=== PATIENT | female | born 1940 | race African-American/Black ===

== ENCOUNTER 2016-12-22 18:52 | Emergency (ER) | payer MEDICARE, MEDICAID ==
[2016-12-22] MEDS ORDERED: ASPIRIN 81 MG TABLET, CHEWABLE PO ONE (18:54)
[2016-12-22] MEDS ORDERED: MAG HYDROX/AL HYDROX/SIMETH SUSP 30 ML UDCUP PO ONE (19:02)
[2016-12-22] MEDS ORDERED: METOCLOPRAMIDE HCL ORAL SOLN 10 MG/10 ML UDCUP PO ONE (19:02)
[2016-12-22] MEDS ORDERED: LIDOCAINE 2% VISCOUS SOLN 20 ML UDCUP PO ONE (19:02)
--- NOTE | 2016-12-22 19:04 | ER Document Report ---
ED General - General Stated Complaint: ABDOMINAL PAIN Mode of Arrival: Medic Information source: Patient Notes: 76-year-old female history of CABG gastric reflux presents with complaints of epigastric abdominal pain. Patient denies any chest pain notes it is tender to palpation. Patient notes she has had decreased appetite. Symptoms started one hour prior to arrival. Patient also notes for the past week she's been having some fluid in her lower extremities TRAVEL OUTSIDE OF THE [place] IN LAST 30 DAYS: No - HPI Onset: Other Onset/Duration: Persistent Quality of pain: Burning Severity: Mild Pain Level: 1 Associated symptoms: Leg swelling, Other Exacerbated by: Denies Relieved by: Denies Similar symptoms previously: Yes Recently seen / treated by doctor: Yes - Related Data Allergies/Adverse Reactions: No Known Allergies Allergy (Unverified 06/03/13 10:53) Past Medical History - Social History Smoking Status: Never Smoker Cigarette use (# per day): No Chew tobacco use (# tins/day): No Smoking Education Provided: No Family History: Reviewed & Not Pertinent - Past Medical History Cardiac Medical History: Reports: Hx Heart Attack, Hx Hypertension GI Medical History: Reports: Hx Gastroesophageal Reflux Disease Psychiatric Medical History: Reports: Hx Depression Past Surgical History: Reports: Hx Open Heart Surgery - Immunizations Hx Diphtheria, Pertussis, Tetanus Vaccination: Yes Review of Systems - Review of Systems Notes: REVIEW OF SYSTEMS: CONSTITUTIONAL : Denies fever, chills, or sweats. Denies recent illness. EENT: Denies eye, ear, throat, or mouth pain or symptoms. Denies nasal or sinus congestion or discharge. Denies throat, tongue, or mouth swelling or difficulty swallowing. CARDIOVASCULAR: Denies chest pain. Denies palpitations or racing or irregular heart beat. Denies ankle edema. RESPIRATORY: Denies cough, cold, or chest congestion. Denies shortness of breath, difficulty breathing, or wheezing. GASTROINTESTINAL: Admits to abdominal pain GENITOURINARY: Denies difficulty urinating, painful urination, burning, frequency, blood in urine, or discharge. FEMALE GENITOURINARY: Denies vaginal bleeding, heavy or abnormal periods, irregular periods. Denies vaginal discharge or odor. MUSCULOSKELETAL: Admits to lower extremity edema SKIN: Denies rash, lesions or sores. HEMATOLOGIC : Denies easy bruising or bleeding. LYMPHATIC: Denies swollen, enlarged glands. NEUROLOGICAL: Denies confusion or altered mental status. Denies passing out or loss of consciousness. Denies dizziness or lightheadedness. Denies headache. Denies weakness or paralysis or loss of use of either side. Denies problems with gait or speech. Denies sensory loss, numbness, or tingling. Denies seizures. PSYCHIATRIC: Denies anxiety or stress. Denies depression, suicidal ideation, or homicidal ideation. ALL OTHER SYSTEMS REVIEWED AND NEGATIVE. Dictation was performed using [employer] voice recognition software PHYSICAL EXAMINATION: GENERAL: Well-appearing, well-nourished and in no acute distress. HEAD: Atraumatic, normocephalic. EYES: Pupils equal round and reactive to light, extraocular movements intact, conjunctiva are normal. ENT: Nares patent, oropharynx clear without exudates. Moist mucous membranes. NECK: Normal range of motion, supple without lymphadenopathy LUNGS: Breath sounds clear to auscultation bilaterally and equal. No wheezes rales or rhonchi. HEART: Regular rate and rhythm without murmurs midline surgical incision ABDOMEN: Soft, tender in epigastric region with mild guarding Female : deferred Musculoskeletal: Normal range of motion, no pitting or edema. No cyanosis. NEUROLOGICAL: Cranial nerves grossly intact. Normal speech, normal gait. Normal sensory, motor exams PSYCH: Normal mood, normal affect. SKIN: Warm, Dry, normal turgor, no rashes or lesions noted. Physical Exam - Vital signs Vitals: Resp BP Pulse Ox 19 165/100 H 98 12/22/16 20:04 12/22/16 20:04 12/22/16 20:04 Course - Re-evaluation Re-evalutation: 12/22/16 19:03 Patient's pain is reproducible is located in the epigastric region. She'll be given a GI cocktail, CT of the abdomen pelvis has been ordered to rule out any intra-abdominal concerns. Given history of CABG EKG, cardiac enzymes have been ordered as well but this does not appear to be cardiac in nature 12/22/16 20:33 Patient notes GI cocktail has resolved her symptoms, she wishes to be discharged. I pleaded with her and family to stay for cardiac enzymes 12/22/16 23:14 Patient is insistent on leaving, she has approached me multiple times demanding discharge. CT noted no acute abnormality identified will discharge her at her request After performing a Medical Screening Examination, I estimate there is LOW risk for ACUTE APPENDICITIS, BOWEL OBSTRUCTION, ACUTE CHOLECYSTITIS, PERFORATED DIVERTICULITIS, INCARCERATED HERNIA, PANCREATITIS, PELVIC INFLAMMATORY DISEASE, PERFORATED ULCER, ECTOPIC , or TUBO-OVARIAN ABSCESS, thus I consider the discharge disposition reasonable. Also, there is no evidence or peritonitis , sepsis, or toxicity. I have reevaluated this patient multiple times and no significant life threatening changes are noted. The patient and I have discussed the diagnosis and risks, and we agree with discharging home with close follow-up with the understanding that symptoms and presentations can change. We also discussed returning to the Emergency Department immediately if new or worsening symptoms occur. We have discussed the symptoms which are most concerning (e.g., bloody stool, fever, changing or worsening pain, vomiting) that necessitate immediate return. - Vital Signs Vital signs: Temp Pulse Resp BP Pulse Ox 20 164/97 H 99 12/22/16 20:31 12/22/16 20:31 12/22/16 20:31 - Laboratory Result Diagrams: 12/22/16 20:00 12/22/16 20:00 Laboratory results interpreted by me: 12/22/16 12/22/16 20:00 20:00 MCV 100 H MCH 34.0 H Carbon Dioxide 21 L Creatinine 1.50 H Est GFR ( Amer) 41 L Est GFR (Non-Af Amer) 34 L Direct Bilirubin 0.5 H Total Protein 8.7 H - Diagnostic Test Radiology reviewed: Image reviewed, Reports reviewed Discharge - Discharge Clinical Impression: Epigastric abdominal pain Condition: Stable Disposition: HOME, SELF-CARE Instructions: Abdominal Pain ([facility]) Prescriptions: Famotidine [Pepcid 20 mg Tablet] 20 mg PO DAILY #30 tablet Referrals: ROSSY PITTMAN MD [Primary Care Provider] - Follow up tomorrow
[2016-12-22 20:18] LABS: ABSOLUTE LYMPHOCYTES (AUTO) 1.5 10^3/uL (0.5-4.7); ABSOLUTE MONOCYTES (AUTO) 0.5 10^3/uL (0.1-1.4); ABSOLUTE NEUT (AUTO) 6.2 10^3/uL (1.7-8.2); BASOPHILS % (AUTO) 0.6 % (0-2); EOSINOPHILS % (AUTO) 0.3 % (0-6); HEMATOCRIT 39.8 % (36.0-47.0); HEMOGLOBIN 13.5 g/dL (12.0-15.5); HGB HCT DIFFERENCE 0.7; LYMPHOCYTES % (AUTO) 18.7 % (13-45); MEAN CORPUSCULAR VOLUME 100 fl (80-97); MONOCYTES % (AUTO) 5.8 % (3-13); RED BLOOD COUNT 3.97 10^6/uL (3.72-5.28); RED CELL DISTRIBUTION WIDTH 13.4 % (11.5-14.0); SEGMENTED NEUTROPHILS % (AUTO) 74.6 % (42-78); WHITE BLOOD COUNT 8.2 10^3/uL (4.0-10.5)
[2016-12-22 20:37] LABS: ALANINE AMINOTRANSFERASE 27 U/L (9-52); ALBUMIN 4.7 g/dL (3.5-5.0); ALKALINE PHOSPHATASE 58 U/L (38-126); ANION GAP 18 (5-19); ASPARTATE AMINO TRANSFERASE 25 U/L (14-36); BILIRUBIN,DIRECT 0.5 mg/dL (0.0-0.4); BILIRUBIN,TOTAL 0.8 mg/dL (0.2-1.3); BLOOD UREA NITROGEN 15 mg/dL (7-20); CALCIUM 10.1 mg/dL (8.4-10.2); CARBON DIOXIDE 21 mmol/L (22-30); CHLORIDE 102 mmol/L (98-107); CREATINE KINASE 95 U/L (30-135); GLUCOSE 93 mg/dL (75-110); POTASSIUM 4.5 mmol/L (3.6-5.0); SODIUM 140.6 mmol/L (137-145); TOTAL PROTEIN 8.7 g/dL (6.3-8.2)
[2016-12-22 20:49] LABS: CREATINE KINASE MB 1.12 ng/mL (<4.55); TROPONIN I 0.016 ng/mL
[2016-12-22 23:40] VITALS: BP 150/90
--- NOTE | 2016-12-23 08:14 | EKG REPORT ---
SEVERITY:- ABNORMAL ECG - SINUS RHYTHM PROBABLE LEFT ATRIAL ABNORMALITY LEFT AXIS DEVIATION LOW VOLTAGE IN FRONTAL LEADS CONSIDER ANTERIOR INFARCT : Confirmed by: Brant Jacobo MD 23-Dec-2016 08:13:47
== END 2016-12-22 23:40 | disposition home or self-care (01) ==
LOC: ER 18:52
DX: R10.13 Epigastric pain (principal); R63.0 Anorexia; R60.0 Localized edema; I25.2 Old myocardial infarction; I10 Essential (primary) hypertension; Z87.19 Personal history of other diseases of the digestive system; Z95.1 Presence of aortocoronary bypass graft
CPT/HCPCS: 93005; 99285; 36415; 82553; 82550; 85025; 80053; 84484; 71010; 74177; 93010; J3490; A9270

== ENCOUNTER 2017-08-08 15:38 | Emergency (ER) | payer MEDICARE, MEDICAID ==
[2017-08-08] MEDS ORDERED: HYDROCODONE/ACETAMINOPHEN 5-325 MG TABLET PO ONE (16:24)
[2017-08-08] MEDS ORDERED: ONDANSETRON 4 MG TAB.RAPDIS PO ONE (16:24)
--- NOTE | 2017-08-08 16:24 | ER Document Report ---
ED Medical Screen (RME) - General Chief Complaint: Back Pain Stated Complaint: BACK PAIN Time Seen by Provider: 08/08/17 16:16 Notes: This 67-year-old female patient comes emergency room complaining of back pain which is chronic in nature but has worsened recently due to falling once in the past week and wants the week before. On 1 of those occasions she reportedly slipped on the floor all night because she could not get up. Her memory is not so good so we are not sure when that occurred. She does report she has had 3 MRIs of her back in the past. She does not know if this might be her kidney causing pain or her back muscles or bones. It does hurt when she coughs. I have greeted and performed a rapid initial assessment of this patient. A comprehensive ED assessment and evaluation of the patient, analysis of test results and completion of the medical decision making process will be conducted by additional ED providers. TRAVEL OUTSIDE OF THE [place] IN LAST 30 DAYS: No - Related Data Allergies/Adverse Reactions: No Known Allergies Allergy (Verified 08/08/17 15:38) Past Medical History - Past Medical History Cardiac Medical History: Reports: Hx Heart Attack, Hx Hypertension GI Medical History: Reports: Hx Gastroesophageal Reflux Disease Psychiatric Medical History: Reports: Hx Depression Past Surgical History: Reports: Hx Open Heart Surgery - Immunizations Hx Diphtheria, Pertussis, Tetanus Vaccination: Yes Physical Exam - Vital signs Vitals: Temp Pulse Resp BP Pulse Ox 98.0 F 100 24 H 128/91 H 95 08/08/17 16:00 08/08/17 16:00 08/08/17 16:00 08/08/17 16:00 08/08/17 16:00 Course - Vital Signs Vital signs: Temp Pulse Resp BP Pulse Ox 98.0 F 100 24 H 128/91 H 95 08/08/17 16:00 08/08/17 16:00 08/08/17 16:00 08/08/17 16:00 08/08/17 16:00
[2017-08-08 16:54] LABS: ABSOLUTE BASOPHILS # (AUTO) 0.1 10^3/uL (0.0-0.2); ABSOLUTE EOSINOPHILS # (AUTO) 0.1 10^3/uL (0.0-0.6); ABSOLUTE LYMPHOCYTES (AUTO) 1.6 10^3/uL (0.5-4.7); ABSOLUTE MONOCYTES (AUTO) 0.6 10^3/uL (0.1-1.4); ABSOLUTE NEUT (AUTO) 5.8 10^3/uL (1.7-8.2); BASOPHILS % (AUTO) 0.8 % (0-2); HEMATOCRIT 35.2 % (36.0-47.0); HEMOGLOBIN 12.2 g/dL (12.0-15.5); HGB HCT DIFFERENCE 1.4; LYMPHOCYTES % (AUTO) 19.6 % (13-45); MEAN CORPUSCULAR HEMOGLOBIN 34.3 pg (27.0-33.4); MEAN CORPUSCULAR HGB CONC 34.6 g/dL (32.0-36.0); MEAN CORPUSCULAR VOLUME 99 fl (80-97); MONOCYTES % (AUTO) 7.2 % (3-13); RED BLOOD COUNT 3.56 10^6/uL (3.72-5.28); RED CELL DISTRIBUTION WIDTH 13.6 % (11.5-14.0); SEGMENTED NEUTROPHILS % (AUTO) 71.4 % (42-78); WHITE BLOOD COUNT 8.2 10^3/uL (4.0-10.5)
--- NOTE | 2017-08-08 16:56 | ER Document Report ---
ED General - General Chief Complaint: Back Pain Stated Complaint: BACK PAIN Time Seen by Provider: 08/08/17 16:16 Mode of Arrival: Ambulatory Information source: Patient Notes: 77-year-old female presents with complaints of low back pain. Patient and family member note that she has had back pain for as long as they can remember, it is in bilateral hips. She denies any abdominal pain she denies any midline back pain. Patient denies any trauma denies any heavy lifting, she denies any neurological complaints, patient denies a history of aortic aneurysm Patient denies any urinary symptoms TRAVEL OUTSIDE OF THE [place] IN LAST 30 DAYS: No - HPI Onset: Other Onset/Duration: Intermittent Quality of pain: Achy Severity: Mild Pain Level: 1 Associated symptoms: Body/muscle aches Exacerbated by: Movement Relieved by: Denies Similar symptoms previously: Yes Recently seen / treated by doctor: Yes - Related Data Allergies/Adverse Reactions: No Known Allergies Allergy (Verified 08/08/17 15:38) Past Medical History - Social History Smoking Status: Current Every Day Smoker Cigarette use (# per day): Yes Chew tobacco use (# tins/day): No Smoking Education Provided: No Frequency of alcohol use: None Drug Abuse: None Family History: Reviewed & Not Pertinent Patient has suicidal ideation: No Patient has homicidal ideation: No - Past Medical History Cardiac Medical History: Reports: Hx Heart Attack, Hx Hypertension Renal/ Medical History: Denies: Hx Peritoneal Dialysis GI Medical History: Reports: Hx Gastroesophageal Reflux Disease Psychiatric Medical History: Reports: Hx Depression Past Surgical History: Reports: Hx Open Heart Surgery - Immunizations Hx Diphtheria, Pertussis, Tetanus Vaccination: Yes Review of Systems - Review of Systems Notes: REVIEW OF SYSTEMS: CONSTITUTIONAL : Denies fever, chills, or sweats. Denies recent illness. EENT: Denies eye, ear, throat, or mouth pain or symptoms. Denies nasal or sinus congestion or discharge. Denies throat, tongue, or mouth swelling or difficulty swallowing. CARDIOVASCULAR: Denies chest pain. Denies palpitations or racing or irregular heart beat. Denies ankle edema. RESPIRATORY: Denies cough, cold, or chest congestion. Denies shortness of breath, difficulty breathing, or wheezing. GASTROINTESTINAL: Denies abdominal pain or distention. Denies nausea, vomiting , or diarrhea. Denies blood in vomitus, stools, or per rectum. Denies black, tarry stools. Denies constipation. GENITOURINARY: Denies difficulty urinating, painful urination, burning, frequency, blood in urine, or discharge. FEMALE GENITOURINARY: Denies vaginal bleeding, heavy or abnormal periods, irregular periods. Denies vaginal discharge or odor. MUSCULOSKELETAL: admits ot bilateral hip pain SKIN: Denies rash, lesions or sores. HEMATOLOGIC : Denies easy bruising or bleeding. LYMPHATIC: Denies swollen, enlarged glands. NEUROLOGICAL: Denies confusion or altered mental status. Denies passing out or loss of consciousness. Denies dizziness or lightheadedness. Denies headache. Denies weakness or paralysis or loss of use of either side. Denies problems with gait or speech. Denies sensory loss, numbness, or tingling. Denies seizures. PSYCHIATRIC: Denies anxiety or stress. Denies depression, suicidal ideation, or homicidal ideation. ALL OTHER SYSTEMS REVIEWED AND NEGATIVE. PHYSICAL EXAMINATION: GENERAL: Well-appearing, well-nourished and in no acute distress. HEAD: Atraumatic, normocephalic. EYES: Pupils equal round and reactive to light, extraocular movements intact, conjunctiva are normal. ENT: Nares patent, oropharynx clear without exudates. Moist mucous membranes. NECK: Normal range of motion, supple without lymphadenopathy LUNGS: Breath sounds clear to auscultation bilaterally and equal. No wheezes rales or rhonchi. HEART: Regular rate and rhythm without murmurs ABDOMEN: Soft, nontender, nondistended abdomen. No guarding, no rebound. No masses appreciated. Female : deferred Musculoskeletal: Normal range of motion, no pitting or edema. No cyanosis. pt swiftly moves in and out of bed with no difficulty NEUROLOGICAL: Cranial nerves grossly intact. Normal speech, normal gait. Normal sensory, motor exams PSYCH: Normal mood, normal affect. SKIN: Warm, Dry, normal turgor, no rashes or lesions noted. Dictation was performed using [employer] voice recognition software Physical Exam - Vital signs Vitals: Temp Pulse Resp BP Pulse Ox 98.0 F 100 24 H 128/91 H 95 08/08/17 16:00 08/08/17 16:00 08/08/17 16:00 08/08/17 16:00 08/08/17 16:00 Course - Re-evaluation Re-evalutation: 08/08/17 18:17 pt has no back pain now, points ot bilateral hips, denies any abd pain, denies any urinary complaints, denies any midlight back pain. imaging pending. awaiting patients UA. 08/08/17 18:42 Patient is insisting that she be discharged prior to my further evaluation, I want to perform a CT but she states she must go home now, there is elevated creatinine and protein in her urine noted, I printed out these labs given to family member into the patient and insisted that the see the primary care physician tomorrow for further evaluation of this I will treat her with pain medication but they must be seen for this return immediately for any other concerns 08/08/17 23:10 After performing a Medical Screening Examination, I estimate there is LOW risk for EXPANDING OR RUPTURED ABDOMINAL AORTIC ANEURYSM, CAUDA EQUINA SYNDROME, EPIDURAL MASS LESION, or HERNIATED DISK CAUSING SEVERE SPINAL STENOSIS, thus I consider the discharge disposition reasonable. I have reevaluated this patient multiple times and no significant life threatening changes are noted. The patient and I have discussed the diagnosis and risks, and we agree with discharging home and close follow-up. We also discussed returning to the Emergency Department immediately if new or worsening symptoms occur with the understanding that symptoms and presentations can change. We have discussed the symptoms which are most concerning (e.g., saddle anesthesia, urinary or bowel incontinence or retention, changing or worsening pain) that necessitate immediate return. - Vital Signs Vital signs: Temp Pulse Resp BP Pulse Ox 98.0 F 98 18 148/98 H 98 08/08/17 18:50 08/08/17 18:50 08/08/17 18:50 08/08/17 18:50 08/08/17 18:50 - Laboratory Result Diagrams: 08/08/17 16:40 08/08/17 16:40 Laboratory results interpreted by me: 08/08/17 08/08/17 08/08/17 16:40 16:40 18:20 RBC 3.56 L Hct 35.2 L MCV 99 H MCH 34.3 H Creatinine 2.06 H Est GFR ( Amer) 28 L Est GFR (Non-Af Amer) 23 L Urine Protein >=500 H Urine Ascorbic Acid 40 H - Diagnostic Test Radiology reviewed: Image reviewed, Reports reviewed - No acute abnormality Discharge - Discharge Clinical Impression: Back pain Qualifiers: Back pain location: low back pain Chronicity: chronic Back pain laterality: bilateral Sciatica presence: without sciatica Qualified Code(s): M54.5 - Low back pain; G89.29 - Other chronic pain; G89.29 - Other chronic pain Chronic kidney disease Qualifiers: Chronic kidney disease stage: stage 2 (mild) Qualified Code(s): N18.2 - Chronic kidney disease, stage 2 (mild) Condition: Stable Disposition: HOME, SELF-CARE Instructions: Low Back Pain ([facility]) Additional Instructions: You must follow-up with your physician regarding her kidney function and protein in the urine. Return immediately if there are any other concerns Prescriptions: Hydrocodone/Acetaminophen [Finley 5-325 mg Tablet] 1 tab PO Q6 #10 tablet
[2017-08-08 17:13] LABS: ALANINE AMINOTRANSFERASE 33 U/L (9-52); ALBUMIN 4.1 g/dL (3.5-5.0); ALKALINE PHOSPHATASE 59 U/L (38-126); ANION GAP 15 (5-19); ASPARTATE AMINO TRANSFERASE 24 U/L (14-36); BILIRUBIN,DIRECT 0.3 mg/dL (0.0-0.4); BILIRUBIN,TOTAL 0.5 mg/dL (0.2-1.3); BLOOD UREA NITROGEN 16 mg/dL (7-20); CALCIUM 9.8 mg/dL (8.4-10.2); CARBON DIOXIDE 23 mmol/L (22-30); CHLORIDE 102 mmol/L (98-107); CREATINE KINASE 69 U/L (30-135); CREATININE RESULT 2.06 mg/dL (0.52-1.25); GLUCOSE 84 mg/dL (75-110); POTASSIUM 4.5 mmol/L (3.6-5.0); SODIUM 140.1 mmol/L (137-145); TOTAL PROTEIN 7.6 g/dL (6.3-8.2)
--- NOTE | 2017-08-08 18:17 | RADIOLOGY REPORT (SQ) ---
EXAM DESCRIPTION: L SPINE WHOLE; T SPINE AP/LAT COMPLETED DATE/TIME: 08/08/2017 5:05 pm REASON FOR STUDY: fall x 2, worse back pain COMPARISON: See below. FINDINGS: Two view thoracic spine: No priors. Osteopenia. Normal alignment. No fracture. Postop erative mediastinal changes. Clear visualized lungs. Five view lumbosacral spine: 2013 comparison. Osteopenia and mild spondylosis but no significant mal alignment or fracture. IMPRESSION: 1. No radiographic evidence of thoracic or lumbar spine fracture. Osteopenia. TECHNICAL DOCUMENTATION: JOB ID: [id number]
[2017-08-08 18:36] LABS: APPEARANCE,URINE SLIGHTLY-CLOUDY; BILIRUBIN,URINE NEGATIVE (NEGATIVE); GLUCOSE, URINE NEGATIVE (NEGATIVE); KETONES,URINE NEGATIVE (NEGATIVE); LEUKOCYTE ESTERASE,URINE NEGATIVE (NEGATIVE); NITRITE,URINE NEGATIVE (NEGATIVE); PROTEIN,URINE >=500 mg/dL (NEGATIVE); URINE SPECIFIC GRAVITY 1.025; UROBILINOGEN,URINE NEGATIVE mg/dL (<2.0)
[2017-08-08 19:00] VITALS: BP 148/98
== END 2017-08-08 19:00 | disposition home or self-care (01) ==
LOC: ER 15:38
DX: N18.2 Chronic kidney disease, stage 2 (mild) (principal); M54.5 Low back pain; G89.29 Other chronic pain; M25.551 Pain in right hip; M25.552 Pain in left hip; F17.210 Nicotine dependence, cigarettes, uncomplicated
CPT/HCPCS: 99283; 36415; 82550; 85025; 80053; 81001; 72110; 72070; A9270 ×2; S0119

== ENCOUNTER 2018-04-26 09:51 | Emergency (ER) | payer MEDICARE, MEDICAID ==
--- NOTE | 2018-04-26 10:37 | ER Document Report ---
HPI - HPI Patient complains to provider of: No full BM for a week Onset: Last week Onset/Duration: Persistent Pain Level: 3 Context: 78-year-old female that lives alone is complaining of having small round stool balls which he takes her diaper off that she wears since last week. She also states that something hung out of her anus and she had to push it back in. She is oriented but very ornery in her demeanor. She knows her medications and what she takes she knows her physicians she sees Dr. Tolliver for her renal insufficiency, Dr. 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 Associated Symptoms: Nausea - no vomiting Exacerbated by: Denies Relieved by: Denies Similar symptoms previously: Yes Recently seen / treated by doctor: No - ROS ROS below otherwise negative: Yes Systems Reviewed and Negative: Yes All other systems reviewed and negative - GASTROINTESTINAL Gastrointestinal: REPORTS: Abdominal Pain - REPRODUCTIVE Reproductive: DENIES: : Past Medical History - General Information source: Patient - Social History Smoking Status: Current Every Day Smoker Family History: Reviewed & Not Pertinent Patient has suicidal ideation: No Patient has homicidal ideation: No - Past Medical History Cardiac Medical History: Reports: Hx Heart Attack, Hx Hypertension Renal/ Medical History: Denies: Hx Peritoneal Dialysis GI Medical History: Reports: Hx Gastroesophageal Reflux Disease Psychiatric Medical History: Reports: Hx Depression Past Surgical History: Reports: Hx Open Heart Surgery - Immunizations Hx Diphtheria, Pertussis, Tetanus Vaccination: Yes Vertical Provider Document - CONSTITUTIONAL Agree With Documented VS: Yes Exam Limitations: No Limitations General Appearance: No Apparent Distress - INFECTION CONTROL TRAVEL OUTSIDE OF THE [place] IN LAST 30 DAYS: No - HEENT HEENT: Normal ENT Exam - NECK Neck: Supple - RESPIRATORY Respiratory: Breath Sounds Normal, No Respiratory Distress - CARDIOVASCULAR Cardiovascular: Regular Rate, Regular Rhythm - GI/ABDOMEN Gastrointestinal: Abdomen Soft, Abdomen Non-Tender, No Organomegaly, Normal Bowel Sounds Notes: rectal exam without prolapse, small non tender hemorrhoids, no stool in vault. - MUSCULOSKELETAL/EXTREMETIES Musculoskeletal/Extremeties: MAEW - NEURO Level of Consciousness: Awake - DERM Integumentary: No Rash Course - Re-evaluation Re-evalutation: 04/26/18 11:48 I tried to call Ryanne Kruse it is listed on her demographics at [phone] and there was no answer I left a message. I was trying to get some background information because of her irritability. 04/26/18 11:49 04/26/18 13:26 Labs have no significant change BUN and creatinine are actually better than the last time she was here. She is waiting for discharge paperwork, her boyfriend is here and he states that she does get ornery. That behavior is normal for her. I will have her follow-up with Dr. Vargas and start taking MiraLAX. - Vital Signs Vital signs: Temp Pulse Resp BP Pulse Ox 98.4 F 81 16 148/92 H 97 04/26/18 09:59 04/26/18 09:59 04/26/18 09:59 04/26/18 09:59 04/26/18 09:59 - Laboratory Result Diagrams: 04/26/18 12:03 04/26/18 12:03 Discharge - Discharge Clinical Impression: small anal hemorrhoids, History of constipation Condition: Good Disposition: HOME, SELF-CARE Instructions: Constipation ([facility]), Laxative ([facility]) Additional Instructions: 1 capful of miralax daily with 8 ounce of water will keep the stool softer schedule appointment with dr. vargas for follow up return to the ER if symptoms worsen
--- NOTE | 2018-04-26 12:03 | RADIOLOGY REPORT (SQ) ---
EXAM DESCRIPTION: ACUTE ABDOMEN SERIES COMPLETED DATE/TIME: 04/26/2018 11:29 am REASON FOR STUDY: no bm for a week COMPARISON: Chest x-ray dated 12/22/2016. NUMBER OF VIEWS: Three views. TECHNIQUE: Frontal chest, supine abdomen and upright/decubitus abdomen radiographic images acquired. LIMITATIONS: None. FINDINGS: CHEST: Hyperinflation. Mild cardiomegaly. Ectatic aorta. Lungs clear of infiltrates. FREE AIR: None. No abnormal gas collections. BOWEL GAS PATTERN: Nonobstructive pattern. Scattered stool throughout the colon. No dilated loops o r air fluid levels. CALCIFICATIONS: No suspicious calcifications. HARDWARE: None in the abdomen. Sternotomy wires in the chest. SOFT TISSUES: No gross mass or suggestion of organomegaly. BONES: No acute fracture. No worrisome bone lesions. OTHER: No other significant finding. IMPRESSION: NO RADIOGRAPHIC EVIDENCE FOR ACUTE ABDOMINAL DISEASE. SCATTERED STOOL THROUGHOUT THE CO TORRI. TECHNICAL DOCUMENTATION: JOB ID: [id number] [employer]- All Rights Reserved Reading location - IP/workstation name: [email or web address]
[2018-04-26 12:39] LABS: ABSOLUTE BASOPHILS # (AUTO) 0.1 10^3/uL (0.0-0.2); ABSOLUTE LYMPHOCYTES (AUTO) 1.6 10^3/uL (0.5-4.7); ABSOLUTE MONOCYTES (AUTO) 0.7 10^3/uL (0.1-1.4); ABSOLUTE NEUT (AUTO) 7.1 10^3/uL (1.7-8.2); BASOPHILS % (AUTO) 0.7 % (0-2); EOSINOPHILS % (AUTO) 0.5 % (0-6); HEMATOCRIT 36.7 % (36.0-47.0); HEMOGLOBIN 12.4 g/dL (12.0-15.5); LYMPHOCYTES % (AUTO) 16.9 % (13-45); MEAN CORPUSCULAR HEMOGLOBIN 34.2 pg (27.0-33.4); MEAN CORPUSCULAR HGB CONC 33.7 g/dL (32.0-36.0); MEAN CORPUSCULAR VOLUME 101 fl (80-97); MONOCYTES % (AUTO) 7.2 % (3-13); PLATELET COUNT 237 10^3/uL (150-450); RED BLOOD COUNT 3.62 10^6/uL (3.72-5.28); RED CELL DISTRIBUTION WIDTH 16.4 % (11.5-14.0); SEGMENTED NEUTROPHILS % (AUTO) 74.7 % (42-78); TOTAL CELLS COUNTED % (AUTO) 100 %; WHITE BLOOD COUNT 9.4 10^3/uL (4.0-10.5)
[2018-04-26 13:08] LABS: ALANINE AMINOTRANSFERASE 13 U/L (9-52); ALBUMIN 4.6 g/dL (3.5-5.0); ALKALINE PHOSPHATASE 61 U/L (38-126); ANION GAP 13 (5-19); ASPARTATE AMINO TRANSFERASE 26 U/L (14-36); BILIRUBIN,DIRECT 0.5 mg/dL (0.0-0.4); BILIRUBIN,TOTAL 0.5 mg/dL (0.2-1.3); BLOOD UREA NITROGEN 20 mg/dL (7-20); CARBON DIOXIDE 21 mmol/L (22-30); CHLORIDE 109 mmol/L (98-107); GLUCOSE 90 mg/dL (75-110); POTASSIUM 4.5 mmol/L (3.6-5.0); SODIUM 143.4 mmol/L (137-145); TOTAL PROTEIN 8.7 g/dL (6.3-8.2)
[2018-04-26 13:42] VITALS: BP 189/103
== END 2018-04-26 13:42 | disposition home or self-care (01) ==
LOC: ER 09:51
DX: K59.00 Constipation, unspecified (principal); K64.4 Residual hemorrhoidal skin tags
CPT/HCPCS: 36415; 74022; 80053; 85025; 99284

== ENCOUNTER 2018-05-04 15:06 | Emergency (ER) | payer MEDICARE, MEDICAID ==
[2018-05-04 15:14] VITALS: BP 159/89
--- NOTE | 2018-05-04 15:40 | ER Document Report ---
ED Medical Screen (RME) - General Chief Complaint: Rectal Bleeding Stated Complaint: RECTAL BLEEDING Time Seen by Provider: 05/04/18 15:38 Mode of Arrival: Ambulatory Information source: Patient Notes: 78 yo female with her neice c/o rectal bleeding a few days ago, like a big knot that busted open red blood. Wants to be xray'd, examine rectum about where the blood is coming from. TRAVEL OUTSIDE OF THE [place] IN LAST 30 DAYS: No COUNTRY TRAVELED TO/FROM: [place] - Related Data Allergies/Adverse Reactions: No Known Allergies Allergy (Verified 05/04/18 15:08) Past Medical History - Past Medical History Cardiac Medical History: Reports: Hx Heart Attack, Hx Hypertension Renal/ Medical History: Denies: Hx Peritoneal Dialysis GI Medical History: Reports: Hx Gastroesophageal Reflux Disease Psychiatric Medical History: Reports: Hx Depression Past Surgical History: Reports: Hx Open Heart Surgery - Immunizations Hx Diphtheria, Pertussis, Tetanus Vaccination: Yes Physical Exam - Vital signs Vitals: Temp Pulse Resp BP Pulse Ox 97.5 F 95 18 159/89 H 99 05/04/18 15:11 05/04/18 15:11 05/04/18 15:11 05/04/18 15:11 05/04/18 15:11 Course - Vital Signs Vital signs: Temp Pulse Resp BP Pulse Ox 97.5 F 95 18 159/89 H 99 05/04/18 15:11 05/04/18 15:11 05/04/18 15:11 05/04/18 15:11 05/04/18 15:11
[2018-05-04 16:27] LABS: ABSOLUTE BASOPHILS # (AUTO) 0.1 10^3/uL (0.0-0.2); ABSOLUTE MONOCYTES (AUTO) 0.7 10^3/uL (0.1-1.4); ABSOLUTE NEUT (AUTO) 6.2 10^3/uL (1.7-8.2); BASOPHILS % (AUTO) 0.6 % (0-2); EOSINOPHILS % (AUTO) 0.2 % (0-6); HEMATOCRIT 35.8 % (36.0-47.0); HEMOGLOBIN 11.8 g/dL (12.0-15.5); LYMPHOCYTES % (AUTO) 12.1 % (13-45); MEAN CORPUSCULAR HEMOGLOBIN 33.5 pg (27.0-33.4); MEAN CORPUSCULAR VOLUME 101 fl (80-97); MONOCYTES % (AUTO) 8.4 % (3-13); PLATELET COUNT 213 10^3/uL (150-450); RED BLOOD COUNT 3.54 10^6/uL (3.72-5.28); RED CELL DISTRIBUTION WIDTH 15.5 % (11.5-14.0); SEGMENTED NEUTROPHILS % (AUTO) 78.7 % (42-78); TOTAL CELLS COUNTED % (AUTO) 100 %; WHITE BLOOD COUNT 7.9 10^3/uL (4.0-10.5)
[2018-05-04 16:43] LABS: ALANINE AMINOTRANSFERASE 24 U/L (9-52); ALBUMIN 4.3 g/dL (3.5-5.0); ALKALINE PHOSPHATASE 53 U/L (38-126); ANION GAP 11 (5-19); ASPARTATE AMINO TRANSFERASE 27 U/L (14-36); BILIRUBIN,DIRECT 0.6 mg/dL (0.0-0.4); BILIRUBIN,TOTAL 0.6 mg/dL (0.2-1.3); BLOOD UREA NITROGEN 23 mg/dL (7-20); CALCIUM 9.3 mg/dL (8.4-10.2); CARBON DIOXIDE 18 mmol/L (22-30); CHLORIDE 110 mmol/L (98-107); GLUCOSE 89 mg/dL (75-110); POTASSIUM 4.8 mmol/L (3.6-5.0); SODIUM 138.9 mmol/L (137-145); TOTAL PROTEIN 8.1 g/dL (6.3-8.2)
[2018-05-04 16:50] LABS: PARTIAL THROMBOPLASTIN TIME 30.1 SEC (23.5-35.8); PROTHROMBIN TIME 14.8 SEC (11.4-15.4)
--- NOTE | 2018-05-04 18:33 | ER Document Report ---
ED General - General Chief Complaint: Rectal Bleeding Stated Complaint: RECTAL BLEEDING Time Seen by Provider: 05/04/18 15:38 Mode of Arrival: Ambulatory Notes: Patient is a 78-year-old female who presents with complaints of rectal bleeding. The patient is quite agitated on initial assessment, initially quite difficult to calm her down enough to allow appropriate assessment. She states the past 3-4 days she has had a small amount of blood mixed within her stool. Family member at the bedside notes that the patient was recently seen in the emergency department for severe constipation and was started on MiraLAX but did not continue to take this. She has a history of hemorrhoidal bleeding in the past. She has not seen her primary care doctor regarding today's concerns. She denies any lightheadedness, syncope, weakness, numbness or abdominal pain. She does not take any form of anticoagulation but does take daily aspirin. No rectal trauma. She denies anything is new or different regarding her symptoms today that prompted a visit to the emergency department. TRAVEL OUTSIDE OF THE [place] IN LAST 30 DAYS: No COUNTRY TRAVELED TO/FROM: [place] - Related Data Allergies/Adverse Reactions: No Known Allergies Allergy (Verified 05/04/18 15:08) Past Medical History - General Information source: Patient - Social History Smoking Status: Never Smoker Frequency of alcohol use: None Drug Abuse: None Lives with: Family Family History: Reviewed & Not Pertinent Patient has suicidal ideation: No Patient has homicidal ideation: No - Past Medical History Cardiac Medical History: Reports: Hx Heart Attack, Hx Hypertension Renal/ Medical History: Denies: Hx Peritoneal Dialysis GI Medical History: Reports: Hx Gastroesophageal Reflux Disease Psychiatric Medical History: Reports: Hx Depression Past Surgical History: Reports: Hx Open Heart Surgery - Immunizations Hx Diphtheria, Pertussis, Tetanus Vaccination: Yes Review of Systems - Review of Systems Notes: Constitutional: Negative for fever. HENT: Negative for sore throat. Eyes: Negative for visual changes. Cardiovascular: Negative for chest pain. Respiratory: Negative for shortness of breath. Gastrointestinal: Positive for rectal bleeding Genitourinary: Negative for dysuria. Musculoskeletal: Negative for back pain. Skin: Negative for rash. Neurological: Negative for headaches, weakness or numbness. 10 point ROS negative except as marked above and in HPI. Physical Exam - Vital signs Vitals: Temp Pulse Resp BP Pulse Ox 97.5 F 95 18 159/89 H 99 05/04/18 15:11 05/04/18 15:11 05/04/18 15:11 05/04/18 15:11 05/04/18 15:11 Interpretation: Hypertensive Notes: PHYSICAL EXAMINATION: GENERAL: Well-appearing, well-nourished and in no acute distress. HEAD: Atraumatic, normocephalic. EYES: Pupils equal round and reactive to light, extraocular movements intact, sclera anicteric, conjunctiva are normal. ENT: nares patent, oropharynx clear without exudates. Moist mucous membranes. NECK: Normal range of motion, supple without lymphadenopathy LUNGS: Breath sounds clear to auscultation bilaterally and equal. No wheezes rales or rhonchi. HEART: Regular rate and rhythm without murmurs ABDOMEN: Soft, nontender, normoactive bowel sounds. No guarding, no rebound. No masses appreciated. Rectal: Small external hemorrhoids, no gross blood EXTREMITIES: Normal range of motion, no pitting or edema. No cyanosis. NEUROLOGICAL: No focal neurological deficits. Moves all extremities spontaneously and on command. PSYCH: Somewhat agitated SKIN: Warm, Dry, normal turgor, no rashes or lesions noted. Course - Re-evaluation Re-evalutation: 05/04/18 18:30 Presentation is most consistent with uncomplicated external hemorrhoids. No evidence of significant anemia on CBC. Hemoglobin changed by 0.4 from 8 days ago, a clinically insignificant change. Patient's abdominal exam is otherwise benign. Rectal examination without any active bleeding. I do not suspect a more significant lower GI bleed or upper GI bleed based on history, vitals, normal hemoglobin, and patient's overall well appearance. The patient will be discharged home on conservative treatment recommendations as well as recommendations for close outpatient follow-up. Return precautions have been reviewed. - Vital Signs Vital signs: Temp Pulse Resp BP Pulse Ox 97.5 F 95 19 159/89 H 99 05/04/18 15:11 05/04/18 15:11 05/04/18 18:00 05/04/18 15:11 05/04/18 15:11 - Laboratory Result Diagrams: 05/04/18 16:13 05/04/18 16:13 Laboratory results interpreted by me: 05/04/18 05/04/18 16:13 16:13 RBC 3.54 L Hgb 11.8 L Hct 35.8 L MCV 101 H MCH 33.5 H RDW 15.5 H Seg Neutrophils % 78.7 H Lymphocytes % 12.1 L Chloride 110 H Carbon Dioxide 18 L BUN 23 H Creatinine 1.68 H Est GFR ( Amer) 36 L Est GFR (Non-Af Amer) 30 L Direct Bilirubin 0.6 H Discharge - Discharge Clinical Impression: Internal bleeding hemorrhoids Constipation Qualifiers: Constipation type: unspecified constipation type Qualified Code(s): K59.00 - Constipation, unspecified Condition: Good Disposition: HOME, SELF-CARE Additional Instructions: You were seen today for hemorrhoids. The best treatment is to avoid straining while having bowel moments, avoiding heavy lifting, or any other activity that causes you to bear down forcefully. You need to make sure that your stools are soft and should start taking Docusate 200mg in the morning and at night until your stools are very soft and you can have a bowel movement without any straining. You can also soak in warm water, apply topical hemorrhoid cream that can be purchased at the store, and take tylenol or ibuprofen per box instructions as needed for pain. Please follow-up with your primary doctor. Return if you begin to have persistent bleeding, worsening pain, abdominal pain , fever >101, or any other symptoms that are concerning to you.
== END 2018-05-04 18:48 | disposition home or self-care (01) ==
LOC: ER 15:06
DX: K64.8 Other hemorrhoids (principal); K59.00 Constipation, unspecified
CPT/HCPCS: 36415; 80053; 85025; 85610; 85730; 99283

== ENCOUNTER 2018-08-05 09:25 | Emergency (ER) | payer MEDICARE, MEDICAID ==
[2018-08-05] MEDS ORDERED: NORMAL SALINE 1000 ML 1,000 ML IV ONE (10:10)
--- NOTE | 2018-08-05 10:15 | ER Document Report ---
ED GI/ - General Chief Complaint: Abdominal Pain Stated Complaint: CONSTIPATION Time Seen by Provider: 08/05/18 09:42 Notes: 78-year-old female with past medical history as recorded who presents with a sister secondary to 5 days of no bowel movement. History of constipation. She states pain to the rectum. She denies any abdominal pain, fevers, vomiting, or other reviews of systems. She denies any new medications or any narcotic medications. TRAVEL OUTSIDE OF THE [place] IN LAST 30 DAYS: No COUNTRY TRAVELED TO/FROM: [facility] Patient complains to provider of: Other - Constipation Onset: Other - 4 Severity at maximum: Moderate Severity in ED: Moderate Pain Level: 2 Location: Other - See above Sexual history: Inactive Associated symptoms: Other - See above Exacerbated by: Denies Relieved by: Denies Similar symptoms previously: Yes Recently seen / treated by doctor: No - Related Data Allergies/Adverse Reactions: No Known Allergies Allergy (Verified 05/04/18 15:08) Past Medical History - Social History Smoking Status: Unknown if Ever Smoked Family History: Reviewed & Not Pertinent - Past Medical History Cardiac Medical History: Reports: Hx Heart Attack, Hx Hypertension Renal/ Medical History: Denies: Hx Peritoneal Dialysis GI Medical History: Reports: Hx Gastroesophageal Reflux Disease Psychiatric Medical History: Reports: Hx Depression Past Surgical History: Reports: Hx Open Heart Surgery - Immunizations Hx Diphtheria, Pertussis, Tetanus Vaccination: Yes Review of Systems - Review of Systems Constitutional: denies: Fever EENT: denies: Eye discharge, Nose discharge Respiratory: denies: Short of breath Gastrointestinal: denies: Vomiting Genitourinary: denies: Dysuria Musculoskeletal: denies: Leg swelling Skin: Other - no hives. denies: Rash Neurological/Psychological: Other - no slurred speech -: Yes All other systems reviewed and negative Physical Exam - Vital signs Notes: Reviewed vital signs and nursing note as charted by RN. CONSTITUTIONAL: Alert and oriented and responds appropriately to questions. Well -appearing; well-nourished HEAD: Normocephalic; atraumatic EYES: Sclerae non-icteric ENT: Normal nose; no rhinorrhea; moist mucous membranes CARD: Regular rate and rhythm; no murmurs; symmetric distal pulses RESP: Normal chest excursion without splinting or tachypnea; breath sounds clear and equal bilaterally ABD/GI: Normal bowel sounds; non-distended; soft, patient does have some suprapubic fullness without tenderness, palpable masses, or abdominal bruits GI/: Patient has obvious fecal impaction with a large stool burden/bolus BACK: The back appears normal and is non-tender to palpation EXT: Normal ROM in all joints; non-tender to palpation; no edema SKIN: No acute lesions noted NEURO: CN 2-12 intact; 5/5 bilateral upper and lower extremity strength with sensation intact to light touch PSYCH: The patient's mood and manner are appropriate. Grooming and personal hygiene are appropriate. Course - Re-evaluation Re-evalutation: 08/05/18 10:14 With the patient's verbal consent I did perform a procedure of manual disimpaction with the patient laying on the left lateral decubitus with her knees to her chest. A very large stool removal was performed that was light brown in color without blood. I will provide a liter of fluid and obtain basic laboratory values as well as an x-ray three-way of the abdomen to make sure the patient has no obvious volvulus or other pathology causing the constipation. Patient feels much relief. 08/05/18 10:53 Patient's pain is still improved. After reviewing the patient's medication list it does appear that the patient takes Vicodin. I have discussed this with the patient and the sister that this may cause severe constipation especially in an elderly patient. 08/05/18 11:24 Labs as recorded. 500 cc have been provided. Patient's pain is improved. Three-way x-ray of the abdomen shows no obvious obstruction or volvulus. Given the above history and physical examination I provided strict return precautions and instructions regarding follow-up with the primary care physician about the Vicodin. Patient and sister understand these instructions. - Laboratory Result Diagrams: 08/05/18 10:40 08/05/18 10:40 Laboratory results interpreted by me: 08/05/18 08/05/18 10:40 10:40 RBC 3.36 L Hgb 11.4 L Hct 33.7 L MCV 100 H MCH 33.8 H RDW 14.6 H Seg Neutrophils % 81.5 H Lymphocytes % 11.8 L Creatinine 1.31 H Est GFR ( Amer) 48 L Est GFR (Non-Af Amer) 39 L Discharge - Discharge Clinical Impression: Fecal impaction in rectum Condition: Good Disposition: HOME, SELF-CARE Additional Instructions: Comeback immediately for any abdominal pain, fevers, vomiting, or any other acute problems. Please remember what we have discussed about the Vicodin medication and please follow-up with your primary care physician.
[2018-08-05 10:47] LABS: ABSOLUTE EOSINOPHILS # (AUTO) 0.1 10^3/uL (0.0-0.6); ABSOLUTE LYMPHOCYTES (AUTO) 1.1 10^3/uL (0.5-4.7); ABSOLUTE MONOCYTES (AUTO) 0.5 10^3/uL (0.1-1.4); ABSOLUTE NEUT (AUTO) 7.5 10^3/uL (1.7-8.2); BASOPHILS % (AUTO) 0.2 % (0-2); EOSINOPHILS % (AUTO) 0.9 % (0-6); HEMATOCRIT 33.7 % (36.0-47.0); HEMOGLOBIN 11.4 g/dL (12.0-15.5); LYMPHOCYTES % (AUTO) 11.8 % (13-45); MEAN CORPUSCULAR HEMOGLOBIN 33.8 pg (27.0-33.4); MEAN CORPUSCULAR HGB CONC 33.8 g/dL (32.0-36.0); MEAN CORPUSCULAR VOLUME 100 fl (80-97); MONOCYTES % (AUTO) 5.6 % (3-13); PLATELET COUNT 217 10^3/uL (150-450); RED BLOOD COUNT 3.36 10^6/uL (3.72-5.28); RED CELL DISTRIBUTION WIDTH 14.6 % (11.5-14.0); SEGMENTED NEUTROPHILS % (AUTO) 81.5 % (42-78); TOTAL CELLS COUNTED % (AUTO) 100 %; WHITE BLOOD COUNT 9.2 10^3/uL (4.0-10.5)
[2018-08-05 11:03] LABS: ANION GAP 12 (5-19); BLOOD UREA NITROGEN 19 mg/dL (7-20); CALCIUM 9.2 mg/dL (8.4-10.2); CARBON DIOXIDE 24 mmol/L (22-30); CHLORIDE 107 mmol/L (98-107); GLUCOSE 84 mg/dL (75-110); POTASSIUM 3.9 mmol/L (3.6-5.0); SODIUM 142.9 mmol/L (137-145)
--- NOTE | 2018-08-05 11:51 | RADIOLOGY REPORT (SQ) ---
EXAM DESCRIPTION: ACUTE ABDOMEN SERIES COMPLETED DATE/TIME: 08/05/2018 11:22 am REASON FOR STUDY: 2, impaction COMPARISON: None. NUMBER OF VIEWS: Three views. TECHNIQUE: PA chest, supine abdomen and upright/decubitus abdomen radiographic images acquired. LIMITATIONS: None. FINDINGS: CHEST: Lungs clear of infiltrates. FREE AIR: None. No abnormal gas collections. BOWEL GAS PATTERN: Few scattered small bowel loops with air fluid levels. No distended large or small bowel loops. CALCIFICATIONS: No suspicious calcifications. HARDWARE: None in the abdomen. SOFT TISSUES: No gross mass or suggestion of organomegaly. BONES: No acute fracture. No worrisome bone lesions. OTHER: No other significant finding. IMPRESSION: NONSPECIFIC BOWEL GAS PATTERN WITHOUT EVIDENCE FOR OBSTRUCTION. TECHNICAL DOCUMENTATION: JOB ID: [id number] [employer]- All Rights Reserved Reading location - IP/workstation name: [email or web address]
== END 2018-08-05 12:16 | disposition home or self-care (01) ==
LOC: ER 09:25
DX: K56.41 Fecal impaction (principal); R10.9 Unspecified abdominal pain; I25.2 Old myocardial infarction; I10 Essential (primary) hypertension
CPT/HCPCS: 99284; 36415; 85025; 80048; 74022; J7030

== ENCOUNTER 2018-10-06 11:29 | Emergency (ER) | payer MEDICARE, MEDICAID ==
--- NOTE | 2018-10-06 12:05 | ER Document Report ---
ED General - General Chief Complaint: Pedal Edema Stated Complaint: SWELLING LOWER EXTREMITIES Time Seen by Provider: 10/06/18 11:50 TRAVEL OUTSIDE OF THE [place] IN LAST 30 DAYS: No COUNTRY TRAVELED TO/FROM: [facility] Notes: Patient is a 78-year-old female with a history of open heart surgery and chronic kidney disease who presents to the emergency department by EMS with primary concern of bilateral lower extremity edema increasing over the last couple days. Patient states that she has had edema issues over the last month and is not on any fluid pills that she is aware of. Patient states that she feels well otherwise and is eating and drinking without difficulty. She is urinating normally and having normal bowel movements. EMS reports states that she did have a fall this morning after losing her balance when she was walking and hit her head without loss of consciousness or evidence of trauma. Patient states that she does not have any associated pain or discomfort to her head or neck. Denies drug allergies. She takes aspirin daily but no other blood thinners. No other concerns or complaints. Denies any headache, fever, neck pain, changes in vision/speech/mentation/hearing, URI, sore throat, chest pain, palpitations, syncope, cough, shortness of breath, wheeze, dyspnea, abdominal pain, nausea/vomiting/diarrhea, urinary retention, dysuria, hematuria, loss of control of bowel or bladder, numbness/tingling, saddle anesthesia, muscle paralysis/weakness, or rash. - Related Data Allergies/Adverse Reactions: No Known Allergies Allergy (Verified 05/04/18 15:08) Past Medical History - Social History Smoking Status: Unknown if Ever Smoked Family History: Reviewed & Not Pertinent Patient has suicidal ideation: No Patient has homicidal ideation: No - Past Medical History Cardiac Medical History: Reports: Hx Heart Attack, Hx Hypertension Renal/ Medical History: Denies: Hx Peritoneal Dialysis GI Medical History: Reports: Hx Gastroesophageal Reflux Disease Psychiatric Medical History: Reports: Hx Depression Past Surgical History: Reports: Hx Open Heart Surgery - Immunizations Hx Diphtheria, Pertussis, Tetanus Vaccination: Yes Review of Systems - Review of Systems -: Yes All other systems reviewed and negative Physical Exam - Vital signs Vitals: Temp Pulse Resp BP Pulse Ox 97.8 F 88 16 150/81 H 98 10/06/18 11:47 10/06/18 11:47 10/06/18 11:47 10/06/18 11:47 10/06/18 11:47 - Notes Notes: PHYSICAL EXAMINATION: GENERAL: Well-appearing, well-nourished and in no acute distress. A&Ox3. Answers questions appropriately. HEAD: Atraumatic, normocephalic. Non-tender. No noel sign EYES: Pupils equal round and reactive to light, extraocular movements intact, sclera anicteric, conjunctiva are normal. No raccoon eyes/entrapment ENT: EAC clear b/l. TM's intact b/l without erythema, fluid, or perforation. Nares patent and without discharge. oropharynx clear without exudates. No tonsilar hypertrophy or erythema. Moist mucous membranes. No sinus tenderness. No hemotympanum/CSF discharge. NECK: Normal range of motion, supple without lymphadenopathy. No rigidity. No midline tenderness. NEXUS negative. LUNGS: Breath sounds clear to auscultation bilaterally and equal. No wheezes rales or rhonchi. HEART: Regular rate and rhythm without murmurs, rubs, gallops. ABDOMEN: Soft, nontender, nondistended abdomen. No guarding, no rebound. No masses appreciated. Normal bowel sounds present. No CVA tenderness bilaterally. no ecchymosis. Musculoskeletal: Ext's b/l: FROM to passive/active. Strength 5+/5. No deficits noted. No bony tenderness of extremities. Back: FROM to passive/active. Strength 5+/5. No vertebral point tenderness, stepoffs, or deformities. No other bony tenderness or ecchymosis. Extremities: 1+ pitting edema b/l LE extending proximally to the lower leg to trace edema. Peripheral pulses 2+. Capillary refill less than 2 seconds. Charissa neg b/l. No LE asymmetry. NEUROLOGICAL: NIH 0. GCS 15. Cranial nerves grossly intact. Normal speech. Normal sensory, motor exams. Reflexes 2+ b/l. LUIS's negative. Pronator drift n egative. Heel/donovan, finger/nose wnl. PSYCH: Normal mood, normal affect. SKIN: Warm, Dry, normal turgor, no rashes or lesions noted. No erythema/warmth to the LE's b/l. Course - Re-evaluation Re-evalutation: 10/06/18 13:56 Patient is an afebrile, well-hydrated, 78-year-old female who presents emergency department with bilateral lower extremity edema. Vitals are acceptable without significant tachycardia, tachypnea, or hypoxia. PE is otherwise unremarkable aside from the pitting edema that was noted. There are no focal neurological deficits. Patient's lungs are otherwise clear to auscultation bilaterally. Chest x-ray was unremarkable aside from stable cardiomegaly. Her CT imaging was unremarkable of her head and neck. CBC and CMP unremarkable aside from the stable chronic kidney disease. She does have an elevated BNP with no previous to compare to. No significant EKG changes. Patient has been continuously a sking to go home. She is accompanied by family does have home health/nursing that comes to her home. She is otherwise nontoxic-appearing and is tolerating p.o. without difficulty. She is not currently on any diuretic. No further labs or imaging warranted at this time. She has not had any chest pain, shortness breath, or dyspnea on exertion. Reviewed with Dr. Lang who is in agreement with dispo/plan. Patient to recheck with her PCM in 2-3 days. I will send her home with Lasix to take daily for 4 days. Return to the ED with any other worsening/concerning symptoms as reviewed. Patient and daughter in agreement. - Vital Signs Vital signs: Temp Pulse Resp BP Pulse Ox 97.8 F 88 16 150/81 H 98 10/06/18 11:47 10/06/18 11:47 10/06/18 11:47 10/06/18 11:47 10/06/18 11:47 - Laboratory Result Diagrams: 10/06/18 12:35 10/06/18 12:35 Laboratory results interpreted by me: 10/06/18 10/06/18 10/06/18 12:35 12:35 12:35 RBC 3.15 L Hgb 10.7 L Hct 31.8 L MCV 101 H MCH 33.9 H RDW 17.5 H Chloride 111 H BUN 31 H Creatinine 1.79 H Est GFR ( Amer) 33 L Est GFR (Non-Af Amer) 27 L Direct Bilirubin 0.5 H NT-Pro-B Natriuret Pep 3630 H Discharge - Discharge Clinical Impression: Bilateral edema of lower extremity Condition: Stable Disposition: HOME, SELF-CARE Additional Instructions: Maintain adequate fluid and food intake Take home medications as directed Healthy diet/exercises Elevate your legs throughout the day and at night time Consider wearing compression stockings Monitor blood pressure and HR daily and keep a log Monitor symptoms for any acute changes Recheck with your PCM in 2-3 days Consider a follow-up with cardiology Return to the ED with any worsening symptoms and/or development of fever, headache, chest pain, palpitations, syncope, shortness of breath, trouble breathing, abdominal pain, n/v/d, blood in stool/urine, loss of control of bowel/bladder, urinary retention, muscle weakness/paralysis, numbness/tingling, or other worsening symptoms that are concerning to you. Prescriptions: Furosemide [Lasix 20 mg Tablet] 20 mg PO QAM #4 tablet Forms: Elevated Blood Pressure Referrals: ALEJANDRA UREÑA MD [ACTIVE STAFF] - Follow up as needed
--- NOTE | 2018-10-06 12:09 | RADIOLOGY REPORT (SQ) ---
EXAM DESCRIPTION: CHEST SINGLE VIEW COMPLETED DATE/TIME: 10/06/2018 11:59 am REASON FOR STUDY: LE edema COMPARISON: PA chest 12/22/2016, 05/02/2015 EXAM PARAMETERS: NUMBER OF VIEWS: One view. TECHNIQUE: Single frontal radiographic view of the chest acquired. RADIATION DOSE: NA LIMITATIONS: None. FINDINGS: LUNGS AND PLEURA: No opacities, masses or pneumothorax. No pleural effusion. MEDIASTINUM AND HILAR STRUCTURES: No masses. Contour normal. HEART AND VASCULAR STRUCTURES: Stable moderate cardiomegaly and tortuous ectatic thoracic aorta. Old sternotomy for CABG. BONES: Old healed bilateral rib fractures HARDWARE: Old sternotomy for CABG OTHER: No other significant finding. IMPRESSION: Stable cardiomegaly and tortuous uncoiled thoracic aorta TECHNICAL DOCUMENTATION: JOB ID: [id number] [employer]- All Rights Reserved Reading location - IP/workstation name: [email or web address]
--- NOTE | 2018-10-06 12:41 | RADIOLOGY REPORT (SQ) ---
EXAM DESCRIPTION: CT HEAD WITHOUT COMPLETED DATE/TIME: 10/06/2018 12:22 pm REASON FOR STUDY: fall this AM, head injury COMPARISON: None. TECHNIQUE: Axial images acquired through the brain without intravenous contrast. Images reviewed wi th bone, brain and subdural windows. Additional sagittal and coronal reconstructions were generated. Images stored on PACS. All CT scanners at this facility use dose modulation, iterative reconstruction, and/or weight based d osing when appropriate to reduce radiation dose to as low as reasonably achievable (ALARA). [facility]: Dose Right [facility]: CareDose [facility]: Dose Right [facility]: Teradose 4D [facility]: Smart Loladex RADIATION DOSE: CT Rad equipment meets quality standard of care and radiation dose reduction techniq ues were employed. CTDIvol: 53.2 mGy. DLP: 1230 mGy-cm. mGy. LIMITATIONS: None. FINDINGS: VENTRICLES: Normal size and contour. CEREBRUM: No masses. No hemorrhage. No midline shift. No evidence for acute infarction. Extensive areas of low density in the white matter most likely chronic small vessel ischemic changes. CEREBELLUM: No masses. No hemorrhage. No alteration of density. No evidence for acute infarction. EXTRAAXIAL SPACES: No fluid collections. No masses. ORBITS AND GLOBE: No intra- or extraconal masses. Normal contour of globe without masses. CALVARIUM: No fracture. PARANASAL SINUSES: No fluid or mucosal thickening. SOFT TISSUES: No mass or hematoma. OTHER: No other significant finding. IMPRESSION: No acute intracranial pathology. Advanced small vessel white matter disease and volume loss in keeping with patient age. EVIDENCE OF ACUTE STROKE: NO. COMMENT: Quality ID # [id number]: Final reports with documentation of one or more dose reduction techniques (e.g., Automated exposure control, adjustment of the mA and/or kV according to patient size, use of iterative reconstruction technique) TECHNICAL DOCUMENTATION: JOB ID: [id number] [employer]- All Rights Reserved Reading location - IP/workstation name: [email or web address]
--- NOTE | 2018-10-06 12:44 | RADIOLOGY REPORT (SQ) ---
EXAM DESCRIPTION: CT CERVICAL SPINE WITHOUT COMPLETED DATE/TIME: 10/06/2018 12:22 pm REASON FOR STUDY: fall this AM, head injury COMPARISON: None. TECHNIQUE: Axial images acquired through the cervical spine without intravenous contrast. Images re viewed with lung, soft tissue and bone windows. Reconstructed coronal and sagittal MPR images review ed. Images stored on PACS. All CT scanners at this facility use dose modulation, iterative reconstruction, and/or weight based d osing when appropriate to reduce radiation dose to as low as reasonably achievable (ALARA). [facility]: Dose Right [facility]: CareDose [facility]: Dose Right [facility]: Teradose 4D [facility]: Smart boarding pass RADIATION DOSE: CT Rad equipment meets quality standard of care and radiation dose reduction techniq ues were employed. CTDIvol: 20.9 mGy. DLP: 475 mGy-cm. mGy. LIMITATIONS: None. FINDINGS: ALIGNMENT: Degenerative reversal of the normal cervical lordosis. MINERALIZATION: Normal. VERTEBRAL BODIES: No fractures or dislocation. DISCS: Severe multilevel disc degenerative disease from C3 through C6. FACETS, LATERAL MASSES, POSTERIOR ELEMENTS: No fractures. No dislocation. No acute findings. HARDWARE: None in the spine. VISUALIZED RIBS: No fractures. LUNG APICES AND SOFT TISSUES: No significant or acute findings. OTHER: No other significant finding. IMPRESSION: No fracture or static subluxation of the cervical spine. There is severe cervical disc degenerative disease with degenerative reversal of the normal cervical lordosis. TECHNICAL DOCUMENTATION: JOB ID: [id number] Quality ID # [id number]: Final reports with documentation of one or more dose reduction techniques (e.g., Au tomated exposure control, adjustment of the mA and/or kV according to patient size, use of iterative reconstruction technique) 2010 [employer]- All Rights Reserved Reading location - IP/workstation name: [email or web address]
[2018-10-06 12:50] LABS: ABSOLUTE EOSINOPHILS # (AUTO) 0.1 10^3/uL (0.0-0.6); ABSOLUTE LYMPHOCYTES (AUTO) 1.1 10^3/uL (0.5-4.7); HEMOGLOBIN 10.7 g/dL (12.0-15.5); MEAN CORPUSCULAR HGB CONC 33.6 g/dL (32.0-36.0); MEAN CORPUSCULAR VOLUME 101 fl (80-97); RED BLOOD COUNT 3.15 10^6/uL (3.72-5.28); TOTAL CELLS COUNTED % (AUTO) 100 %; WHITE BLOOD COUNT 7.4 10^3/uL (4.0-10.5)
[2018-10-06 12:54] LABS: ABSOLUTE MONOCYTES (AUTO) 0.7 10^3/uL (0.1-1.4); ABSOLUTE NEUT (AUTO) 5.5 10^3/uL (1.7-8.2); BASOPHILS % (AUTO) 0.4 % (0-2); EOSINOPHILS % (AUTO) 1.3 % (0-6); HEMATOCRIT 31.8 % (36.0-47.0); LYMPHOCYTES % (AUTO) 14.9 % (13-45); MEAN CORPUSCULAR HEMOGLOBIN 33.9 pg (27.0-33.4); MONOCYTES % (AUTO) 9.1 % (3-13); PLATELET COUNT 265 10^3/uL (150-450); RED CELL DISTRIBUTION WIDTH 17.5 % (11.5-14.0); SEGMENTED NEUTROPHILS % (AUTO) 74.3 % (42-78)
[2018-10-06 13:02] LABS: ALANINE AMINOTRANSFERASE 14 U/L (9-52); ALBUMIN 3.8 g/dL (3.5-5.0); ALKALINE PHOSPHATASE 55 U/L (38-126); ANION GAP 9 (5-19); ASPARTATE AMINO TRANSFERASE 22 U/L (14-36); BILIRUBIN,DIRECT 0.5 mg/dL (0.0-0.4); BILIRUBIN,TOTAL 0.5 mg/dL (0.2-1.3); BLOOD UREA NITROGEN 31 mg/dL (7-20); CALCIUM 9.4 mg/dL (8.4-10.2); CARBON DIOXIDE 23 mmol/L (22-30); CHLORIDE 111 mmol/L (98-107); GLUCOSE 82 mg/dL (75-110); POTASSIUM 4.4 mmol/L (3.6-5.0); SODIUM 143.3 mmol/L (137-145); TOTAL PROTEIN 7.2 g/dL (6.3-8.2)
[2018-10-06 14:34] VITALS: BP 148/82
--- NOTE | 2018-10-06 22:11 | EKG REPORT ---
SEVERITY:- ABNORMAL ECG - SINUS TACHYCARDIA WITH IRREGULAR RATE 70-115 LOW VOLTAGE IN FRONTAL LEADS CONSIDER ANTEROSEPTAL INFARCT : Confirmed by: Vannessa Costello MD 06-Oct-2018 22:10:26
== END 2018-10-06 14:34 | disposition home or self-care (01) ==
LOC: ER 11:29
DX: Z04.3 Encounter for examination and observation following other accident (principal); R60.0 Localized edema; I13.10 Hypertensive heart and chronic kidney disease without heart failure, with stage 1 through stage 4 chronic kidney disease, or unspecified chronic kidney disease; N18.9 Chronic kidney disease, unspecified; I25.2 Old myocardial infarction; Z79.82 Long term (current) use of aspirin
CPT/HCPCS: 36415; 70450; 71045; 72125; 80053; 83880; 85025; 93005; 93010; 99285

== ENCOUNTER 2018-11-30 15:16 | Inpatient (IN) | payer MEDICARE, MEDICAID ==
[2018-11-30] MEDS ORDERED: NORMAL SALINE 500 ML IV ONE (15:40)
--- NOTE | 2018-11-30 15:44 | ER Document Report ---
ED General - General Stated Complaint: ALTERED MENTAL STATUS Time Seen by Provider: 11/30/18 15:31 Mode of Arrival: Stretcher Information source: Relative, Emergency Med Personnel, [facility] Records Cannot obtain history due to: Uncooperative, Altered mental status Notes: 78-year-old female presents via EMS from home after her brother states that he found her confused today dwelling on the of her son which occurred many years ago. Upon my exam patient is agitated, unable to tell me her birthdate, year. Patient does complain of abdominal pain when asked if she has any pain. Patient grabs my hand and pinches it forcefully. Trying to calm the patient down and states this is a change from her baseline. TRAVEL OUTSIDE OF THE [place] IN LAST 30 DAYS: No COUNTRY TRAVELED TO/FROM: [facility] - [facility] Onset: Just prior to arrival Associated symptoms: Other - Abdominal pain - Related Data Allergies/Adverse Reactions: No Known Allergies Allergy (Verified 05/04/18 15:08) Past Medical History - General Information source: [facility] Records Cannot obtain history due to: Dementia, Uncooperative, Altered mental status - Social History Smoking Status: Former Smoker Frequency of alcohol use: None Drug Abuse: None Lives with: Alone Family History: Reviewed & Not Pertinent - Past Medical History Cardiac Medical History: Reports: Hx Heart Attack, Hx Hypertension Renal/ Medical History: Denies: Hx Peritoneal Dialysis GI Medical History: Reports: Hx Gastroesophageal Reflux Disease Psychiatric Medical History: Reports: Hx Depression Past Surgical History: Reports: Hx Open Heart Surgery - Immunizations Hx Diphtheria, Pertussis, Tetanus Vaccination: Yes Review of Systems - Review of Systems -: Yes ROS unobtainable due to patient's medical condition Gastrointestinal: Abdominal pain Physical Exam - Notes Notes: PHYSICAL EXAMINATION: GENERAL: Well-appearing, well-nourished and in no acute distress. HEAD: Atraumatic, normocephalic. EYES: Pupils equal round and reactive to light, extraocular movements intact, conjunctiva are normal. ENT: Nares patent, oropharynx clear without exudates. Dry mucous membranes. NECK: Normal range of motion, supple without lymphadenopathy LUNGS: Breath sounds clear to auscultation bilaterally and equal. No wheezes rales or rhonchi. HEART: Regular rate and rhythm without murmurs ABDOMEN: Soft, nontender, nondistended abdomen. No guarding, no rebound. No masses appreciated. Female : deferred Musculoskeletal: Normal range of motion, no pitting or edema. No cyanosis. NEUROLOGICAL: Cranial nerves grossly intact. Normal speech. Normal sensory, motor exams PSYCH: Normal mood, normal affect. SKIN: Skin tenting Course - Laboratory Result Diagrams: 11/30/18 16:04 11/30/18 16:04 Laboratory results interpreted by me: 11/30/18 11/30/18 11/30/18 16:04 16:04 16:04 RBC 3.65 L Hgb 11.7 L Hct 35.8 L MCV 98 H RDW 17.3 H Chloride 113 H BUN 56 H Creatinine 2.42 H Est GFR ( Amer) 23 L Est GFR (Non-Af Amer) 19 L Direct Bilirubin 0.5 H Total Protein 8.9 H Urine Protein >=500 H Urine Ascorbic Acid 40 H - EKG Interpretation by Me EKG shows normal: Sinus rhythm Rate: Normal Rhythm: NSR Deland/QRS: Right axis deviation When compared to previous EKG there are: No significant change Discharge - Discharge Clinical Impression: CARLOS (acute kidney injury) Altered mental status Qualifiers: Altered mental status type: unspecified Qualified Code(s): R41.82 - Altered mental status, unspecified Condition: Fair Disposition: ADMITTED INPATIENT Admitting Provider: Shaila (Hospitalist) Unit Admitted: Medical Floor
[2018-11-30 16:25] LABS: ABSOLUTE BASOPHILS # (AUTO) 0.1 10^3/uL (0.0-0.2); ABSOLUTE EOSINOPHILS # (AUTO) 0.1 10^3/uL (0.0-0.6); ABSOLUTE LYMPHOCYTES (AUTO) 1.3 10^3/uL (0.5-4.7); ABSOLUTE MONOCYTES (AUTO) 0.7 10^3/uL (0.1-1.4); ABSOLUTE NEUT (AUTO) 6.7 10^3/uL (1.7-8.2); BASOPHILS % (AUTO) 1.2 % (0-2); EOSINOPHILS % (AUTO) 0.8 % (0-6); HEMATOCRIT 35.8 % (36.0-47.0); HEMOGLOBIN 11.7 g/dL (12.0-15.5); LYMPHOCYTES % (AUTO) 14.9 % (13-45); MEAN CORPUSCULAR HEMOGLOBIN 32.2 pg (27.0-33.4); MEAN CORPUSCULAR HGB CONC 32.8 g/dL (32.0-36.0); MEAN CORPUSCULAR VOLUME 98 fl (80-97); PLATELET COUNT 240 10^3/uL (150-450); RED BLOOD COUNT 3.65 10^6/uL (3.72-5.28); RED CELL DISTRIBUTION WIDTH 17.3 % (11.5-14.0); SEGMENTED NEUTROPHILS % (AUTO) 75.1 % (42-78); TOTAL CELLS COUNTED % (AUTO) 100 %; WHITE BLOOD COUNT 8.9 10^3/uL (4.0-10.5)
[2018-11-30 16:31] LABS: APPEARANCE,URINE CLEAR; BILIRUBIN,URINE NEGATIVE (NEGATIVE); COLOR,URINE YELLOW; GLUCOSE, URINE NEGATIVE (NEGATIVE); KETONES,URINE NEGATIVE (NEGATIVE); LEUKOCYTE ESTERASE,URINE NEGATIVE (NEGATIVE); NITRITE,URINE NEGATIVE (NEGATIVE); PROTEIN,URINE >=500 mg/dL (NEGATIVE); URINE SPECIFIC GRAVITY 1.014; UROBILINOGEN,URINE NEGATIVE mg/dL (<2.0)
--- NOTE | 2018-11-30 16:32 | RADIOLOGY REPORT (SQ) ---
EXAM DESCRIPTION: CT HEAD WITHOUT COMPLETED DATE/TIME: 11/30/2018 4:19 pm REASON FOR STUDY: ams COMPARISON: 10/06/2018 TECHNIQUE: Axial images acquired through the brain without intravenous contrast. Images reviewed wi th bone, brain and subdural windows. Additional sagittal and coronal reconstructions were generated. Images stored on PACS. All CT scanners at this facility use dose modulation, iterative reconstruction, and/or weight based d osing when appropriate to reduce radiation dose to as low as reasonably achievable (ALARA). [facility]: Dose Right [facility]: CareDose [facility]: Dose Right [facility]: Teradose 4D [facility]: Stepsss RADIATION DOSE: CT Rad equipment meets quality standard of care and radiation dose reduction techniq ues were employed. CTDIvol: 55.2 mGy. DLP: 1139 mGy-cm.mGy. LIMITATIONS: None. FINDINGS: VENTRICLES: Prominent compatible with parenchymal volume loss, stable. CEREBRUM: No masses. No hemorrhage. No midline shift. Extensive areas of low density in the white matter most likely due to chronic micro-vascular ischemic change. No evidence for acute infarction. CEREBELLUM: No masses. No hemorrhage. No alteration of density. No evidence for acute infarction. EXTRAAXIAL SPACES: Age-related involutional change. No fluid collections. No masses. ORBITS AND GLOBE: No intra- or extraconal masses. Normal contour of globe without masses. CALVARIUM: No fracture. PARANASAL SINUSES: No fluid or mucosal thickening. SOFT TISSUES: No mass or hematoma. OTHER: No other significant finding. IMPRESSION: Stable chronic changes of atrophy and nonspecific white matter changes likely sequelae o f microangiopathic disease. No evidence of acute intracranial process. EVIDENCE OF ACUTE STROKE: NO. TECHNICAL DOCUMENTATION: JOB ID: [id number] Quality ID # [id number]: Final reports with documentation of one or more dose reduction techniques (e.g., Au tomated exposure control, adjustment of the mA and/or kV according to patient size, use of iterative reconstruction technique) 2010 [employer]- All Rights Reserved Reading location - IP/workstation name: [email or web address]
--- NOTE | 2018-11-30 16:34 | RADIOLOGY REPORT (SQ) ---
EXAM DESCRIPTION: ACUTE ABDOMEN SERIES COMPLETED DATE/TIME: 11/30/2018 4:24 pm REASON FOR STUDY: abd pain COMPARISON: 08/05/2018 NUMBER OF VIEWS: Three views. TECHNIQUE: Frontal chest, supine abdomen and upright/decubitus abdomen radiographic images acquired. LIMITATIONS: None. FINDINGS: CHEST: No focal airspace disease, pleural effusion or pneumothorax. Emphysematous change with hyperinflation. Stable enlarged cardiac silhouette. Ectatic atherosclerotic aorta. FREE AIR: None. No abnormal gas collections. BOWEL GAS PATTERN: Nonobstructive pattern. No dilated loops or air fluid levels. CALCIFICATIONS: Scattered pelvic phleboliths. Punctate calcific densities overlie expected location of kidneys, possibly renal stones. HARDWARE: None in the abdomen. SOFT TISSUES: No gross mass or suggestion of organomegaly. BONES: Lower lumbar spondylosis and facet arthropathy. No acute findings. OTHER: No other significant finding. IMPRESSION: 1. No evidence of intestinal obstruction or other acute intra-abdominal process. 2. Stable large cardiac silhouette and ectatic thoracic aorta. 3. Possible bilateral renal stones. TECHNICAL DOCUMENTATION: JOB ID: [id number] [employer]- All Rights Reserved Reading location - IP/workstation name: [email or web address]
[2018-11-30 16:45] LABS: ALANINE AMINOTRANSFERASE 21 U/L (9-52); ALBUMIN 4.1 g/dL (3.5-5.0); ALKALINE PHOSPHATASE 79 U/L (38-126); ANION GAP 8 (5-19); ASPARTATE AMINO TRANSFERASE 33 U/L (14-36); BILIRUBIN,DIRECT 0.5 mg/dL (0.0-0.4); BILIRUBIN,TOTAL 0.8 mg/dL (0.2-1.3); BLOOD UREA NITROGEN 56 mg/dL (7-20); CALCIUM 10.1 mg/dL (8.4-10.2); CARBON DIOXIDE 24 mmol/L (22-30); CHLORIDE 113 mmol/L (98-107); CREATINE KINASE 34 U/L (30-135); GLUCOSE 100 mg/dL (75-110); POTASSIUM 4.2 mmol/L (3.6-5.0); TOTAL PROTEIN 8.9 g/dL (6.3-8.2)
[2018-11-30 16:58] LABS: CREATINE KINASE MB 0.52 ng/mL (<4.55); TROPONIN I 0.025 ng/mL
--- NOTE | 2018-11-30 18:34 | RADIOLOGY REPORT (SQ) ---
EXAM DESCRIPTION: CT ABD/PELVIS NO ORAL OR IV COMPLETED DATE/TIME: 11/30/2018 5:58 pm REASON FOR STUDY: abd pain COMPARISON: 12/22/2016 TECHNIQUE: CT scan of the abdomen and pelvis performed without intravenous or oral contrast. Images reviewed with lung, soft tissue, and bone windows. Reconstructed coronal and sagittal MPR images revi ewed. All images stored on PACS. All CT scanners at this facility use dose modulation, iterative reconstruction, and/or weight based d osing when appropriate to reduce radiation dose to as low as reasonably achievable (ALARA). [facility]: Dose Right [facility]: CareDose [facility]: Dose Right [facility]: Teradose 4D [facility]: MediWound RADIATION DOSE: CT Rad equipment meets quality standard of care and radiation dose reduction techniq ues were employed. CTDIvol: 5.5 mGy. DLP: 269 mGy-cm.mGy. LIMITATIONS: None. FINDINGS: LOWER CHEST: No significant findings. No nodules or infiltrates. NON-CONTRASTED LIVER, SPLEEN, ADRENALS: Evaluation limited by lack of IV contrast. No identified sign ificant masses. PANCREAS: No masses. No peripancreatic inflammatory changes. GALLBLADDER: No calcified stones. No inflammatory changes to suggest cholecystitis. RIGHT KIDNEY AND URETER: Similar cysts identified. Similar calcified stones. No hydronephrosis or h ydroureter. LEFT KIDNEY AND URETER: Similar cysts identified. Similar calcified stones. No hydronephrosis or hydr oureter. AORTA AND RETROPERITONEUM: Stable lower thoracic aneurysm. No retroperitoneal masses or adenopathy. BOWEL AND PERITONEAL CAVITY: Diverticulosis. No obvious masses or inflammatory changes. No free flui d. APPENDIX: Normal. PELVIS, BLADDER, AND ABDOMINAL WALL:Prior hysterectomy. No free fluid. Unremarkable bladder. BONES: No acute findings. OTHER: No other significant finding. IMPRESSION: NO ACUTE FINDINGS. TECHNICAL DOCUMENTATION: JOB ID: [id number] Quality ID # [id number]: Final reports with documentation of one or more dose reduction techniques (e.g., Au tomated exposure control, adjustment of the mA and/or kV according to patient size, use of iterative reconstruction technique) 2010 [employer]- All Rights Reserved Reading location - IP/workstation name: [employer] [facility] [facility]
--- NOTE | 2018-11-30 19:01 | PDOC H&P ---
History of Present Illness Admission Date/PCP: 11/30/18 18:14 History of Present Illness: AMADOU RAI is a 78 year old female with a PMH of CAD with prior CABG 15 yrs ago, HTN and possible dementia who was brought in because of increasing confusion and poor oral intake. Patient's sister, Ava is mostly giving the history. She says patient has been showing signs of cognitive decline since August where she tends to be more forgetful and disoriented at home. She says patient forgets where the bathroom or kitchen is at home. She also started having poor appetite and was also star pancho on Megace. She says in the past 1 and a half week, patient has been having pooer oral intake and is not drinking much. She was also more confused than her usual state in August hence was brought in to the ER where she was noted to have CARLOS. Upon encounter, patient is comfortable. She is oriented to self and knows her sister's name but unable to say where she's at or know the date. Past Medical History Cardiac Medical History: Reports: Myocardial Infarction, Hypertension GI Medical History: Reports: Gastroesophageal Reflux Disease Psychiatric Medical History: Reports: Depression Social History Lives with: Alone Smoking Status: Former Smoker Family History Family History: Reviewed & Not Pertinent Parental Family History Reviewed: Yes - no premature CAD Children Family History Reviewed: No Sibling(s) Family History Reviewed.: No Medication/Allergy Home Medications: Aspirin [Adult Low Dose Aspirin EC] 81 mg PO DAILY 11/30/18 Carvedilol [Coreg 3.125 mg Tablet] 3.125 mg PO Q12 11/30/18 Furosemide [Lasix 20 mg Tablet] 10 mg PO DAILY 11/30/18 Lactulose [Constulose 10 gm/15 mL Oral Solution] 15 ml PO Q12HP PRN 11/30/18 Megestrol Acetate 40 mg PO BID 11/30/18 Mirtazapine [Remeron 15 mg Tablet] 15 mg PO QHS 11/30/18 Omeprazole 20 mg PO QAM 11/30/18 Ondansetron [Zofran Odt 4 mg Tablet] 4 mg PO Q8HP PRN 11/30/18 Potassium Chloride [Klor-Con 10 Meq Capsule ER] 10 meq PO DAILY 11/30/18 Tramadol HCl [Ultram 50 mg Tablet] 50 mg PO Q12HP PRN 11/30/18 Allergies/Adverse Reactions: No Known Allergies Allergy (Verified 05/04/18 15:08) Review of Systems All systems: reviewed and no additional remarkable complaints except as stated - as mentioned in HPI Physical Exam General appearance: PRESENT: no acute distress, well-developed, well-nourished Head exam: PRESENT: atraumatic, normocephalic Eye exam: PRESENT: conjunctiva pink, EOMI, PERRLA. ABSENT: scleral icterus Ear exam: PRESENT: normal external ear exam Neck exam: ABSENT: carotid bruit, JVD, lymphadenopathy, thyromegaly Respiratory exam: PRESENT: clear to auscultation hubert. ABSENT: rales, rhonchi, wheezes Pulses: PRESENT: normal dorsalis pedis pul GI/Abdominal exam: PRESENT: normal bowel sounds, soft. ABSENT: distended, guarding, mass, organolmegaly, rebound, tenderness Rectal exam: PRESENT: deferred Neurological exam: PRESENT: alert, awake, oriented to person, CN II-XII grossly intact, other - No meningeal signs. No nuchal rigidity. Negative Kernig's or Brudzisnki's signs.. ABSENT: motor sensory deficit Results Laboratory Results: 11/30/18 16:04 11/30/18 16:04 11/30/18 11/30/18 11/30/18 16:04 16:04 16:04 WBC 8.9 RBC 3.65 L Hgb 11.7 L Hct 35.8 L MCV 98 H MCH 32.2 MCHC 32.8 RDW 17.3 H Plt Count 240 Seg Neutrophils % 75.1 Lymphocytes % 14.9 Monocytes % 8.0 Eosinophils % 0.8 Basophils % 1.2 Absolute Neutrophils 6.7 Absolute Lymphocytes 1.3 Absolute Monocytes 0.7 Absolute Eosinophils 0.1 Absolute Basophils 0.1 Sodium 145.0 Potassium 4.2 Chloride 113 H Carbon Dioxide 24 Anion Gap 8 BUN 56 H Creatinine 2.42 H Est GFR ( Amer) 23 L Est GFR (Non-Af Amer) 19 L Glucose 100 Calcium 10.1 Total Bilirubin 0.8 AST 33 ALT 21 Alkaline Phosphatase 79 Total Protein 8.9 H Albumin 4.1 Urine Color YELLOW Urine Appearance CLEAR Urine pH 6.0 Ur Specific Sophia 1.014 Urine Protein >=500 H Urine Glucose (UA) NEGATIVE Urine Ketones NEGATIVE Urine Blood NEGATIVE Urine Nitrite NEGATIVE Ur Leukocyte Esterase NEGATIVE Urine WBC (Auto) 0 Urine RBC (Auto) 2 11/30/18 11/30/18 16:04 16:04 Creatine Kinase 34 CK-MB (CK-2) 0.52 Troponin I 0.025 Impressions: Head CT 11/30/18 15:33 IMPRESSION: Stable chronic changes of atrophy and nonspecific white matter changes likely sequelae of microangiopathic disease. No evidence of acute intracranial process. EVIDENCE OF ACUTE STROKE: NO. Acute Abdomen Series 11/30/18 15:40 IMPRESSION: 1. No evidence of intestinal obstruction or other acute intra- abdominal process. 2. Stable large cardiac silhouette and ectatic thoracic aorta. 3. Possible bilateral renal stones. Abdomen/Pelvis CT 11/30/18 17:41 IMPRESSION: NO ACUTE FINDINGS. Assessment and Plan - Diagnosis (1) Acute encephalopathy Is this a current diagnosis for this admission?: Yes Plan: Likely metabolic in nature from dehydration, acute renal failure in a patient showing signs of possible dementia. No meningeal signs. No nuchal rigidity. Negative Kernig's or Brudzisnki's signs. (2) Acute renal failure Is this a current diagnosis for this admission?: Yes Plan: Creatinine is significantly elevated from previous baseline. Initial KUB showed possible renal stones. CT of the abdomen was pursued which was unremarkable. Will start patient on IV fluids. Repeat BMP tomorrow. (3) Dehydration Is this a current diagnosis for this admission?: Yes Plan: As per number 2. (4) Hypertensive urgency Is this a current diagnosis for this admission?: Yes Plan: She got IV hydralazine. Resume home meds. - Time Time Spent with patient: 25-34 minutes
[2018-11-30] MEDS: HALOPERIDOL LACTATE INJ 5 MG/1 ML VIAL IV PRN (19:57)
[2018-11-30] MEDS: TRAMADOL HCL 50 MG TABLET PO PRN (22:10)
[2018-11-30] MEDS: CARVEDILOL 3.125 MG TABLET PO SCH (22:10)
[2018-11-30] MEDS: NORMAL SALINE 1000 ML 1,000 ML IV PRN (22:23)
[2018-12-01] MEDS: HYDRALAZINE HCL INJ/PF 20 MG/1 ML SDV IV PRN ×3 (01:37→15:03)
[2018-12-01] MEDS: HALOPERIDOL LACTATE INJ 5 MG/1 ML VIAL IV PRN (01:48)
[2018-12-01] MEDS ORDERED: DIAZEPAM INJ 10 MG/2 ML DISP.SYRIN IV ONE (03:00)
[2018-12-01] MEDS ORDERED: FONDAPARINUX SODIUM INJ 2.5 MG/0.5 ML DISP.SYRIN SUBCUT SCH (08:00)
[2018-12-01 08:16] LABS: ANION GAP 9 (5-19); BLOOD UREA NITROGEN 45 mg/dL (7-20); CALCIUM 9.8 mg/dL (8.4-10.2); CARBON DIOXIDE 19 mmol/L (22-30); CHLORIDE 116 mmol/L (98-107); GLUCOSE 93 mg/dL (75-110); POTASSIUM 3.6 mmol/L (3.6-5.0); SODIUM 144.4 mmol/L (137-145)
[2018-12-01] MEDS: ASPIRIN 81 MG TABLET, ENT COATED PO SCH (10:39)
[2018-12-01] MEDS: DIAZEPAM 5 MG TABLET PO SCH (10:39)
[2018-12-01] MEDS: CARVEDILOL 3.125 MG TABLET PO SCH ×2 (10:39→23:21)
[2018-12-01] MEDS: TRAMADOL HCL 50 MG TABLET PO PRN (13:49)
[2018-12-01] MEDS: NORMAL SALINE 1000 ML 1,000 ML IV PRN ×2 (14:03→22:32)
--- NOTE | 2018-12-01 19:13 | PDOC PROGRESS REPORT ---
Subjective Progress Note for:: 12/01/18 Subjective:: No adverse events overnight. She does not know why she is here. She does not know what is going on with her. She does not know if she had anything to eat this morning. She her blood pressures have been very high and it looks like she is only on Coreg at home. Reason For Visit: ACUTE ENCEPHALOPATHY AND ARF Physical Exam Vital Signs: Temp Pulse Resp BP Pulse Ox 98.3 F 106 H 16 160/110 H 100 12/01/18 14:00 12/01/18 14:00 12/01/18 14:00 12/01/18 14:00 12/01/18 14:00 Intake & Output 11/30/18 12/01/18 12/02/18 06:59 06:59 06:59 Intake Total 1500 Balance 1500 Weight 52 kg General appearance: PRESENT: no acute distress, cooperative, disheveled, thin Respiratory exam: PRESENT: clear to auscultation hubert, symmetrical, unlabored. ABSENT: accessory muscle use, crackles, prolonged expiratory phas, rhonchi, tachypnea, wheezes Cardiovascular exam: PRESENT: RRR, +S1, +S2 Pulses: PRESENT: normal carotid pulses Vascular exam: PRESENT: normal capillary refill GI/Abdominal exam: PRESENT: normal bowel sounds, soft. ABSENT: distended, guarding, rebound, tenderness Extremities exam: ABSENT: clubbing, pedal edema Musculoskeletal exam: PRESENT: normal inspection. ABSENT: deformity Neurological exam: PRESENT: alert, awake, oriented to person, oriented to place. ABSENT: oriented to situation Psychiatric exam: PRESENT: anxious Skin exam: PRESENT: dry, warm Results Laboratory Results: 11/30/18 16:04 12/01/18 07:50 12/01/18 07:50 Sodium 144.4 Potassium 3.6 Chloride 116 H Carbon Dioxide 19 L Anion Gap 9 BUN 45 H Creatinine 2.05 H Est GFR ( Amer) 28 L Est GFR (Non-Af Amer) 23 L Glucose 93 Calcium 9.8 11/30/18 11/30/18 16:04 16:04 Creatine Kinase 34 CK-MB (CK-2) 0.52 Troponin I 0.025 Impressions: Head CT 11/30/18 15:33 IMPRESSION: Stable chronic changes of atrophy and nonspecific white matter changes likely sequelae of microangiopathic disease. No evidence of acute intracranial process. EVIDENCE OF ACUTE STROKE: NO. Acute Abdomen Series 11/30/18 15:40 IMPRESSION: 1. No evidence of intestinal obstruction or other acute intra- abdominal process. 2. Stable large cardiac silhouette and ectatic thoracic aorta. 3. Possible bilateral renal stones. Abdomen/Pelvis CT 11/30/18 17:41 IMPRESSION: NO ACUTE FINDINGS. Assessment and Plan - Diagnosis (1) CARLOS (acute kidney injury) Is this a current diagnosis for this admission?: Yes Plan: Improving with IV fluids. Not sure what her baseline creatinine is but she is responded well so far. (2) Acute encephalopathy Is this a current diagnosis for this admission?: Yes Plan: Likely metabolic in nature from dehydration, acute renal failure in a patient showing signs of possible dementia. Anticipate that this should improve with IV fluids as her renal function improves. (3) Dehydration Is this a current diagnosis for this admission?: Yes Plan: Improving with IV fluids, watching urine output (4) Hypertension Qualifiers: Hypertension type: essential hypertension Qualified Code(s): I10 - Essential (primary) hypertension Is this a current diagnosis for this admission?: Yes Plan: Continue Coreg, added Norvasc. We will may be able to add other medications as her renal function improves. - Time Time Spent with patient: 15-24 minutes
[2018-12-01] MEDS ORDERED: AMLODIPINE BESYLATE 10 MG TABLET PO ONE (20:00)
[2018-12-02 09:58] LABS: ANION GAP 10 (5-19); BLOOD UREA NITROGEN 33 mg/dL (7-20); CALCIUM 9.5 mg/dL (8.4-10.2); CARBON DIOXIDE 19 mmol/L (22-30); CHLORIDE 117 mmol/L (98-107); GLUCOSE 98 mg/dL (75-110); POTASSIUM 3.6 mmol/L (3.6-5.0); SODIUM 145.6 mmol/L (137-145)
[2018-12-02] MEDS: AMLODIPINE BESYLATE 10 MG TABLET PO SCH (10:27)
[2018-12-02] MEDS: CARVEDILOL 3.125 MG TABLET PO SCH (10:27)
[2018-12-02] MEDS: ASPIRIN 81 MG TABLET, ENT COATED PO SCH (10:27)
[2018-12-02] MEDS: DIAZEPAM 5 MG TABLET PO SCH (10:28)
[2018-12-02] MEDS ORDERED: LISINOPRIL 10 MG TABLET PO ONE (12:30)
--- NOTE | 2018-12-02 16:38 | PDOC PROGRESS REPORT ---
Subjective Progress Note for:: 12/02/18 Subjective:: No adverse events overnight. No new complaints. She is a lot more alert and interactive today. In fact, she is quite ornery. She pulled out her IV earlier and got some blood on her gown in her bed sheets. She is eating and drinking without difficulty. She got a little dizzy when she stood up but she felt better when she sat back down. Reason For Visit: ACUTE ENCEPHALOPATHY AND ARF Physical Exam Vital Signs: Temp Pulse Resp BP Pulse Ox 98.5 F 103 H 22 H 147/116 H 99 12/02/18 07:42 12/02/18 14:00 12/02/18 07:42 12/02/18 12:00 12/02/18 07:42 Intake & Output 12/01/18 12/02/18 12/03/18 06:59 06:59 06:59 Intake Total 1500 1000 Balance 1500 1000 Weight 52 kg 49.1 kg General appearance: PRESENT: no acute distress, cooperative, disheveled, thin Respiratory exam: PRESENT: clear to auscultation hubert, symmetrical, unlabored. ABSENT: accessory muscle use, crackles, prolonged expiratory phas, rhonchi, tachypnea, wheezes Cardiovascular exam: PRESENT: RRR, +S1, +S2 Pulses: PRESENT: normal carotid pulses Vascular exam: PRESENT: normal capillary refill GI/Abdominal exam: PRESENT: normal bowel sounds, soft. ABSENT: distended, guarding, rebound, tenderness Extremities exam: ABSENT: clubbing, pedal edema Musculoskeletal exam: PRESENT: normal inspection. ABSENT: deformity Neurological exam: PRESENT: alert, awake, oriented to person, oriented to place. ABSENT: oriented to situation Psychiatric exam: PRESENT: Slightly agitated Skin exam: PRESENT: dry, warm Results Laboratory Results: 11/30/18 16:04 12/02/18 09:05 12/02/18 09:05 Sodium 145.6 H Potassium 3.6 Chloride 117 H Carbon Dioxide 19 L Anion Gap 10 BUN 33 H Creatinine 1.68 H Est GFR ( Amer) 36 L Est GFR (Non-Af Amer) 30 L Glucose 98 Calcium 9.5 11/30/18 11/30/18 16:04 16:04 Creatine Kinase 34 CK-MB (CK-2) 0.52 Troponin I 0.025 Impressions: Head CT 11/30/18 15:33 IMPRESSION: Stable chronic changes of atrophy and nonspecific white matter changes likely sequelae of microangiopathic disease. No evidence of acute intracranial process. EVIDENCE OF ACUTE STROKE: NO. Acute Abdomen Series 11/30/18 15:40 IMPRESSION: 1. No evidence of intestinal obstruction or other acute intra- abdominal process. 2. Stable large cardiac silhouette and ectatic thoracic aorta. 3. Possible bilateral renal stones. Abdomen/Pelvis CT 11/30/18 17:41 IMPRESSION: NO ACUTE FINDINGS. Assessment and Plan - Diagnosis (1) CARLOS (acute kidney injury) Is this a current diagnosis for this admission?: Yes Plan: Improving with IV fluids. Not sure what her baseline creatinine is but she is responded well so far. I suspect this is actually acute on chronic and that she is pretty close to her baseline. (2) Acute encephalopathy Is this a current diagnosis for this admission?: Yes Plan: I think this is resolved and she is back to her baseline. (3) Dehydration Is this a current diagnosis for this admission?: Yes Plan: Resolved. IV fluids have been discontinued. (4) Hypertension Qualifiers: Hypertension type: essential hypertension Qualified Code(s): I10 - Essenti al (primary) hypertension Is this a current diagnosis for this admission?: Yes Plan: She still somewhat hypertensive despite having medication initiated yesterday. She was started on Norvasc yesterday and so I started some lisinopril today, and also went up on her Coreg dose. - Time Time Spent with patient: 25-34 minutes
[2018-12-02] MEDS: TRAMADOL HCL 50 MG TABLET PO PRN (21:27)
[2018-12-02] MEDS: CARVEDILOL 12.5 MG TABLET PO SCH (21:27)
[2018-12-03] MEDS ORDERED: ONDANSETRON HCL INJ/PF 4 MG/2 ML SDV IV PRN (08:45)
[2018-12-03] MEDS: TRAMADOL HCL 50 MG TABLET PO PRN ×2 (09:04→20:57)
[2018-12-03] MEDS: LISINOPRIL 10 MG TABLET PO SCH (09:49)
[2018-12-03] MEDS: AMLODIPINE BESYLATE 10 MG TABLET PO SCH (09:49)
[2018-12-03] MEDS: ASPIRIN 81 MG TABLET, ENT COATED PO SCH (09:49)
[2018-12-03] MEDS: CARVEDILOL 12.5 MG TABLET PO SCH ×2 (09:49→21:00)
[2018-12-03] MEDS: DIAZEPAM 5 MG TABLET PO SCH (09:51)
--- NOTE | 2018-12-03 15:23 | PDOC PROGRESS REPORT ---
Subjective Progress Note for:: 12/03/18 Subjective:: No adverse events overnight. No new complaints. She was sleeping well overnight and this morning. She been eating fairly well. Her blood pressure was a lot better this morning. Reason For Visit: ACUTE ENCEPHALOPATHY AND ARF Physical Exam Vital Signs: Temp Pulse Resp BP Pulse Ox 98.3 F 76 19 134/85 H 97 12/03/18 12:33 12/03/18 14:00 12/03/18 12:33 12/03/18 12:33 12/03/18 12:33 Intake & Output 12/02/18 12/03/18 12/04/18 06:59 06:59 06:59 Intake Total 1000 474 Balance 1000 474 Weight 49.1 kg 50.2 kg General appearance: PRESENT: no acute distress, cooperative, disheveled, thin Respiratory exam: PRESENT: clear to auscultation hubert, symmetrical, unlabored. ABSENT: accessory muscle use, crackles, prolonged expiratory phas, rhonchi, tachypnea, wheezes Cardiovascular exam: PRESENT: RRR, +S1, +S2 Pulses: PRESENT: normal carotid pulses Vascular exam: PRESENT: normal capillary refill GI/Abdominal exam: PRESENT: normal bowel sounds, soft. ABSENT: distended, guarding, rebound, tenderness Extremities exam: ABSENT: clubbing, pedal edema Musculoskeletal exam: PRESENT: normal inspection. ABSENT: deformity Neurological exam: PRESENT: alert, awake, oriented to person, oriented to place. ABSENT: oriented to situation Psychiatric exam: PRESENT: Slightly agitated Skin exam: PRESENT: dry, warm Results Laboratory Results: 11/30/18 16:04 12/02/18 09:05 11/30/18 11/30/18 16:04 16:04 Creatine Kinase 34 CK-MB (CK-2) 0.52 Troponin I 0.025 Impressions: Head CT 11/30/18 15:33 IMPRESSION: Stable chronic changes of atrophy and nonspecific white matter changes likely sequelae of microangiopathic disease. No evidence of acute intracranial process. EVIDENCE OF ACUTE STROKE: NO. Acute Abdomen Series 11/30/18 15:40 IMPRESSION: 1. No evidence of intestinal obstruction or other acute intra- abdominal process. 2. Stable large cardiac silhouette and ectatic thoracic aorta. 3. Possible bilateral renal stones. Abdomen/Pelvis CT 11/30/18 17:41 IMPRESSION: NO ACUTE FINDINGS. Assessment and Plan - Diagnosis (1) CARLOS (acute kidney injury) Is this a current diagnosis for this admission?: Yes Plan: Improving with IV fluids. Not sure what her baseline creatinine is but she is responded well so far. I suspect this is actually acute on chronic and that she is pretty close to her baseline. (2) Acute encephalopathy Is this a current diagnosis for this admission?: Yes Plan: I think this is resolved and she is back to her baseline. (3) Dehydration Is this a current diagnosis for this admission?: Yes Plan: Resolved. IV fluids have been discontinued. (4) Hypertension Qualifiers: Hypertension type: essential hypertension Qualified Code(s): I10 - Essential (primary) hypertension Is this a current diagnosis for this admission?: Yes Plan: She has improved on a combination of an increased dose of her Coreg, along with new medications Norvasc and lisinopril. - Time Time Spent with patient: 15-24 minutes - Plan Summary Plan Summary: Awaiting physical therapy evaluation to determine whether or not she is going to need [facility] placement for rehab.
[2018-12-04] MEDS: LISINOPRIL 10 MG TABLET PO SCH (09:24)
[2018-12-04] MEDS: AMLODIPINE BESYLATE 10 MG TABLET PO SCH (09:24)
[2018-12-04] MEDS: CARVEDILOL 12.5 MG TABLET PO SCH ×2 (09:24→21:24)
[2018-12-04] MEDS: DIAZEPAM 5 MG TABLET PO SCH (09:24)
[2018-12-04] MEDS: ASPIRIN 81 MG TABLET, ENT COATED PO SCH (09:25)
--- NOTE | 2018-12-04 15:52 | PDOC PROGRESS REPORT ---
Subjective Progress Note for:: 12/04/18 Subjective:: No adverse events overnight. No new complaints. She is eating fairly well. Vital signs been stable. Blood pressure has been more acceptable. Reason For Visit: ACUTE ENCEPHALOPATHY AND ARF Physical Exam Vital Signs: Temp Pulse Resp BP Pulse Ox 97.6 F 106 H 18 142/94 H 97 12/04/18 11:21 12/04/18 11:21 12/04/18 11:21 12/04/18 11:21 12/04/18 11:21 Intake & Output 12/03/18 12/04/18 12/05/18 06:59 06:59 06:59 Intake Total 474 711 Output Total 1 Balance 474 710 Weight 50.2 kg 51 kg General appearance: PRESENT: no acute distress, cooperative, disheveled, thin Respiratory exam: PRESENT: clear to auscultation hubert, symmetrical, unlabored. ABSENT: accessory muscle use, crackles, prolonged expiratory phas, rhonchi, tachypnea, wheezes Cardiovascular exam: PRESENT: RRR, +S1, +S2 Pulses: PRESENT: normal carotid pulses Vascular exam: PRESENT: normal capillary refill GI/Abdominal exam: PRESENT: normal bowel sounds, soft. ABSENT: distended, guarding, rebound, tenderness Extremities exam: ABSENT: clubbing, pedal edema Musculoskeletal exam: PRESENT: normal inspection. ABSENT: deformity Neurological exam: PRESENT: alert, awake, oriented to person, oriented to place. ABSENT: oriented to situation Psychiatric exam: PRESENT: Slightly agitated Skin exam: PRESENT: dry, warm Results Laboratory Results: 11/30/18 16:04 12/02/18 09:05 11/30/18 11/30/18 16:04 16:04 Creatine Kinase 34 CK-MB (CK-2) 0.52 Troponin I 0.025 Impressions: Head CT 11/30/18 15:33 IMPRESSION: Stable chronic changes of atrophy and nonspecific white matter changes likely sequelae of microangiopathic disease. No evidence of acute intracranial process. EVIDENCE OF ACUTE STROKE: NO. Acute Abdomen Series 11/30/18 15:40 IMPRESSION: 1. No evidence of intestinal obstruction or other acute intra- abdominal process. 2. Stable large cardiac silhouette and ectatic thoracic aorta. 3. Possible bilateral renal stones. Abdomen/Pelvis CT 11/30/18 17:41 IMPRESSION: NO ACUTE FINDINGS. Assessment and Plan - Diagnosis (1) CARLOS (acute kidney injury) Is this a current diagnosis for this admission?: Yes Plan: Improving with IV fluids. Not sure what her baseline creatinine is but she is responded well so far. I suspect this is actually acute on chronic and that she is pretty close to her baseline. (2) Acute encephalopathy Is this a current diagnosis for this admission?: Yes Plan: I think this is resolved and she is back to her baseline. (3) Dehydration Is this a current diagnosis for this admission?: Yes Plan: Resolved. IV fluids have been discontinued. (4) Hypertension Qualifiers: Hypertension type: essential hypertension Qualified Code(s): I10 - Essential (primary) hypertension Is this a current diagnosis for this admission?: Yes Plan: She has improved on a combination of an increased dose of her Coreg, along with new medications Norvasc and lisinopril. - Time Time Spent with patient: 15-24 minutes - Plan Summary Plan Summary: PT is recommending 24-hour care for her safety. Her family is trying to see if they can accommodate this at home. If not, we will going to find her a bed at a SNF.
[2018-12-04] MEDS: TRAMADOL HCL 50 MG TABLET PO PRN (21:25)
[2018-12-05] MEDS: ASPIRIN 81 MG TABLET, ENT COATED PO SCH (10:21)
[2018-12-05] MEDS: LISINOPRIL 10 MG TABLET PO SCH (10:21)
[2018-12-05] MEDS: AMLODIPINE BESYLATE 10 MG TABLET PO SCH (10:21)
[2018-12-05] MEDS: DIAZEPAM 5 MG TABLET PO SCH (10:21)
[2018-12-05] MEDS: CARVEDILOL 12.5 MG TABLET PO SCH ×2 (10:21→21:33)
[2018-12-05] MEDS: HEPARIN SOD (PORCINE) 5,000 UNIT/ML 1 ML SYRINGE SUBCUT SCH ×2 (15:37→21:31)
--- NOTE | 2018-12-05 17:34 | PDOC PROGRESS REPORT ---
Subjective Progress Note for:: 12/05/18 Subjective:: No adverse events overnight. No new complaints. She is eating fairly well. Vital signs been stable. Blood pressure has been more acceptable, but she occasionally shows some higher pressures. She does not always hold still while they are taking her blood pressure. Reason For Visit: ACUTE ENCEPHALOPATHY AND ARF Physical Exam Vital Signs: Temp Pulse Resp BP Pulse Ox 97.0 F 86 20 147/100 H 100 12/05/18 16:35 12/05/18 03:28 12/05/18 16:35 12/05/18 16:35 12/05/18 16:35 Intake & Output 12/04/18 12/05/18 12/06/18 06:59 06:59 06:59 Intake Total 711 Output Total 1 Balance 710 Weight 51 kg 51 kg General appearance: PRESENT: no acute distress, cooperative, disheveled, thin Respiratory exam: PRESENT: clear to auscultation hubert, symmetrical, unlabored. ABSENT: accessory muscle use, crackles, prolonged expiratory phas, rhonchi, tachypnea, wheezes Cardiovascular exam: PRESENT: RRR, +S1, +S2 Pulses: PRESENT: normal carotid pulses Vascular exam: PRESENT: normal capillary refill GI/Abdominal exam: PRESENT: normal bowel sounds, soft. ABSENT: distended, guarding, rebound, tenderness Extremities exam: ABSENT: clubbing, pedal edema Musculoskeletal exam: PRESENT: normal inspection. ABSENT: deformity Neurological exam: PRESENT: alert, awake, oriented to person, oriented to place. ABSENT: oriented to situation Psychiatric exam: PRESENT: Slightly agitated Skin exam: PRESENT: dry, warm Results Laboratory Results: 11/30/18 16:04 12/02/18 09:05 11/30/18 11/30/18 16:04 16:04 Creatine Kinase 34 CK-MB (CK-2) 0.52 Troponin I 0.025 Impressions: Head CT 11/30/18 15:33 IMPRESSION: Stable chronic changes of atrophy and nonspecific white matter changes likely sequelae of microangiopathic disease. No evidence of acute intracranial process. EVIDENCE OF ACUTE STROKE: NO. Acute Abdomen Series 11/30/18 15:40 IMPRESSION: 1. No evidence of intestinal obstruction or other acute intra- abdominal process. 2. Stable large cardiac silhouette and ectatic thoracic aorta. 3. Possible bilateral renal stones. Abdomen/Pelvis CT 11/30/18 17:41 IMPRESSION: NO ACUTE FINDINGS. Assessment and Plan - Diagnosis (1) CARLOS (acute kidney injury) Is this a current diagnosis for this admission?: Yes Plan: Improving with IV fluids. Not sure what her baseline creatinine is but she is responded well so far. I suspect this is actually acute on chronic and that she is pretty close to her baseline. This is resolved. She is drinking fluids well, and she pulled out her IV and would not allow us to replace it so she is been off IV fluids for a couple of days now. (2) Acute encephalopathy Is this a current diagnosis for this admission?: Yes Plan: Likely metabolic in nature from dehydration, acute renal failure in a patient showing signs of dementia. No meningeal signs. No nuchal rigidity. Negative Kernig's or Brudzisnki's signs. Now resolved (3) Dehydration Is this a current diagnosis for this admission?: Yes Plan: Resolved (4) Hypertension Qualifiers: Hypertension type: essential hypertension Qualified Code(s): I10 - Essential (primary) hypertension Is this a current diagnosis for this admission?: Yes Plan: She has improved on a combination of an increased dose of her Coreg, along with new medications Norvasc and lisinopril. When she holds still and let us check her pressure, usually looks pretty good. - Time Time Spent with patient: 15-24 minutes - Plan Summary Plan Summary: We were awaiting evaluation from [facility] for placement. She is medically ready to go when she has a bed.
[2018-12-06] MEDS: HEPARIN SOD (PORCINE) 5,000 UNIT/ML 1 ML SYRINGE SUBCUT SCH ×3 (05:24→21:17)
[2018-12-06] MEDS ORDERED: ONDANSETRON 4 MG TAB.RAPDIS PO PRN (07:27)
[2018-12-06] MEDS ORDERED: LACTULOSE SYRUP 20 GM/30 ML UDCUP PO PRN (07:45)
--- NOTE | 2018-12-06 07:48 | PDOC PROGRESS REPORT ---
Subjective Progress Note for:: 12/06/18 Subjective:: 78-year-old female admitted for increasing confusion and poor oral intake. Admitting diagnoses are acute and coagulopathy, acute renal failure, dehydration and hypertensive emergency. Patient is waiting for placement. Creatinine was improved from 2.42-1.68 on 07 24. Plan to repeat the labs today and tomorrow. In the bed woke up and calling complaining of being cold and does not want to communicate with me at all. No acute events in the last 24 hours. Patient is afebrile. Reason For Visit: ACUTE ENCEPHALOPATHY AND ARF Physical Exam Vital Signs: Temp Pulse Resp BP Pulse Ox 98.5 F 75 20 151/97 H 99 12/05/18 23:32 12/06/18 02:00 12/05/18 23:32 12/05/18 23:32 12/05/18 23:32 Intake & Output 12/05/18 12/06/18 12/07/18 06:59 06:59 06:59 Weight 51 kg 51 kg General appearance: PRESENT: no acute distress, thin Head exam: PRESENT: atraumatic Eye exam: PRESENT: PERRLA Mouth exam: PRESENT: moist, tongue midline Neck exam: ABSENT: carotid bruit, JVD, lymphadenopathy, thyromegaly Respiratory exam: PRESENT: clear to auscultation hubert. ABSENT: rales, rhonchi, wheezes Cardiovascular exam: PRESENT: RRR. ABSENT: diastolic murmur, rubs, systolic murmur GI/Abdominal exam: PRESENT: normal bowel sounds, soft. ABSENT: distended, guard ing, mass, organolmegaly, rebound, tenderness Extremities exam: PRESENT: full ROM. ABSENT: calf tenderness, clubbing, pedal edema Neurological exam: PRESENT: alert, CN II-XII grossly intact, other - Patient has advanced dementia not communicating well.. ABSENT: oriented to person, oriented to place, oriented to time, oriented to situation Psychiatric exam: PRESENT: appropriate affect, normal mood. ABSENT: homicidal ideation, suicidal ideation Results Laboratory Results: 11/30/18 16:04 12/02/18 09:05 11/30/18 16:04 Blood Blood Culture - Final NO GROWTH IN 5 DAYS 11/30/18 11/30/18 16:04 16:04 Creatine Kinase 34 CK-MB (CK-2) 0.52 Troponin I 0.025 Impressions: Head CT 11/30/18 15:33 IMPRESSION: Stable chronic changes of atrophy and nonspecific white matter changes likely sequelae of microangiopathic disease. No evidence of acute intracranial process. EVIDENCE OF ACUTE STROKE: NO. Acute Abdomen Series 11/30/18 15:40 IMPRESSION: 1. No evidence of intestinal obstruction or other acute intra- abdominal process. 2. Stable large cardiac silhouette and ectatic thoracic aorta. 3. Possible bilateral renal stones. Abdomen/Pelvis CT 11/30/18 17:41 IMPRESSION: NO ACUTE FINDINGS. Assessment and Plan - Diagnosis (1) Acute encephalopathy Is this a current diagnosis for this admission?: Yes Plan: Likely metabolic in nature from dehydration, acute renal failure in a patient showing signs of dementia. No meningeal signs. No nuchal rigidity. Negative Kernig's or Brudzisnki's signs. Now resolved 12/06/2018-patient was admitted for acute encephalopathy most likely metabolic due to poor oral intake and acute renal failure. She also has advanced dementia. Mental status is stable now. No signs of agitation or anxiety reported. No symptoms of meningitis. (2) Acute renal failure Is this a current diagnosis for this admission?: Yes Plan: Creatinine is significantly elevated from previous baseline. Initial KUB showed possible renal stones. CT of the abdomen was pursued which was unremarkable. Will start patient on IV fluids. Repeat BMP tomorrow. 12/[id number]-old female admitted with acute on chronic renal failure. Admission creatinine is 2.4 to latest creatinine is 1.68 plan to repeat the labs today and tomorrow. Looks like a baseline creatinine is around 1.6-1.7. Patient is off the IV fluids for the last 2 days. Good oral intake patient his appetite is good. In my opinion acute on chronic renal failure is resolving. Acute on chronic renal failure most likely secondary to poor oral intake. (3) Hypertension Qualifiers: Hypertension type: essential hypertension Qualified Code(s): I10 - Essential (primary) hypertension Is this a current diagnosis for this admission?: Yes Plan: She has improved on a combination of an increased dose of her Coreg, along with new medications Norvasc and lisinopril. When she holds still and let us check her pressure, usually looks pretty good. 12/06/2018 patient blood pressure today is 151/97 presently on Coreg 12.5 mg p.o. twice daily, amlodipine 10 mg daily, lisinopril 10 mg p.o. daily. Plan is to continue to follow the blood pressures closely. She is also on IV hydralazine 10 mg every 6 as needed.z (4) Hypernatremia Is this a current diagnosis for this admission?: Yes Plan: 12/06/2018-patient's serum sodium level is 145.6. Most likely secondary to poor oral intake. To encourage more fluid intake nutritional supplementation. Dietary consult is going to be requested. (5) Dementia Is this a current diagnosis for this admission?: No Plan: 12/06/2018 patient have advanced dementia no signs of agitation or anxiety. On haloperidol 2 mg IV every 4 as needed for agitation and diazepam 5 mg p.o. daily for anxiety. Plan is to continue the present management. Patient is waiting for placement. fabric worker is on board. - Time Time Spent with patient: 15-24 minutes Medications reviewed and adjusted accordingly: Yes Anticipated discharge: SNF
[2018-12-06 09:31] LABS: ABSOLUTE BASOPHILS # (AUTO) 0.1 10^3/uL (0.0-0.2); ABSOLUTE EOSINOPHILS # (AUTO) 0.1 10^3/uL (0.0-0.6); ABSOLUTE LYMPHOCYTES (AUTO) 1.1 10^3/uL (0.5-4.7); ABSOLUTE MONOCYTES (AUTO) 0.5 10^3/uL (0.1-1.4); ABSOLUTE NEUT (AUTO) 5.6 10^3/uL (1.7-8.2); BASOPHILS % (AUTO) 1.3 % (0-2); LYMPHOCYTES % (AUTO) 15.4 % (13-45); MEAN CORPUSCULAR HEMOGLOBIN 31.7 pg (27.0-33.4); MEAN CORPUSCULAR HGB CONC 33.4 g/dL (32.0-36.0); MEAN CORPUSCULAR VOLUME 95 fl (80-97); MONOCYTES % (AUTO) 7.3 % (3-13); PLATELET COUNT 160 10^3/uL (150-450); RED BLOOD COUNT 3.16 10^6/uL (3.72-5.28); RED CELL DISTRIBUTION WIDTH 16.5 % (11.5-14.0); TOTAL CELLS COUNTED % (AUTO) 100 %; WHITE BLOOD COUNT 7.4 10^3/uL (4.0-10.5)
[2018-12-06 10:01] LABS: ALANINE AMINOTRANSFERASE 22 U/L (9-52); ALBUMIN 3.1 g/dL (3.5-5.0); ALKALINE PHOSPHATASE 64 U/L (38-126); ANION GAP 9 (5-19); ASPARTATE AMINO TRANSFERASE 18 U/L (14-36); BILIRUBIN,DIRECT 0.4 mg/dL (0.0-0.4); BILIRUBIN,TOTAL 0.5 mg/dL (0.2-1.3); BLOOD UREA NITROGEN 26 mg/dL (7-20); CALCIUM 9.3 mg/dL (8.4-10.2); CARBON DIOXIDE 20 mmol/L (22-30); CHLORIDE 111 mmol/L (98-107); GLUCOSE 90 mg/dL (75-110); POTASSIUM 3.6 mmol/L (3.6-5.0); SODIUM 139.6 mmol/L (137-145); TOTAL PROTEIN 6.8 g/dL (6.3-8.2)
[2018-12-06] MEDS: ASPIRIN 81 MG TABLET, ENT COATED PO SCH (10:45)
[2018-12-06] MEDS: CARVEDILOL 12.5 MG TABLET PO SCH ×2 (10:45→21:15)
[2018-12-06] MEDS: DIAZEPAM 5 MG TABLET PO SCH (10:45)
[2018-12-06] MEDS: POTASSIUM CHLORIDE 10 MEQ CAPSULE.ER PO SCH (10:45)
[2018-12-06] MEDS: LISINOPRIL 10 MG TABLET PO SCH (10:45)
[2018-12-06] MEDS: MEGESTROL ACETATE SUSP 400 MG/10 ML UDCUP PO SCH ×2 (10:46→17:27)
[2018-12-06] MEDS: AMLODIPINE BESYLATE 10 MG TABLET PO SCH (10:46)
[2018-12-06] MEDS: TRAMADOL HCL 50 MG TABLET PO PRN (13:39)
[2018-12-06] MEDS ORDERED: MIRTAZAPINE 15 MG TABLET PO SCH (22:00)
[2018-12-07] MEDS: HALOPERIDOL LACTATE INJ 5 MG/1 ML VIAL IV PRN (00:19)
[2018-12-07 05:00] LABS: ABSOLUTE BASOPHILS # (AUTO) 0.1 10^3/uL (0.0-0.2); ABSOLUTE LYMPHOCYTES (AUTO) 0.8 10^3/uL (0.5-4.7); ABSOLUTE MONOCYTES (AUTO) 0.5 10^3/uL (0.1-1.4); ABSOLUTE NEUT (AUTO) 7.2 10^3/uL (1.7-8.2); BASOPHILS % (AUTO) 1.2 % (0-2); EOSINOPHILS % (AUTO) 0.3 % (0-6); LYMPHOCYTES % (AUTO) 8.9 % (13-45); MEAN CORPUSCULAR HEMOGLOBIN 32.1 pg (27.0-33.4); MEAN CORPUSCULAR HGB CONC 34.3 g/dL (32.0-36.0); MEAN CORPUSCULAR VOLUME 94 fl (80-97); MONOCYTES % (AUTO) 5.5 % (3-13); PLATELET COUNT 139 10^3/uL (150-450); RED CELL DISTRIBUTION WIDTH 16.7 % (11.5-14.0); SEGMENTED NEUTROPHILS % (AUTO) 84.1 % (42-78); TOTAL CELLS COUNTED % (AUTO) 100 %; WHITE BLOOD COUNT 8.6 10^3/uL (4.0-10.5)
[2018-12-07] MEDS: HEPARIN SOD (PORCINE) 5,000 UNIT/ML 1 ML SYRINGE SUBCUT SCH ×2 (05:19→14:45)
[2018-12-07 05:25] LABS: ALANINE AMINOTRANSFERASE 14 U/L (9-52); ALBUMIN 3.2 g/dL (3.5-5.0); ALKALINE PHOSPHATASE 58 U/L (38-126); ANION GAP 10 (5-19); ASPARTATE AMINO TRANSFERASE 20 U/L (14-36); BILIRUBIN,DIRECT 0.5 mg/dL (0.0-0.4); BILIRUBIN,TOTAL 0.6 mg/dL (0.2-1.3); BLOOD UREA NITROGEN 28 mg/dL (7-20); CALCIUM 9.3 mg/dL (8.4-10.2); CARBON DIOXIDE 15 mmol/L (22-30); CHLORIDE 115 mmol/L (98-107); GLUCOSE 103 mg/dL (75-110); POTASSIUM 4.1 mmol/L (3.6-5.0); SODIUM 139.9 mmol/L (137-145); TOTAL PROTEIN 6.7 g/dL (6.3-8.2)
[2018-12-07] MEDS: CARVEDILOL 12.5 MG TABLET PO SCH (11:45)
[2018-12-07] MEDS: POTASSIUM CHLORIDE 10 MEQ CAPSULE.ER PO SCH (11:45)
[2018-12-07] MEDS: ASPIRIN 81 MG TABLET, ENT COATED PO SCH (11:45)
[2018-12-07] MEDS: DIAZEPAM 5 MG TABLET PO SCH (11:46)
[2018-12-07] MEDS: LISINOPRIL 10 MG TABLET PO SCH (11:46)
[2018-12-07] MEDS: AMLODIPINE BESYLATE 10 MG TABLET PO SCH (11:46)
[2018-12-07] MEDS: MEGESTROL ACETATE SUSP 400 MG/10 ML UDCUP PO SCH ×2 (11:46→17:35)
--- NOTE | 2018-12-07 12:44 | PDOC TRANSFER SUMMARY ---
General - Admit/Disc Date/PCP Admission Date/Primary Care Provider: 12/01/18 14:45 Discharge Date: 12/07/18 - Discharge Diagnosis (1) Acute encephalopathy Is this a current diagnosis for this admission?: Yes Summary: 78-year-old female admitted for altered mental status/acute encephalopathy most likely secondary to acute on chronic renal failure and underlying dementia. No meningeal signs at the time of admission no nuchal rigidity negative for kidney aches and Brudzinski signs at the time of admission. No complications during the hospital stay and patient is going to the [facility] today once the bed is available. (2) Acute renal failure Is this a current diagnosis for this admission?: Yes Summary: 12/07/2018-patient admitted with acute on chronic renal insufficiency. On admission creatinine is 2.4 and it improved to 1.57 today. Acute on chronic renal insufficiency resolved. Most likely secondary to poor intake. Most likely patient's baseline creatinine is around 1.6-1.7. (3) Hypertension Is this a current diagnosis for this admission?: Yes Summary: She has improved on a combination of an increased dose of her Coreg, along with new medications Norvasc and lisinopril. When she holds still and let us check her pressure, usually looks pretty good. 12/06/2018 patient blood pressure today is 151/97 presently on Coreg 12.5 mg p.o. twice daily, amlodipine 10 mg daily, lisinopril 10 mg p.o. daily. Plan is to continue to follow the blood pressures closely. She is also on IV hydralazine 10 mg every 6 as needed.z 12/07/2018-patient's blood pressure today is 133/82 stable. Presently on Coreg 12.5 mg twice a day, lisinopril 10 mg daily, amlodipine 10 mg daily. plan is to continue the medications in the correction. (4) Hypernatremia Is this a current diagnosis for this admission?: Yes Summary: 12/06/2018-patient's serum sodium level is 145.6. Most likely secondary to poor oral intake. To encourage more fluid intake nutritional supplementation. Dietary consult is going to be requested. 12/07/2018-patient's serum sodium level is 140 today. Hypernatremia is resolved. Most likely secondary to poor oral intake causing dehydration. (5) Dementia Is this a current diagnosis for this admission?: No Summary: 12/06/2018 patient have advanced dementia no signs of agitation or anxiety. On haloperidol 2 mg IV every 4 as needed for agitation and diazepam 5 mg p.o. daily for anxiety. Plan is to continue the present management. Patient is waiting for placement. 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 12/07/2018-patient has advanced dementia. No signs of agitation. But the [facility] ent refused to take the medications this morning. No medications for dementia are started during the hospital stay. - Additional Information Resuscitation Status: Do Not Resuscitate Discharge Diet: Cardiac Discharge Activity: Activity As Tolerated Home Medications: Aspirin [Adult Low Dose Aspirin EC] 81 mg PO DAILY 11/30/18 Megestrol Acetate 400 mg PO BID 11/30/18 Omeprazole 20 mg PO QAM 11/30/18 Tramadol HCl [Ultram 50 mg Tablet] 50 mg PO Q12HP PRN 11/30/18 Amlodipine Besylate [Norvasc 10 mg Tablet] 10 mg PO DAILY tablet 12/07/18 Carvedilol [Coreg 12.5 mg Tablet] 12.5 mg PO Q12 tablet 12/07/18 Lisinopril [Prinivil 10 mg Tablet] 10 mg PO DAILY tablet 12/07/18 History of Present Illness Admission Date/PCP: 12/01/18 14:45 History of Present Illness: AMADOU RAI is a 78 year old female 78 year old female with a PMH of CAD with prior CABG 15 yrs ago, HTN and possible dementia who was brought in because of increasing confusion and poor oral intake. Patient's sister, Ava is mostly giving the history. She says patient has been showing signs of cognitive decline since August where she tends to be more forgetful and disoriented at home. She says patient forgets where the bathroom or kitchen is at home. She also started having poor appetite and was also started on Megace. She says in the past 1 and a half week, patient has been having pooer oral inta ke and is not drinking much. She was also more confused than her usual state in August hence was brought in to the ER where she was noted to have CARLOS. Upon encounter, patient is comfortable. She is oriented to self and knows her sister's name but unable to say where she's at or know the date. Physical Exam Vital Signs: Temp Pulse Resp BP Pulse Ox 98.2 F 84 20 146/77 H 99 12/07/18 08:20 12/07/18 08:20 12/07/18 08:20 12/07/18 08:20 12/07/18 08:20 Intake & Output 12/06/18 12/07/18 12/08/18 06:59 06:59 06:59 Weight 51 kg 51 kg General appearance: PRESENT: no acute distress, thin, other - Comfortable in the bed not communicative. Head exam: PRESENT: atraumatic Eye exam: PRESENT: PERRLA Mouth exam: PRESENT: moist, tongue midline Neck exam: ABSENT: carotid bruit, JVD, lymphadenopathy, thyromegaly Respiratory exam: PRESENT: clear to auscultation hubert. ABSENT: rales, rhonchi, wheezes Cardiovascular exam: PRESENT: systolic murmur, tachycardia GI/Abdominal exam: PRESENT: normal bowel sounds, soft. ABSENT: distended, guarding, mass, organolmegaly, rebound, tenderness Extremities exam: PRESENT: full ROM. ABSENT: calf tenderness, clubbing, pedal edema Neurological exam: PRESENT: other - Patient has advanced dementia pt unable to cooperate with physical examination. Psychiatric exam: PRESENT: appropriate affect, normal mood. ABSENT: homicidal ideation, suicidal ideation Results Laboratory Results: 12/07/18 04:09 12/07/18 04:09 12/07/18 12/07/18 04:09 04:09 WBC 8.6 RBC 3.10 L Hgb 10.0 L Hct 29.0 L MCV 94 MCH 32.1 MCHC 34.3 RDW 16.7 H Plt Count 139 L Seg Neutrophils % 84.1 H Lymphocytes % 8.9 L Monocytes % 5.5 Eosinophils % 0.3 Basophils % 1.2 Absolute Neutrophils 7.2 Absolute Lymphocytes 0.8 Absolute Monocytes 0.5 Absolute Eosinophils 0.0 Absolute Basophils 0.1 Sodium 139.9 Potassium 4.1 Chloride 115 H Carbon Dioxide 15 L Anion Gap 10 BUN 28 H Creatinine 1.57 H Est GFR ( Amer) 39 L Est GFR (Non-Af Amer) 32 L Glucose 103 Calcium 9.3 Total Bilirubin 0.6 AST 20 ALT 14 Alkaline Phosphatase 58 Total Protein 6.7 Albumin 3.2 L 12/01/18 09:17 Blood Blood Culture - Final NO GROWTH IN 5 DAYS 11/30/18 11/30/18 16:04 16:04 Creatine Kinase 34 CK-MB (CK-2) 0.52 Troponin I 0.025 Impressions: Head CT 11/30/18 15:33 IMPRESSION: Stable chronic changes of atrophy and nonspecific white matter changes likely sequelae of microangiopathic disease. No evidence of acute intracranial process. EVIDENCE OF ACUTE STROKE: NO. Acute Abdomen Series 11/30/18 15:40 IMPRESSION: 1. No evidence of intestinal obstruction or other acute intra- abdominal process. 2. Stable large cardiac silhouette and ectatic thoracic aorta. 3. Possible bilateral renal stones. Abdomen/Pelvis CT 11/30/18 17:41 IMPRESSION: NO ACUTE FINDINGS. Transfer Plan - Time Spent with Patient Time spent with patient: Less than 30 Minutes Qualifiers - * PATIENT BEING DISCHARGED WITH ANY OF THE FOLLOWING DIAGNOSIS: No VTE patient discharged on overlapping Therapy?: No Plan Discharge Plan: Once the bed is available patient is going to [facility] today . Time Spent: Less than 30 Minutes
[2018-12-07 20:26] VITALS: BP 168/95
== END 2018-12-07 19:45 | DRG 682 ==
LOC: ER 15:16 → INTOOBSV 18:14 → EH 18:14 → 4N 20:12 → OBSVTOIN 12-01 14:45
PROVIDERS: ADMIT Family Medicine; ATTEND Internal Medicine
DX: N17.9 Acute kidney failure, unspecified (principal); G93.41 Metabolic encephalopathy; E87.0 Hyperosmolality and hypernatremia; I16.0 Hypertensive urgency; I12.9 Hypertensive chronic kidney disease with stage 1 through stage 4 chronic kidney disease, or unspecified chronic kidney disease; N18.9 Chronic kidney disease, unspecified; E86.0 Dehydration; I25.10 Atherosclerotic heart disease of native coronary artery without angina pectoris; Z66 Do not resuscitate; F03.90 Unspecified dementia, unspecified severity, without behavioral disturbance, psychotic disturbance, mood disturbance, and anxiety; K21.9 Gastro-esophageal reflux disease without esophagitis; Z87.891 Personal history of nicotine dependence; Z95.1 Presence of aortocoronary bypass graft; Z79.82 Long term (current) use of aspirin; I25.2 Old myocardial infarction; Z79.899 Other long term (current) drug therapy
CPT/HCPCS: 36415; 51701; 70450; 74022; 74176; 80048; 80053; 81001; 82550; 82553; 82962; 83735; 84484; 85025; 87040; 99285; G0378; J0360; J1630; J1644; J2405; J3360; J3490; J7030; J7040

== ENCOUNTER 2019-05-11 23:42 | Observation (INO) | payer MEDICARE, MEDICAID ==
[2019-05-12] MEDS ORDERED: DIPHENHYDRAMINE HCL 50 MG/ML VIAL ONE (00:03)
[2019-05-12] MEDS ORDERED: METHYLPREDNISOLONE INJ 125 MG/2 ML SDV ONE (00:03)
[2019-05-12] MEDS ORDERED: DIPHENHYDRAMINE HCL 50 MG/ML VIAL IV ONE (00:08)
[2019-05-12] MEDS ORDERED: METHYLPREDNISOLONE INJ 125 MG/2 ML SDV IV ONE (00:08)
--- NOTE | 2019-05-12 00:25 | ER Document Report ---
ED ENT - General Stated Complaint: ANGIOEDEMA Time Seen by Provider: 05/12/19 00:07 Information source: Patient TRAVEL OUTSIDE OF THE U.S. IN LAST 30 DAYS: No COUNTRY TRAVELED TO/FROM: [facility] Notes: This is a 79-year-old female who presents today with complaint of tongue swelling. Patient takes lisinopril for hypertension. Patient states that she noticed her tongue was swollen when she was about to go to bed today. She denies any new medication use. She denies any trouble breathing. She denies any fever or chills. She describes her symptoms as moderate. There are no obvious aggravating relieving factors. - Related Data Allergies/Adverse Reactions: No Known Allergies Allergy (Verified 05/04/18 15:08) Past Medical History - Social History Smoking Status: Never Smoker Frequency of alcohol use: None Drug Abuse: None Family History: Reviewed & Not Pertinent - Past Medical History Cardiac Medical History: Reports: Hx Heart Attack, Hx Hypertension Denies: Hx Congestive Heart Failure Pulmonary Medical History: Reports: Hx Asthma Denies: Hx Bronchitis, Hx COPD, Hx Pneumonia Neurological Medical History: Denies: Hx Seizures Renal/ Medical History: Denies: Hx End Stage Renal Disease, Hx Kidney Stones, Hx Peritoneal Dialysis GI Medical History: Reports: Hx Gastroesophageal Reflux Disease. Denies: Hx Cirrhosis, Hx Ulcer Musculoskeletal Medical History: Denies Hx Multiple Sclerosis Psychiatric Medical History: Reports: Hx Depression Denies: Hx Bipolar Disorder, Hx Schizophrenia Past Surgical History: Reports: Hx Open Heart Surgery - Immunizations Hx Diphtheria, Pertussis, Tetanus Vaccination: Yes Review of Systems - Review of Systems Constitutional: denies: Fever EENT: Other - Tongue swelling. denies: Throat pain, Difficulty swallowing Cardiovascular: denies: Chest pain, Dyspnea Respiratory: denies: Cough, Short of breath Skin: denies: Rash -: Yes All other systems reviewed and negative Physical Exam - Vital signs Vitals: Resp BP 11 L 137/77 H 05/11/19 23:51 05/11/19 23:51 Notes: Vital signs reviewed per nursing note. - General General appearance: Appears well In distress: None - HEENT Head: Normocephalic Mouth/Lips: Angioedema - There is significant angioedema of the tongue. - Respiratory Respiratory status: No respiratory distress Chest status: Nontender Breath sounds: Normal - Cardiovascular Rhythm: Regular Heart sounds: Normal auscultation Murmur: No - Abdominal Inspection: Normal Distension: No distension - Extremities General upper extremity: Normal inspection, Nontender General lower extremity: Normal inspection, Nontender - Skin Skin Temperature: Warm Skin Moisture: Dry Skin irregularity: negative: Rash Course - Re-evaluation Re-evalutation: 05/12/19 00:26 Medical picture is consistent with angioedema likely secondary to lisinopril use. Patient was given Zantac and Benadryl (25 mg) per EMS. I will give another dose of Benadryl and Solu-Medrol. Will observe closely. Will hold off on FFP at this time. 05/12/19 01:11 Patient reevaluated. She denies any trouble breathing. No tongue swelling is slightly improved but still significant. She wants something for pain. She states discussing her mild to her. We will give her a small dose of Morphine. 05/12/19 02:37 Patient reevaluated. Patient is doing better. Swelling slightly improved. No cardiopulmonary distress. 05/12/19 05:10 Patient reevaluated. She feels much better. Swelling is still improving. No cardiopulmonary symptoms. 05/12/19 06:27 Pt has been observed for over 6 hours. She is doing well. Angioedema is improving. NO cardiopulmonary symptoms. She is stable for discharge. She has been counseled to STOP taking Lisinopril. She will follow-up with her PCP for further evaluation and to change her BP meds. She understands. 05/12/19 06:56 PT is doing better but her tongue is still swollen. We will observe her longer. I discussed her care with Dr. Saunders and transferred care to Dr. Saunders, He will observe her - Vital Signs Vital signs: Temp Pulse Resp BP Pulse Ox 20 120/96 H 99 05/12/19 05:04 05/12/19 05:04 05/12/19 04:01 Discharge - Discharge Clinical Impression: Angio-edema Qualifiers: Encounter type: initial encounter Qualified Code(s): T78.3XXA - Angioneurotic edema, initial encounter Condition: Good Disposition: HOME, SELF-CARE Instructions: Angioedema ([facility]) Additional Instructions: Stop taking the LIsinopril for your blood pressure. That is most likely the cause of your symptoms. Follow-up with your doctor today for re-check and to change your blood pressure medication. Return immediately if trouble breathing, worse or concerns.
[2019-05-12] MEDS ORDERED: MORPHINE SULFATE 10 MG/ML INJ IV STA (01:12)
[2019-05-12] MEDS ORDERED: NORMAL SALINE 1000 ML 1,000 ML IV PRN (11:55)
[2019-05-12] MEDS ORDERED: DEXTROSE 50%-WATER 25 GM/50 ML DISP.SYRIN IV PRN ×2 (11:55)
[2019-05-12] MEDS ORDERED: ACETAMINOPHEN 325 MG TABLET PO PRN (11:55)
[2019-05-12] MEDS ORDERED: GLUCAGON,HUMAN RECOMB 1 MG INJ SUBCUT PRN (11:55)
[2019-05-12] MEDS ORDERED: DEXTROSE 40% GEL 15 GM TUBE PO PRN ×2 (11:55)
[2019-05-12] MEDS ORDERED: ONDANSETRON HCL INJ/PF 4 MG/2 ML SDV IV PRN (11:55)
[2019-05-12] MEDS ORDERED: TRAMADOL HCL 50 MG TABLET PO PRN (12:23)
--- NOTE | 2019-05-12 13:27 | PDOC H&P ---
History of Present Illness Admission Date/PCP: 05/12/19 10:43 History of Present Illness: AMADOU RAI is a 79 year old female who comes into the emergency room after being sent from [facility] or edema of the tongue. I am not exactly sure how long this is been going on before she was sent to the ER and she has been in the ER most of the night and in fact was turned over to another physician this morning. Patient takes lisinopril on a regular basis but just yesterday was started on Remeron. Patient was treated with per usual in the ER but did not get better her tongue was still edematous so we were asked to admit the patient. Patient is in no respiratory distress but certainly her tongue is so edematous that she should not be [facility]. She reportedly has a history of dementia but she answers all of her questions to me and seems oriented. Patient was in the hospital back in November for acute encephalopathy and acute renal failure Past Medical History Cardiac Medical History: Reports: Myocardial Infarction, Hypertension Denies: Congestive Heart Failure Pulmonary Medical History: Reports: Asthma Denies: Bronchitis, Chronic Obstructive Pulmonary Disease (COPD), Pneumonia Neurological Medical History: Denies: Seizures Renal/ Medical History: Denies: End Stage Renal Disease GI Medical History: Reports: Gastroesophageal Reflux Disease Denies: Cirrhosis Psychiatric Medical History: Reports: Depression Denies: Bipolar Disorder Hematology: Denies: Anemia, Bleeding Tendencies Past Surgical History Past Surgical History: Reports: Coronary Artery Bypass Graft - Patient has a well-healed midline incision over the sternum, she says this Social History Smoking Status: Never Smoker Drugs: None - Advance Directive Resuscitation Status: Full Code Family History Family History: Reviewed & Not Pertinent Parental Family History Reviewed: No Children Family History Reviewed: No Sibling(s) Family History Reviewed.: No Medication/Allergy Home Medications: Aspirin [Adult Low Dose Aspirin EC] 81 mg PO DAILY 11/30/18 Megestrol Acetate 400 mg PO BID 11/30/18 Omeprazole 20 mg PO QAM 11/30/18 Tramadol HCl [Ultram 50 mg Tablet] 50 mg PO Q12HP PRN 11/30/18 Amlodipine Besylate [Norvasc 10 mg Tablet] 10 mg PO DAILY tablet 12/07/18 Carvedilol [Coreg 12.5 mg Tablet] 12.5 mg PO Q12 tablet 12/07/18 Lisinopril [Prinivil 10 mg Tablet] 10 mg PO DAILY tablet 12/07/18 Allergies/Adverse Reactions: No Known Allergies Allergy (Verified 05/04/18 15:08) Review of Systems Constitutional: ABSENT: chills, fever(s), headache(s), weight gain, weight loss Nose, Mouth, and Throat: PRESENT: other - : Edematous tongue Respiratory: PRESENT: as per HPI. ABSENT: cough, hemoptysis Gastrointestinal: PRESENT: as per HPI. ABSENT: abdominal pain, constipation, diarrhea, hematemesis, hematochezia, nausea, vomiting Neurological: ABSENT: abnormal gait, abnormal speech, confusion, dizziness, focal weakness, syncope Psychiatric: ABSENT: anxiety, depression, homidical ideation, suicidal ideation Physical Exam Vital Signs: Temp Pulse Resp BP Pulse Ox 12 154/89 H 100 05/12/19 11:01 05/12/19 11:00 05/12/19 11:01 Intake & Output 05/11/19 05/12/19 05/13/19 06:59 06:59 06:59 Weight 45.359 kg General appearance: PRESENT: mild distress, other - She does not appear to be hypoxic or in distress Mouth exam: PRESENT: tongue midline, other - Tongue is about twice its normal size appears to be full of fluid Respiratory exam: PRESENT: clear to auscultation hubert. ABSENT: rales, rhonchi, wheezes Cardiovascular exam: PRESENT: RRR. ABSENT: diastolic murmur, rubs, systolic murmur Neurological exam: PRESENT: alert, awake, oriented to person, oriented to place, oriented to time, oriented to situation, CN II-XII grossly intact, other - Patient answers all questions appropriately to me. ABSENT: motor sensory deficit Psychiatric exam: PRESENT: anxious, other - She has this does not appear to be based on hypoxia. Patient does have a history of dementia Assessment and Plan - Diagnosis (1) Schizo affective schizophrenia Is this a current diagnosis for this admission?: Yes Plan: Patient is on no medication for schizophrenia, however there is a history of this in the chart (2) Angio-edema Qualifiers: Encounter type: initial encounter Qualified Code(s): T78.3XXA - Angioneurotic edema, initial encounter Is this a current diagnosis for this admission?: Yes Plan: She has been given 1 dose of Solu-Medrol and Benadryl and Zantac in the ER I will continue this on a every 6 hours basis. Patient will be observed closely for any other worsening (3) Dementia Is this a current diagnosis for this admission?: Yes Plan: She has a history of chronic dementia although she carries on a conversation with me quite well she is awake alert and oriented x3.. No inappropriate behavior (4) Hypertension Qualifiers: Hypertension type: essential hypertension Qualified Code(s): I10 - Essential (primary) hypertension Is this a current diagnosis for this admission?: Yes Plan: Patient's blood pressures well controlled in the ER with an average of about 150/88 we will continue her Coreg and Norvasc and obviously DC her lisinopril - Time Time Spent with patient: 35 or more minutes
[2019-05-12] MEDS: AMLODIPINE BESYLATE 10 MG TABLET PO SCH (14:56)
[2019-05-12] MEDS: HEPARIN SOD (PORCINE) 5,000 UNIT/ML 1 ML VIAL SUBCUT SCH ×2 (14:57→21:05)
[2019-05-12] MEDS: METHYLPREDNISOLONE INJ 125 MG/2 ML SDV IV SCH ×2 (15:05→21:05)
[2019-05-12] MEDS: FAMOTIDINE INJ/PF 20 MG/2 ML SDV IV SCH ×2 (15:05→21:05)
[2019-05-12] MEDS: DIPHENHYDRAMINE HCL 50 MG/ML VIAL IV SCH ×2 (15:05→18:26)
[2019-05-12] MEDS: MEGESTROL ACETATE SUSP 400 MG/10 ML UDCUP PO SCH (18:26)
[2019-05-12] MEDS: CARVEDILOL 12.5 MG TABLET PO SCH (21:05)
[2019-05-13] MEDS: DIPHENHYDRAMINE HCL 50 MG/ML VIAL IV SCH ×2 (02:22→05:47)
[2019-05-13] MEDS: METHYLPREDNISOLONE INJ 125 MG/2 ML SDV IV SCH (05:16)
[2019-05-13] MEDS: HEPARIN SOD (PORCINE) 5,000 UNIT/ML 1 ML VIAL SUBCUT SCH (05:16)
--- NOTE | 2019-05-13 09:43 | PDOC DISCHARGE SUMMARY ---
General - Admit/Disc Date/PCP Admission Date/Primary Care Provider: 05/12/19 10:43 Discharge Date: 05/13/19 - Discharge Diagnosis (1) Schizo affective schizophrenia Is this a current diagnosis for this admission?: Yes Summary: Patient had no signs or symptoms of schizophrenia while in the hospital (2) Angio-edema Is this a current diagnosis for this admission?: Yes Summary: Patient's angioedema is most likely secondary to lisinopril which she has been on for some time, note was made for this to be discontinued. Patient's angioedema responded quite well when she got on H2 H1 and steroids on a every 6 hours basis unfortunately in the emergency room she only got a limited amount of medication and the edema in her tongue did not resolve in the ER Once the patient received the medications on a regular basis the improved quickly.. At the time of discharge patient is eating a regular diet. Patient never appeared to be in any respiratory distress. (3) Dementia Is this a current diagnosis for this admission?: Yes Summary: Patient has a history of dementia but quite honestly she is awake alert and oriented x3. If she in fact she does have dementia it is very mild and did not cause a problem while in the hospital. (4) Hypertension Is this a current diagnosis for this admission?: Yes Summary: Patient's blood pressure was under good control while in the hospital we continued her Norvasc 10 mg daily and Coreg 12.5 mg every 12 hours . Since blood pressure on admission was 137/77 at discharge most recent blood pressures 114/63 - Additional Information Resuscitation Status: Other - CODE STATUS was not indicated on her paperwork the skilled nursing she was a full code while in the hospital Discharge Diet: As Tolerated Discharge Activity: Balance Activity w/Rest Home Medications: Aspirin [Adult Low Dose Aspirin EC] 81 mg PO DAILY 11/30/18 Omeprazole 20 mg PO QAM 11/30/18 Tramadol HCl [Ultram 50 mg Tablet] 50 mg PO Q12HP PRN 11/30/18 Amlodipine Besylate [Norvasc 5 mg Tablet] 5 mg PO DAILY 05/12/19 Ascorbic Acid [Vitamin C] 500 mg PO DAILY 05/12/19 Carvedilol Phosphate [Coreg CR 10 mg Ext. Release Capsule] 1 cap.sr PO DAILY 05/12/19 Docusate Sodium [Colace 100 mg Capsule] 100 mg PO BID 05/12/19 Ferrous Sulfate [Feosol 325 mg Tablet] 325 mg PO DAILY 05/12/19 Furosemide [Lasix] 10 mg PO DAILY 05/12/19 Magnesium Hydroxide [Milk of Magnesia 30 ml Udcup] 30 ml PO DAILYP PRN 05/12/19 Mirtazapine [Remeron 15 mg Tablet] 15 mg PO QPM 05/12/19 Polyethylene Glycol 3350 [Miralax Powder 17 gm/Packet] 1 packet PO DAILY 05/12/19 Sennosides/Docusate 8.6-50 mg [Senna Plus Tablet] 1 tab PO QHS 05/12/19 History of Present Illness History of Present Illness: AMADOU RAI is a 79 year old female who comes into the emergency room after being sent from [facility] or edema of the tongue. I am not exactly sure how long this is been going on before she was sent to the ER and she has been in the ER most of the night and in fact was turned over to another physician this morning. Patient takes lisinopril on a regular basis but just yesterday was started on Remeron. Patient was treated with per usual in the ER but did not get better her tongue was still edematous so we were asked to admit the patient. Patient is in no respiratory distress but certainly her tongue is so edematous that she should not be discharged back to the skilled nursing. She reportedly has a history of dementia but she answers all of her questions to me and seems oriented. Patient was in the hospital back in November for acute encephalopathy and acute renal failure Hospital Course Hospital Course: Patient was given IV Benadryl IV Pepcid and IV Solu-Medrol every 6 hours x3 after she was sent to the floor from the ER. After about the second dose of this regimen of medications patient's edema involving the tongue resolved. She was never in any respiratory distress from the time I saw her until the time of discharge. I cannot vouch for her symptoms in the emergency room other than what is dictated. Her graph patient was sent out back to the skilled nursing on her same medications with the exception of the lisinopril which was discontinued Physical Exam Vital Signs: Temp Pulse Resp BP Pulse Ox 97.5 F 73 16 114/63 98 05/12/19 23:46 05/13/19 07:00 05/12/19 23:46 05/12/19 23:46 05/12/19 23:46 Intake & Output 05/12/19 05/13/19 05/14/19 06:59 06:59 06:59 Weight 45.359 kg 45.6 kg General appearance: PRESENT: no acute distress, other - Talking in full sentences eating a normal breakfast, swallowing is normal Respiratory exam: PRESENT: clear to auscultation hubert. ABSENT: rales, rhonchi, wheezes Cardiovascular exam: PRESENT: RRR. ABSENT: diastolic murmur, rubs, systolic murmur Neurological exam: PRESENT: alert, awake, oriented to person, oriented to place, oriented to time, oriented to situation, CN II-XII grossly intact. ABSENT: motor sensory deficit Psychiatric exam: PRESENT: appropriate affect, normal mood, other - Patient is laughing and joking with the hospital staff. ABSENT: homicidal ideation, suicidal ideation Qualifiers - * PATIENT BEING DISCHARGED WITH ANY OF THE FOLLOWING DIAGNOSIS: No Acute Heart Failure - Is this a Heart Failure Patient?: No Plan Time Spent: Greater than 30 Minutes - Return to the skilled nursing, see the primary care provider for the skilled nursing for recommendations concerning replacement of lisinopril
[2019-05-13] MEDS ORDERED: ASPIRIN 81 MG TABLET, ENT COATED PO SCH (10:00)
[2019-05-13] MEDS ORDERED: DOCUSATE SODIUM 100 MG CAPSULE PO SCH (10:00)
[2019-05-13] MEDS: CARVEDILOL 12.5 MG TABLET PO SCH (10:08)
[2019-05-13] MEDS: AMLODIPINE BESYLATE 10 MG TABLET PO SCH (10:08)
[2019-05-13] MEDS: MEGESTROL ACETATE SUSP 400 MG/10 ML UDCUP PO SCH (10:09)
[2019-05-13] MEDS: FAMOTIDINE INJ/PF 20 MG/2 ML SDV IV SCH (10:10)
[2019-05-13 12:32] VITALS: BP 117/74
--- NOTE | 2019-05-23 12:47 | Progress Note Acknowledgement ---
Progress Note Acknowledgement Progess Note Acknowledgement: I, the undersigned member of the medical staff with appropriate privileges and with supervisory authority over [ PAC ], a dependent practice allied health professional, acknowledge that I have reviewed the progress notes entered on this patient, and in my professional judgment believe that the assessment made and/or any care evidenced was appropriate
== END 2019-05-13 13:33 ==
LOC: ER 23:42 → EH 05-12 10:43 → 3N 05-12 11:50
PROVIDERS: ADMIT Family Medicine; ATTEND Family Medicine
DX: T78.3XXA Angioneurotic edema, initial encounter (principal); I10 Essential (primary) hypertension; F03.90 Unspecified dementia, unspecified severity, without behavioral disturbance, psychotic disturbance, mood disturbance, and anxiety; F20.9 Schizophrenia, unspecified; K21.9 Gastro-esophageal reflux disease without esophagitis; Z79.82 Long term (current) use of aspirin; Z79.899 Other long term (current) drug therapy; Z95.1 Presence of aortocoronary bypass graft
CPT/HCPCS: 99284; 96374; 96375; G0378 ×2; J1200; A9270 ×5; J2930; J2270; S0028

== ENCOUNTER 2019-05-31 16:50 | Observation (INO) | payer MEDICARE, MEDICAID ==
--- NOTE | 2019-05-31 17:13 | ER Document Report ---
ED Medical Screen (RME) - General Chief Complaint: S/S of Possible Stroke Stated Complaint: POSSIBLE STROKE Time Seen by Provider: 05/31/19 16:52 Notes: Patient is a 79-year-old female who presents the emergency department with strokelike symptoms. She went down for nap around 1130 this morning and woke up sometime this afternoon with slurred speech. Patient normally has a caregiver at home, but the caregiver leaves him patient goes down for nap. When family saw her she had slurred speech and left-sided visual droop. Patient is normally able to speak with no difficulty. She has a past medical history of hypertension, hyperlipidemia, dehydration, hypernatremia, schizo affective schizophrenia, and angioedema. Exam: Slurred speech. Right leg weaker than left. I have greeted and performed a rapid initial assessment of this patient. A comprehensive ED assessment and evaluation of the patient, analysis of test results and completion of medical decision making process will be conducted by an additional ED providers. TRAVEL OUTSIDE OF THE [place] IN LAST 30 DAYS: No COUNTRY TRAVELED TO/FROM: [place] - Related Data Allergies/Adverse Reactions: No Known Allergies Allergy (Verified 05/04/18 15:08) Past Medical History - Social History Chew tobacco use (# tins/day): No Frequency of alcohol use: None Drug Abuse: None - Past Medical History Cardiac Medical History: Reports: Hx Heart Attack, Hx Hypertension Denies: Hx Congestive Heart Failure Pulmonary Medical History: Reports: Hx Asthma Denies: Hx Bronchitis, Hx COPD, Hx Pneumonia Neurological Medical History: Denies: Hx Seizures, Hx Parkinson's Disease Renal/ Medical History: Denies: Hx End Stage Renal Disease, Hx Kidney Stones, Hx Peritoneal Dialysis GI Medical History: Reports: Hx Gastroesophageal Reflux Disease. Denies: Hx Cirrhosis, Hx Ulcer Musculoskeltal Medical History: Denies Hx Multiple Sclerosis Psychiatric Medical History: Reports: Hx Depression Denies: Hx Bipolar Disorder, Hx Schizophrenia Past Surgical History: Reports: Hx Coronary Artery Bypass Graft - Patient has a well-healed midline incision over the sternum, she says this, Hx Open Heart Surgery - Immunizations Hx Diphtheria, Pertussis, Tetanus Vaccination: Yes
--- NOTE | 2019-05-31 17:33 | RADIOLOGY REPORT (SQ) ---
EXAM DESCRIPTION: CT HEAD WITHOUT COMPLETED DATE/TIME: 05/31/2019 5:02 pm REASON FOR STUDY: slurred speech COMPARISON: 11/30/2018 TECHNIQUE: Axial images acquired through the brain without intravenous contrast. Images reviewed wi th bone, brain and subdural windows. Additional sagittal and coronal reconstructions were generated. Images stored on PACS. All CT scanners at this facility use dose modulation, iterative reconstruction, and/or weight based d osing when appropriate to reduce radiation dose to as low as reasonably achievable (ALARA). [facility]: Dose Right [facility]: CareDose [facility]: Dose Right [facility]: Teradose 4D [facility]: Smart Webcollage RADIATION DOSE: CT Rad equipment meets quality standard of care and radiation dose reduction techniq ues were employed. CTDIvol: 53.2 mGy. DLP: 1070 mGy-cm.mGy. LIMITATIONS: None. FINDINGS: VENTRICLES: Prominent. CEREBRUM: No masses. No hemorrhage. No midline shift. Areas of low density in the white matter mos t likely due to chronic micro-vascular ischemic change. No evidence for acute infarction. CEREBELLUM: No masses. No hemorrhage. No alteration of density. No evidence for acute infarction. EXTRAAXIAL SPACES: Age-related involutional change. No fluid collections. No masses. ORBITS AND GLOBE: No intra- or extraconal masses. Normal contour of globe without masses. CALVARIUM: No fracture. PARANASAL SINUSES: No fluid or mucosal thickening. SOFT TISSUES: No mass or hematoma. OTHER: No other significant finding. IMPRESSION: CHRONIC CHANGES OF ATROPHY AND MICROVASCULAR ISCHEMIA. NO ACUTE PROCESS. EVIDENCE OF ACUTE STROKE: NO. TECHNICAL DOCUMENTATION: JOB ID: [id number] Quality ID # [id number]: Final reports with documentation of one or more dose reduction techniques (e.g., Au tomated exposure control, adjustment of the mA and/or kV according to patient size, use of iterative reconstruction technique) 2010 [employer]- All Rights Reserved Reading location - IP/workstation name: [email or web address]
--- NOTE | 2019-05-31 17:34 | RADIOLOGY REPORT (SQ) ---
EXAM DESCRIPTION: CHEST SINGLE VIEW COMPLETED DATE/TIME: 05/31/2019 5:04 pm REASON FOR STUDY: AMS COMPARISON: 10/06/2018 NUMBER OF VIEWS: One view. TECHNIQUE: Single frontal radiographic view of the chest acquired. LIMITATIONS: None. FINDINGS: LUNGS AND PLEURA: No opacities, masses or pneumothorax. No pleural effusion. MEDIASTINUM AND HILAR STRUCTURES: No masses. Contour normal. HEART AND VASCULAR STRUCTURES: Heart is stable in appearance slightly enlarged. There are degenerati ve changes in the thoracic aorta. BONES: No acute findings. HARDWARE: Sternotomy wires are in place. OTHER: No other significant finding. IMPRESSION: NO SIGNIFICANT RADIOGRAPHIC FINDING IN THE CHEST. TECHNICAL DOCUMENTATION: JOB ID: [id number] [employer]- All Rights Reserved Reading location - IP/workstation name: [email or web address]
[2019-05-31 18:09] LABS: HEMATOCRIT 28.7 % (36.0-47.0); HEMOGLOBIN 9.5 g/dL (12.0-15.5); MEAN CORPUSCULAR HEMOGLOBIN 33.4 pg (27.0-33.4); MEAN CORPUSCULAR HGB CONC 33.1 g/dL (32.0-36.0); MEAN CORPUSCULAR VOLUME 101 fl (80-97); PLATELET COUNT 223 10^3/uL (150-450); RED BLOOD COUNT 2.84 10^6/uL (3.72-5.28); RED CELL DISTRIBUTION WIDTH 15.3 % (11.5-14.0); WHITE BLOOD COUNT 6.6 10^3/uL (4.0-10.5)
[2019-05-31 18:17] LABS: INTERNATIONAL RATION (INR) 1.12; PROTHROMBIN TIME 14.5 SEC (11.4-15.4)
[2019-05-31 18:37] LABS: ABSOLUTE LYMPHOCYTES# (MANUAL) 1.5 10^3/uL (0.5-4.7); ABSOLUTE MONOCYTES # (MANUAL) 0.5 10^3/uL (0.1-1.4); ANISOCYTOSIS SLIGHT; BASOPHILS % (MANUAL) 1 % (0-2); EOSINOPHILS % (MANUAL) 1 % (0-6); LYMPHOCYTES % (MANUAL) 22 % (13-45); MONOCYTES % (MANUAL) 7 % (3-13); PLATELET COMMENT ADEQUATE; SEGMENTED NEUTROPHILS % (MAN) 69 % (42-78); TOTAL CELLS COUNTED 100
[2019-05-31 18:44] LABS: ALKALINE PHOSPHATASE 89 U/L (38-126); ANION GAP 11 (5-19); ASPARTATE AMINO TRANSFERASE 30 U/L (14-36); BILIRUBIN,DIRECT 0.3 mg/dL (0.0-0.4); BILIRUBIN,TOTAL 0.5 mg/dL (0.2-1.3); BLOOD UREA NITROGEN 23 mg/dL (7-20); CALCIUM 9.5 mg/dL (8.4-10.2); CARBON DIOXIDE 23 mmol/L (22-30); CHLORIDE 106 mmol/L (98-107); GLUCOSE 92 mg/dL (75-110); POTASSIUM 4.8 mmol/L (3.6-5.0); TOTAL PROTEIN 7.8 g/dL (6.3-8.2)
[2019-05-31] MEDS ORDERED: ASPIRIN 325 MG TABLET PO ONE (20:12)
--- NOTE | 2019-05-31 20:13 | ER Document Report ---
ED General - General Chief Complaint: S/S of Possible Stroke Stated Complaint: POSSIBLE STROKE Time Seen by Provider: 05/31/19 16:52 TRAVEL OUTSIDE OF THE [place] IN LAST 30 DAYS: No COUNTRY TRAVELED TO/FROM: [facility] Notes: Patient is a 79-year-old female brought into the emergency department for evaluation of strokelike symptoms. Evidently she was with a caregiver earlier prabhu chau. She went down for nap, between 11 and 1130. She woke up with slurred speech. Family was present but unsure at that time if that was new. Other family members presented by 330, and stated that her symptoms were new. The patient cannot tell me whether or not she had slurred speech prior to laying down for nap. No caregivers available at this time to find out as to whether or not the patient's symptoms were present prior to lying down. Patient denies any pain. She states is been taking her medications as prescribed. She denies any other new or acute complaints or concerns. - Related Data Allergies/Adverse Reactions: No Known Allergies Allergy (Verified 05/04/18 15:08) Past Medical History - General Information source: Patient, Relative - Social History Smoking Status: Current Every Day Smoker Chew tobacco use (# tins/day): No Frequency of alcohol use: None Drug Abuse: None Family History: Reviewed & Not Pertinent Patient has suicidal ideation: No Patient has homicidal ideation: No - Past Medical History Cardiac Medical History: Reports: Hx Coronary Artery Disease, Hx Heart Attack, Hx Hypertension Denies: Hx Congestive Heart Failure Pulmonary Medical History: Reports: Hx Asthma Denies: Hx Bronchitis, Hx COPD, Hx Pneumonia Neurological Medical History: Denies: Hx Seizures, Hx Parkinson's Disease Renal/ Medical History: Denies: Hx End Stage Renal Disease, Hx Kidney Stones, Hx Peritoneal Dialysis GI Medical History: Reports: Hx Gastroesophageal Reflux Disease. Denies: Hx Cirrhosis, Hx Ulcer Musculoskeletal Medical History: Denies Hx Multiple Sclerosis Psychiatric Medical History: Reports: Hx Dementia, Hx Depression Denies: Hx Bipolar Disorder, Hx Schizophrenia Past Surgical History: Reports: Hx Coronary Artery Bypass Graft - Patient has a well-healed midline incision over the sternum, she says this, Hx Open Heart Surgery - Immunizations Hx Diphtheria, Pertussis, Tetanus Vaccination: Yes Review of Systems - Review of Systems Constitutional: No symptoms reported EENT: No symptoms reported Cardiovascular: No symptoms reported Respiratory: No symptoms reported Gastrointestinal: No symptoms reported Genitourinary: No symptoms reported Musculoskeletal: No symptoms reported Skin: No symptoms reported Neurological/Psychological: No symptoms reported Physical Exam - Vital signs Vitals: Pulse Resp BP Pulse Ox 77 18 168/86 H 100 05/31/19 18:28 05/31/19 18:28 05/31/19 18:28 05/31/19 18:28 - Notes Notes: Vital signs reviewed, please refer to chart. Head is normocephalic, atraumatic. Pupils equal round, reactive to light. Neck is supple without meningismus. Heart is regular rate and rhythm. Lungs are clear to auscultation bilaterally. Abdomen is soft, nontender, normoactive bowel sounds throughout. Extremities without cyanosis, clubbing. Posterior calves are nontender. Peripheral pulses are equal. Skin is warm and dry. Patient is awake, alert, oriented x3. Patient has a significant dysarthria and right-sided facial droop, but the remainder of cranial nerves II - XII are grossly intact without focal neurological deficits. Strength is plus 5 out of 5 bilateral upper and lower extremities. Sensation is intact. Reflexes symmetrical. Intact [id number], rapid alternating movements, [id number]. Course - Re-evaluation Re-evalutation: 05/31/19 20:10 Patient presents to the emergency department for evaluation. She presents with signs and symptoms of a stroke. Unfortunately, I do not have a clear answer as to when the patient's symptoms began. She went down for nap at 1130, but it is unclear as to whether or not her symptoms began prior to that. She does have a history of dementia, and is herself not a reliable historian. I do not have anyone else present that saw her at that time. Because of that reason she is excluded from TPA criteria. Also, during the course of her stay, patient went f rom a significant dysarthria to only mild. She did have improvement in her symptoms. Again this is another contraindication. She remained vitally stable throughout the course of her stay. Her laboratory investigations revealed chronic renal insufficiency, but no other acute findings. Patient remained stable. She is given aspirin and she is never had a TIA or CVA. Will contact medicine for admission. 05/31/19 20:36 Dr. Tucker will admit the patient for further care. - Vital Signs Vital signs: Temp Pulse Resp BP Pulse Ox 91 18 126/78 H 100 05/31/19 20:14 05/31/19 20:14 05/31/19 20:14 05/31/19 20:14 - Laboratory Result Diagrams: 05/31/19 17:50 05/31/19 17:50 Laboratory results interpreted by me: 05/31/19 05/31/19 17:50 17:50 RBC 2.84 L Hgb 9.5 L Hct 28.7 L MCV 101 H RDW 15.3 H BUN 23 H Creatinine 1.78 H Est GFR ( Amer) 33 L Est GFR (MDRD) Non-Af 28 L - Diagnostic Test Radiology reviewed: Reports reviewed Radiology results interpreted by me: 05/31/19 20:[address] 05/31/19 16:53 IMPRESSION: CHRONIC CHANGES OF ATROPHY AND MICROVASCULAR ISCHEMIA. NO ACUTE PROCESS. EVIDENCE OF ACUTE STROKE: NO. Chest X-Ray 05/31/19 16:57 IMPRESSION: NO SIGNIFICANT RADIOGRAPHIC FINDING IN THE CHEST. - EKG Interpretation by Me Additional EKG results interpreted by me: 05/31/19 20:37 Sinus mechanism with a rate of 77 bpm. Normal axis. T wave inversions in the lateral leads concerning for ischemia, new when compared to prior study. Discharge - Discharge Clinical Impression: TIA (transient ischemic attack) Condition: Stable Disposition: ADMITTED OBSERVATION Admitting Provider: Garrett (Hospitalist) Unit Admitted: [facility]
[2019-05-31] MEDS ORDERED: DOCUSATE SODIUM 100 MG CAPSULE PO PRN (20:36)
[2019-05-31] MEDS ORDERED: MAGNESIUM HYDROXIDE SUSP 30 ML UDCUP PO PRN (20:36)
[2019-05-31 23:50] LABS: CREATINE KINASE MB 0.49 ng/mL (<4.55); TROPONIN I 0.012 ng/mL
[2019-05-31] MEDS: ATORVASTATIN CALCIUM 40 MG TABLET PO SCH (23:52)
[2019-05-31] MEDS: HEPARIN SOD (PORCINE) 5,000 UNIT/ML 1 ML VIAL SUBCUT SCH (23:53)
[2019-06-01] MEDS: HEPARIN SOD (PORCINE) 5,000 UNIT/ML 1 ML VIAL SUBCUT SCH ×3 (05:53→22:16)
--- NOTE | 2019-06-01 06:48 | PDOC H&P ---
History of Present Illness Admission Date/PCP: 05/31/19 20:47 Patient complains of: Slurred speech and facial droop History of Present Illness: AMADOU RAI is a 79 year old female with a past medical history of dementia, stage III chronic kidney disease, dementia, coronary artery disease and coronary artery bypass graft 16 years ago. Patient is noted by caregiver to awaken with slurred speech of unclear onset. Patient is a poor historian but denies chest pain or palpitation, blurred vision, confusion, headache, difficulty swallowing or new medications. Her symptoms have nearly resolved to baseline according to family and she denies complaints. Her work-up is unremarkable she is referred to the hospitalist for TIA. Past Medical History Cardiac Medical History: Reports: Coronary Artery Disease, Myocardial I nfarction, Hypertension Denies: Congestive Heart Failure Pulmonary Medical History: Reports: Asthma Denies: Bronchitis, Chronic Obstructive Pulmonary Disease (COPD), Pneumonia Neurological Medical History: Denies: Seizures Renal/ Medical History: Denies: End Stage Renal Disease GI Medical History: Reports: Gastroesophageal Reflux Disease Denies: Cirrhosis Psychiatric Medical History: Reports: Dementia, Depression Denies: Bipolar Disorder Hematology: Denies: Anemia, Bleeding Tendencies Past Surgical History Past Surgical History: Reports: Coronary Artery Bypass Graft - Patient has a well-healed midline incision over the sternum, she says this Social History Information Source: Patient, Emergency Med Personnel, [facility] Records Smoking Status: Current Every Day Smoker Electronic Cigarette use?: No Frequency of Alcohol Use: None Hx Recreational Drug Use: No Drugs: None Hx Prescription Drug Abuse: No - Advance Directive Resuscitation Status: Full Code Family History Family History: Hypertension Parental Family History Reviewed: Yes Children Family History Reviewed: Yes Sibling(s) Family History Reviewed.: Yes Medication/Allergy Allergies/Adverse Reactions: No Known Allergies Allergy (Verified 05/04/18 15:08) Review of Systems ROS unobtainable: Due to mental status Physical Exam Vital Signs: Temp Pulse Resp BP Pulse Ox 98.6 F 80 16 163/97 H 100 06/01/19 04:19 06/01/19 04:19 06/01/19 04:19 06/01/19 04:19 06/01/19 04:19 Intake & Output 05/30/19 05/31/19 06/01/19 11:59 11:59 11:59 Weight 44.6 kg General appearance: PRESENT: no acute distress, cooperative, well-developed, well-nourished Head exam: PRESENT: atraumatic, normocephalic Eye exam: PRESENT: conjunctiva pink, EOMI, PERRLA. ABSENT: scleral icterus Ear exam: PRESENT: normal external ear exam Mouth exam: PRESENT: moist, tongue midline Neck exam: ABSENT: carotid bruit, JVD, lymphadenopathy, thyromegaly Respiratory exam: PRESENT: clear to auscultation hubert. ABSENT: rales, rhonchi, wheezes Cardiovascular exam: PRESENT: RRR. ABSENT: diastolic murmur, rubs, systolic murmur Pulses: PRESENT: normal dorsalis pedis pul Vascular exam: PRESENT: normal capillary refill GI/Abdominal exam: PRESENT: normal bowel sounds, soft. ABSENT: distended, guarding, mass, organolmegaly, rebound, tenderness Rectal exam: PRESENT: deferred Extremities exam: PRESENT: full ROM. ABSENT: calf tenderness, clubbing, pedal edema Neurological exam: PRESENT: alert, awake, oriented to person, oriented to place, oriented to time, oriented to situation, CN II-XII grossly intact. ABSENT: motor sensory deficit Psychiatric exam: PRESENT: appropriate affect, normal mood. ABSENT: homicidal ideation, suicidal ideation Skin exam: PRESENT: dry, intact, warm. ABSENT: cyanosis, rash Results Laboratory Results: 05/31/19 17:50 05/31/19 17:50 05/31/19 05/31/19 17:50 17:50 WBC 6.6 RBC 2.84 L Hgb 9.5 L Hct 28.7 L MCV 101 H MCH 33.4 MCHC 33.1 RDW 15.3 H Plt Count 223 Seg Neutrophils % Not Reportable Sodium 139.6 Potassium 4.8 Chloride 106 Carbon Dioxide 23 Anion Gap 11 BUN 23 H Creatinine 1.78 H Est GFR ( Amer) 33 L Glucose 92 Calcium 9.5 Total Bilirubin 0.5 AST 30 Alkaline Phosphatase 89 Total Protein 7.8 Albumin 4.0 05/31/19 05/31/19 23:07 23:07 Creatine Kinase 32 CK-MB (CK-2) 0.49 Troponin I 0.012 Impressions: Head CT 05/31/19 16:53 IMPRESSION: CHRONIC CHANGES OF ATROPHY AND MICROVASCULAR ISCHEMIA. NO ACUTE PROCESS. EVIDENCE OF ACUTE STROKE: NO. Chest X-Ray 05/31/19 16:57 IMPRESSION: NO SIGNIFICANT RADIOGRAPHIC FINDING IN THE CHEST. Assessment and Plan - Diagnosis (1) TIA (transient ischemic attack) Is this a current diagnosis for this admission?: Yes Plan: CVA care set, aspirin and Lipitor ordered. Follow-up carotid Doppler, physical therapy and speech therapy (2) Kidney disease, chronic, stage IV (GFR 15-29 ml/min) Is this a current diagnosis for this admission?: Yes Plan: At baseline, avoid nephrotoxic meds and doses. Follow-up chemistry (3) Anemia Is this a current diagnosis for this admission?: Yes Plan: Follow-up anemia labs (4) Dementia Is this a current diagnosis for this admission?: Yes Plan: Chronically demented, supportive care. - Time Time Spent with patient: 25-34 minutes
--- NOTE | 2019-06-01 07:38 | EKG REPORT ---
SEVERITY:- ABNORMAL ECG - SINUS RHYTHM LEFT AXIS DEVIATION LOW VOLTAGE IN FRONTAL LEADS ABNORMAL T, CONSIDER ISCHEMIA, LATERAL LEADS : Confirmed by: Brant Jacobo MD 01-Jun-2019 07:37:32
[2019-06-01 11:33] LABS: ABSOLUTE RETICS # 0.102 10^6/uL (0.028-0.122); RETICULOCYTE COUNT (AUTO) 3.58 % (0.66-2.85)
[2019-06-01 11:45] LABS: CHOLESTEROL 157.11 mg/dL (0-200); IRON(TIBC) 44.4 ug/dL (37-170); TRIGLYCERIDES 74 mg/dL (<150)
--- NOTE | 2019-06-01 11:50 | RADIOLOGY REPORT (SQ) ---
EXAM DESCRIPTION: CAROTID DOPPLER COMPLETED DATE/TIME: 06/01/2019 10:32 am REASON FOR STUDY: tia D46.4 REFRACTORY ANEMIA, UNSPECIFIED COMPARISON: CT brain 11/30/2018, 05/31/2019 TECHNIQUE: Grayscale ultrasound, Doppler velocity and spectra, and color Doppler images acquired of the extra-cranial carotid and vertebral arteries. Images stored on PACS. LIMITATIONS: None. FINDINGS: RIGHT CAROTID CCA Velocities: Within normal limits. Right common carotid artery peak systolic velocity 0.4 m/sec ICA Velocities Peak systolic 0.42 m/s. End diastolic 0.12 m/s. Proximal ICA/CCA peak systolic ratio normal. Spectra normal. No significant plaque. LEFT CAROTID CCA Velocities: Within normal limits. Left common carotid artery peak systolic velocity 0.5 m/sec ICA Velocities Peak systolic 0.81 m/s. End diastolic 0.22 m/s. Proximal ICA/CCA peak systolic ratio 2.3. There is mild non calcific plaque at the left carotid bifurcation, velocities suggest against flow si gnificant stenosis VERTEBRAL ARTERIES: Antegrade flow. Normal waveforms. SUBCLAVIAN ARTERIES: Not evaluated OTHER: No other significant finding. IMPRESSION: NO HEMODYNAMICALLY SIGNIFICANT STENOSIS. COMMENT: Quality ID #[id number]: Velocity criteria are extrapolated from the diameter data as defined by t he Society of Radiologists in Ultrasound Consensus Conference. Radiology 2003: 229; 340-346. TECHNICAL DOCUMENTATION: JOB ID: [id number] [employer]- All Rights Reserved Reading location - IP/workstation name: [email or web address]
[2019-06-01 11:56] LABS: DIRECT LDL 73 mg/dL (<100)
[2019-06-01 12:55] LABS: FOLATE > 20.00 ng/mL (>2.76)
--- NOTE | 2019-06-01 16:17 | PDOC PROGRESS REPORT ---
Subjective Progress Note for:: 06/01/19 Subjective:: No adverse events overnight. No new complaints. Vital signs been stable. She still having some slurred speech and left-sided facial droop. Reason For Visit: TIA,DEMENTIA Physical Exam Vital Signs: Temp Pulse Resp BP Pulse Ox 97.9 F 76 16 141/72 H 100 06/01/19 12:24 06/01/19 14:00 06/01/19 12:24 06/01/19 12:24 06/01/19 12:24 Intake & Output 05/31/19 06/01/19 06/02/19 06:59 06:59 06:59 Intake Total 0 Balance 0 Weight 44.6 kg General appearance: PRESENT: no acute distress, cooperative, disheveled, thin Respiratory exam: PRESENT: clear to auscultation hubert, symmetrical, unlabored. ABSENT: accessory muscle use, chest wall tenderness, crackles, prolonged expiratory phas, rhonchi, tachypnea, wheezes Cardiovascular exam: PRESENT: RRR, +S1, +S2 Pulses: PRESENT: normal carotid pulses Vascular exam: PRESENT: normal capillary refill GI/Abdominal exam: PRESENT: normal bowel sounds, soft. ABSENT: distended, guarding, rebound, tenderness Extremities exam: ABSENT: clubbing, pedal edema Musculoskeletal exam: PRESENT: normal inspection. ABSENT: deformity Neurological exam: PRESENT: alert, awake, oriented to person, oriented to place, oriented to situation, other - She has some slight left-sided facial droop as well as a little bit of slurred speech Psychiatric exam: PRESENT: appropriate affect, normal mood Skin exam: PRESENT: dry, warm Results Laboratory Results: 05/31/19 17:50 05/31/19 17:50 05/31/19 05/31/19 06/01/19 17:50 17:50 10:38 WBC 6.6 RBC 2.84 L Hgb 9.5 L Hct 28.7 L MCV 101 H MCH 33.4 MCHC 33.1 RDW 15.3 H Plt Count 223 Seg Neutrophils % Not Reportable Retic Count (auto) Sodium 139.6 Potassium 4.8 Chloride 106 Carbon Dioxide 23 Anion Gap 11 BUN 23 H Creatinine 1.78 H Est GFR ( Amer) 33 L Glucose 92 Calcium 9.5 Iron TIBC % Saturation Ferritin Total Bilirubin 0.5 AST 30 Alkaline Phosphatase 89 Total Protein 7.8 Albumin 4.0 Triglycerides 74 Cholesterol 157.11 LDL Cholesterol Direct 73 VLDL Cholesterol 15.0 HDL Cholesterol 54 Vitamin B12 Folate 06/01/19 06/01/19 10:38 10:38 WBC RBC Hgb Hct MCV MCH MCHC RDW Plt Count Seg Neutrophils % Retic Count (auto) 3.58 H Sodium Potassium Chloride Carbon Dioxide Anion Gap BUN Creatinine Est GFR ( Amer) Glucose Calcium Iron 44.4 TIBC 240 L % Saturation 19 Ferritin 100.00 Total Bilirubin AST Alkaline Phosphatase Total Protein Albumin Triglycerides Cholesterol LDL Cholesterol Direct VLDL Cholesterol HDL Cholesterol Vitamin B12 828.0 Folate > 20.00 05/31/19 05/31/19 23:07 23:07 Creatine Kinase 32 CK-MB (CK-2) 0.49 Troponin I 0.012 Impressions: Head CT 05/31/19 16:53 IMPRESSION: CHRONIC CHANGES OF ATROPHY AND MICROVASCULAR ISCHEMIA. NO ACUTE PROCESS. EVIDENCE OF ACUTE STROKE: NO. Chest X-Ray 05/31/19 16:57 IMPRESSION: NO SIGNIFICANT RADIOGRAPHIC FINDING IN THE CHEST. Carotid Doppler Study 06/01/19 00:00 IMPRESSION: NO HEMODYNAMICALLY SIGNIFICANT STENOSIS. Assessment and Plan - Diagnosis (1) TIA (transient ischemic attack) Is this a current diagnosis for this admission?: Yes Plan: Carotid Doppler was negative. We will try to get an MRI of the brain because she still having some deficits. We will continue with aspirin and statin. (2) Kidney disease, chronic, stage IV (GFR 15-29 ml/min) Is this a current diagnosis for this admission?: Yes Plan: Creatinine is at baseline - Time Time Spent with patient: 15-24 minutes
--- NOTE | 2019-06-01 16:38 | RADIOLOGY REPORT (SQ) ---
EXAM DESCRIPTION: MRI HEAD WITHOUT COMPLETED DATE/TIME: 06/01/2019 4:26 pm REASON FOR STUDY: left facial droop, slurred speech D46.4 REFRACTORY ANEMIA, UNSPECIFIED COMPARISON: CT brain 05/31/2019, 11/30/2018, 10/06/2018 TECHNIQUE: Multiplanar imaging includes non-contrasted T1, T2, FLAIR, and diffusion with ADC map seq uences. Images stored on PACS. LIMITATIONS: None. FINDINGS: ANATOMY: No developmental anomalies. Normal vascular flow voids. Pituitary fossa normal. CSF SPACES: Normal in size and contour. No hemorrhage. CEREBRUM: Diffusion-weighted images are positive for a small acute left frontal cortical infarct on a xial image 22. Remainder of the brain parenchyma exhibits chronic small vessel ischemic change in the bifrontal and biparietal white matter, stable. No acute hemorrhage. No mass effect or midline shift. POSTERIOR FOSSA: Chronic pontine small vessel ischemic change. No hemorrhage. No edema, masses or mas s effect. Internal auditory canals, cerebello-pontine angles, mastoids normal. DIFFUSION IMAGING: Positive for an acute small left frontal nonhemorrhagic cortical infarct ORBITS: No masses. Globes normal. PARANASAL SINUSES: No fluid levels. Mucosa normal. OTHER: No other significant finding. IMPRESSION: Diffusion images are positive for a small acute cortical nonhemorrhagic infarct in the l eft posterior frontal region EVIDENCE OF ACUTE STROKE: YES. TECHNICAL DOCUMENTATION: JOB ID: [id number] [employer]- All Rights Reserved Reading location - IP/workstation name: [email or web address]
[2019-06-01] MEDS ORDERED: ONDANSETRON HCL INJ/PF 4 MG/2 ML SDV ONE (22:12)
[2019-06-01] MEDS ORDERED: ONDANSETRON HCL INJ/PF 4 MG/2 ML SDV IV PRN (22:15)
[2019-06-01] MEDS: ATORVASTATIN CALCIUM 40 MG TABLET PO SCH (22:16)
[2019-06-02] MEDS: HEPARIN SOD (PORCINE) 5,000 UNIT/ML 1 ML VIAL SUBCUT SCH ×3 (06:23→21:50)
--- NOTE | 2019-06-02 15:26 | PDOC PROGRESS REPORT ---
Subjective Progress Note for:: 06/02/19 Subjective:: No adverse events overnight. No new complaints. Vital signs been stable. She still has some dysarthria and facial droop. Blood pressures have been good. Reason For Visit: TIA,DEMENTIA Physical Exam Vital Signs: Temp Pulse Resp BP Pulse Ox 97.9 F 87 16 128/69 H 100 06/02/19 11:01 06/02/19 12:00 06/02/19 12:00 06/02/19 12:00 06/02/19 12:00 Intake & Output 06/01/19 06/02/19 06/03/19 06:59 06:59 06:59 Intake Total 0 590 Balance 0 590 Weight 44.6 kg 46.3 kg General appearance: PRESENT: no acute distress, cooperative, disheveled, thin Respiratory exam: PRESENT: clear to auscultation hubert, symmetrical, unlabored. ABSENT: accessory muscle use, chest wall tenderness, crackles, prolonged expiratory phas, rhonchi, tachypnea, wheezes Cardiovascular exam: PRESENT: RRR, +S1, +S2 Pulses: PRESENT: normal carotid pulses Vascular exam: PRESENT: normal capillary refill GI/Abdominal exam: PRESENT: normal bowel sounds, soft. ABSENT: distended, guarding, rebound, tenderness Extremities exam: ABSENT: clubbing, pedal edema Musculoskeletal exam: PRESENT: normal inspection. ABSENT: deformity Neurological exam: PRESENT: alert, awake, oriented to person, oriented to place, oriented to situation, other - She has some slight left-sided facial droop as well as a little bit of slurred speech Psychiatric exam: PRESENT: appropriate affect, normal mood Skin exam: PRESENT: dry, warm Results Laboratory Results: 05/31/19 17:50 05/31/19 17:50 05/31/19 05/31/19 23:07 23:07 Creatine Kinase 32 CK-MB (CK-2) 0.49 Troponin I 0.012 Impressions: Head CT 05/31/19 16:53 IMPRESSION: CHRONIC CHANGES OF ATROPHY AND MICROVASCULAR ISCHEMIA. NO ACUTE PROCESS. EVIDENCE OF ACUTE STROKE: NO. Chest X-Ray 05/31/19 16:57 IMPRESSION: NO SIGNIFICANT RADIOGRAPHIC FINDING IN THE CHEST. Carotid Doppler Study 06/01/19 00:00 IMPRESSION: NO HEMODYNAMICALLY SIGNIFICANT STENOSIS. Head MRI 06/01/19 00:00 IMPRESSION: Diffusion images are positive for a small acute cortical nonhemorrhagic infarct in the left posterior frontal region EVIDENCE OF ACUTE STROKE: YES. Assessment and Plan - Diagnosis (1) Acute left KERON ischemic stroke Is this a current diagnosis for this admission?: Yes Plan: We got her on an aspirin a statin with blood pressure control and risk factor modification. Physical therapy evaluation is pending. (2) Kidney disease, chronic, stage IV (GFR 15-29 ml/min) Is this a current diagnosis for this admission?: Yes Plan: Creatinine is at baseline - Time Time Spent with patient: 15-24 minutes
[2019-06-02] MEDS: ACETAMINOPHEN 325 MG TABLET PO PRN (19:56)
[2019-06-02] MEDS: ATORVASTATIN CALCIUM 40 MG TABLET PO SCH (22:13)
[2019-06-03 05:05] LABS: APPEARANCE,URINE CLEAR; BILIRUBIN,URINE NEGATIVE (NEGATIVE); COLOR,URINE YELLOW; GLUCOSE, URINE NEGATIVE (NEGATIVE); KETONES,URINE NEGATIVE (NEGATIVE); LEUKOCYTE ESTERASE,URINE NEGATIVE (NEGATIVE); NITRITE,URINE NEGATIVE (NEGATIVE); PROTEIN,URINE 30 mg/dL (NEGATIVE); URINE SPECIFIC GRAVITY 1.009; UROBILINOGEN,URINE NEGATIVE mg/dL (<2.0)
[2019-06-03] MEDS: HEPARIN SOD (PORCINE) 5,000 UNIT/ML 1 ML VIAL SUBCUT SCH ×2 (05:56→13:15)
[2019-06-03] MEDS: ACETAMINOPHEN 325 MG TABLET PO PRN (09:35)
[2019-06-03 13:01] VITALS: BP 168/86
--- NOTE | 2019-06-03 13:03 | PDOC DISCHARGE SUMMARY ---
Impression - Admit/DC Date/PCP Admission Date/Primary Care Provider: 05/31/19 20:47 Discharge Date: 06/03/19 - Discharge Diagnosis (1) Acute left KERON ischemic stroke Is this a current diagnosis for this admission?: Yes (2) Kidney disease, chronic, stage IV (GFR 15-29 ml/min) Is this a current diagnosis for this admission?: Yes - Additional Information Resuscitation Status: Full Code Discharge Diet: Cardiac Discharge Activity: Balance Activity w/Rest, Supervised Activity Referrals: Debra corbett [Other] - 06/09/19 9:30 am Home Medications: Amino Acids/Protein Hydrolys [Pro-Stat Max Liquid Packet] 30 ml PO NOON 06/01/19 Amlodipine Besylate [Norvasc 5 mg Tablet] 5 mg PO QAM 06/01/19 Ascorbic Acid [Vitamin C 500 mg Tablet] 500 mg PO QAM 06/01/19 Aspirin [Adult Low Dose Aspirin EC] 81 mg PO QAM 06/01/19 Carvedilol Phosphate [Coreg CR 10 mg Ext. Release Capsule] 10 mg PO QAM 06/01/19 Docusate Sodium [Colace 100 mg Capsule] 100 mg PO BID 06/01/19 Ferrous Sulfate [Feosol 325 mg Tablet] 325 mg PO QAM 06/01/19 Furosemide [Lasix] 10 mg PO Q48H 06/01/19 Lisinopril [Zestril] 10 mg PO QAM 06/01/19 Magnesium Hydroxide [Milk of Magnesia 30 ml Udcup] 30 ml PO DAILYP PRN 06/01/19 Mirtazapine [Remeron 15 mg Tablet] 15 mg PO QPM 06/01/19 Omeprazole 20 mg PO Q6AM 06/01/19 Sennosides/Docusate 8.6-50 mg [Senna Plus Tablet] 1 tab PO QHS 06/01/19 Tramadol HCl [Ultram 50 mg Tablet] 50 mg PO Q12HP PRN 06/01/19 History of Present Illiness History of Present Illness: AMADOU RAI is a 79 year old female with a past medical history of dementia, stage III chronic kidney disease, dementia, coronary artery disease and coronary artery bypass graft 16 years ago. Patient is noted by caregiver to awaken with slurred speech of unclear onset. Patient is a poor historian but denies chest pain or palpitation, blurred vision, confusion, headache, difficulty swallowing or new medications. Her symptoms have nearly resolved to baseline according to family and she denies complaints. Her work-up is unremarkable she is referred to the hospitalist for TIA. Hospital Course Hospital Course: She continued to have some mild left-sided facial droop and a little bit of slurred speech but she had improvement overall and was able to ambulate fairly well with physical therapy with the use of a walker. She does not live at home alone and has someone there all the time and family is local and check saw her several times throughout the day and she has an aide that comes in several times a week. Her MRI was positive, and wall most of her risk factors have been modified the main one for her is that she quit smoking. She does not want to do so. I told her that she is highly likely to have another stroke if she does not quit smoking. She verbalized her understanding but she did not appear happy about it. Physical therapy recommended home health PT. She already has a walker. The arrangements have been made. Her labs and examination were reassuring and she was discharged in good condition. Physical Exam Vital Signs: Temp Pulse Resp BP Pulse Ox 98.6 F 80 16 151/75 H 100 06/03/19 11:08 06/03/19 11:08 06/03/19 11:08 06/03/19 11:08 06/03/19 11:08 Intake & Output 06/02/19 06/03/19 06/04/19 06:59 06:59 06:59 Intake Total 590 540 100 Balance 590 540 100 Weight 46.3 kg 45.1 kg General appearance: PRESENT: no acute distress, cooperative, disheveled, thin Respiratory exam: PRESENT: clear to auscultation hubert, symmetrical, unlabored. ABSENT: accessory muscle use, chest wall tenderness, crackles, prolonged expiratory phas, rhonchi, tachypnea, wheezes Cardiovascular exam: PRESENT: RRR, +S1, +S2 Pulses: PRESENT: normal carotid pulses Vascular exam: PRESENT: normal capillary refill GI/Abdominal exam: PRESENT: normal bowel sounds, soft. ABSENT: distended, guarding, rebound, tenderness Extremities exam: ABSENT: clubbing, pedal edema Musculoskeletal exam: PRESENT: normal inspection. ABSENT: deformity Neurological exam: PRESENT: alert, awake, oriented to person, oriented to place, oriented to situation, other - She has some slight left-sided facial droop as well as a little bit of slurred speech Psychiatric exam: PRESENT: appropriate affect, normal mood Skin exam: PRESENT: dry, warm Results Laboratory Results: WBC 6.6 10^3/uL (4.0-10.5) 05/31/19 17:50 RBC 2.84 10^6/uL (3.72-5.28) L 05/31/19 17:50 Hgb 9.5 g/dL (12.0-15.5) L 05/31/19 17:50 Hct 28.7 % (36.0-47.0) L 05/31/19 17:50 MCV 101 fl (80-97) H 05/31/19 17:50 MCH 33.4 pg (27.0-33.4) 05/31/19 17:50 MCHC 33.1 g/dL (32.0-36.0) 05/31/19 17:50 RDW 15.3 % (11.5-14.0) H 05/31/19 17:50 Plt Count 223 10^3/uL (150-450) 05/31/19 17:50 Lymph % (Auto) Not Reportable 05/31/19 17:50 Swift % (Auto) Not Reportable 05/31/19 17:50 Eos % (Auto) Not Reportable 05/31/19 17:50 Baso % (Auto) Not Reportable 05/31/19 17:50 Reticulocyte # 0.102 10^6/uL (0.028-0.122) 06/01/19 10:38 Absolute Neuts (auto) Not Reportable 05/31/19 17:50 Absolute Lymphs (auto) Not Reportable 05/31/19 17:50 Absolute Monos (auto) Not Reportable 05/31/19 17:50 Absolute Eos (auto) Not Reportable 05/31/19 17:50 Absolute Basos (auto) Not Reportable 05/31/19 17:50 Total Counted 100 05/31/19 17:50 Seg Neutrophils % Not Reportable 05/31/19 17:50 Seg Neuts % (Manual) 69 % (42-78) 05/31/19 17:50 Lymphocytes % (Manual) 22 % (13-45) 05/31/19 17:50 Monocytes % (Manual) 7 % (3-13) 05/31/19 17:50 Eosinophils % (Manual) 1 % (0-6) 05/31/19 17:50 Basophils % (Manual) 1 % (0-2) 05/31/19 17:50 Abs Neuts (Manual) 4.6 10^3/uL (1.7-8.2) 05/31/19 17:50 Abs Lymphs (Manual) 1.5 10^3/uL (0.5-4.7) 05/31/19 17:50 Abs Monocytes (Manual) 0.5 10^3/uL (0.1-1.4) 05/31/19 17:50 Absolute Eos (Manual) 0.1 10^3/uL (0.0-0.6) 05/31/19 17:50 Abs Basophils (Manual) 0.1 10^3/uL (0.0-0.2) 05/31/19 17:50 Platelet Comment ADEQUATE 05/31/19 17:50 Anisocytosis SLIGHT 05/31/19 17:50 Macrocytosis 1+ 05/31/19 17:50 Retic Count (auto) 3.58 % (0.66-2.85) H 06/01/19 10:38 PT 14.5 SEC (11.4-15.4) 05/31/19 17:50 INR 1.12 05/31/19 17:50 APTT 31.0 SEC (23.5-35.8) 05/31/19 17:50 Sodium 139.6 mmol/L (137-145) 05/31/19 17:50 Potassium 4.8 mmol/L (3.6-5.0) 05/31/19 17:50 Chloride 106 mmol/L (98-107) 05/31/19 17:50 Carbon Dioxide 23 mmol/L (22-30) 05/31/19 17:50 Anion Gap 11 (5-19) 05/31/19 17:50 BUN 23 mg/dL (7-20) H 05/31/19 17:50 Creatinine 1.78 mg/dL (0.52-1.25) H 05/31/19 17:50 Est GFR ( Amer) 33 (>60) L 05/31/19 17:50 Est GFR (MDRD) Non-Af 28 (>60) L 05/31/19 17:50 Glucose 92 mg/dL (75-110) 05/31/19 17:50 Hemoglobin A1c % 4.7 % (4.7-6.0) 06/01/19 10:38 Calcium 9.5 mg/dL (8.4-10.2) 05/31/19 17:50 Iron 44.4 ug/dL (37-170) 06/01/19 10:38 TIBC 240 ug/dL (250-450) L 06/01/19 10:38 % Saturation 19 % 06/01/19 10:38 Ferritin 100.00 ng/mL (11.1-264.0) 06/01/19 10:38 Total Bilirubin 0.5 mg/dL (0.2-1.3) 05/31/19 17:50 Direct Bilirubin 0.3 mg/dL (0.0-0.4) 05/31/19 17:50 Neonat Total Bilirubin Not Reportable 05/31/19 17:50 Neonat Direct Bilirubin Not Reportable 05/31/19 17:50 Neonat Indirect Bili Not Reportable 05/31/19 17:50 AST 30 U/L (14-36) 05/31/19 17:50 ALT 13 U/L (<35) 05/31/19 17:50 Alkaline Phosphatase 89 U/L (38-126) 05/31/19 17:50 Creatine Kinase 32 U/L (30-135) 05/31/19 23:07 CK-MB (CK-2) 0.49 ng/mL (<4.55) 05/31/19 23:07 Troponin I 0.012 ng/mL 05/31/19 23:07 Total Protein 7.8 g/dL (6.3-8.2) 05/31/19 17:50 Albumin 4.0 g/dL (3.5-5.0) 05/31/19 17:50 Triglycerides 74 mg/dL (<150) 06/01/19 10:38 Cholesterol 157.11 mg/dL (0-200) 06/01/19 10:38 LDL Cholesterol Direct 73 mg/dL (<100) 06/01/19 10:38 VLDL Cholesterol 15.0 mg/dL (10-31) 06/01/19 10:38 HDL Cholesterol 54 mg/dL (>40) 06/01/19 10:38 Vitamin B12 828.0 pg/mL (239-931) 06/01/19 10:38 Folate > 20.00 ng/mL (>2.76) 06/01/19 10:38 Urine Color YELLOW 06/03/19 04:05 Urine Appearance CLEAR 06/03/19 04:05 Urine pH 8.0 (5.0-9.0) 06/03/19 04:05 Ur Specific [place] 1.009 06/03/19 04:05 Urine Protein 30 mg/dL (NEGATIVE) H 06/03/19 04:05 Urine Glucose (UA) NEGATIVE mg/dL (NEGATIVE) 06/03/19 04:05 Urine Ketones NEGATIVE mg/dL (NEGATIVE) 06/03/19 04:05 Urine Blood NEGATIVE (NEGATIVE) 06/03/19 04:05 Urine Nitrite NEGATIVE (NEGATIVE) 06/03/19 04:05 Urine Bilirubin NEGATIVE (NEGATIVE) 06/03/19 04:05 Urine Urobilinogen NEGATIVE mg/dL (<2.0) 06/03/19 04:05 Ur Leukocyte Esterase NEGATIVE (NEGATIVE) 06/03/19 04:05 Urine WBC (Auto) 1 /HPF 06/03/19 04:05 Urine RBC (Auto) 1 /HPF 06/03/19 04:05 Squamous Epi Cells Auto <1 /HPF 06/03/19 04:05 Urine Mucus (Auto) RARE /LPF 06/03/19 04:05 Urine Ascorbic Acid 40 (NEGATIVE) H 06/03/19 04:05 05/31/19 23:07 CK-MB (CK-2) 0.49 Troponin I 0.012 Impressions: Head CT 05/31/19 16:53 IMPRESSION: CHRONIC CHANGES OF ATROPHY AND MICROVASCULAR ISCHEMIA. NO ACUTE PROCESS. EVIDENCE OF ACUTE STROKE: NO. Chest X-Ray 05/31/19 16:57 IMPRESSION: NO SIGNIFICANT RADIOGRAPHIC FINDING IN THE CHEST. Carotid Doppler Study 06/01/19 00:00 IMPRESSION: NO HEMODYNAMICALLY SIGNIFICANT STENOSIS. Head MRI 06/01/19 00:00 IMPRESSION: Diffusion images are positive for a small acute cortical nonhemorrhagic infarct in the left posterior frontal region EVIDENCE OF ACUTE STROKE: YES. Plan Time Spent: Greater than 30 Minutes Stroke Is this a Stroke Patient?: Yes Stroke Pt being discharged on Anti-thrombolytic therapy?: Yes Stroke Pt being discharged on Anti-coagulation therapy?: No Reason(s) for not prescribing Anti-coagulation therapy:: Not indicated Stroke Pt being discharged on Statins?: No Reason(s) for not prescribing Statins therapy:: Not indicated Acute Heart Failure - Is this a Heart Failure Patient?: No
== END 2019-06-03 14:10 | disposition home health service (06) ==
LOC: ER 16:50 → EH 20:47 → 3N 06-01 01:11
PROVIDERS: ADMIT Internal Medicine; ATTEND Internal Medicine
DX: I63.89 Other cerebral infarction (principal); R29.810 Facial weakness; R47.81 Slurred speech; R47.1 Dysarthria and anarthria; I12.9 Hypertensive chronic kidney disease with stage 1 through stage 4 chronic kidney disease, or unspecified chronic kidney disease; N18.4 Chronic kidney disease, stage 4 (severe); F03.90 Unspecified dementia, unspecified severity, without behavioral disturbance, psychotic disturbance, mood disturbance, and anxiety; I25.10 Atherosclerotic heart disease of native coronary artery without angina pectoris; F17.200 Nicotine dependence, unspecified, uncomplicated; D64.9 Anemia, unspecified; I25.2 Old myocardial infarction; K21.9 Gastro-esophageal reflux disease without esophagitis; Z95.1 Presence of aortocoronary bypass graft; Z82.49 Family history of ischemic heart disease and other diseases of the circulatory system; Z79.899 Other long term (current) drug therapy
CPT/HCPCS: 93005; 99285; 36415 ×2; 82553; 82607; 82550; 82728; 82746; 83540; 83550; 85025; 85610; 85730; 85045; 80053; 81001; 84484; 83036; 80061; 93880; 70551; 71045; 70450; 93010; 97116; 97163; 92610; 97165; G0378 ×5; A9270 ×3; J1644 ×2; J3490 ×2; J2405

== ENCOUNTER 2019-07-10 12:47 | Inpatient (IN) | payer MEDICARE, MEDICAID ==
[2019-07-10 13:54] LABS: INTERNATIONAL RATION (INR) 1.08
[2019-07-10 13:55] LABS: ABSOLUTE BASOPHILS # (AUTO) 0.1 10^3/uL (0.0-0.2); ABSOLUTE EOSINOPHILS # (AUTO) 0.1 10^3/uL (0.0-0.6); ABSOLUTE LYMPHOCYTES (AUTO) 1.3 10^3/uL (0.5-4.7); ABSOLUTE MONOCYTES (AUTO) 0.6 10^3/uL (0.1-1.4); ABSOLUTE NEUT (AUTO) 5.8 10^3/uL (1.7-8.2); BASOPHILS % (AUTO) 0.7 % (0-2); EOSINOPHILS % (AUTO) 1.3 % (0-6); HEMATOCRIT 36.2 % (36.0-47.0); HEMOGLOBIN 12.1 g/dL (12.0-15.5); LYMPHOCYTES % (AUTO) 16.7 % (13-45); MEAN CORPUSCULAR HEMOGLOBIN 32.8 pg (27.0-33.4); MEAN CORPUSCULAR HGB CONC 33.4 g/dL (32.0-36.0); MEAN CORPUSCULAR VOLUME 98 fl (80-97); MONOCYTES % (AUTO) 7.7 % (3-13); PLATELET COUNT 170 10^3/uL (150-450); RED BLOOD COUNT 3.69 10^6/uL (3.72-5.28); RED CELL DISTRIBUTION WIDTH 15.6 % (11.5-14.0); SEGMENTED NEUTROPHILS % (AUTO) 73.6 % (42-78); TOTAL CELLS COUNTED % (AUTO) 100 %; WHITE BLOOD COUNT 7.8 10^3/uL (4.0-10.5)
--- NOTE | 2019-07-10 14:00 | RADIOLOGY REPORT (SQ) ---
EXAM DESCRIPTION: CHEST 2 VIEWS COMPLETED DATE/TIME: 07/10/2019 1:50 pm REASON FOR STUDY: swelling, SOB COMPARISON: 05/31/2019 EXAM PARAMETERS: NUMBER OF VIEWS: two views TECHNIQUE: Digital Frontal and Lateral radiographic views of the chest acquired. RADIATION DOSE: NA LIMITATIONS: none FINDINGS: LUNGS AND PLEURA: Ill-defined opacification in the left base. MEDIASTINUM AND HILAR STRUCTURES: No masses or contour abnormalities. HEART AND VASCULAR STRUCTURES: Heart size is borderline. BONES: No acute findings. HARDWARE: Sternotomy wires. OTHER: No other significant finding. IMPRESSION: Borderline cardiomegaly without pulmonary edema. Cannot exclude a limited left lower lo be pneumonia. TECHNICAL DOCUMENTATION: JOB ID: [id number] [employer]- All Rights Reserved Reading location - IP/workstation name: [email or web address]
--- NOTE | 2019-07-10 15:44 | ER Document Report ---
ED General - General Chief Complaint: Feet Swelling Stated Complaint: SWOLLEN FEET, URINARY PROBLEMS Time Seen by Provider: 07/10/19 13:10 Notes: 79-year-old female presents emergency department via EMS after family called EMS due to elevated blood pressure for the past 2 days and leg swelling. Family states that they have been giving her her normal blood pressure medication but her blood pressure has been in the 200s. Patient complains of swelling to her legs but denies any shortness of breath or dyspnea on exertion, denies any chest pain. Family reported to the nurse that the patient does become short of breath on ambulation. Patient states she does have a history of congestive heart failure and is on Lasix for this however when I look in the medical records I cannot find any history of congestive heart failure nor can I find any echocardiograms on this patient. Dose has not changed recently. Family denies running out of any of her blood pressure medications or missing any doses recently. Patient is also concerned by the fact that she has some urinary incontinence. When questioned about this further patient states that she has had this for years and does not know why I am asking her about this. Patient is quite agitated during the examination and rather confrontational, tells me that she thinks the medical system is lying to her and all of the doctors know what is going on but they are just not willing to tell her that she has something major it such as cancer. Patient then refuses to clarify any of the statements. TRAVEL OUTSIDE OF THE [place] IN LAST 30 DAYS: No COUNTRY TRAVELED TO/FROM: [place] - Related Data Allergies/Adverse Reactions: No Known Allergies Allergy (Verified 05/04/18 15:08) Past Medical History - General Information source: Patient - Social History Smoking Status: Current Every Day Smoker Frequency of alcohol use: None Drug Abuse: None Family History: Hypertension - Past Medical History Cardiac Medical History: Reports: Hx Coronary Artery Disease, Hx Heart Attack, Hx Hypertension Denies: Hx Congestive Heart Failure Pulmonary Medical History: Reports: Hx Asthma Denies: Hx Bronchitis, Hx COPD, Hx Pneumonia Neurological Medical History: Denies: Hx Seizures, Hx Parkinson's Disease Renal/ Medical History: Denies: Hx End Stage Renal Disease, Hx Kidney Stones, Hx Peritoneal Dialysis GI Medical History: Reports: Hx Gastroesophageal Reflux Disease. Denies: Hx Cir rhosis, Hx Ulcer Musculoskeletal Medical History: Denies Hx Multiple Sclerosis Psychiatric Medical History: Reports: Hx Dementia, Hx Depression Denies: Hx Bipolar Disorder, Hx Schizophrenia Past Surgical History: Reports: Hx Coronary Artery Bypass Graft - Patient has a well-healed midline incision over the sternum, she says this, Hx Open Heart Surgery - Immunizations Hx Diphtheria, Pertussis, Tetanus Vaccination: Yes Review of Systems - Review of Systems Constitutional: No symptoms reported EENT: No symptoms reported Cardiovascular: See HPI, Dyspnea - Questionable history, patient denies, family admits., Edema Respiratory: See HPI Gastrointestinal: No symptoms reported Genitourinary: See HPI, Incontinence Musculoskeletal: See HPI -: Yes All other systems reviewed and negative Physical Exam - Vital signs Vitals: Resp Pulse Ox 25 H 99 07/10/19 13:21 07/10/19 13:21 Interpretation: Tachypneic - Notes Notes: GENERAL: Alert, interacts well. No acute distress but somewhat angry and irr itated. HEAD: Normocephalic, atraumatic EYES: Pupils equal, round and reactive to light, extraocular movements intact. ENT: Oral mucosa moist, tongue midline. NECK: Full range of motion, supple, trachea midline. LUNGS: Clear to auscultation bilaterally, no wheezes, rales or rhonchi, no respiratory distress. HEART: Regular rate and rhythm, no murmurs, gallops, rubs. ABDOMEN: Soft, nontender, nondistended, bowel sounds present in all 4 quadrants. EXTREMITIES: Moves all 4 extremities spontaneously, 2+ pitting edema in the bilateral lower extremities to mid calf, slightly worse on the right than on the left, radial and dorsalis pedis pulses 2/4 bilaterally. No cyanosis. NEUROLOGICAL: Alert and oriented to person and place, thinks it is 1919 and March, normal speech, biceps and patellar DTRs 2+ bilaterally. PSYCH: Normal mood, normal affect. SKIN: Warm, Dry, no rashes or lesions noted. Course - Re-evaluation Re-evalutation: 07/10/19 18:03 CBC grossly unremarkable, CMP shows elevated BUN and creatinine, these are slightly worse than usual but around her normal range, troponin is indeterminant elevated still below the cutoff at 0.042, proBNP is markedly elevated at 14,900, chest x-ray shows possible left lower lobe pneumonia however this does not fit with her clinical picture and I do feel that it shows some evidence of pulmonary edema though radiology disagrees. I did an extensive search of the patient's records and see no mention of prior congestive heart failure, there are no echocardiograms in the record that would support a prior diagnosis of congestive heart failure. In this patient where there are because of concerns for dyspnea on exertion and she has new onset swelling of the legs and a markedly elevated proBNP I do feel this likely represents new onset congestive heart failure, I discussed the patient for admission with Dr. Lopez who agrees to admit the patient to his service on the telemetry care unit. Patient is agreeable to this as well. - Vital Signs Vital signs: Temp Pulse Resp BP Pulse Ox 98 F 16 124/81 96 07/10/19 13:24 07/10/19 17:02 07/10/19 17:02 07/10/19 17:02 - Laboratory Result Diagrams: 07/10/19 13:23 07/10/19 15:45 Laboratory results interpreted by me: 07/10/19 07/10/19 07/10/19 13:23 15:45 15:45 RBC 3.69 L MCV 98 H RDW 15.6 H Chloride 112 H Carbon Dioxide 19 L BUN 35 H Creatinine 1.88 H Est GFR ( Amer) 31 L Est GFR (MDRD) Non-Af 26 L NT-Pro-B Natriuret Pep 85594 H - EKG Interpretation by Me Additional EKG results interpreted by me: 07/10/19 15:44 EKG shows sinus rhythm at a rate of 81, frequent PACs, normal axis,, normal intervals, no ST segment elevations or depressions, T wave inversions are noted in V4 and V5, T wave inversions in V4 are new since 05/31/2019 per my interpretation. Discharge - Discharge Clinical Impression: New onset of congestive heart failure, Kidney disease, chronic, stage IV (GFR 15-29 ml/min) Dementia Qualifiers: Dementia type: Alzheimer's disease Alzheimer's disease onset: unspecified onset Dementia behavioral disturbance: without behavioral disturbance Qualified Code(s): G30.9 - Alzheimer's disease, unspecified; F02.80 - Dementia in other diseases classified elsewhere without behavioral disturbance Condition: Fair Disposition: ADMITTED INPATIENT Admitting Provider: John (Hospitalist) Unit Admitted: Telemetry
[2019-07-10 16:27] LABS: ALBUMIN 3.5 g/dL (3.5-5.0); ALKALINE PHOSPHATASE 50 U/L (38-126); ANION GAP 10 (5-19); ASPARTATE AMINO TRANSFERASE 21 U/L (14-36); BILIRUBIN,DIRECT 0.3 mg/dL (0.0-0.4); BILIRUBIN,TOTAL 0.6 mg/dL (0.2-1.3); BLOOD UREA NITROGEN 35 mg/dL (7-20); CALCIUM 9.1 mg/dL (8.4-10.2); CARBON DIOXIDE 19 mmol/L (22-30); CHLORIDE 112 mmol/L (98-107); CREATINE KINASE 52 U/L (30-135); GLUCOSE 76 mg/dL (75-110); POTASSIUM 4.8 mmol/L (3.6-5.0)
[2019-07-10 16:51] LABS: CREATINE KINASE MB 1.53 ng/mL (<4.55)
[2019-07-10 16:57] LABS: TROPONIN I 0.042 ng/mL
--- NOTE | 2019-07-10 18:38 | PDOC H&P ---
History of Present Illness Admission Date/PCP: 07/10/19 18:18 History of Present Illness: AMADOU RAI is a 79 year old female past medical history of CAD status post CABG, hypertension, GERD, dementia, depression, CKD, presenting to ED complaining of worsening leg swelling, nausea, nonproductive non-bloody cough, dyspnea on exertion. Bilateral lower extremity swelling is below the knee, stating that sitting she has had it for several months, which has been worsening. Reports compliance with her meds, lives by herself, has any fever, chills, chest pain, abdominal pain, diarrhea or any urinary symptoms. In ED she was found to be hypertensive, elevated BNP and mild elevation of troponins. Hospitalist consulted for admission. Past Medical History Cardiac Medical History: Reports: Coronary Artery Disease, Myocardial Infarction, Hypertension Denies: Congestive Heart Failure Pulmonary Medical History: Reports: Asthma Denies: Bronchitis, Chronic Obstructive Pulmonary Disease (COPD), Pneumonia Neurological Medical History: Denies: Seizures Renal/ Medical History: Denies: End Stage Renal Disease GI Medical History: Reports: Gastroesophageal Reflux Disease Denies: Cirrhosis Psychiatric Medical History: Reports: Dementia, Depression Denies: Bipolar Disorder Hematology: Denies: Anemia, Bleeding Tendencies Past Surgical History Past Surgical History: Reports: Coronary Artery Bypass Graft - Patient has a well-healed midline incision over the sternum, she says this Social History Smoking Status: Current Every Day Smoker Frequency of Alcohol Use: None Hx Recreational Drug Use: No Drugs: None Hx Prescription Drug Abuse: No Family History Family History: Hypertension Parental Family History Reviewed: Yes Children Family History Reviewed: Yes Sibling(s) Family History Reviewed.: Yes Medication/Allergy Allergies/Adverse Reactions: No Known Allergies Allergy (Verified 05/04/18 15:08) Review of Systems Review of Systems: as per hpi Physical Exam Vital Signs: Temp Pulse Resp BP Pulse Ox 98 F 16 124/81 96 07/10/19 13:24 07/10/19 17:02 07/10/19 17:02 07/10/19 17:02 General appearance: PRESENT: no acute distress, well-developed, well-nourished Head exam: PRESENT: atraumatic, normocephalic Respiratory exam: PRESENT: clear to auscultation hubert. ABSENT: rales, rhonchi, wheezes Cardiovascular exam: PRESENT: RRR. ABSENT: diastolic murmur, rubs, systolic murmur Extremities exam: PRESENT: full ROM, +2 edema. ABSENT: calf tenderness, clubbing, pedal edema Neurological exam: PRESENT: alert, awake, oriented to person, oriented to place, CN II-XII grossly intact. ABSENT: motor sensory deficit Results Laboratory Results: 07/10/19 13:23 07/10/19 15:45 07/10/19 07/10/19 07/10/19 13:23 13:23 14:28 WBC 7.8 RBC 3.69 L Hgb 12.1 Hct 36.2 MCV 98 H MCH 32.8 MCHC 33.4 RDW 15.6 H Plt Count 170 Seg Neutrophils % 73.6 Sodium Cancelled Cancelled Potassium Cancelled Cancelled Chloride Cancelled Cancelled Carbon Dioxide Cancelled Cancelled Anion Gap Cancelled Cancelled BUN Cancelled Cancelled Creatinine Cancelled Cancelled Est GFR ( Amer) Cancelled Cancelled Est GFR (Non-Af Amer) Cancelled Cancelled Glucose Cancelled Cancelled Calcium Cancelled Cancelled Total Bilirubin Cancelled Cancelled AST Cancelled Cancelled Alkaline Phosphatase Cancelled Cancelled Total Protein Cancelled Cancelled Albumin Cancelled Cancelled 07/10/19 15:45 WBC RBC Hgb Hct MCV MCH MCHC RDW Plt Count Seg Neutrophils % Sodium 141.0 Potassium 4.8 Chloride 112 H Carbon Dioxide 19 L Anion Gap 10 BUN 35 H Creatinine 1.88 H Est GFR ( Amer) 31 L Est GFR (Non-Af Amer) Glucose 76 Calcium 9.1 Total Bilirubin 0.6 AST 21 Alkaline Phosphatase 50 Total Protein 7.0 Albumin 3.5 07/10/19 07/10/19 07/10/19 13:23 13:23 14:28 Creatine Kinase Cancelled Cancelled CK-MB (CK-2) Cancelled Troponin I Cancelled NT-Pro-B Natriuret Pep Cancelled 07/10/19 07/10/19 07/10/19 14:28 15:45 15:45 Creatine Kinase 52 CK-MB (CK-2) Cancelled 1.53 Troponin I Cancelled 0.042 NT-Pro-B Natriuret Pep Cancelled [id number] H Impressions: Chest X-Ray 07/10/19 13:10 IMPRESSION: Borderline cardiomegaly without pulmonary edema. Cannot exclude a limited left lower lobe pneumonia. 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 Denies any anginal pain. Reports compliance. proBNP 14,900 up from 3630 on 10/06/2018. Troponin 0.042. Admit to telemetry, IV diuretics, XAVIER, volume restriction, cardiac diet, trend troponin, 2D echo. Restart beta-trina once euvolemic. (2) Acute on chronic kidney failure Qualifiers: Chronic kidney disease stage: stage 3 (moderate) Is this a current diagnosis for this admission?: Yes Plan: Prerenal likely due to intravascular volume depletion due to acute CHF. Creatinine on admission 1.88. Baseline 1.5 Nonoliguric. Unable to quantify as patient is incontinent. Electrolytes WNL. Monitor volume status and electrodes, replace as needed, avoid nephrotoxic meds, BMP tomorrow. (3) CAD (coronary artery disease) Is this a current diagnosis for this admission?: Yes Plan: Denies any anginal symptoms. Mildly elevated troponins likely due to acute CHF exacerbation in setting of CKD. Restart antiplatelets, XAVIER, statins, beta-blockers. Trend troponins. (4) Hypertension Qualifiers: Is this a current diagnosis for this admission?: Yes Plan: Restart home meds. Outpatient PCP follow-up.
[2019-07-10] MEDS ORDERED: METOPROLOL TARTRATE PF/INJ 5 MG/5 ML SDV IV PRN (18:39)
[2019-07-10] MEDS ORDERED: PROMETHAZINE HCL INJ 25 MG/1 ML VIAL IV PRN (18:42)
[2019-07-10] MEDS ORDERED: IPRATROPIUM/ALBUTEROL 0.5-2.5 MG/3 ML AMPUL NEB PRN (18:42)
[2019-07-10] MEDS ORDERED: ONDANSETRON HCL INJ/PF 4 MG/2 ML SDV IV PRN (18:42)
[2019-07-10] MEDS ORDERED: ACETAMINOPHEN 325 MG TABLET PO PRN (18:42)
[2019-07-10] MEDS ORDERED: (PENDING PHARMACY ID) (Lactulose [Constulose 10 Gm/15 Ml Oral Solution] 15 ML) PO PRN (18:46)
[2019-07-10] MEDS ORDERED: LACTULOSE SYRUP 20 GM/30 ML UDCUP PO PRN (18:56)
--- NOTE | 2019-07-10 19:13 | EKG REPORT ---
SEVERITY:- ABNORMAL ECG - SINUS RHYTHM RIGHT AXIS DEVIATION LOW VOLTAGE IN FRONTAL LEADS CONSIDER ANTERIOR INFARCT NONSPECIFIC T ABNORMALITIES, LATERAL LEADS : Confirmed by: Brant Jacobo MD 10-Jul-2019 19:12:23
[2019-07-10] MEDS: FUROSEMIDE INJ/PF 20 MG/2 ML SDV IV SCH (20:05)
[2019-07-10] MEDS: ASPIRIN 81 MG TABLET, CHEWABLE PO SCH (20:05)
[2019-07-10] MEDS: OXYCODONE-ACETAMINOPHEN 5-325 MG TABLET PO PRN (21:36)
[2019-07-10] MEDS: TEMAZEPAM 7.5 MG CAPSULE PO PRN (21:37)
[2019-07-10] MEDS: HEPARIN SOD (PORCINE) 5,000 UNIT/ML 1 ML VIAL SUBCUT SCH (22:24)
[2019-07-10] MEDS: ATORVASTATIN CALCIUM 20 MG TABLET PO SCH (22:24)
[2019-07-10] MEDS: HYDRALAZINE HCL INJ/PF 20 MG/1 ML SDV IV PRN (22:50)
[2019-07-11] MEDS: HYDRALAZINE HCL INJ/PF 20 MG/1 ML SDV IV PRN (04:00)
[2019-07-11] MEDS: OXYCODONE-ACETAMINOPHEN 5-325 MG TABLET PO PRN ×2 (04:44→09:32)
[2019-07-11] MEDS: HEPARIN SOD (PORCINE) 5,000 UNIT/ML 1 ML VIAL SUBCUT SCH ×3 (05:39→23:25)
[2019-07-11] MEDS: FUROSEMIDE INJ/PF 20 MG/2 ML SDV IV SCH ×2 (05:42→17:29)
[2019-07-11] MEDS: PANTOPRAZOLE SODIUM 40 MG TABLET.DR PO SCH (05:42)
[2019-07-11 06:32] LABS: ABSOLUTE BASOPHILS # (AUTO) 0.1 10^3/uL (0.0-0.2); ABSOLUTE EOSINOPHILS # (AUTO) 0.1 10^3/uL (0.0-0.6); ABSOLUTE LYMPHOCYTES (AUTO) 1.5 10^3/uL (0.5-4.7); ABSOLUTE MONOCYTES (AUTO) 0.6 10^3/uL (0.1-1.4); ABSOLUTE NEUT (AUTO) 7.5 10^3/uL (1.7-8.2); BASOPHILS % (AUTO) 0.6 % (0-2); HEMATOCRIT 37.8 % (36.0-47.0); HEMOGLOBIN 12.8 g/dL (12.0-15.5); LYMPHOCYTES % (AUTO) 15.3 % (13-45); MEAN CORPUSCULAR HEMOGLOBIN 32.8 pg (27.0-33.4); MEAN CORPUSCULAR HGB CONC 33.8 g/dL (32.0-36.0); MEAN CORPUSCULAR VOLUME 97 fl (80-97); MONOCYTES % (AUTO) 6.5 % (3-13); PLATELET COUNT 167 10^3/uL (150-450); RED CELL DISTRIBUTION WIDTH 15.6 % (11.5-14.0); SEGMENTED NEUTROPHILS % (AUTO) 76.6 % (42-78); TOTAL CELLS COUNTED % (AUTO) 100 %; WHITE BLOOD COUNT 9.8 10^3/uL (4.0-10.5)
[2019-07-11 07:03] LABS: ALBUMIN 3.5 g/dL (3.5-5.0); ALKALINE PHOSPHATASE 52 U/L (38-126); ANION GAP 11 (5-19); ASPARTATE AMINO TRANSFERASE 21 U/L (14-36); BILIRUBIN,DIRECT 0.3 mg/dL (0.0-0.4); BILIRUBIN,TOTAL 0.7 mg/dL (0.2-1.3); BLOOD UREA NITROGEN 36 mg/dL (7-20); CALCIUM 9.6 mg/dL (8.4-10.2); CARBON DIOXIDE 17 mmol/L (22-30); CHLORIDE 115 mmol/L (98-107); CHOLESTEROL 172.55 mg/dL (0-200); GLUCOSE 91 mg/dL (75-110); POTASSIUM 4.5 mmol/L (3.6-5.0); TOTAL PROTEIN 7.2 g/dL (6.3-8.2); TRIGLYCERIDES 83 mg/dL (<150)
[2019-07-11 07:13] LABS: DIRECT LDL 83 mg/dL (<100)
[2019-07-11] MEDS ORDERED: LISINOPRIL 10 MG TABLET PO SCH (08:00)
[2019-07-11] MEDS: ASPIRIN 81 MG TABLET, CHEWABLE PO SCH (09:32)
[2019-07-11] MEDS: MEGESTROL ACETATE SUSP 400 MG/10 ML UDCUP PO SCH ×2 (09:32→17:29)
[2019-07-11] MEDS: DOCUSATE SODIUM 100 MG CAPSULE PO SCH ×2 (09:32→17:29)
[2019-07-11] MEDS: MAGNESIUM HYDROXIDE SUSP 30 ML UDCUP PO SCH (09:32)
[2019-07-11] MEDS ORDERED: LISINOPRIL 5 MG TABLET PO SCH (10:00)
[2019-07-11] MEDS ORDERED: ASPIRIN 81 MG TABLET, CHEWABLE PO SCH (10:00)
[2019-07-11] MEDS ORDERED: TRAMADOL HCL 50 MG TABLET PO PRN (12:50)
--- NOTE | 2019-07-11 12:55 | PDOC PROGRESS REPORT ---
Subjective Progress Note for:: 07/11/19 Subjective:: This is a 79 year old female past medical history of CAD status post CABG, hypertension, GERD, dementia, depression, CKD 4 and recent CVA who presented with bipedal edema and exertional dyspnea. Patient was admitted for hypertensive urgency, CHF exacerbation and CARLOS on top of CKD. No acute event overnight. Upon encounter, patient is not in distress. She denies chest pain or shortness of breath. She complains of lower back pain. Reason For Visit: ACUTE CHF EXACERBATION,CARLOS,CKD Physical Exam Vital Signs: Temp Pulse Resp BP Pulse Ox 98.4 F 83 16 171/85 H 97 07/11/19 11:17 07/11/19 11:17 07/11/19 11:17 07/11/19 11:17 07/11/19 11:17 Intake & Output 07/10/19 07/11/19 07/12/19 06:59 06:59 06:59 Output Total 1900 Balance -1900 Weight 123 lb 7.342 oz General appearance: PRESENT: no acute distress, well-developed, well-nourished Head exam: PRESENT: atraumatic, normocephalic Eye exam: PRESENT: conjunctiva pink, EOMI, PERRLA. ABSENT: scleral icterus Ear exam: PRESENT: normal external ear exam Mouth exam: PRESENT: moist, tongue midline Neck exam: ABSENT: carotid bruit, JVD, lymphadenopathy, thyromegaly Respiratory exam: PRESENT: rhonchi. ABSENT: rales, wheezes Cardiovascular exam: PRESENT: RRR. ABSENT: diastolic murmur, rubs, systolic murmur Pulses: PRESENT: normal dorsalis pedis pul GI/Abdominal exam: PRESENT: normal bowel sounds, soft. ABSENT: distended, gua rding, mass, organolmegaly, rebound, tenderness Rectal exam: PRESENT: deferred Extremities exam: PRESENT: +1 edema Neurological exam: PRESENT: alert, awake Results Laboratory Results: 07/11/19 05:39 07/11/19 05:39 07/10/19 07/10/19 07/10/19 13:23 13:23 14:28 WBC 7.8 RBC 3.69 L Hgb 12.1 Hct 36.2 MCV 98 H MCH 32.8 MCHC 33.4 RDW 15.6 H Plt Count 170 Seg Neutrophils % 73.6 Sodium Cancelled Cancelled Potassium Cancelled Cancelled Chloride Cancelled Cancelled Carbon Dioxide Cancelled Cancelled Anion Gap Cancelled Cancelled BUN Cancelled Cancelled Creatinine Cancelled Cancelled Est GFR ( Amer) Cancelled Cancelled Est GFR (Non-Af Amer) Cancelled Cancelled Glucose Cancelled Cancelled Calcium Cancelled Cancelled Magnesium Total Bilirubin Cancelled Cancelled AST Cancelled Cancelled Alkaline Phosphatase Cancelled Cancelled Total Protein Cancelled Cancelled Albumin Cancelled Cancelled Triglycerides Cholesterol LDL Cholesterol Direct VLDL Cholesterol HDL Cholesterol TSH 07/10/19 07/11/19 07/11/19 15:45 05:39 05:39 WBC 9.8 RBC 3.90 Hgb 12.8 Hct 37.8 MCV 97 MCH 32.8 MCHC 33.8 RDW 15.6 H Plt Count 167 Seg Neutrophils % 76.6 Sodium 141.0 143.0 Potassium 4.8 4.5 Chloride 112 H 115 H Carbon Dioxide 19 L 17 L Anion Gap 10 11 BUN 35 H 36 H Creatinine 1.88 H 1.73 H Est GFR ( Amer) 31 L 34 L Est GFR (Non-Af Amer) Glucose 76 91 Calcium 9.1 9.6 Magnesium 2.0 Total Bilirubin 0.6 0.7 AST 21 21 Alkaline Phosphatase 50 52 Total Protein 7.0 7.2 Albumin 3.5 3.5 Triglycerides 83 Cholesterol 172.55 LDL Cholesterol Direct 83 VLDL Cholesterol 17.0 HDL Cholesterol 59 TSH 07/11/19 05:39 WBC RBC Hgb Hct MCV MCH MCHC RDW Plt Count Seg Neutrophils % Sodium Potassium Chloride Carbon Dioxide Anion Gap BUN Creatinine Est GFR ( Amer) Est GFR (Non-Af Amer) Glucose Calcium Magnesium Total Bilirubin AST Alkaline Phosphatase Total Protein Albumin Triglycerides Cholesterol LDL Cholesterol Direct VLDL Cholesterol HDL Cholesterol TSH 3.18 07/10/19 07/10/19 07/10/19 13:23 13:23 14:28 Creatine Kinase Cancelled Cancelled CK-MB (CK-2) Cancelled Troponin I Cancelled NT-Pro-B Natriuret Pep Cancelled 07/10/19 07/10/19 07/10/19 14:28 15:45 15:45 Creatine Kinase 52 CK-MB (CK-2) Cancelled 1.53 Troponin I Cancelled 0.042 NT-Pro-B Natriuret Pep Cancelled 40019 H 07/10/19 07/11/1907/11/19 18:35 00:26 05:39 Creatine Kinase CK-MB (CK-2) Troponin I 0.042 0.041 0.049 NT-Pro-B Natriuret Pep Impressions: Chest X-Ray 07/10/19 13:10 IMPRESSION: Borderline cardiomegaly without pulmonary edema. Cannot exclude a limited left lower lobe pneumonia. Assessment and Plan - Diagnosis (1) Acute exacerbation of CHF (congestive heart failure) Qualifiers: Heart failure type: combined systolic and diastolic Qualified Code(s): I50.43 - Acute on chronic combined systolic (congestive) and diastolic (congestive) heart failure Is this a current diagnosis for this admission?: Yes Plan: She is currently getting diuresed with IV Lasix 20 mg every 12. Echo pending. Her CKD IV could also be likely contributing to her CHF exacerbation. (2) Acute on chronic kidney failure Qualifiers: Chronic kidney disease stage: stage 3 (moderate) Is this a current diagnosis for this admission?: Yes Plan: Creatinine has gone down to 1.7 today and appears to be close to her previous baseline. (3) CAD (coronary artery disease) Is this a current diagnosis for this admission?: Yes Plan: Continue home meds. (4) Kidney disease, chronic, stage IV (GFR 15-29 ml/min) Is this a current diagnosis for this admission?: Yes Plan: Avoid nephrotoxic agents. (5) Hypertensive urgency Is this a current diagnosis for this admission?: Yes Plan: It appears patient had angioedema deemed to be from lisinopril in previous admission. Discontinue lisinopril. Increase amlodipine to 10 mg daily. Continue carvedilol. - Time Time Spent with patient: 25-34 minutes
[2019-07-11] MEDS ORDERED: HALOPERIDOL LACTATE INJ 5 MG/1 ML VIAL ONE (13:50)
[2019-07-11] MEDS ORDERED: HALOPERIDOL LACTATE INJ 5 MG/1 ML VIAL IV ONE (14:30)
[2019-07-11] MEDS ORDERED: CARVEDILOL 3.125 MG TABLET PO SCH (14:30)
[2019-07-11] MEDS: LIDOCAINE 5% (700 MG) TRANSDERMAL ADH..PATCH TP SCH (15:16)
[2019-07-11] MEDS ORDERED: HALOPERIDOL LACTATE INJ 5 MG/1 ML VIAL IV PRN (17:26)
[2019-07-11] MEDS: MIRTAZAPINE 15 MG TABLET PO SCH (17:29)
[2019-07-11] MEDS: RISPERIDONE 0.25 MG TABLET PO SCH (17:37)
[2019-07-11] MEDS ORDERED: (PENDING PHARMACY ID) (Mirtazapine [Remeron] 15 MG) PO SCH (18:00)
--- NOTE | 2019-07-11 18:01 | XCELERA REPORT ---
[address] [address] Transthoracic Echocardiogram Report Name: AMADOU RAI Age: 79 yrs Gender: Female : 1940 Patient Status: Inpatient Patient Location: [address] [place] [address] Study Date: 07/11/2019 10:44 AM Procedure: A two-dimensional transthoracic echocardiogram with color flow and Doppler was performed. Study Quality: Fair. Reason For Study: acute chf History: CHF. Ordering Physician: LEVAR MILES Performed By: Jeannette Taylor Interpretation Summary The left ventricle is normal in size. There is mild concentric left ventricular hypertrophy. LV EF is 65% Left ventricular systolic function is normal. Doppler measurements suggest impaired left ventricular relaxation, which is associated with grade I/IV or mild diastolic dysfunction The left ventricular wall motion is normal. There is no thrombus. No ASD ,VSD,or PFO seen. The right ventricle is normal in size and function. The right atrium is normal. The left atrial size is normal. There is no evidence of mitral valve prolapse. There is no vegetation seen on the mitral valve. There is no mitral valve stenosis. There is a mild amount of mitral regurgitation There is no aortic valvular vegetation. There is mild aortic stenosis There is a peak gradient of 16.1 mm of Hg. There is a mild amount of aortic regurgitation There is no tricuspid stenosis. There is a mild amount of tricuspid regurgitation There is mild pulmonary hypertension by echo RVSP is 37 to 42 mm of Hg,with RA mean of 5 to 10. There is no pulmonic valvular stenosis. There is a trace amount of pulmonic regurgitation The aortic root is normal size. The inferior vena cava appeared normal and decreased > 50% with respiration (RAP 5-10 mmHg) There is no pericardial effusion. MMode/2D Measurements & Calculations IVSd: 0.94 cm LVIDd: 3.5 cm FS: 35.3 % Ao root diam: 3.2 cm LVIDs: 2.2 cm EDV(Teich): 50.1 ml Ao root area: 8.2 cm2 LVPWd: 1.3 cm ESV(Teich): 17.1 ml EF(Teich): 65.8 % Doppler Measurements & Calculations MV E max alma: MV dec slope: Ao V2 max: AI max alma: 61.9 cm/sec 200.6 cm/sec 556.7 cm/sec MV A max alma: 278.8 cm/sec2 Ao max PG: AI max P.7 cm/sec MV dec time: 16.1 mmHg 124.0 mmHg MV E/A: 0.73 0.22 sec AI dec slope: 318.9 cm/sec2 AI P1/2t: 511.3 msec LV V1 max PG: PA V2 max: PI end-d alma: TR max alma: 9.2 mmHg 91.0 cm/sec 149.9 cm/sec 281.6 cm/sec LV V1 max: PA max P.3 mmHg TR max P.7 mmHg 151.5 cm/sec Left Ventricle The left ventricle is normal in size. There is mild concentric left ventricular hypertrophy. LV EF is 65%. Left ventricular systolic function is normal. Doppler measurements suggest impaired left ventricular relaxation, which is associated with grade I/IV or mild diastolic dysfunction. The left ventricular wall motion is normal. There is no thrombus. No ASD ,VSD,or PFO seen. Right Ventricle The right ventricle is normal in size and function. Atria The right atrium is normal. The left atrial size is normal. Mitral Valve There is no evidence of mitral valve prolapse. There is no vegetation seen on the mitral valve. There is no mitral valve stenosis. There is a mild amount of mitral regurgitation. Aortic Valve There is no aortic valvular vegetation. There is mild aortic stenosis. There is a peak gradient of 16.1 mm of Hg. There is no LVOT obstruction. There is a mild amount of aortic regurgitation. Tricuspid Valve There is no tricuspid stenosis. There is a mild amount of tricuspid regurgitation. There is mild pulmonary hypertension by echo. RVSP is 37 to 42 mm of Hg,with RA mean of 5 to 10. Pulmonic Valve There is no pulmonic valvular stenosis. There is a trace amount of pulmonic regurgitation. Great Vessels The aortic root is normal size. The inferior vena cava appeared normal and decreased > 50% with respiration (RAP 5-10 mmHg). Effusions There is no pericardial effusion. : LEVAR MILES Lakshmi
[2019-07-11] MEDS: CARVEDILOL 12.5 MG TABLET PO SCH (23:25)
[2019-07-11] MEDS: ATORVASTATIN CALCIUM 20 MG TABLET PO SCH (23:25)
[2019-07-11] MEDS: CEFTRIAXONE 1 GM/D5W RTU 1 GM/50 ML RTUPB IV SCH (23:25)
[2019-07-12] MEDS: HEPARIN SOD (PORCINE) 5,000 UNIT/ML 1 ML VIAL SUBCUT SCH ×3 (05:40→21:25)
[2019-07-12] MEDS: PANTOPRAZOLE SODIUM 40 MG TABLET.DR PO SCH (05:40)
[2019-07-12] MEDS: FUROSEMIDE INJ/PF 20 MG/2 ML SDV IV SCH (05:42)
[2019-07-12] MEDS ORDERED: (PENDING PHARMACY ID) (Esomeprazole Magnesium [Nexium] 20 MG) PO SCH (06:00)
[2019-07-12] MEDS ORDERED: AMLODIPINE BESYLATE 5 MG TABLET PO SCH ×2 (08:00)
[2019-07-12] MEDS ORDERED: CARVEDILOL PHOSPHATE 10 MG PO SCH (08:00)
[2019-07-12] MEDS: AMLODIPINE BESYLATE 10 MG TABLET PO SCH (08:17)
[2019-07-12 09:00] LABS: ANION GAP 10 (5-19); BLOOD UREA NITROGEN 44 mg/dL (7-20); CALCIUM 9.4 mg/dL (8.4-10.2); CARBON DIOXIDE 23 mmol/L (22-30); CHLORIDE 108 mmol/L (98-107); GLUCOSE 105 mg/dL (75-110); POTASSIUM 4.6 mmol/L (3.6-5.0)
[2019-07-12] MEDS: RISPERIDONE 0.25 MG TABLET PO SCH ×2 (09:58→17:29)
[2019-07-12] MEDS: ASPIRIN 81 MG TABLET, CHEWABLE PO SCH (09:59)
[2019-07-12] MEDS: CARVEDILOL 12.5 MG TABLET PO SCH ×2 (09:59→21:25)
[2019-07-12] MEDS: DOCUSATE SODIUM 100 MG CAPSULE PO SCH ×2 (09:59→17:29)
[2019-07-12] MEDS: MEGESTROL ACETATE SUSP 400 MG/10 ML UDCUP PO SCH ×2 (10:02→17:29)
[2019-07-12] MEDS: MAGNESIUM HYDROXIDE SUSP 30 ML UDCUP PO SCH (10:03)
[2019-07-12] MEDS: LIDOCAINE 5% (700 MG) TRANSDERMAL ADH..PATCH TP SCH (10:03)
--- NOTE | 2019-07-12 11:16 | RADIOLOGY REPORT (SQ) ---
EXAM DESCRIPTION: CHEST SINGLE VIEW COMPLETED DATE/TIME: 07/12/2019 10:55 am REASON FOR STUDY: need updated xray COMPARISON: PA and lateral views of the chest from 07/10/2019. EXAM PARAMETERS: NUMBER OF VIEWS: One view. TECHNIQUE: Single frontal radiographic view of the chest acquired. RADIATION DOSE: NA LIMITATIONS: None. FINDINGS: LUNGS AND PLEURA: Unchanged patchy opacities in the left base. There is no pleural effusi on or pneumothorax MEDIASTINUM AND HILAR STRUCTURES: Stable mediastinal and hilar contours. HEART AND VASCULAR STRUCTURES: Stable cardiac silhouette. The pulmonary vasculature is within normal limits BONES: Subacute to chronic fracture deformities of the right 6th rib and left 8th rib. HARDWARE: None in the chest. OTHER: No other finding. IMPRESSION: Unchanged opacity opacities in the left base. TECHNICAL DOCUMENTATION: JOB ID: [id number] [employer]- All Rights Reserved Reading location - IP/workstation name: [email or web address]
--- NOTE | 2019-07-12 13:47 | PDOC PROGRESS REPORT ---
Subjective Progress Note for:: 07/12/19 Subjective:: This is a 79 year old female past medical history of CAD status post CABG, hypertension, GERD, dementia, depression, CKD 4 and recent CVA who presented with bipedal edema and exertional dyspnea. Patient was admitted for hypertensive urgency, CHF exacerbation and CARLOS on top of CKD. Upon encounter, patient is not in distress. She had ane pisode of agitation and restless yesterday afternoon. Otherwise, no other acute event overnight. Reason For Visit: ACUTE CHF EXACERBATION,CARLOS,CKD Physical Exam Vital Signs: Temp Pulse Resp BP Pulse Ox 98.4 F 53 L 16 140/75 H 99 07/12/19 08:10 07/12/19 11:41 07/12/19 11:41 07/12/19 11:41 07/12/19 11:41 Intake & Output 07/11/19 07/12/19 07/13/19 06:59 06:59 06:59 Intake Total 50 Output Total 1900 1725 Balance -1900 -1675 Weight 123 lb 7.342 oz 109 lb 12.643 oz General appearance: PRESENT: no acute distress, well-developed, well-nourished Head exam: PRESENT: atraumatic, normocephalic Eye exam: PRESENT: conjunctiva pink, EOMI, PERRLA. ABSENT: scleral icterus Ear exam: PRESENT: normal external ear exam Mouth exam: PRESENT: moist, tongue midline Neck exam: ABSENT: carotid bruit, JVD, lymphadenopathy, thyromegaly Respiratory exam: PRESENT: rhonchi. ABSENT: rales, wheezes Cardiovascular exam: PRESENT: RRR. ABSENT: diastolic murmur, rubs, systolic murmur Pulses: PRESENT: normal dorsalis pedis pul GI/Abdominal exam: PRESENT: normal bowel sounds, soft. ABSENT: distended, guarding, mass, organolmegaly, rebound, tenderness Rectal exam: PRESENT: deferred Neurological exam: PRESENT: alert, awake, oriented to person, CN II-XII grossly intact. ABSENT: motor sensory deficit Results Laboratory Results: 07/11/19 05:39 07/12/19 08:17 07/12/19 08:17 Sodium 140.6 Potassium 4.6 Chloride 108 H Carbon Dioxide 23 Anion Gap 10 BUN 44 H Creatinine 1.94 H Est GFR ( Amer) 30 L Glucose 105 Calcium 9.4 07/10/19 07/10/19 07/10/19 13:23 13:23 14:28 Creatine Kinase Cancelled Cancelled CK-MB (CK-2) Cancelled Troponin I Cancelled NT-Pro-B Natriuret Pep Cancelled 07/10/19 07/10/19 07/10/19 14:28 15:45 15:45 Creatine Kinase 52 CK-MB (CK-2) Cancelled 1.53 Troponin I Cancelled 0.042 NT-Pro-B Natriuret Pep Cancelled 99126 H 07/10/19 07/11/19 07/11/19 18:35 00:26 05:39 Creatine Kinase CK-MB (CK-2) Troponin I 0.042 0.041 0.049 NT-Pro-B Natriuret Pep 07/11/19 19:30 Creatine Kinase CK-MB (CK-2) Troponin I NT-Pro-B Natriuret Pep 48783 H Impressions: Chest X-Ray 07/12/19 00:00 IMPRESSION: Unchanged opacity opacities in the left base. Assessment and Plan - Diagnosis (1) Acute exacerbation of CHF (congestive heart failure) Qualifiers: Heart failure type: combined systolic and diastolic Qualified Code(s): I50.43 - Acute on chronic combined systolic (congestive) and diastolic (congestive) heart failure Is this a current diagnosis for this admission?: Yes Plan: 07/11: She is currently getting diuresed with IV Lasix 20 mg every 12. Echo pending. Her CKD IV could also be likely contributing to her CHF exacerbation. 07/12: Creatinine has trended up to 1.9. She actually looks more on the dry side now. Will hold off on Lasix today. Echo showed normal EF and G2DD and mild pulmonary HTN. (2) Acute on chronic kidney failure Qualifiers: Chronic kidney disease stage: stage 3 (moderate) Is this a current diagnosis for this admission?: Yes Plan: 07/11: Creatinine has gone down to 1.7 today and appears to be close to her previous baseline. 07/12: Creatinine has trended up to 1.9. Hold off on Lasix today. (3) CAD (coronary artery disease) Is this a current diagnosis for this admission?: Yes Plan: Continue home meds. (4) Kidney disease, chronic, stage IV (GFR 15-29 ml/min) Is this a current diagnosis for this admission?: Yes Plan: Avoid nephrotoxic agents. (5) Hypertensive urgency Is this a current diagnosis for this admission?: Yes Plan: 07/02: It appears patient had angioedema deemed to be from lisinopril in previous admission. Discontinue lisinopril. Increase amlodipine to 10 mg daily. Continue carvedilol. 07/12: Will add PO hydralazine.
--- NOTE | 2019-07-12 14:50 | RADIOLOGY REPORT (SQ) ---
EXAM DESCRIPTION: NM LUNG PERFUSION SCAN COMPLETED DATE/TIME: 07/12/2019 2:39 pm REASON FOR STUDY: SOB COMPARISON: Chest radiograph, 07/12/2019 RADIONUCLIDE AND DOSE: 4.52 millicuries TC-99m MAA The route of agent administration: Intravenous TECHNIQUE: Eight views of the lungs acquired following injection of MAA. LIMITATIONS: None. FINDINGS: PERFUSION: Perfusion images with normal homogenous activity and no wedge-shaped or segment al defects. OTHER: Cardiomegaly. IMPRESSION: No perfusion defect. No evidence of pulmonary embolism. Cardiomegaly. TECHNICAL DOCUMENTATION: JOB ID: [id number] [employer]- All Rights Reserved Reading location - IP/workstation name: [email or web address]
[2019-07-12] MEDS: MIRTAZAPINE 15 MG TABLET PO SCH (17:29)
[2019-07-12] MEDS ORDERED: HYDRALAZINE HCL 25 MG TABLET ONE (17:33)
[2019-07-12] MEDS: ATORVASTATIN CALCIUM 20 MG TABLET PO SCH (21:25)
[2019-07-12] MEDS: CEFTRIAXONE 1 GM/D5W RTU 1 GM/50 ML RTUPB IV SCH (21:25)
[2019-07-12] MEDS: HYDRALAZINE HCL 10 MG TABLET PO SCH (21:25)
[2019-07-13] MEDS: HEPARIN SOD (PORCINE) 5,000 UNIT/ML 1 ML VIAL SUBCUT SCH ×3 (05:25→23:13)
[2019-07-13] MEDS: PANTOPRAZOLE SODIUM 40 MG TABLET.DR PO SCH (05:26)
[2019-07-13 06:22] LABS: ANION GAP 11 (5-19); BLOOD UREA NITROGEN 60 mg/dL (7-20); CALCIUM 9.2 mg/dL (8.4-10.2); CARBON DIOXIDE 22 mmol/L (22-30); CHLORIDE 111 mmol/L (98-107); GLUCOSE 106 mg/dL (75-110); POTASSIUM 5.5 mmol/L (3.6-5.0)
[2019-07-13] MEDS: AMLODIPINE BESYLATE 10 MG TABLET PO SCH (08:30)
[2019-07-13] MEDS: NORMAL SALINE 1000 ML 1,000 ML IV PRN ×2 (08:31→23:17)
--- NOTE | 2019-07-13 09:44 | PDOC CONSULTATION ---
Consultation Consult Date: 07/13/19 Provider Consulted: CHELSEA VIDALES Consult reason:: I was asked to see the patient due to acute worsening of kidney function in a patient with underlying chronic kidney disease. History of Present Illness Admission Date/PCP: 07/10/19 18:18 History of Present Illness: AMADOU RAI is a 79 year old female with history of coronary artery disease status post CABG, hypertension, dementia and chronic kidney disease who was admitted on 07/10/2019 due to worsening leg swelling, nausea, nonproductive cough and dyspnea on exertion. History is obtained from records since the patient is not really a very good historian nor does she appear to be willing to answer so much questions today. Admission her chest x-ray showed borderline cardiomegaly with no pulmonary edema with left base opacity. Admitting diagnosis was acute congestive heart failure exacerbation. She had an initial elevated BNP of 14,900. She was treated with IV Lasix of 20 mg IV every 12 h ours. There was a report of angioedema with lisinopril so that was held. Her echocardiogram done on July 11 showed ejection fraction of 65% with mild concentric LVH and grade 1/4 diastolic dysfunction. According to the nurse patient had an acute episode of shortness of breath couple nights ago so a VQ scan was done yesterday which was negative for acute pulmonary embolism. Patient's blood pressure has also been fluctuating. It was initially elevated as high as 204/88 and was initially ranging anywhere between 150-180/70 to 100s. For the last 24 hours her blood pressure has been 140-160s over 70 to 80s. The patient also came in with elevated BUN of 35, creatinine of 1.88 with EGFR of 31. Review of records show that patient's baseline creatinine ranges anywhere between 1.5-1.79 with EGFR ranging anywhere between 33-39. She states that she follows up with my partner [employer], Dr. Tolliver. However she cannot really tell me anything about her kidney disease. Today the patient's kidney function include a BUN of 60, creatinine of 2.10 with EGFR of 28. She has mildly elevated potassium of 5.5. She seems to be making adequate urine output greater than 1500 mL daily is specifically 1600 to 1900 mL for the past 3 days. Patient states that she feels fine today. She is lying down comfortably in bed without any oxygen. She only mentions some pain in her waistline but not as much. She said she is not really coughing that much. Her breathing is good. She denies any chest pains and wanted to go home. She said she is eating good although nurse indicates that her intake fluctuates as well. Due to the increase in the creatinine her Lasix was held yesterday and she was started on IV fluids today. Past Medical History Cardiac Medical History: Reports: Coronary Artery Disease, Hypertension-primary, Myocardial Infarction Pulmonary Medical History: Reports: Asthma Renal/ Medical History: Reports: Chronic Kidney Disease Stage III GI Medical History: Reports: Gastroesophageal Reflux Disease Psychiatric Medical History: Reports: Dementia, Depression Past Surgical History Past Surgical History: Reports: Coronary Artery Bypass Graft - Patient has a well-healed midline incision over the sternum, she says this Social History Information Source: [facility] Records Lives with: Other - Patient states she has an aide who lives with her. Smoking Status: Current Every Day Smoker Frequency of Alcohol Use: None Hx Recreational Drug Use: No Drugs: None Hx Prescription Drug Abuse: No Family History Family History: End Stage Renal Disease - Brother was on dialysis., Hypertension - Brother Parental Family History Reviewed: Yes Children Family History Reviewed: Unknown Sibling(s) Family History Reviewed.: Yes Medication/Allergy Home Medications: Amlodipine Besylate [Norvasc 5 mg Tablet] 5 mg PO QAM 07/10/19 Aspirin [Adult Low Dose Aspirin EC] 81 mg PO QAM 07/10/19 Carvedilol Phosphate [Carvedilol ER] 10 mg PO QAM 07/10/19 Esomeprazole Magnesium [Nexium] 20 mg PO Q6AM 07/10/19 Furosemide [Lasix 20 mg Tablet] 20 mg PO DAILY 07/10/19 Lactulose [Constulose 10 gm/15 mL Oral Solution] 15 ml PO Q12HP PRN 07/10/19 Lisinopril [Prinivil 10 mg Tablet] 10 mg PO QAM 07/10/19 Megestrol Acetate [Megace Misty 400 mg/10 ml Udcup] 400 mg PO BID 07/10/19 Mirtazapine [Remeron] 15 mg PO QPM 07/10/19 Tramadol HCl [Ultram 50 mg Tablet] 50 mg PO Q12HP PRN 07/10/19 Allergies/Adverse Reactions: No Known Allergies Allergy (Verified 05/04/18 15:08) Review of Systems All systems: reviewed and no additional remarkable complaints except as stated Review of Systems: Constitutional: ABSENT: chills, fatigue, fever(s), headache(s), weight gain, weight loss Eyes: ABSENT: visual disturbances Ears: ABSENT: hearing changes Cardiovascular: ABSENT: chest pain, orthropnea, palpitations; patient came in with lower extremity edema and shortness of breath Respiratory: ABSENT: Hemoptysis; patient has nonproductive cough Gastrointestinal: ABSENT: abdominal pain, constipation, diarrhea, hematemesis, hematochezia, nausea, vomiting Genitourinary: ABSENT: dysuria, hematuria Musculoskeletal: ABSENT: joint swelling Integumentary: ABSENT: rash, wounds Neurological: ABSENT: abnormal gait, abnormal speech, confusion, dizziness, focal weakness, numbness, syncope Psychiatric: ABSENT: anxiety, depression Endocrine: ABSENT: cold intolerance, heat intolerance, polydipsia, polyuria Hematologic/Lymphatic: ABSENT: easy bleeding, easy bruising, lymphadenopathy Physical Exam Vital Signs: Temp Pulse Resp BP Pulse Ox 98.3 F 78 16 166/78 H 97 07/13/19 07:16 07/13/19 07:16 07/13/19 07:16 07/13/19 07:16 07/13/19 07:16 Intake & Output 07/12/19 07/13/19 07/14/19 06:59 06:59 06:59 Intake Total 50 1260 Output Total 1725 1635 Balance -1675 -375 Weight 49.8 kg 47.9 kg Exam: General appearance: No acute distress, cooperative, small frame and thin Head exam: PRESENT: atraumatic, normocephalic Eye exam: PRESENT: Conjunctiva slightly pale, EOMI, PERRLA. ABSENT: conjunctival injection, scleral icterus Mouth exam: PRESENT: moist, neck supple, tongue midline Neck exam: PRESENT: full ROM. ABSENT: carotid bruit, JVD, lymphadenopathy, thyromegaly Respiratory exam: PRESENT: Diminished to auscultation bilaterally. Positive minimal basal crackles ABSENT: Rhonchi, stridor, wheezes Cardiovascular exam: PRESENT: Irregular, +S1, +S2. ABSENT: systolic murmur Pulses: PRESENT: normal radial pulses, normal dorsalis pedis pulses GI/Abdominal exam: PRESENT: normal bowel sounds, soft. ABSENT: guarding, mass, tenderness Rectal exam: Deferred Extremities exam: PRESENT: full ROM. ABSENT: calf tenderness, pedal edema (was reported to have grade 2 pitting edema on admission) Musculoskeletal: PRESENT: full ROM. ABSENT: deformity Neurological exam: PRESENT: alert, Awake, Oriented to person, Oriented to place, Oriented to time, reflexes normal, CN II-XII grossly intact. ABSENT: motor sensory deficit Psychiatric exam: PRESENT: appropriate affect, normal mood. Patient is not as friendly and pleasant and appears to be unwilling to answer questions ABSENT: homicidal ideation, suicidal ideation Skin exam: PRESENT: intact, dry, warm. ABSENT: rash Results Laboratory Results: 07/11/19 05:39 07/13/19 04:50 07/13/19 04:50 Sodium 143.7 Potassium 5.5 H Chloride 111 H Carbon Dioxide 22 Anion Gap 11 BUN 60 H Creatinine 2.10 H Est GFR ( Amer) 28 L Glucose 106 Calcium 9.2 07/10/19 07/10/19 07/10/19 13:23 13:23 14:28 Creatine Kinase Cancelled Cancelled CK-MB (CK-2) Cancelled Troponin I Cancelled NT-Pro-B Natriuret Pep Cancelled 07/10/19 07/10/19 07/10/19 14:28 15:45 15:45 Creatine Kinase 52 CK-MB (CK-2) Cancelled 1.53 Troponin I Cancelled 0.042 NT-Pro-B Natriuret Pep Cancelled [id number] H 07/10/19 07/11/19 07/11/19 18:35 00:26 05:39 Creatine Kinase CK-MB (CK-2) Troponin I 0.042 0.041 0.049 NT-Pro-B Natriuret Pep 07/11/19 19:30 Creatine Kinase CK-MB (CK-2) Troponin I NT-Pro-B Natriuret Pep [id number] H Impressions: Chest X-Ray 07/12/19 00:00 IMPRESSION: Unchanged opacity opacities in the left base. Lung Scan-VQ NM 07/12/19 09:14 IMPRESSION: No perfusion defect. No evidence of pulmonary embolism. Cardiomegaly. Assessment & Plan - Diagnosis (1) Acute kidney injury superimposed on chronic kidney disease Is this a current diagnosis for this admission?: Yes Plan: Patient is nonoliguric. Acute worsening of her kidney function would be due to prerenal factors which include initial CHF, hemodynamic changes brought about by fluctuating blood pressure and diuresis. At this time the patient does not appear to be in congestive heart failure anymore. I agree with holding diuretics and starting very cautious and should be limited IV fluids. Needs to reevaluate volume status after 24 hours to determine continuous need for IV fluids. Continue to monitor kidney function and electrolytes. Avoid nephrotoxic medications. Patient does not require any renal replacement therapy. Patient has underlying chronic kidney disease stage III which from known history that we have is most likely secondary to hypertensive nephrosclerosis. She follows up with Dr. Luis Tolliver. (2) Hyperkalemia Is this a current diagnosis for this admission?: Yes Plan: Mild. Due to CARLOS on CKD. The IV fluids should bring this down. Monitor for now. (3) Acute exacerbation of CHF (congestive heart failure) Qualifiers: Heart failure type: combined systolic and diastolic Qualified Code(s): I50.43 - Acute on chronic combined systolic (congestive) and diastolic (congestive) heart failure Is this a current diagnosis for this admission?: Yes Plan: Much improved from what was described in admission and most likely resolved now. (4) Hypertension Qualifiers: Is this a current diagnosis for this admission?: Yes Plan: Seems to be improved for the last 24 hours with current blood pressure regimen. Continue the same for now. (5) Dementia Qualifiers: Dementia type: Alzheimer's disease Alzheimer's disease onset: unspecified onset Dementia behavioral disturbance: without behavioral disturbance Qualified Code(s): G30.9 - Alzheimer's disease, unspecified; F02.80 - Dementia in other diseases classified elsewhere without behavioral disturbance Is this a current diagnosis for this admission?: Yes - Notes Notes: Thank you very much for this consultation. We will follow the patient with you. - Time Time Spent: 50 to 70 Minutes
[2019-07-13] MEDS: RISPERIDONE 0.25 MG TABLET PO SCH ×2 (10:31→17:28)
[2019-07-13] MEDS: ASPIRIN 81 MG TABLET, CHEWABLE PO SCH (10:32)
[2019-07-13] MEDS: LIDOCAINE 5% (700 MG) TRANSDERMAL ADH..PATCH TP SCH (10:32)
[2019-07-13] MEDS: HYDRALAZINE HCL 10 MG TABLET PO SCH (10:32)
[2019-07-13] MEDS: DOCUSATE SODIUM 100 MG CAPSULE PO SCH ×2 (10:32→17:29)
[2019-07-13] MEDS: MAGNESIUM HYDROXIDE SUSP 30 ML UDCUP PO SCH (10:32)
[2019-07-13] MEDS: MEGESTROL ACETATE SUSP 400 MG/10 ML UDCUP PO SCH ×2 (10:32→17:29)
[2019-07-13] MEDS: CARVEDILOL 12.5 MG TABLET PO SCH ×2 (10:32→23:13)
--- NOTE | 2019-07-13 14:04 | PDOC PROGRESS REPORT ---
Subjective Progress Note for:: 07/13/19 Subjective:: This is a 79 year old female past medical history of CAD status post CABG, hypertension, GERD, dementia, depression, CKD 4 and recent CVA who presented with bipedal edema and exertional dyspnea. Patient was admitted for hypertensive urgency, CHF exacerbation and CARLOS on top of CKD. 07/12: Upon encounter, patient is not in distress. She had an episode of agitation and restless yesterday afternoon. Otherwise, no other acute event overnight. 07/13: No acute event overnight. She denies acute complaints. Creatinine has trended up. Lasix was held yesterday. We will give patient cautious hydration. Will consult nephro for further recommendations. Reason For Visit: ACUTE CHF EXACERBATION,CARLOS,CKD Physical Exam Vital Signs: Temp Pulse Resp BP Pulse Ox 98.3 F 78 16 166/78 H 97 07/13/19 07:16 07/13/19 07:16 07/13/19 07:16 07/13/19 07:16 07/13/19 07:16 Intake & Output 07/12/19 07/13/19 07/14/19 06:59 06:59 06:59 Intake Total 50 1260 Output Total 1725 1635 Balance -1675 -375 Weight 109 lb 12.643 oz 105 lb 9.623 oz General appearance: PRESENT: no acute distress, well-developed, well-nourished Head exam: PRESENT: atraumatic, normocephalic Eye exam: PRESENT: conjunctiva pink, EOMI, PERRLA. ABSENT: scleral icterus Ear exam: PRESENT: normal external ear exam Mouth exam: PRESENT: moist, tongue midline Neck exam: ABSENT: carotid bruit, JVD, lymphadenopathy, thyromegaly Respiratory exam: PRESENT: clear to auscultation hubert. ABSENT: rales, rhonchi, wheezes Cardiovascular exam: PRESENT: RRR. ABSENT: diastolic murmur, rubs, systolic murmur Pulses: PRESENT: normal dorsalis pedis pul GI/Abdominal exam: PRESENT: normal bowel sounds, soft. ABSENT: distended, guarding, mass, organolmegaly, rebound, tenderness Rectal exam: PRESENT: deferred Neurological exam: PRESENT: alert, awake, oriented to person, CN II-XII grossly intact. ABSENT: motor sensory deficit Results Laboratory Results: 07/11/19 05:39 07/13/19 04:50 07/13/19 04:50 Sodium 143.7 Potassium 5.5 H Chloride 111 H Carbon Dioxide 22 Anion Gap 11 BUN 60 H Creatinine 2.10 H Est GFR ( Amer) 28 L Glucose 106 Calcium 9.2 07/10/19 07/10/19 07/10/19 13:23 13:23 14:28 Creatine Kinase Cancelled Cancelled CK-MB (CK-2) Cancelled Troponin I Cancelled NT-Pro-B Natriuret Pep Cancelled 07/10/19 07/10/19 07/10/19 14:28 15:45 15:45 Creatine Kinase 52 CK-MB (CK-2) Cancelled 1.53 Troponin I Cancelled 0.042 NT-Pro-B Natriuret Pep Cancelled [id number] H 07/10/19 07/11/19 07/11/19 18:35 00:26 05:39 Creatine Kinase CK-MB (CK-2) Troponin I 0.042 0.041 0.049 NT-Pro-B Natriuret Pep 07/11/19 19:30 Creatine Kinase CK-MB (CK-2) Troponin I NT-Pro-B Natriuret Pep [id number] H Impressions: Chest X-Ray 07/12/19 00:00 IMPRESSION: Unchanged opacity opacities in the left base. Lung Scan-VQ NM 07/12/19 09:14 IMPRESSION: No perfusion defect. No evidence of pulmonary embolism. Cardiomegaly. Assessment and Plan - Diagnosis (1) Acute exacerbation of CHF (congestive heart failure) Qualifiers: Heart failure type: combined systolic and diastolic Qualified Code(s): I50.43 - Acute on chronic combined systolic (congestive) and diastolic (congestive) heart failure Is this a current diagnosis for this admission?: Yes Plan: 07/11: She is currently getting diuresed with IV Lasix 20 mg every 12. Echo pending. Her CKD IV and HTN urgency could also be likely contributing to her CHF exacerbation. 07/12: Creatinine has trended up to 1.9. She actually looks more on the dry side now. Will hold off on Lasix today. Echo showed normal EF and G2DD and mild pulmonary HTN. 07/13: Creatinine has trended up. Lasix was held yesterday. We will give patient cautious hydration. Will consult nephro for further recommendations. (2) Acute on chronic kidney failure Qualifiers: Chronic kidney disease stage: stage 3 (moderate) Is this a current diagnosis for this admission?: Yes Plan: 07/11: Creatinine has gone down to 1.7 today and appears to be close to her previous baseline. 07/12: Creatinine has trended up to 1.9. Hold off on Lasix today. 07/13: Creatinine has trended up. Lasix was held yesterday. We will give patient cautious hydration. Will consult nephro for further recommendations. (3) CAD (coronary artery disease) Is this a current diagnosis for this admission?: Yes Plan: Continue home meds. (4) Kidney disease, chronic, stage IV (GFR 15-29 ml/min) Is this a current diagnosis for this admission?: Yes Plan: Avoid nephrotoxic agents. (5) Hypertensive urgency Is this a current diagnosis for this admission?: Yes Plan: 07/02: It appears patient had angioedema deemed to be from lisinopril in previous admission. Discontinue lisinopril. Increase amlodipine to 10 mg daily. Continue carvedilol. 07/12: Will add PO hydralazine. 07/13: Increase hydralazine. - Time Time Spent with patient: 25-34 minutes
[2019-07-13] MEDS: MIRTAZAPINE 15 MG TABLET PO SCH (17:29)
[2019-07-13] MEDS: CEFTRIAXONE 1 GM/D5W RTU 1 GM/50 ML RTUPB IV SCH (23:11)
[2019-07-13] MEDS: OXYCODONE-ACETAMINOPHEN 5-325 MG TABLET PO PRN (23:13)
[2019-07-13] MEDS: TEMAZEPAM 7.5 MG CAPSULE PO PRN (23:14)
[2019-07-13] MEDS: HYDRALAZINE HCL 25 MG TABLET PO SCH (23:41)
[2019-07-13] MEDS: ATORVASTATIN CALCIUM 20 MG TABLET PO SCH (23:41)
[2019-07-14] MEDS: PANTOPRAZOLE SODIUM 40 MG TABLET.DR PO SCH (05:19)
[2019-07-14] MEDS: HEPARIN SOD (PORCINE) 5,000 UNIT/ML 1 ML VIAL SUBCUT SCH ×2 (05:19→14:14)
[2019-07-14] MEDS: AMLODIPINE BESYLATE 10 MG TABLET PO SCH (09:00)
[2019-07-14] MEDS: CARVEDILOL 12.5 MG TABLET PO SCH (10:06)
[2019-07-14] MEDS: ASPIRIN 81 MG TABLET, CHEWABLE PO SCH (10:06)
[2019-07-14] MEDS: DOCUSATE SODIUM 100 MG CAPSULE PO SCH (10:06)
[2019-07-14] MEDS: HYDRALAZINE HCL 25 MG TABLET PO SCH (10:06)
[2019-07-14] MEDS: OXYCODONE-ACETAMINOPHEN 5-325 MG TABLET PO PRN ×2 (10:07→14:14)
[2019-07-14] MEDS: MAGNESIUM HYDROXIDE SUSP 30 ML UDCUP PO SCH (10:08)
[2019-07-14] MEDS: LIDOCAINE 5% (700 MG) TRANSDERMAL ADH..PATCH TP SCH (10:10)
[2019-07-14] MEDS: MEGESTROL ACETATE SUSP 400 MG/10 ML UDCUP PO SCH (10:11)
[2019-07-14] MEDS: RISPERIDONE 0.25 MG TABLET PO SCH (10:11)
[2019-07-14 11:13] LABS: ANION GAP 12 (5-19); BLOOD UREA NITROGEN 52 mg/dL (7-20); CALCIUM 9.2 mg/dL (8.4-10.2); CARBON DIOXIDE 21 mmol/L (22-30); CHLORIDE 112 mmol/L (98-107); GLUCOSE 137 mg/dL (75-110); POTASSIUM 5.4 mmol/L (3.6-5.0)
[2019-07-14 12:17] VITALS: BP 155/78
--- NOTE | 2019-07-14 16:00 | PDOC DISCHARGE SUMMARY ---
Impression - Admit/DC Date/PCP Admission Date/Primary Care Provider: 07/10/19 18:18 Discharge Date: 07/14/19 - Discharge Diagnosis (1) Acute exacerbation of CHF (congestive heart failure) Is this a current diagnosis for this admission?: Yes (2) Acute on chronic kidney failure Is this a current diagnosis for this admission?: Yes (3) CAD (coronary artery disease) Is this a current diagnosis for this admission?: Yes (4) Kidney disease, chronic, stage IV (GFR 15-29 ml/min) Is this a current diagnosis for this admission?: Yes (5) Hypertensive urgency Is this a current diagnosis for this admission?: Yes - Additional Information Discharge Diet: Cardiac Discharge Activity: Activity As Tolerated, Balance Activity w/Rest, Weigh Daily Referrals: Debra Duffy [Other] - 07/17/19 1:30 pm CHELSEA VIDALES MD [ACTIVE STAFF] - (Patient will be seen at [facility] on dialysis day.) Prescriptions: Hydralazine HCl [Apresoline 25 mg Tablet] 25 mg PO Q12 #60 tablet Aspirin [Aspirin 81 mg Chewable Tablet] 81 mg PO DAILY #30 tab.chew Carvedilol [Coreg 25 mg Tablet] 1 tab PO Q12 #60 tab Levofloxacin [Levaquin 250 mg Tablet] 250 mg PO DAILY 4 Days #4 tablet Lidocaine [Lidoderm 5% (700 mg) Transdermal Patch] 1 patch TP DAILY PRN #5 adh..patch PRN Reason: For Pain Atorvastatin Calcium [Lipitor 20 mg Tablet] 20 mg PO QHS #30 tablet Amlodipine Besylate [Norvasc 10 mg Tablet] 10 mg PO QAM #30 tablet Risperidone [Risperdal 0.25 mg Tablet] 0.25 mg PO DAILY #30 tablet Home Medications: Aspirin [Adult Low Dose Aspirin EC] 81 mg PO QAM 07/10/19 Lactulose [Constulose 10 gm/15 mL Oral Solution] 15 ml PO Q12HP PRN 07/10/19 Lisinopril [Prinivil 10 mg Tablet] 10 mg PO QAM 07/10/19 Megestrol Acetate [Megace Misty 400 mg/10 ml Udcup] 400 mg PO BID 07/10/19 Mirtazapine [Remeron] 15 mg PO QPM 07/10/19 Tramadol HCl [Ultram 50 mg Tablet] 50 mg PO Q12HP PRN 07/10/19 Amlodipine Besylate [Norvasc 10 mg Tablet] 10 mg PO QAM #30 tablet 07/14/19 Aspirin [Aspirin 81 mg Chewable Tablet] 81 mg PO DAILY #30 tab.chew 07/14/19 Atorvastatin Calcium [Lipitor 20 mg Tablet] 20 mg PO QHS #30 tablet 07/14/19 Carvedilol [Coreg 25 mg Tablet] 1 tab PO Q12 #60 tab 07/14/19 Hydralazine HCl [Apresoline 25 mg Tablet] 25 mg PO Q12 #60 tablet 07/14/19 Levofloxacin [Levaquin 250 mg Tablet] 250 mg PO DAILY 4 Days #4 tablet 07/14/19 Lidocaine [Lidoderm 5% (700 mg) Transdermal Patch] 1 patch TP DAILY PRN #5 adh..patch 07/14/19 Risperidone [Risperdal 0.25 mg Tablet] 0.25 mg PO DAILY #30 tablet 07/14/19 History of Present Illiness History of Present Illness: Admitting hospitalist's H&P: AMADOU RAI is a 79 year old female past medical history of CAD status post CABG, hypertension, GERD, dementia, depression, CKD, presenting to ED complaining of worsening leg swelling, nausea, nonproductive non-bloody cough, dyspnea on exertion. Bilateral lower extremity swelling is below the knee, stating that sitting she has had it for several months, which has been worsening. Reports compliance with her meds, lives by herself, has any fever, chills, chest pain, abdominal pain, diarrhea or any urinary symptoms. In ED she was found to be hypertensive, elevated BNP and mild elevation of troponins. Hospitalist consulted for admission. Hospital Course Hospital Course: This is a 79 year old female past medical history of CAD status post CABG, hypertension, GERD, dementia, depression, CKD 4 and recent CVA who presented wi th bipedal edema and exertional dyspnea. Patient was admitted for hypertensive urgency, CHF exacerbation and CARLOS on top of CKD. Patient was started on IV Lasix. His antihypertensive regimen is also adjusted. Her echo revealed normal EF with grade 2 diastolic dysfunction. Her CHF exacerbation is likely related to severe/uncontrolled hypertension in the setting of CKD. Her creatinine did trend up and IV Lasix was held. She was given cautious hydration and her creatinine trended back towards her baseline. She was also evaluated by nephrology. Her Coreg was increased. Her amlodipine was also increased. Hydralazine was also added to her regimen. She did return to her baseline. Her home Lasix will be held for the next 5 days and to she gets a repeat BMP and follow-up with her PCP and nephrology. Patient has dementia but On day of discharge, she was oriented to person and place. She was able to verbalize that she does not want to be back in the hospital anymore as she does not want the inconvenience and discomfort of being subjected to phlebotomies. Palliative care was consulted. They will be following up with patient and family as outpatient. This was also brought up with patient's family and they decided to further discuss this with the patient and the family after discharge and will rediscuss her CODE STATUS and consider hospice later. Physical Exam Vital Signs: Temp Pulse Resp BP Pulse Ox 97.5 F 69 16 155/78 H 97 07/14/19 11:28 07/14/19 11:28 07/14/19 11:28 07/14/19 11:28 07/14/19 11:28 Intake & Output 07/13/19 07/14/19 07/15/19 06:59 06:59 06:59 Intake Total 1310 2060 1118 Output Total 1635 850 300 Balance -325 1210 818 Weight 105 lb 9.623 oz 106 lb 4.205 oz 106 lb 4.205 oz General appearance: PRESENT: no acute distress, well-developed, well-nourished Head exam: PRESENT: atraumatic, normocephalic Eye exam: PRESENT: conjunctiva pink, EOMI, PERRLA. ABSENT: scleral icterus Ear exam: PRESENT: normal external ear exam Mouth exam: PRESENT: moist, tongue midline Neck exam: ABSENT: carotid bruit, JVD, lymphadenopathy, thyromegaly Respiratory exam: PRESENT: clear to auscultation hubert. ABSENT: rales, rhonchi, wheezes Cardiovascular exam: PRESENT: RRR. ABSENT: diastolic murmur, rubs, systolic murmur Pulses: PRESENT: normal dorsalis pedis pul GI/Abdominal exam: PRESENT: normal bowel sounds, soft. ABSENT: distended, guarding, mass, organolmegaly, rebound, tenderness Rectal exam: PRESENT: deferred Extremities exam: PRESENT: full ROM. ABSENT: calf tenderness, clubbing, pedal edema Neurological exam: PRESENT: alert, awake, oriented to person, oriented to place, CN II-XII grossly intact. ABSENT: motor sensory deficit Results Laboratory Results: WBC 9.8 10^3/uL (4.0-10.5) 07/11/19 05:39 RBC 3.90 10^6/uL (3.72-5.28) 07/11/19 05:39 Hgb 12.8 g/dL (12.0-15.5) 07/11/19 05:39 Hct 37.8 % (36.0-47.0) 07/11/19 05:39 MCV 97 fl (80-97) 07/11/19 05:39 MCH 32.8 pg (27.0-33.4) 07/11/19 05:39 MCHC 33.8 g/dL (32.0-36.0) 07/11/19 05:39 RDW 15.6 % (11.5-14.0) H 07/11/19 05:39 Plt Count 167 10^3/uL (150-450) 07/11/19 05:39 Lymph % (Auto) 15.3 % (13-45) 07/11/19 05:39 Swisher % (Auto) 6.5 % (3-13) 07/11/19 05:39 Eos % (Auto) 1.0 % (0-6) 07/11/19 05:39 Baso % (Auto) 0.6 % (0-2) 07/11/19 05:39 Absolute Neuts (auto) 7.5 10^3/uL (1.7-8.2) 07/11/19 05:39 Absolute Lymphs (auto) 1.5 10^3/uL (0.5-4.7) 07/11/19 05:39 Absolute Monos (auto) 0.6 10^3/uL (0.1-1.4) 07/11/19 05:39 Absolute Eos (auto) 0.1 10^3/uL (0.0-0.6) 07/11/19 05:39 Absolute Basos (auto) 0.1 10^3/uL (0.0-0.2) 07/11/19 05:39 Seg Neutrophils % 76.6 % (42-78) 07/11/19 05:39 PT 14.0 SEC (11.4-15.4) 07/10/19 13:23 INR 1.08 07/10/19 13:23 Sodium 144.6 mmol/L (137-145) 07/14/19 10:23 Potassium 5.4 mmol/L (3.6-5.0) H 07/14/19 10:23 Chloride 112 mmol/L (98-107) H 07/14/19 10:23 Carbon Dioxide 21 mmol/L (22-30) L 07/14/19 10:23 Anion Gap 12 (5-19) 07/14/19 10:23 BUN 52 mg/dL (7-20) H 07/14/19 10:23 Creatinine 1.78 mg/dL (0.52-1.25) H 07/14/19 10:23 Est GFR ( Amer) 33 (>60) L 07/14/19 10:23 Est GFR (Non-Af Amer) Cancelled 07/13/19 16:03 Est GFR (MDRD) Non-Af 28 (>60) L 07/14/19 10:23 Glucose 137 mg/dL (75-110) H 07/14/19 10:23 Calcium 9.2 mg/dL (8.4-10.2) 07/14/19 10:23 Magnesium 2.0 mg/dL (1.6-2.3) 07/11/19 05:39 Total Bilirubin 0.7 mg/dL (0.2-1.3) 07/11/19 05:39 Direct Bilirubin 0.3 mg/dL (0.0-0.4) 07/11/19 05:39 Neonat Total Bilirubin Not Reportable 07/11/19 05:39 Neonat Direct Bilirubin Not Reportable 07/11/19 05:39 Neonat Indirect Bili Not Reportable 07/11/19 05:39 AST 21 U/L (14-36) 07/11/19 05:39 ALT 11 U/L (<35) 07/11/19 05:39 Alkaline Phosphatase 52 U/L (38-126) 07/11/19 05:39 Creatine Kinase 52 U/L (30-135) 07/10/19 15:45 CK-MB (CK-2) 1.53 ng/mL (<4.55) 07/10/19 15:45 Troponin I 0.049 ng/mL 07/11/19 05:39 NT-Pro-B Natriuret Pep 23703 pg/mL (<450) H 07/11/19 19:30 Total Protein 7.2 g/dL (6.3-8.2) 07/11/19 05:39 Albumin 3.5 g/dL (3.5-5.0) 07/11/19 05:39 Triglycerides 83 mg/dL (<150) 07/11/19 05:39 Cholesterol 172.55 mg/dL (0-200) 07/11/19 05:39 LDL Cholesterol Direct 83 mg/dL (<100) 07/11/19 05:39 VLDL Cholesterol 17.0 mg/dL (10-31) 07/11/19 05:39 HDL Cholesterol 59 mg/dL (>40) 07/11/19 05:39 EGFR Cancelled 07/13/19 16:03 TSH 3.18 uIU/mL (0.47-4.68) 07/11/19 05:39 07/10/19 07/10/19 07/10/19 13:23 14:28 15:45 CK-MB (CK-2) Cancelled Cancelled 1.53 Troponin I Cancelled Cancelled 0.042 NT-Pro-B Natriuret Pep Cancelled Cancelled [id number] H 07/10/19 07/11/19 07/11/19 18:35 00:26 05:39 CK-MB (CK-2) Troponin I 0.042 0.041 0.049 NT-Pro-B Natriuret Pep 07/11/19 19:30 CK-MB (CK-2) Troponin I NT-Pro-B Natriuret Pep [id number] H Impressions: Chest X-Ray 07/10/19 13:10 IMPRESSION: Borderline cardiomegaly without pulmonary edema. Cannot exclude a limited left lower lobe pneumonia. Chest X-Ray 07/12/19 00:00 IMPRESSION: Unchanged opacity opacities in the left base. Lung Scan-VQ NM 07/12/19 09:14 IMPRESSION: No perfusion defect. No evidence of pulmonary embolism. Cardiomegaly. Stroke Is this a Stroke Patient?: No Acute Heart Failure - Is this a Heart Failure Patient?: No
== END 2019-07-14 15:42 | disposition home or self-care (01) | DRG 291 ==
LOC: ER 12:47 → EH 18:18 → UNDOADMIN 18:18 → EH 23:46 → 3N 23:46 → EH 07-11 16:43 → UNDODISIN 07-14 15:42
PROVIDERS: ADMIT Internal Medicine; ATTEND Internal Medicine
DX: I13.0 Hypertensive heart and chronic kidney disease with heart failure and stage 1 through stage 4 chronic kidney disease, or unspecified chronic kidney disease (principal); I50.43 Acute on chronic combined systolic (congestive) and diastolic (congestive) heart failure; N17.9 Acute kidney failure, unspecified; N18.4 Chronic kidney disease, stage 4 (severe); I25.10 Atherosclerotic heart disease of native coronary artery without angina pectoris; Z95.1 Presence of aortocoronary bypass graft; K21.9 Gastro-esophageal reflux disease without esophagitis; F03.90 Unspecified dementia, unspecified severity, without behavioral disturbance, psychotic disturbance, mood disturbance, and anxiety; F32.9 Major depressive disorder, single episode, unspecified; I25.2 Old myocardial infarction; F17.210 Nicotine dependence, cigarettes, uncomplicated; I16.0 Hypertensive urgency; Z86.73 Personal history of transient ischemic attack (TIA), and cerebral infarction without residual deficits; Z79.84 Long term (current) use of oral hypoglycemic drugs; Z79.899 Other long term (current) drug therapy; Z79.82 Long term (current) use of aspirin; Z82.49 Family history of ischemic heart disease and other diseases of the circulatory system
CPT/HCPCS: 36415; 71045; 71046; 78580; 80048; 80053; 80061; 82550; 82553; 83735; 83880; 84443; 84484; 85025; 85610; 93005; 93010; 93306; 99285; A9540; G0378; J0360; J0696; J1630; J1644; J1940; J2550; J3490; J7030; Q9969

== ENCOUNTER 2019-07-17 11:15 | Inpatient (IN) | payer MEDICARE, MEDICAID ==
[2019-07-17 11:55] LABS: ABSOLUTE BASOPHILS # (AUTO) 0.1 10^3/uL (0.0-0.2); ABSOLUTE LYMPHOCYTES (AUTO) 0.9 10^3/uL (0.5-4.7); ABSOLUTE MONOCYTES (AUTO) 0.4 10^3/uL (0.1-1.4); BASOPHILS % (AUTO) 0.7 % (0-2); HEMATOCRIT 30.3 % (36.0-47.0); HEMOGLOBIN 9.9 g/dL (12.0-15.5); LYMPHOCYTES % (AUTO) 10.7 % (13-45); MEAN CORPUSCULAR HEMOGLOBIN 32.8 pg (27.0-33.4); MEAN CORPUSCULAR HGB CONC 32.7 g/dL (32.0-36.0); MEAN CORPUSCULAR VOLUME 100 fl (80-97); MONOCYTES % (AUTO) 5.2 % (3-13); PLATELET COUNT 214 10^3/uL (150-450); RED BLOOD COUNT 3.02 10^6/uL (3.72-5.28); RED CELL DISTRIBUTION WIDTH 16.5 % (11.5-14.0); SEGMENTED NEUTROPHILS % (AUTO) 83.4 % (42-78); TOTAL CELLS COUNTED % (AUTO) 100 %; WHITE BLOOD COUNT 8.4 10^3/uL (4.0-10.5)
--- NOTE | 2019-07-17 12:14 | RADIOLOGY REPORT (SQ) ---
EXAM DESCRIPTION: CHEST SINGLE VIEW COMPLETED DATE/TIME: 07/17/2019 12:04 pm REASON FOR STUDY: bed 19 db COMPARISON: 07/12/2019. EXAM PARAMETERS: NUMBER OF VIEWS: One view. TECHNIQUE: Single frontal radiographic view of the chest acquired. RADIATION DOSE: NA LIMITATIONS: None. FINDINGS: LUNGS AND PLEURA: Airspace disease in the lung bases, right greater than left. Bilateral pleural effusions. MEDIASTINUM AND HILAR STRUCTURES: No masses. Contour normal. HEART AND VASCULAR STRUCTURES: Cardiomegaly. BONES: No acute findings. HARDWARE: Sternotomy wires. OTHER: No other significant finding. IMPRESSION: CARDIOMEGALY AND BILATERAL PLEURAL EFFUSIONS. AIRSPACE DISEASE IN THE LUNG BASES, RIGHT GREATER THAN LEFT, MAY BE DUE TO ASYMMETRIC PULMONARY EDEMA AND/OR PNEUMONIA. TECHNICAL DOCUMENTATION: JOB ID: [id number] [employer]- All Rights Reserved Reading location - IP/workstation name: [email or web address]
[2019-07-17 12:58] LABS: ALBUMIN 3.9 g/dL (3.5-5.0); ALKALINE PHOSPHATASE 48 U/L (38-126); ANION GAP 13 (5-19); ASPARTATE AMINO TRANSFERASE 35 U/L (14-36); BILIRUBIN,DIRECT 0.4 mg/dL (0.0-0.4); BILIRUBIN,TOTAL 0.7 mg/dL (0.2-1.3); BLOOD UREA NITROGEN 65 mg/dL (7-20); CARBON DIOXIDE 18 mmol/L (22-30); CHLORIDE 112 mmol/L (98-107); CREATINE KINASE 95 U/L (30-135); GLUCOSE 106 mg/dL (75-110); POTASSIUM 5.9 mmol/L (3.6-5.0); TOTAL PROTEIN 7.4 g/dL (6.3-8.2)
--- NOTE | 2019-07-17 13:53 | ER Document Report ---
Entered by JESSICA BARBOZA SCRIBE 07/17/19 1133 Acting as scribe for:HARMEET SCOTT MD ED Respiratory Problem - General Chief Complaint: Respiratory Distress Stated Complaint: RESPIRATORY DISTRESS Time Seen by Provider: 07/17/19 11:24 Mode of Arrival: Medic Information source: [facility] Records Cannot obtain history due to: Dementia Notes: This 79 year old female patient presents to the emergency department today with complaints of shortness of breath. Patient is demented and when asked she she is here she states that she is "short of everything". Patient has a history of CHF but no COPD. History is limited. Patient was admitted on 07/10/2019 and discharged on 07/15/2019 with a diagnosis of acute exacerbation of CHF based on elevated BNP with 2- chest x-rays. She also had acute on chronic kidney failure. TRAVEL OUTSIDE OF THE [place] IN LAST 30 DAYS: No COUNTRY TRAVELED TO/FROM: [employer] - Related Data Allergies/Adverse Reactions: No Known Allergies Allergy (Verified 05/04/18 15:08) Past Medical History - General Information source: [facility] Records Cannot obtain history due to: Dementia - Social History Smoking Status: Never Smoker Cigarette use (# per day): No Frequency of alcohol use: None Drug Abuse: None Family History: Hypertension - Past Medical History Cardiac Medical History: Reports: Hx Coronary Artery Disease, Hx Heart Attack, Hx Hypertension GI Medical History: Reports: Hx Gastroesophageal Reflux Disease Psychiatric Medical History: Reports: Hx Dementia, Hx Depression Past Surgical History: Reports: Hx Coronary Artery Bypass Graft - Patient has a well-healed midline incision over the sternum, she says this, Hx Open Heart Surgery - Immunizations Hx Diphtheria, Pertussis, Tetanus Vaccination: Yes Review of Systems - Review of Systems -: Yes ROS unobtainable due to patient's medical condition Physical Exam - Vital signs Vitals: Resp Pulse Ox 26 H 92 07/17/19 11:21 07/17/19 11:21 - Notes Notes: Physical Exam: General: Alert, somewhat demented and argumentative. HEENT: Normocephalic. Atraumatic. PERRL. Extraocular movements intact. Gabriel pharynx clear. Neck: Supple. Non-tender. Respiratory: Mild respiratory distress. Expiratory wheezing bilaterally. Cardiovascular: Regular rate and rhythm. Abdominal: Normal Inspection. Non-tender. No distension. Normal Bowel Sounds. Back: No gross abnormalities. Extremities: Moves all four extremities. Upper extremities: Normal inspection. Normal ROM. Lower extremities: Normal inspection. No edema. Normal ROM. Neurological: Somewhat demented Skin: Warm. Dry. Normal color. Course - Vital Signs Vital signs: Temp Pulse Resp BP Pulse Ox 97.5 F 14 162/91 H 99 07/17/19 12:03 07/17/19 17:00 07/17/19 15:00 07/17/19 17:00 - Laboratory Result Diagrams: 07/17/19 11:30 07/17/19 12:15 Laboratory results interpreted by me: 07/17/19 07/17/19 11:30 12:15 RBC 3.02 L Hgb 9.9 L Hct 30.3 L MCV 100 H RDW 16.5 H Lymph % (Auto) 10.7 L Seg Neutrophils % 83.4 H Potassium 5.9 H Chloride 112 H Carbon Dioxide 18 L BUN 65 H Creatinine 2.35 H Est GFR ( Amer) 24 L Est GFR (MDRD) Non-Af 20 L - Diagnostic Test Radiology reviewed: Image reviewed, Reports reviewed - Chest x-ray shows cardiomegaly and bilateral pleural effusion. There is airspace disease in the lung bases with right greater than left, may be due to asymmetric pulmonary edema and/or pneumonia. - EKG Interpretation by Me EKG shows normal: Sinus rhythm, [place], QRS Complexes. abnormal: Intervals - Borderline prolonged QT interval, ST-T Waves - Borderline lateral T abnormalities Rate: Normal - 83 Rhythm: NSR [place]/QRS: Right axis deviation Voltage: Decreased voltage - Consults Dr. Linton Time consulted: 16:30 Consulted provider: will come to ER Critical Care Note - Critical Care Note Total time excluding time spent on procedures (mins): 40 Discharge - Discharge Clinical Impression: Pleural effusion on right, Elevated troponin I level, Hyperkalemia Pulmonary edema Qualifiers: Chronicity: acute Qualified Code(s): J81.0 - Acute pulmonary edema Acute renal failure Qualifiers: Acute renal failure type: unspecified Qualified Code(s): N17.9 - Acute kidney failure, unspecified Condition: Fair Disposition: ADMITTED INPATIENT Admitting Provider: Shaila (Hospitalist) Unit Admitted: IMCU I personally performed the services described in the documentation, reviewed and edited the documentation which was dictated to the scribe in my presence, and it accurately records my words and actions.
[2019-07-17 14:40] LABS: CREATINE KINASE MB 3.06 ng/mL (<4.55)
[2019-07-17 14:48] LABS: TROPONIN I 0.204 ng/mL
[2019-07-17] MEDS ORDERED: FUROSEMIDE INJ/PF 40 MG/4 ML SDV IV ONE (18:30)
--- NOTE | 2019-07-17 18:40 | ADVANCED CARE ---
- Diagnosis (1) Pleural effusion Diagnosis Current: Yes (2) Acute on chronic renal failure Diagnosis Current: Yes (3) Elevated troponin I level Diagnosis Current: Yes (4) Dementia Diagnosis Current: Yes Resuscitation Status: Do Not Resuscitate Discussion: Patient's daughter, Ava/LELA is on the bedside. We discussed in length her recent course and acute and chronic medical issues. Discussed that on recent discharge, patient verbalized she does not want to be hospitalized again and does not want to underwent blood extractions anymore. Hospice was recommended upon discharge last time and family including Ava has expressed they were gonna discuss this with the rest of the family. We rediscussed her CODE STATUS and plan of care in great length and Ava has verbalized she would want Ms. Kruse to be a DNR/DNI now. Also discussed possible need of thoracentesis if her pleural effusion worsens. She has expressed she would not prefer for her to get invasive procedures. We talked about hospice and she expressed that she and the family are not ready to transition her to hospice yet but is amenable to this if she will deteriorate. She prefers to see if we can optimize medical management at this time and see how she would respond to medications. Discussed we will resume Lasix and try to diurese her. Discussed the risk and benefits of treatment options. She also verbalized that in case her renal failure worsens, she would not want her to be initiated on dialysis.
--- NOTE | 2019-07-17 18:40 | PDOC H&P ---
History of Present Illness Patient complains of: SOB History of Present Illness: AMADOU RAI is a 79 year old female past medical history of dementia, CAD with prior CABG, hypertension, CKD, depression and chronic diastolic heart failure who was brought in due to recurrence of shortness of breath. Patient was recently discharged 3 days ago for diastolic heart failure exacerbation and acute on chronic renal failure. She was initially started on IV Lasix. She returned to her baseline but did had worsening of her acute renal failure hence IV Lasix was discontinued and her home Lasix was held on discharge. Family says that she had recurrence of shortness of breath last night. In the ER, she was noted to be slightly tachypneic. Her repeat chest x- ray shows increased bilateral pleural effusions worse on the right and possible pulmonary edema. Upon encounter, she denies chest pain. She says she is not shor t of breath although she appears slightly tachypneic in the high 20s. She is saturating well on nasal cannula. No cough, fever or chills. Patient's daughter, Viri is on the bedside. We discussed in length her recent course and acute and chronic medical issues. Discussed that on recent discharge, patient verbalized she does not want to be hospitalized again and does not want to underwent blood extractions anymore. Hospice was recommended upon discharge last time and family including Ava has expressed they gonna discuss this with the rest of the family. We rediscussed her CODE STATUS and plan of care in great length and Ava has verbalized she would want Ms. Rai to receive chest compressions, defibrillation and mechanical ventilation and would be be a DNR/DNI now. Also d iscussed possible need of thoracentesis if her pleural effusion worsens. She has expressed she would not prefer for her to get invasive procedures. We talked about hospice and she expressed that she and the family are not ready to transition her to hospice yet but is amenable to this if she will deteriorate. She prefers to see if we can optimize medical management at this time and see how she would respond to medications. Discussed we will resume Lasix and try to diurese her. Discussed the risk and benefits of treatment options. She also verbalized that in case her renal failure worsens, she would not want her to be initiated on dialysis. Past Medical History Cardiac Medical History: Reports: Coronary Artery Disease, Myocardial Infarction, Hypertension Denies: Congestive Heart Failure Pulmonary Medical History: Reports: Asthma Denies: Bronchitis, Chronic Obstructive Pulmonary Disease (COPD), Pneumonia Neurological Medical History: Denies: Seizures Renal/ Medical History: Denies: End Stage Renal Disease GI Medical History: Reports: Gastroesophageal Reflux Disease Denies: Cirrhosis Psychiatric Medical History: Reports: Dementia, Depression Denies: Bipolar Disorder Hematology: Denies: Anemia, Bleeding Tendencies Past Surgical History Past Surgical History: Reports: Coronary Artery Bypass Graft - Patient has a well-healed midline incision over the sternum, she says this Social History Smoking Status: Never Smoker Frequency of Alcohol Use: None Hx Recreational Drug Use: No Drugs: None Hx Prescription Drug Abuse: No Family History Family History: Hypertension Parental Family History Reviewed: Yes - no premature CAD Children Family History Reviewed: No Sibling(s) Family History Reviewed.: No Medication/Allergy Home Medications: Aspirin [Adult Low Dose Aspirin EC] 81 mg PO QAM 07/10/19 Lactulose [Constulose 10 gm/15 mL Oral Solution] 15 ml PO Q12HP PRN 07/10/19 Lisinopril [Prinivil 10 mg Tablet] 10 mg PO QAM 07/10/19 Megestrol Acetate [Megace Misty 400 mg/10 ml Udcup] 400 mg PO BID 07/10/19 Mirtazapine [Remeron] 15 mg PO QPM 07/10/19 Tramadol HCl [Ultram 50 mg Tablet] 50 mg PO Q12HP PRN 07/10/19 Amlodipine Besylate [Norvasc 10 mg Tablet] 10 mg PO QAM #30 tablet 07/14/19 Aspirin [Aspirin 81 mg Chewable Tablet] 81 mg PO DAILY #30 tab.chew 07/14/19 Atorvastatin Calcium [Lipitor 20 mg Tablet] 20 mg PO QHS #30 tablet 07/14/19 Carvedilol [Coreg 25 mg Tablet] 1 tab PO Q12 #60 tab 07/14/19 Hydralazine HCl [Apresoline 25 mg Tablet] 25 mg PO Q12 #60 tablet 07/14/19 Levofloxacin [Levaquin 250 mg Tablet] 250 mg PO DAILY 4 Days #4 tablet 07/14/19 Lidocaine [Lidoderm 5% (700 mg) Transdermal Patch] 1 patch TP DAILY PRN #5 adh..patch 07/14/19 Risperidone [Risperdal 0.25 mg Tablet] 0.25 mg PO DAILY #30 tablet 07/14/19 Allergies/Adverse Reactions: No Known Allergies Allergy (Verified 05/04/18 15:08) Review of Systems All systems: reviewed and no additional remarkable complaints except as stated - as mentioned in HPI Physical Exam Vital Signs: Temp Pulse Resp BP Pulse Ox 97.5 F 14 162/91 H 99 07/17/19 12:03 07/17/19 17:00 07/17/19 15:00 07/17/19 17:00 General appearance: PRESENT: no acute distress, well-developed, well-nourished Head exam: PRESENT: atraumatic, normocephalic Eye exam: PRESENT: conjunctiva pink, EOMI, PERRLA. ABSENT: scleral icterus Ear exam: PRESENT: normal external ear exam Mouth exam: PRESENT: moist, tongue midline Neck exam: ABSENT: carotid bruit, JVD, lymphadenopathy, thyromegaly Respiratory exam: PRESENT: rales, rhonchi. ABSENT: wheezes Cardiovascular exam: PRESENT: RRR. ABSENT: diastolic murmur, rubs, systolic murmur Pulses: PRESENT: normal dorsalis pedis pul GI/Abdominal exam: PRESENT: normal bowel sounds, soft. ABSENT: distended, guarding, mass, organolmegaly, rebound, tenderness Rectal exam: PRESENT: deferred Neurological exam: PRESENT: awake, oriented to person, CN II-XII grossly intact. ABSENT: motor sensory deficit Results Laboratory Results: 07/17/19 11:30 07/17/19 12:15 07/17/19 07/17/19 07/17/19 11:30 11:30 12:15 WBC 8.4 RBC 3.02 L Hgb 9.9 L Hct 30.3 L MCV 100 H MCH 32.8 MCHC 32.7 RDW 16.5 H Plt Count 214 Seg Neutrophils % 83.4 H Sodium Cancelled 142.6 Potassium Cancelled 5.9 H Chloride Cancelled 112 H Carbon Dioxide Cancelled 18 L Anion Gap Cancelled 13 BUN Cancelled 65 H Creatinine Cancelled 2.35 H Est GFR ( Amer) Cancelled 24 L Est GFR (Non-Af Amer) Cancelled Glucose Cancelled 106 Calcium Cancelled 9.0 Total Bilirubin Cancelled 0.7 AST Cancelled 35 Alkaline Phosphatase Cancelled 48 Total Protein Cancelled 7.4 Albumin Cancelled 3.9 07/17/19 07/17/19 07/17/19 11:30 11:30 12:15 Creatine Kinase Cancelled 95 CK-MB (CK-2) Cancelled Troponin I Cancelled NT-Pro-B Natriuret Pep Cancelled 07/17/19 07/17/19 13:28 15:00 Creatine Kinase CK-MB (CK-2) 3.06 Troponin I 0.204 0.223 NT-Pro-B Natriuret Pep Impressions: Chest X-Ray 07/17/19 11:16 IMPRESSION: CARDIOMEGALY AND BILATERAL PLEURAL EFFUSIONS. AIRSPACE DISEASE IN THE LUNG BASES, RIGHT GREATER THAN LEFT, MAY BE DUE TO ASYMMETRIC PULMONARY EDEMA AND/OR PNEUMONIA. Assessment and Plan - Diagnosis (1) Pleural effusion Is this a current diagnosis for this admission?: Yes Plan: Start IV Lasix. As discussed, patient's DPOA is not amenable to thoracentesis. (2) Acute diastolic heart failure Is this a current diagnosis for this admission?: Yes Plan: Will restart diuretics. (3) Elevated troponin I level Is this a current diagnosis for this admission?: Yes Plan: Likely related to demand ischemia in the setting of acute renal failure as well. No acute EKG changes compared to previous EKGs. Patient does not complain of any chest pain. (4) Dementia Qualifiers: Dementia type: Alzheimer's disease Alzheimer's disease onset: unspecified onset Dementia behavioral disturbance: without behavioral disturbance Qualified Code(s): G30.9 - Alzheimer's disease, unspecified; F02.80 - Dementia in other diseases classified elsewhere without behavioral disturbance Is this a current diagnosis for this admission?: Yes - Time Time Spent with patient: 25-34 minutes
[2019-07-17] MEDS ORDERED: LIDOCAINE 5% (700 MG) TRANSDERMAL ADH..PATCH TP PRN (18:41)
[2019-07-17] MEDS ORDERED: HYDRALAZINE HCL INJ/PF 20 MG/1 ML SDV IV PRN (18:42)
[2019-07-17] MEDS: CEFTRIAXONE 1 GM/D5W RTU 1 GM/50 ML RTUPB IV SCH (18:50)
[2019-07-17] MEDS: HYDRALAZINE HCL 25 MG TABLET PO SCH (22:56)
[2019-07-17] MEDS: ATORVASTATIN CALCIUM 20 MG TABLET PO SCH (22:56)
[2019-07-17] MEDS: HEPARIN SOD (PORCINE) 5,000 UNIT/ML 1 ML VIAL SUBCUT SCH (22:56)
--- NOTE | 2019-07-17 23:48 | EKG REPORT ---
SEVERITY:- ABNORMAL ECG - SINUS RHYTHM RIGHT AXIS DEVIATION LOW VOLTAGE IN FRONTAL LEADS BORDERLINE T ABNORMALITIES, LATERAL LEADS BORDERLINE PROLONGED QT INTERVAL : Confirmed by: Tatianna Hanson 17-Jul-2019 23:47:02
[2019-07-18] MEDS: RISPERIDONE 0.25 MG TABLET PO SCH (09:39)
[2019-07-18] MEDS: HYDRALAZINE HCL 25 MG TABLET PO SCH ×2 (09:39→22:02)
[2019-07-18] MEDS: HEPARIN SOD (PORCINE) 5,000 UNIT/ML 1 ML VIAL SUBCUT SCH ×2 (09:40→22:09)
[2019-07-18] MEDS: ASPIRIN 81 MG TABLET, ENT COATED PO SCH (09:40)
[2019-07-18] MEDS: HALOPERIDOL LACTATE INJ 5 MG/1 ML VIAL IV PRN (13:47)
[2019-07-18] MEDS ORDERED: SODIUM POLYSTYRENE SULFONATE 15 GM/60 ML PO ONE (14:55)
[2019-07-18] MEDS ORDERED: (PENDING PHARMACY ID) (Lactulose [Constulose 10 Gm/15 Ml Oral Solution] 15 ML) PO PRN (17:39)
--- NOTE | 2019-07-18 17:44 | PDOC PROGRESS REPORT ---
Subjective Progress Note for:: 07/18/19 Reason For Visit: ACUTE RENAL FAILURE/ACUTE RESPIRATORY FAILURE 07/18/2019 Patient was recently discharged from the hospital 3 days prior to this admission for heart failure and chronic renal failure She is currently being admitted for pleural effusion and started on IV Lasix. A lso significant dementia Physical Exam Vital Signs: Temp Pulse Resp BP Pulse Ox 98.1 F 87 16 165/88 H 100 07/18/19 11:24 07/18/19 14:00 07/18/19 11:24 07/18/19 11:24 07/18/19 11:24 Intake & Output 07/17/19 07/18/19 07/19/19 06:59 06:59 06:59 Intake Total 200 354 Balance 200 354 Weight 50.3 kg General appearance: PRESENT: no acute distress, other - Patient is asleep in the bed with the covers up over her head Patient states that she is sleepy Respiratory exam: PRESENT: clear to auscultation hubert. ABSENT: rales, rhonchi, wheezes Cardiovascular exam: PRESENT: systolic murmur - Loud grade 3/6 Neurological exam: PRESENT: alert, awake, oriented to person, oriented to place, oriented to time, oriented to situation, CN II-XII grossly intact. ABSENT: motor sensory deficit Psychiatric exam: PRESENT: flat affect, unusual affect Results Laboratory Results: 07/17/19 11:30 07/17/19 12:15 07/17/19 07/17/19 07/17/19 11:30 11:30 12:15 Creatine Kinase Cancelled 95 CK-MB (CK-2) Cancelled Troponin I Cancelled NT-Pro-B Natriuret Pep Cancelled 07/17/19 07/17/19 07/17/19 13:28 15:00 15:00 Creatine Kinase CK-MB (CK-2) 3.06 Troponin I 0.204 0.223 NT-Pro-B Natriuret Pep [id number] H Impressions: Chest X-Ray 07/17/19 11:16 IMPRESSION: CARDIOMEGALY AND BILATERAL PLEURAL EFFUSIONS. AIRSPACE DISEASE IN THE LUNG BASES, RIGHT GREATER THAN LEFT, MAY BE DUE TO ASYMMETRIC PULMONARY EDEMA AND/OR PNEUMONIA. Assessment and Plan - Diagnosis (1) Acute diastolic heart failure Is this a current diagnosis for this admission?: Yes (3) Elevated troponin I level Is this a current diagnosis for this admission?: Yes (4) Pleural effusion Is this a current diagnosis for this admission?: Yes (5) CAD (coronary artery disease) Is this a current diagnosis for this admission?: Yes (6) Dementia Qualifiers: Dementia type: Alzheimer's disease Alzheimer's disease onset: unspecified onset Dementia behavioral disturbance: without behavioral disturbance Qualified Code(s): G30.9 - Alzheimer's disease, unspecified; F02.80 - Dementia in other diseases classified elsewhere without behavioral disturbance Is this a current diagnosis for this admission?: Yes - Plan Summary Summary: July 18, 2019 Vital signs reveal temperature 98.1, pulse of 87 and regular, pressure running slightly high at 165/88, admission it looks like it was 170/110 Oxygen saturation 100% on 2 L nasal cannula Patient currently on Rocephin IV and will resume most of her home meds today Patient will be discharged to her home when she is stable - Time Time Spent with patient: 25-34 minutes
[2019-07-18] MEDS ORDERED: (PENDING PHARMACY ID) (Mirtazapine [Remeron] 15 MG) PO SCH (18:00)
[2019-07-18] MEDS: AMLODIPINE BESYLATE 10 MG TABLET PO SCH (18:01)
[2019-07-18] MEDS: CEFTRIAXONE 1 GM/D5W RTU 1 GM/50 ML RTUPB IV SCH (18:02)
[2019-07-18] MEDS ORDERED: LACTULOSE SYRUP 20 GM/30 ML UDCUP PO PRN (18:19)
[2019-07-18] MEDS: TRAMADOL HCL 50 MG TABLET PO PRN (20:01)
[2019-07-18] MEDS: MEGESTROL ACETATE SUSP 400 MG/10 ML UDCUP PO SCH (20:03)
[2019-07-18] MEDS: MIRTAZAPINE 15 MG TABLET PO SCH (20:03)
[2019-07-18] MEDS ORDERED: (PENDING PHARMACY ID) (Carvedilol [Coreg 25 Mg Tablet] 1 TAB) PO SCH (22:00)
[2019-07-18] MEDS: CARVEDILOL 12.5 MG TABLET PO SCH (22:01)
[2019-07-18] MEDS: ATORVASTATIN CALCIUM 20 MG TABLET PO SCH (22:01)
[2019-07-19] MEDS: HALOPERIDOL LACTATE INJ 5 MG/1 ML VIAL IV PRN (05:17)
[2019-07-19 07:22] LABS: ABSOLUTE NEUT (AUTO) 10.7 10^3/uL (1.7-8.2); BASOPHILS % (AUTO) 0.1 % (0-2); EOSINOPHILS % (AUTO) 0.1 % (0-6); HEMATOCRIT 29.3 % (36.0-47.0); HEMOGLOBIN 9.8 g/dL (12.0-15.5); LYMPHOCYTES % (AUTO) 8.1 % (13-45); MEAN CORPUSCULAR HEMOGLOBIN 32.8 pg (27.0-33.4); MEAN CORPUSCULAR HGB CONC 33.6 g/dL (32.0-36.0); MEAN CORPUSCULAR VOLUME 98 fl (80-97); MONOCYTES % (AUTO) 7.6 % (3-13); PLATELET COUNT 190 10^3/uL (150-450); RED CELL DISTRIBUTION WIDTH 15.8 % (11.5-14.0); SEGMENTED NEUTROPHILS % (AUTO) 84.1 % (42-78); TOTAL CELLS COUNTED % (AUTO) 100 %; WHITE BLOOD COUNT 12.7 10^3/uL (4.0-10.5)
[2019-07-19 07:49] LABS: ANION GAP 13 (5-19); BLOOD UREA NITROGEN 82 mg/dL (7-20); CARBON DIOXIDE 19 mmol/L (22-30); CHLORIDE 115 mmol/L (98-107); GLUCOSE 113 mg/dL (75-110); POTASSIUM 4.8 mmol/L (3.6-5.0)
[2019-07-19] MEDS: ASPIRIN 81 MG TABLET, ENT COATED PO SCH (09:02)
[2019-07-19] MEDS: AMLODIPINE BESYLATE 10 MG TABLET PO SCH (09:02)
[2019-07-19] MEDS ORDERED: ASPIRIN 81 MG TABLET, CHEWABLE PO SCH (10:00)
[2019-07-19] MEDS: TRAMADOL HCL 50 MG TABLET PO PRN (11:32)
[2019-07-19] MEDS: CARVEDILOL 12.5 MG TABLET PO SCH ×2 (11:33→23:33)
[2019-07-19] MEDS: RISPERIDONE 0.25 MG TABLET PO SCH (11:34)
[2019-07-19] MEDS: HYDRALAZINE HCL 25 MG TABLET PO SCH ×2 (11:34→23:32)
[2019-07-19] MEDS: MEGESTROL ACETATE SUSP 400 MG/10 ML UDCUP PO SCH ×2 (11:34→18:47)
[2019-07-19] MEDS: HEPARIN SOD (PORCINE) 5,000 UNIT/ML 1 ML VIAL SUBCUT SCH ×2 (11:37→23:27)
[2019-07-19] MEDS ORDERED: 1/2 NORMAL SALINE 1,000 ML IV PRN (11:42)
--- NOTE | 2019-07-19 12:08 | PDOC PROGRESS REPORT ---
Subjective Progress Note for:: 07/19/19 Subjective:: The patient is resting comfortably in bed. Her main complaint is her chronic low back pain. The nurse reports that she has been refusing her medications on occasion. Reason For Visit: ACUTE RENAL FAILURE/ACUTE RESPIRATORY FAILURE Physical Exam Vital Signs: Temp Pulse Resp BP Pulse Ox 97.6 F 72 18 170/78 H 100 07/19/19 08:17 07/19/19 08:17 07/19/19 08:17 07/19/19 08:17 07/19/19 08:17 Intake & Output 07/18/19 07/19/19 07/20/19 06:59 06:59 06:59 Intake Total 250 604 Balance 250 604 Weight 50.3 kg 48.3 kg General appearance: PRESENT: no acute distress, cooperative, thin, well- developed Head exam: PRESENT: atraumatic, normocephalic Mouth exam: PRESENT: dry mucosa, tongue midline Respiratory exam: PRESENT: clear to auscultation hubert, symmetrical, unlabored. ABSENT: rales, rhonchi, tachypnea, wheezes Cardiovascular exam: PRESENT: RRR, +S1, +S2 GI/Abdominal exam: PRESENT: normal bowel sounds, soft. ABSENT: distended, guarding, tenderness Rectal exam: PRESENT: deferred Extremities exam: ABSENT: joint swelling, pedal edema, tenderness Musculoskeletal exam: PRESENT: other - Decreased muscle mass Neurological exam: PRESENT: alert, awake, oriented to person, oriented to place Psychiatric exam: PRESENT: flat affect. ABSENT: agitated, anxious Results Laboratory Results: 07/19/19 06:48 07/19/19 06:48 07/19/19 07/19/19 06:48 06:48 WBC 12.7 H RBC 3.00 L Hgb 9.8 L Hct 29.3 L MCV 98 H MCH 32.8 MCHC 33.6 RDW 15.8 H Plt Count 190 Seg Neutrophils % 84.1 H Sodium 146.5 H Potassium 4.8 Chloride 115 H Carbon Dioxide 19 L Anion Gap 13 BUN 82 H Creatinine 2.37 H Est GFR ( Amer) 24 L Glucose 113 H Calcium 9.0 07/17/19 07/17/19 07/17/19 11:30 11:30 12:15 Creatine Kinase Cancelled 95 CK-MB (CK-2) Cancelled Troponin I Cancelled NT-Pro-B Natriuret Pep Cancelled 07/17/19 07/17/19 07/17/19 13:28 15:00 15:00 Creatine Kinase CK-MB (CK-2) 3.06 Troponin I 0.204 0.223 NT-Pro-B Natriuret Pep [id number] H Impressions: Chest X-Ray 07/17/19 11:16 IMPRESSION: CARDIOMEGALY AND BILATERAL PLEURAL EFFUSIONS. AIRSPACE DISEASE IN THE LUNG BASES, RIGHT GREATER THAN LEFT, MAY BE DUE TO ASYMMETRIC PULMONARY EDEMA AND/OR PNEUMONIA. Assessment and Plan - Diagnosis (1) Acute diastolic heart failure Is this a current diagnosis for this admission?: Yes Plan: 07/19/2019-the patient responded to diuretic therapy. However today she appears to be somewhat dry. We will continue the low-dose Lasix and administer half- normal saline. (2) Acute renal failure superimposed on stage 3 chronic kidney disease Qualifiers: Acute renal failure type: unspecified Qualified Code(s): N17.9 - Acute kidney failure, unspecified; N18.3 - Chronic kidney disease, stage 3 (moderate) Is this a current diagnosis for this admission?: Yes Plan: 07/19/2019-the patient exhibited an acute worsening of her renal failure secondary to dehydration. With gentle fluids it has improved slightly. We will continue to monitor. (3) Elevated troponin I level Is this a current diagnosis for this admission?: Yes Plan: 07/19/2019-most likely due to her acute on chronic kidney disease as well as cardiac strain. (4) Pleural effusion Is this a current diagnosis for this admission?: Yes Plan: 07/19/2019-continue to monitor. No thoracentesis at this time. Managed with pharmacotherapy. (5) CAD (coronary artery disease) Qualifiers: Coronary Disease-Associated Artery/Lesion type: [place] artery Is this a current diagnosis for this admission?: Yes Plan: 07/19/2019-no symptoms of acute coronary syndrome. Continue current regimen. (6) Dementia Qualifiers: Dementia type: Alzheimer's disease Alzheimer's disease onset: unspecified onset Dementia behavioral disturbance: without behavioral disturbance Qualified Code(s): G30.9 - Alzheimer's disease, unspecified; F02.80 - Dementia in other diseases classified elsewhere without behavioral disturbance Is this a current diagnosis for this admission?: Yes Plan: 07/19/2019-continue current treatment regimen. (8) Hyperkalemia Is this a current diagnosis for this admission?: Yes Plan: 07/19/2019- the patient received Kayexalate and the serum potassium is now normal. Continue to monitor electrolytes. (9) Hypernatremia Is this a current diagnosis for this admission?: Yes Plan: 07/19/2019- (10) Hypertension Qualifiers: Hypertension type: essential hypertension Is this a current diagnosis for this admission?: Yes Plan: 07/19/2019-the patient's blood pressure has been running high. Nursing reports that she does refuse medications on occasion. Intravenous medication is available if needed. - Plan Summary Summary: July 18, 2019 Vital signs reveal temperature 98.1, pulse of 87 and regular, pressure running slightly high at 165/88, admission it looks like it was 170/110 Oxygen saturation 100% on 2 L nasal cannula Patient currently on Rocephin IV and will resume most of her home meds today Patient will be discharged to her home when she is stable - Time Time Spent with patient: 15-24 minutes Medications reviewed and adjusted accordingly: Yes
[2019-07-19] MEDS ORDERED: ONDANSETRON HCL INJ/PF 4 MG/2 ML SDV ONE (18:04)
[2019-07-19] MEDS ORDERED: ONDANSETRON HCL INJ/PF 4 MG/2 ML SDV IV PRN (18:08)
[2019-07-19] MEDS: CEFTRIAXONE 1 GM/D5W RTU 1 GM/50 ML RTUPB IV SCH (18:47)
[2019-07-19] MEDS: MIRTAZAPINE 15 MG TABLET PO SCH (18:47)
[2019-07-19] MEDS: ATORVASTATIN CALCIUM 20 MG TABLET PO SCH (23:33)
[2019-07-20 05:30] LABS: HEMATOCRIT 26.5 % (36.0-47.0); MEAN CORPUSCULAR HEMOGLOBIN 33.3 pg (27.0-33.4); MEAN CORPUSCULAR HGB CONC 34.1 g/dL (32.0-36.0); MEAN CORPUSCULAR VOLUME 98 fl (80-97); PLATELET COUNT 172 10^3/uL (150-450); RED BLOOD COUNT 2.71 10^6/uL (3.72-5.28); RED CELL DISTRIBUTION WIDTH 15.7 % (11.5-14.0); WHITE BLOOD COUNT 8.9 10^3/uL (4.0-10.5)
[2019-07-20 05:55] LABS: ANION GAP 6 (5-19); BLOOD UREA NITROGEN 79 mg/dL (7-20); CALCIUM 8.5 mg/dL (8.4-10.2); CARBON DIOXIDE 22 mmol/L (22-30); CHLORIDE 116 mmol/L (98-107); GLUCOSE 102 mg/dL (75-110); PHOSPHORUS 3.9 mg/dL (2.5-4.5); POTASSIUM 4.9 mmol/L (3.6-5.0)
[2019-07-20] MEDS: CARVEDILOL 12.5 MG TABLET PO SCH ×2 (09:25→22:47)
[2019-07-20] MEDS: HYDRALAZINE HCL 25 MG TABLET PO SCH ×2 (09:26→22:47)
[2019-07-20] MEDS: ASPIRIN 81 MG TABLET, ENT COATED PO SCH (09:27)
[2019-07-20] MEDS: RISPERIDONE 0.25 MG TABLET PO SCH (09:27)
[2019-07-20] MEDS: AMLODIPINE BESYLATE 10 MG TABLET PO SCH (09:27)
[2019-07-20] MEDS: LISINOPRIL 10 MG TABLET PO SCH (09:27)
[2019-07-20] MEDS: MEGESTROL ACETATE SUSP 400 MG/10 ML UDCUP PO SCH ×2 (09:27→18:30)
--- NOTE | 2019-07-20 11:53 | PDOC PROGRESS REPORT ---
Subjective Progress Note for:: 07/20/19 Subjective:: Patient currently denies any shortness of breath or chest pain. Encourage patient to try to have more p.o. intake as she does not appear to have eating much breakfast. Reason For Visit: ACUTE RENAL FAILURE/ACUTE RESPIRATORY FAILURE Physical Exam Vital Signs: Temp Pulse Resp BP Pulse Ox 99.1 F 63 18 137/76 H 100 07/20/19 07:40 07/20/19 07:40 07/20/19 07:40 07/20/19 07:40 07/20/19 07:40 Intake & Output 07/19/19 07/20/19 07/21/19 06:59 06:59 06:59 Intake Total 654 340 Balance 654 340 Weight 48.3 kg 47.2 kg General appearance: PRESENT: no acute distress, cooperative Neck exam: ABSENT: JVD Respiratory exam: PRESENT: clear to auscultation hubert, decreased breath sounds - at rll, unlabored. ABSENT: symmetrical, tachypnea, wheezes Cardiovascular exam: PRESENT: RRR, +S1, +S2. ABSENT: tachycardia GI/Abdominal exam: PRESENT: normal bowel sounds, soft. ABSENT: rebound, rigid, tenderness Neurological exam: PRESENT: alert, awake, oriented to person. ABSENT: oriented to place, oriented to time, oriented to situation Results Laboratory Results: 07/20/19 04:48 07/20/19 04:48 07/20/19 07/20/19 04:48 04:48 WBC 8.9 RBC 2.71 L Hgb 9.0 L Hct 26.5 L MCV 98 H MCH 33.3 MCHC 34.1 RDW 15.7 H Plt Count 172 Sodium 144.2 Potassium 4.9 Chloride 116 H Carbon Dioxide 22 Anion Gap 6 BUN 79 H Creatinine 2.16 H Est GFR ( Amer) 27 L Glucose 102 Calcium 8.5 Phosphorus 3.9 Magnesium 3.1 H Albumin 3.0 L 07/17/19 07/17/19 07/17/19 11:30 11:30 12:15 Creatine Kinase Cancelled 95 CK-MB (CK-2) Cancelled Troponin I Cancelled NT-Pro-B Natriuret Pep Cancelled 07/17/19 07/17/19 07/17/19 13:28 15:00 15:00 Creatine Kinase CK-MB (CK-2) 3.06 Troponin I 0.204 0.223 NT-Pro-B Natriuret Pep [id number] H Impressions: Chest X-Ray 07/17/19 11:16 IMPRESSION: CARDIOMEGALY AND BILATERAL PLEURAL EFFUSIONS. AIRSPACE DISEASE IN THE LUNG BASES, RIGHT GREATER THAN LEFT, MAY BE DUE TO ASYMMETRIC PULMONARY EDEMA AND/OR PNEUMONIA. Assessment and Plan - Diagnosis (1) Pleural effusion, bilateral Is this a current diagnosis for this admission?: Yes Plan: -This may be the cause of patient's initial shortness of breath and admission. -In the absence of fluid analysis yet thoracentesis, he will be hard to tell if effusion is from diastolic heart failure as reported on previous admission versus bacterial pneumonia. -As per prior documentation, patient's POA prefers to forgo thoracentesis. As such, the other option would be diuresing. Diuresis could be complicated by patient's risk of dehydration given her low p.o. intake from her dementia. For now I will put patient back on gentle diuresis with Lasix 20 mg daily. -In the meantime I will continue Ceftriaxone and azithromycin for treatment of potential community-acquired pneumonia given the right side effusion is significantly greater than left sided and some report of right bases airspace disease on CXR. (2) Acute renal failure superimposed on stage 3 chronic kidney disease Qualifiers: Acute renal failure type: unspecified Qualified Code(s): N17.9 - Acute kidney failure, unspecified; N18.3 - Chronic kidney disease, stage 3 (moderate) Is this a current diagnosis for this admission?: Yes Plan: Gentle diuresis while monitoring BMP. (3) Dementia Qualifiers: Dementia type: Alzheimer's disease Alzheimer's disease onset: unspecified onset Dementia behavioral disturbance: without behavioral disturbance Qualified Code(s): G30.9 - Alzheimer's disease, unspecified; F02.80 - Dementia in other diseases classified elsewhere without behavioral disturbance Is this a current diagnosis for this admission?: Yes Plan: Continue current treatment regimen. Encourage PO intake. Patient at risk of dehydration and malnutrition. (4) Hypertension Qualifiers: Hypertension type: essential hypertension Qualified Code(s): I10 - Essential (primary) hypertension Is this a current diagnosis for this admission?: Yes Plan: Continue amlodipine, lisinopril and coreg. - Time Time Spent with patient: 15-24 minutes
[2019-07-20] MEDS: HEPARIN SOD (PORCINE) 5,000 UNIT/ML 1 ML VIAL SUBCUT SCH ×2 (18:28→22:47)
[2019-07-20] MEDS: MIRTAZAPINE 15 MG TABLET PO SCH (18:29)
[2019-07-20] MEDS: TRAMADOL HCL 50 MG TABLET PO PRN (18:29)
[2019-07-20] MEDS: CEFTRIAXONE 1 GM/D5W RTU 1 GM/50 ML RTUPB IV SCH (18:30)
[2019-07-20] MEDS: AZITHROMYCIN 250 MG TABLET PO SCH (18:34)
[2019-07-20] MEDS: FUROSEMIDE 20 MG TABLET PO SCH (18:36)
[2019-07-20] MEDS: ATORVASTATIN CALCIUM 20 MG TABLET PO SCH (22:48)
[2019-07-21] MEDS ORDERED: LIDOCAINE 5% (700 MG) TRANSDERMAL ADH..PATCH ONE (02:30)
[2019-07-21 05:33] LABS: HEMATOCRIT 27.2 % (36.0-47.0); HEMOGLOBIN 9.2 g/dL (12.0-15.5); MEAN CORPUSCULAR HGB CONC 33.7 g/dL (32.0-36.0); MEAN CORPUSCULAR VOLUME 98 fl (80-97); PLATELET COUNT 169 10^3/uL (150-450); RED BLOOD COUNT 2.78 10^6/uL (3.72-5.28); RED CELL DISTRIBUTION WIDTH 15.7 % (11.5-14.0); WHITE BLOOD COUNT 7.6 10^3/uL (4.0-10.5)
[2019-07-21 05:54] LABS: ANION GAP 8 (5-19); BLOOD UREA NITROGEN 77 mg/dL (7-20); CALCIUM 8.4 mg/dL (8.4-10.2); CARBON DIOXIDE 21 mmol/L (22-30); CHLORIDE 116 mmol/L (98-107); GLUCOSE 99 mg/dL (75-110); POTASSIUM 4.6 mmol/L (3.6-5.0)
--- NOTE | 2019-07-21 12:14 | PDOC PROGRESS REPORT ---
Subjective Progress Note for:: 07/21/19 Subjective:: Patient still has been eating. States that she did not feel like it. Encourage her to eat and she says she will try to eat a little bit. Otherwise denies any shortness of breath today. Reason For Visit: ACUTE RENAL FAILURE/ACUTE RESPIRATORY FAILURE Physical Exam Vital Signs: Temp Pulse Resp BP Pulse Ox 97.5 F 61 14 131/79 H 100 07/21/19 07:57 07/21/19 07:57 07/21/19 07:57 07/21/19 07:57 07/21/19 07:57 Intake & Output 07/20/19 07/21/19 07/22/19 06:59 06:59 06:59 Intake Total 390 360 Balance 390 360 Weight 47.2 kg 49.9 kg General appearance: PRESENT: no acute distress, cooperative Neck exam: ABSENT: JVD Respiratory exam: PRESENT: rales, unlabored. ABSENT: chest wall tenderness, symmetrical, tachypnea, wheezes Cardiovascular exam: PRESENT: RRR, +S1, +S2. ABSENT: tachycardia GI/Abdominal exam: PRESENT: normal bowel sounds, soft. ABSENT: distended, firm, guarding, rebound, rigid, tenderness Neurological exam: PRESENT: alert, awake, oriented to person. ABSENT: oriented to place, oriented to time Results Laboratory Results: 07/21/19 05:19 07/21/19 05:19 07/21/19 07/21/19 05:19 05:19 WBC 7.6 RBC 2.78 L Hgb 9.2 L Hct 27.2 L MCV 98 H MCH 33.0 MCHC 33.7 RDW 15.7 H Plt Count 169 Sodium 145.3 H Potassium 4.6 Chloride 116 H Carbon Dioxide 21 L Anion Gap 8 BUN 77 H Creatinine 2.10 H Est GFR ( Amer) 28 L Glucose 99 Calcium 8.4 07/17/19 07/17/19 07/17/19 11:30 11:30 12:15 Creatine Kinase Cancelled 95 CK-MB (CK-2) Cancelled Troponin I Cancelled NT-Pro-B Natriuret Pep Cancelled 07/17/19 07/17/19 07/17/19 13:28 15:00 15:00 Creatine Kinase CK-MB (CK-2) 3.06 Troponin I 0.204 0.223 NT-Pro-B Natriuret Pep 11233 H Impressions: Chest X-Ray 07/17/19 11:16 IMPRESSION: CARDIOMEGALY AND BILATERAL PLEURAL EFFUSIONS. AIRSPACE DISEASE IN THE LUNG BASES, RIGHT GREATER THAN LEFT, MAY BE DUE TO ASYMMETRIC PULMONARY EDEMA AND/OR PNEUMONIA. Assessment and Plan - Diagnosis (1) Pleural effusion, bilateral Is this a current diagnosis for this admission?: Yes Plan: -This may be the cause of patient's initial shortness of breath and admission. -In the absence of fluid analysis yet thoracentesis, he will be hard to tell if effusion is from diastolic heart failure as reported on previous admission versus bacterial pneumonia. -As per prior documentation, patient's POA prefers to forgo thoracentesis. As such, the other option would be diuresing. Diuresis could be complicated by patient's risk of dehydration given her low p.o. intake from her dementia. -I will continue gentle diuresis with Lasix 20 mg daily. Can continue to monitor her metabolic panel. -Continue Ceftriaxone and azithromycin for treatment of potential community- acquired pneumonia given the right side effusion is significantly greater than left sided and some report of right bases airspace disease on CXR. (2) Acute renal failure superimposed on stage 3 chronic kidney disease Qualifiers: Acute renal failure type: unspecified Qualified Code(s): N17.9 - Acute kidney failure, unspecified; N18.3 - Chronic kidney disease, stage 3 (moderate) Is this a current diagnosis for this admission?: Yes Plan: Creatinine continues to improve. Continue with gentle diuresis while monitoring BMP. (3) Dementia Qualifiers: Dementia type: Alzheimer's disease Alzheimer's disease onset: unspecified onset Dementia behavioral disturbance: without behavioral disturbance Qualified Code(s): G30.9 - Alzheimer's disease, unspecified; F02.80 - Dementia in other diseases classified elsewhere without behavioral disturbance Is this a current diagnosis for this admission?: Yes Plan: Continue current treatment regimen. Encourage PO intake. Patient at risk of dehydration and malnutrition. (4) Hypertension Qualifiers: Hypertension type: essential hypertension Qualified Code(s): I10 - Essential (primary) hypertension Is this a current diagnosis for this admission?: Yes Plan: BP uncontrolled this morning. Will give amlodipine, lisinopril and coreg and monitor response. (5) Hypernatremia Is this a current diagnosis for this admission?: Yes Plan: Mild hyponatremia noted on bmp today. May be secondary to some dehydration from decreased p.o. intake. However it is important to continue with Lasix as the only way to improve patient's pleural effusion without a thoracentesis will be via gentle diuresis. - Time Time Spent with patient: Less than 15 minutes
[2019-07-21] MEDS: ASPIRIN 81 MG TABLET, ENT COATED PO SCH (19:20)
[2019-07-21] MEDS: AMLODIPINE BESYLATE 10 MG TABLET PO SCH (19:20)
[2019-07-21] MEDS: LISINOPRIL 10 MG TABLET PO SCH (19:21)
[2019-07-21] MEDS: HYDRALAZINE HCL 25 MG TABLET PO SCH ×2 (19:21→21:27)
[2019-07-21] MEDS: CARVEDILOL 12.5 MG TABLET PO SCH ×2 (19:22→21:28)
[2019-07-21] MEDS: FUROSEMIDE 20 MG TABLET PO SCH (19:23)
[2019-07-21] MEDS: HEPARIN SOD (PORCINE) 5,000 UNIT/ML 1 ML VIAL SUBCUT SCH ×2 (19:23→21:29)
[2019-07-21] MEDS: AZITHROMYCIN 250 MG TABLET PO SCH (19:24)
[2019-07-21] MEDS: RISPERIDONE 0.25 MG TABLET PO SCH (19:24)
[2019-07-21] MEDS: MEGESTROL ACETATE SUSP 400 MG/10 ML UDCUP PO SCH (19:24)
[2019-07-21] MEDS: MIRTAZAPINE 15 MG TABLET PO SCH (19:25)
[2019-07-21] MEDS: CEFTRIAXONE 1 GM/D5W RTU 1 GM/50 ML RTUPB IV SCH (19:58)
[2019-07-21] MEDS: ATORVASTATIN CALCIUM 20 MG TABLET PO SCH (21:28)
[2019-07-22 06:50] LABS: ANION GAP 7 (5-19); BLOOD UREA NITROGEN 65 mg/dL (7-20); CALCIUM 8.3 mg/dL (8.4-10.2); CARBON DIOXIDE 20 mmol/L (22-30); CHLORIDE 116 mmol/L (98-107); GLUCOSE 89 mg/dL (75-110); POTASSIUM 4.6 mmol/L (3.6-5.0)
[2019-07-22] MEDS: RISPERIDONE 0.25 MG TABLET PO SCH (09:42)
[2019-07-22] MEDS: AMLODIPINE BESYLATE 10 MG TABLET PO SCH (09:42)
[2019-07-22] MEDS: ASPIRIN 81 MG TABLET, ENT COATED PO SCH (09:42)
[2019-07-22] MEDS: AZITHROMYCIN 250 MG TABLET PO SCH (09:42)
[2019-07-22] MEDS: HYDRALAZINE HCL 25 MG TABLET PO SCH (09:42)
[2019-07-22] MEDS: FUROSEMIDE 20 MG TABLET PO SCH (09:42)
[2019-07-22] MEDS: MEGESTROL ACETATE SUSP 400 MG/10 ML UDCUP PO SCH (09:42)
[2019-07-22] MEDS: CARVEDILOL 12.5 MG TABLET PO SCH (09:42)
[2019-07-22] MEDS: LISINOPRIL 10 MG TABLET PO SCH (09:43)
[2019-07-22] MEDS: HEPARIN SOD (PORCINE) 5,000 UNIT/ML 1 ML VIAL SUBCUT SCH (09:44)
[2019-07-22] MEDS: TRAMADOL HCL 50 MG TABLET PO PRN (09:47)
[2019-07-22] MEDS ORDERED: LIDOCAINE 5% (700 MG) TRANSDERMAL ADH..PATCH TP SCH (10:00)
[2019-07-22 12:32] VITALS: BP 174/79
--- NOTE | 2019-07-22 12:49 | PDOC DISCHARGE SUMMARY ---
Impression - Admit/DC Date/PCP Admission Date/Primary Care Provider: 07/18/19 10:51 Discharge Date: 07/22/19 - Discharge Diagnosis (1) Pleural effusion, bilateral Is this a current diagnosis for this admission?: Yes (2) Acute renal failure superimposed on stage 3 chronic kidney disease Is this a current diagnosis for this admission?: Yes (3) Dementia Is this a current diagnosis for this admission?: Yes (4) Hypertension Is this a current diagnosis for this admission?: Yes (5) Hypernatremia Is this a current diagnosis for this admission?: Yes (6) Community acquired bacterial pneumonia Is this a current diagnosis for this admission?: Yes (7) Elevated troponin I level Is this a current diagnosis for this admission?: Yes (8) CAD (coronary artery disease) Is this a current diagnosis for this admission?: Yes (9) Acute diastolic heart failure Is this a current diagnosis for this admission?: Yes - Assessment Summary: Patient was admitted for evaluation of shortness of breath. Chest x-ray revealed increased bilateral pleural effusions worse on the right side. X-ray also revealed some space opacities suggestive of possible pneumonia in the right lung. Patient was hemodynamically stable. Metabolic panel also revealed acute on chronic kidney injury as evidenced by significant rising creatinine. Patient had apparently not been taking her Lasix. Patient was started on Lasix for diuresis. Of note patient's POA, per admission documentation, declined invasive thoracentesis for treatment of pleural effusions. As such pleural effusions were treated with diuresis while monitoring creatinine response. Given inability to perform thoracentesis, pair family's request, to get an actual fluid analysis of the effusion, it was simply presumed that her pleural effusion was likely secondary to acute diastolic heart failure. Blood pressure was managed adequately with antihypertensives. She was also treated for a possible bacterial pneumonia with antibiotics. Patient breathing status has been stable and patient has been free of any sort of dyspnea for the past few days and is now stable to be discharged home. Of note renal function has improved to close to patient's baseline at this point. - Additional Information Resuscitation Status: Do Not Resuscitate Discharge Diet: Cardiac Discharge Activity: Activity As Tolerated, Balance Activity w/Rest, Weigh Daily Referrals: Debra Duffy [Other] - 07/27/19 1:45 pm (The patient will see Ms. Bhavana NP) Prescriptions: Amoxicillin/Potassium Clav [Augmentin 500-125 Tablet] 1 each PO BID 3 Days tablet Furosemide [Lasix 20 mg Tablet] 20 mg PO DAILY #30 tablet Azithromycin [Zithromax 250 mg Tablet] 250 mg PO DAILY #3 tablet Home Medications: Aspirin [Adult Low Dose Aspirin EC] 81 mg PO QAM 07/10/19 Lactulose [Constulose 10 gm/15 mL Oral Solution] 15 ml PO Q12HP PRN 07/10/19 Lisinopril [Prinivil 10 mg Tablet] 10 mg PO QAM 07/10/19 Megestrol Acetate [Megace Misty 400 mg/10 ml Udcup] 400 mg PO BID 07/10/19 Mirtazapine [Remeron] 15 mg PO QPM 07/10/19 Tramadol HCl [Ultram 50 mg Tablet] 50 mg PO Q12HP PRN 07/10/19 Amlodipine Besylate [Norvasc 10 mg Tablet] 10 mg PO QAM #30 tablet 07/14/19 Aspirin [Aspirin 81 mg Chewable Tablet] 81 mg PO DAILY #30 tab.chew 07/14/19 Atorvastatin Calcium [Lipitor 20 mg Tablet] 20 mg PO QHS #30 tablet 07/14/19 Carvedilol [Coreg 25 mg Tablet] 1 tab PO Q12 #60 tab 07/14/19 Hydralazine HCl [Apresoline 25 mg Tablet] 25 mg PO Q12 #60 tablet 07/14/19 Lidocaine [Lidoderm 5% (700 mg) Transdermal Patch] 1 patch TP DAILY PRN #5 adh..patch 07/14/19 Risperidone [Risperdal 0.25 mg Tablet] 0.25 mg PO DAILY #30 tablet 07/14/19 Amoxicillin/Potassium Clav [Augmentin 500-125 Tablet] 1 each PO BID 3 Days tablet 07/22/19 Azithromycin [Zithromax 250 mg Tablet] 250 mg PO DAILY #3 tablet 07/22/19 Furosemide [Lasix 20 mg Tablet] 20 mg PO DAILY #30 tablet 07/22/19 History of Present Illiness History of Present Illness: AMADOU RAI is a 79 year old female past medical history of dementia, CAD with prior CABG, hypertension, CKD, depression and chronic diastolic heart failure who was brought in due to recurrence of shortness of breath. Patient was recently discharged 3 days ago for diastolic heart failure exacerbation and acute on chronic renal failure. She was initially started on IV Lasix. She returned to her baseline but did had worsening of her acute renal failure hence IV Lasix was discontinued and her home Lasix was held on discharge. Family says that she had recurrence of shortness of breath last night. In the ER, she was noted to be slightly tachypneic. Her repeat chest x-ray shows increased bilateral pleural effusions worse on the right and possible pulmonary edema. Upon encounter, she denies chest pain. She says she is not short of breath although she appears slightly tachypneic in the high 20s. She is saturating well on nasal cannula. No cough, fever or chills. Patient's daughter, Viri is on the bedside. We discussed in length her recent course and acute and chronic medical issues. Discussed that on recent discharge, patient verbalized she does not want to be hospitalized again and does not want to underwent blood extractions anymore. Hospice was recommended upon discharge last time and family including Ava has expressed they gonna discuss this with the rest of the family. We rediscussed her CODE STATUS and plan of care in great length and Ava has verbalized she would want Ms. Rai to receive chest compressions, defibrillation and mechanical ventilation and would be be a DNR/DNI now. Also discussed possible need of thoracentesis if her pleural effusion worsens. She has expressed she would not prefer for her to get invasive procedures. We talked about hospice and she expressed that she and the family are not ready to transition her to hospice yet but is amenable to this if she will deteriorate. She prefers to see if we can optimize medical management at this time and see how she would respond to medications. Discussed we will resume Lasix and try to diurese her. Discussed the risk and benefits of treatment options. She also verbalized that in case her renal failure worsens, she would not want her to be initiated on dialysis. Physical Exam Vital Signs: Temp Pulse Resp BP Pulse Ox 98.2 F 74 16 174/79 H 100 07/22/19 12:31 07/22/19 12:31 07/22/19 12:31 07/22/19 12:31 07/22/19 12:31 Intake & Output 07/21/19 07/22/19 07/23/19 06:59 06:59 06:59 Intake Total 410 Balance 410 Weight 49.9 kg 49 kg Results Laboratory Results: WBC 7.6 10^3/uL (4.0-10.5) 07/21/19 05:19 RBC 2.78 10^6/uL (3.72-5.28) L 07/21/19 05:19 Hgb 9.2 g/dL (12.0-15.5) L 07/21/19 05:19 Hct 27.2 % (36.0-47.0) L 07/21/19 05:19 MCV 98 fl (80-97) H 07/21/19 05:19 MCH 33.0 pg (27.0-33.4) 07/21/19 05:19 MCHC 33.7 g/dL (32.0-36.0) 07/21/19 05:19 RDW 15.7 % (11.5-14.0) H 07/21/19 05:19 Plt Count 169 10^3/uL (150-450) 07/21/19 05:19 Lymph % (Auto) 8.1 % (13-45) L 07/19/19 06:48 [place] % (Auto) 7.6 % (3-13) 07/19/19 06:48 Eos % (Auto) 0.1 % (0-6) 07/19/19 06:48 Baso % (Auto) 0.1 % (0-2) 07/19/19 06:48 Absolute Neuts (auto) 10.7 10^3/uL (1.7-8.2) H 07/19/19 06:48 Absolute Lymphs (auto) 1.0 10^3/uL (0.5-4.7) 07/19/19 06:48 Absolute Monos (auto) 1.0 10^3/uL (0.1-1.4) 07/19/19 06:48 Absolute Eos (auto) 0.0 10^3/uL (0.0-0.6) 07/19/19 06:48 Absolute Basos (auto) 0.0 10^3/uL (0.0-0.2) 07/19/19 06:48 Seg Neutrophils % 84.1 % (42-78) H 07/19/19 06:48 Sodium 143.3 mmol/L (137-145) 07/22/19 05:37 Potassium 4.6 mmol/L (3.6-5.0) 07/22/19 05:37 Chloride 116 mmol/L (98-107) H 07/22/19 05:37 Carbon Dioxide 20 mmol/L (22-30) L 07/22/19 05:37 Anion Gap 7 (5-19) 07/22/19 05:37 BUN 65 mg/dL (7-20) H 07/22/19 05:37 Creatinine 1.83 mg/dL (0.52-1.25) H 07/22/19 05:37 Est GFR ( Amer) 32 (>60) L 07/22/19 05:37 Est GFR (Non-Af Amer) Cancelled 07/17/19 11:30 Est GFR (MDRD) Non-Af 27 (>60) L 07/22/19 05:37 Glucose 89 mg/dL (75-110) 07/22/19 05:37 Calcium 8.3 mg/dL (8.4-10.2) L 07/22/19 05:37 Phosphorus 3.9 mg/dL (2.5-4.5) 07/20/19 04:48 Magnesium 3.1 mg/dL (1.6-2.3) H 07/20/19 04:48 Total Bilirubin 0.7 mg/dL (0.2-1.3) 07/17/19 12:15 Direct Bilirubin 0.4 mg/dL (0.0-0.4) 07/17/19 12:15 Neonat Total Bilirubin Not Reportable 07/17/19 12:15 Neonat Direct Bilirubin Not Reportable 07/17/19 12:15 Neonat Indirect Bili Not Reportable 07/17/19 12:15 AST 35 U/L (14-36) 07/17/19 12:15 ALT 21 U/L (<35) 07/17/19 12:15 Alkaline Phosphatase 48 U/L (38-126) 07/17/19 12:15 Creatine Kinase 95 U/L (30-135) 07/17/19 12:15 CK-MB (CK-2) 3.06 ng/mL (<4.55) 07/17/19 13:28 Troponin I 0.223 ng/mL 07/17/19 15:00 NT-Pro-B Natriuret Pep 30986 pg/mL (<450) H 07/17/19 15:00 Total Protein 7.4 g/dL (6.3-8.2) 07/17/19 12:15 Albumin 3.0 g/dL (3.5-5.0) L 07/20/19 04:48 EGFR Cancelled 07/17/19 11:30 07/17/19 07/17/19 07/17/19 11:30 13:28 15:00 CK-MB (CK-2) Cancelled 3.06 Troponin I Cancelled 0.204 0.223 NT-Pro-B Natriuret Pep Cancelled 07/17/19 15:00 CK-MB (CK-2) Troponin I NT-Pro-B Natriuret Pep [id number] H Impressions: Chest X-Ray 07/17/19 11:16 IMPRESSION: CARDIOMEGALY AND BILATERAL PLEURAL EFFUSIONS. AIRSPACE DISEASE IN THE LUNG BASES, RIGHT GREATER THAN LEFT, MAY BE DUE TO ASYMMETRIC PULMONARY EDEMA AND/OR PNEUMONIA. Plan Time Spent: Less than 30 Minutes Stroke Is this a Stroke Patient?: No Acute Heart Failure - Is this a Heart Failure Patient?: Yes Documentation of LVEF assessment?: Yes LVEF < 40%?: No- if no continue to question #3 3. Anticoagulant therapy for permanect/persistent/paraoxysmal Afib or Aflutter: N/A
== END 2019-07-22 12:58 | disposition home health service (06) | DRG 291 ==
LOC: ER 11:15 → EH 17:12 → 3W 20:22 → OBSVTOIN 07-18 10:51
PROVIDERS: ADMIT Internal Medicine; ATTEND Internal Medicine
DX: I13.0 Hypertensive heart and chronic kidney disease with heart failure and stage 1 through stage 4 chronic kidney disease, or unspecified chronic kidney disease (principal); I50.33 Acute on chronic diastolic (congestive) heart failure; J15.9 Unspecified bacterial pneumonia; N17.9 Acute kidney failure, unspecified; E87.0 Hyperosmolality and hypernatremia; N18.3 Chronic kidney disease, stage 3 (moderate); G30.9 Alzheimer's disease, unspecified; K21.9 Gastro-esophageal reflux disease without esophagitis; F02.80 Dementia in other diseases classified elsewhere, unspecified severity, without behavioral disturbance, psychotic disturbance, mood disturbance, and anxiety; R79.89 Other specified abnormal findings of blood chemistry; I25.10 Atherosclerotic heart disease of native coronary artery without angina pectoris; M54.5 Low back pain; N18.9 Chronic kidney disease, unspecified; E87.5 Hyperkalemia; Z66 Do not resuscitate; Z79.82 Long term (current) use of aspirin; Z79.899 Other long term (current) drug therapy; Z95.1 Presence of aortocoronary bypass graft; I25.2 Old myocardial infarction
CPT/HCPCS: 36415; 71045; 80048; 80053; 80069; 82550; 82553; 83735; 83880; 84484; 85025; 85027; 93005; 93010; 99291; G0378; J0696; J1630; J1644; J1940; J2405; J3490

== ENCOUNTER 2019-08-21 14:03 | Inpatient (IN) | payer MEDICARE, MEDICAID ==
--- NOTE | 2019-08-21 16:00 | ER Document Report ---
ED Medical Screen (RME) - General Chief Complaint: Swelling Stated Complaint: ABDOMINAL PAIN Time Seen by Provider: 08/21/19 15:50 Notes: Patient is a 79-year-old female with a history of kidney disease, congestive heart failure, TIA and dementia who presents the emergency department with a chief complaint of swelling. Family reports that patient has increased swelling to bilateral lower extremities over the past 4 days. The home health nurse was concerned so they did call the primary care physician who recommended they come to the emergency department for possible admission. Family states the patient was admitted for congestive heart failure back in June. Patient denies chest pain. Patient reports she does have some shortness of breath when she attempts to get up too fast and walk. TRAVEL OUTSIDE OF THE [place] IN LAST 30 DAYS: No COUNTRY TRAVELED TO/FROM: [place] - Related Data Allergies/Adverse Reactions: No Known Allergies Allergy (Verified 05/04/18 15:08) Past Medical History - Social History Frequency of alcohol use: None Drug Abuse: None - Past Medical History Cardiac Medical History: Reports: Hx Coronary Artery Disease, Hx Heart Attack, Hx Hypertension Denies: Hx Congestive Heart Failure Pulmonary Medical History: Reports: Hx Asthma Denies: Hx Bronchitis, Hx COPD, Hx Pneumonia Neurological Medical History: Denies: Hx Seizures, Hx Parkinson's Disease Renal/ Medical History: Denies: Hx End Stage Renal Disease, Hx Kidney Stones, Hx Peritoneal Dialysis GI Medical History: Reports: Hx Gastroesophageal Reflux Disease. Denies: Hx Cirrhosis, Hx Ulcer Musculoskeltal Medical History: Denies Hx Multiple Sclerosis Psychiatric Medical History: Reports: Hx Dementia, Hx Depression Denies: Hx Bipolar Disorder, Hx Schizophrenia Past Surgical History: Reports: Hx Coronary Artery Bypass Graft - Patient has a well-healed midline incision over the sternum, she says this, Hx Open Heart Surgery - Immunizations Hx Diphtheria, Pertussis, Tetanus Vaccination: Yes Physical Exam - Respiratory Respiratory status: No respiratory distress Chest status: Nontender Breath sounds: Rhonchi Chest palpation: Normal Course - Re-evaluation Re-evalutation: 08/21/19 16:00 I have greeted and performed a rapid initial assessment of this patient. A comprehensive ED assessment and evaluation of the patient, analysis of test results and completion of the medical decision making process will be conducted by additional ED providers.
--- NOTE | 2019-08-21 16:45 | RADIOLOGY REPORT (SQ) ---
EXAM DESCRIPTION: CHEST 2 VIEWS COMPLETED DATE/TIME: 08/21/2019 4:26 pm REASON FOR STUDY: shortness of breath COMPARISON: 07/17/2019 TECHNIQUE: Frontal and lateral radiographic views of the chest acquired. NUMBER OF VIEWS: Two view. LIMITATIONS: None. FINDINGS: LUNGS AND PLEURA: No pneumothorax. Similar left basilar scarring. No consolidation or pl eural effusion. MEDIASTINUM AND HILAR STRUCTURES: Stable. HEART AND VASCULAR STRUCTURES: Stable. BONES: No acute findings. HARDWARE: CABG. OTHER: No other significant finding. IMPRESSION: NO ACUTE FINDINGS. TECHNICAL DOCUMENTATION: JOB ID: [id number] [place]-72 2010 [employer]- All Rights Reserved Reading location - IP/workstation name: [email or web address]
--- NOTE | 2019-08-21 16:57 | ER Document Report ---
ED General - General Chief Complaint: Swelling Stated Complaint: ABDOMINAL PAIN Time Seen by Provider: 08/21/19 15:50 Notes: Patient is a 79-year-old female who presents to the emergency department with a chief complaint of bilateral lower extremity swelling. Patient has a past medical history of kidney disease, CHF, TIA, and dementia. Patient also has some complaints of lower abdominal pain. Patient states the home health nurse was concerned and called the PCM and referred him to the emergency department. TRAVEL OUTSIDE OF THE [place] IN LAST 30 DAYS: No COUNTRY TRAVELED TO/FROM: [place] - Related Data Allergies/Adverse Reactions: No Known Allergies Allergy (Verified 05/04/18 15:08) Past Medical History - General Information source: Patient - Social History Smoking Status: Current Every Day Smoker Frequency of alcohol use: None Drug Abuse: None Family History: Hypertension Patient has suicidal ideation: No Patient has homicidal ideation: No - Past Medical History Cardiac Medical History: Reports: Hx Coronary Artery Disease, Hx Heart Attack, Hx Hypertension Denies: Hx Congestive Heart Failure Pulmonary Medical History: Reports: Hx Asthma Denies: Hx Bronchitis, Hx COPD, Hx Pneumonia Neurological Medical History: Denies: Hx Seizures, Hx Parkinson's Disease Renal/ Medical History: Denies: Hx End Stage Renal Disease, Hx Kidney Stones, Hx Peritoneal Dialysis GI Medical History: Reports: Hx Gastroesophageal Reflux Disease. Denies: Hx Cirrhosis, Hx Ulcer Musculoskeletal Medical History: Denies Hx Multiple Sclerosis Psychiatric Medical History: Reports: Hx Dementia, Hx Depression Denies: Hx Bipolar Disorder, Hx Schizophrenia Past Surgical History: Reports: Hx Coronary Artery Bypass Graft - Patient has a well-healed midline incision over the sternum, she says this, Hx Open Heart Surgery - Immunizations Hx Diphtheria, Pertussis, Tetanus Vaccination: Yes Review of Systems - Review of Systems Notes: REVIEW OF SYSTEMS: CONSTITUTIONAL : Denies recent illness. Denies recent unintentional weight loss. Denies fever, chills, or sweats. EENT: Denies eye, ear, throat, or mouth pain, discharge, or symptoms. Denies nasal or sinus congestion. CARDIOVASCULAR: Denies chest pain. RESPIRATORY: Denies shortness of breath, cough, congestion, difficulty breathing, or wheezing. GASTROINTESTINAL: See HPI. GENITOURINARY: Denies difficulty urinating, burning, blood in urine, urgency or frequency. MUSCULOSKELETAL: Denies neck and back pain. Denies joint pain or swelling. SKIN: Denies rash, itchiness, or lesions HEMATOLOGIC : Denies easy bruising or bleeding. LYMPHATIC: Denies swollen, painful, enlarged glands. NEUROLOGICAL: Denies no numbness or tingling denies weakness. Denies headache. Denies altered mental status. Denies alteration in speech. PSYCHIATRIC: Denies stress, anxiety, alteration in sleep patterns, or depression. All other systems reviewed and negative. Physical Exam - Vital signs Vitals: Temp Pulse Resp BP Pulse Ox 98.0 F 75 18 130/68 H 100 08/21/19 14:36 08/21/19 14:36 08/21/19 14:36 08/21/19 14:36 08/21/19 14:36 - Notes Notes: PHYSICAL EXAMINATION: GENERAL: Appears well, healthy, well-nourished, no acute distress. HEAD: Normocephalic, atraumatic. EYES: PERRL, conjunctiva normal, all extraocular movements intact, sclera nonicteric ENT: Moist mucous membranes. NECK: Supple, no noticeable swelling, redness, rash. Normal range of motion. LUNGS: Equal breath sounds bilaterally and clear to auscultation. No wheezes rales or rhonchi. CARDIOVASCULAR: S1-S2, regular rate, regular rhythm. Radial pulses 2+, normal. ABDOMEN: Normoactive bowel sounds. Soft, nontender, no guarding, no rebound tenderness, and no masses palpated. EXTREMITIES: Normal strength and range of motion, 2+ pitting edema to bilateral lower extremities. No cyanosis. NEUROLOGICAL: Moves all extremities upon command. Strength 5/5 in all extremities. Confused. PSYCH: Aggressive behavior. Not willing to talk much SKIN: Warm, dry. No rash, lesions, ulcerations noted. Normal skin turgor. Course - Re-evaluation Re-evalutation: 08/21/19 21:15 CT scan show the patient has stable cardiomegaly. 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 She also has a lot of stool in her colon, with diverticulosis, but with no diverticulitis noted. She also has renal calculi that are also stable. CT of the head shows microvascular ischemia, consistent with the patient's age. Venous Doppler studies are negative on the left side. Patient's labs show that she is dehydrated, with a sodium of 135. Potassium is 5.3 She received some IV fluids here in the emergency department urinalysis is unremarkable. Hematology shows a mild leukocytosis of 11,900 with a shift to the left. Patient is anemic, but this is chronic. BNP is in the 8,000[address] Sp[address] with Dr[address] Brito, the hospitalist. Patient will be admitted to the medical floor. - Vital Signs Vital signs: Temp Pulse Resp BP Pulse Ox 99.0 F 78 17 151/76 H 100 08/22/19 20:41 08/22/19 20:41 08/22/19 20:41 08/22/19 20:41 08/22/19 20:41 - Laboratory Result Diagrams: 08/22/19 12:35 08/23/19 10:08 Laboratory results interpreted by me: 08/21/19 08/21/19 08/21/19 17:30 17:30 17:30 WBC 11.9 H RBC 2.74 L Hgb 9.0 L Hct 27.6 L MCV 101 H RDW 19.7 H Lymph % (Auto) 9.5 L Absolute Neuts (auto) 9.9 H Seg Neutrophils % 82.8 H VBG pCO2 VBG HCO3 Sodium 145.3 H Potassium 5.3 H Chloride 115 H Carbon Dioxide 16 L BUN 53 H Creatinine 2.74 H Est GFR ( Amer) 20 L Est GFR (MDRD) Non-Af 17 L NT-Pro-B Natriuret Pep 8560 H 08/21/19 17:30 WBC RBC Hgb Hct MCV RDW Lymph % (Auto) Absolute Neuts (auto) Seg Neutrophils % VBG pCO2 31.9 L VBG HCO3 16.4 L Sodium Potassium Chloride Carbon Dioxide BUN Creatinine Est GFR ( Amer) Est GFR (MDRD) Non-Af NT-Pro-B Natriuret Pep Discharge - Discharge Clinical Impression: Dehydration, Hypernatremia CHF (congestive heart failure) Qualifiers: Heart failure type: other Qualified Code(s): I50.9 - Heart failure, unspecified Abdominal pain Qualifiers: Abdominal location: unspecified location Qualified Code(s): R10.9 - Unspecified abdominal pain Condition: Stable Disposition: ADMITTED INPATIENT Unit Admitted: Medical Floor
[2019-08-21 17:50] LABS: VENOUS BLOOD BASE EXCESS -8.7 mmol/L; VENOUS BLOOD HCO3 16.4 mmol/L (20-32); VENOUS BLOOD PCO2 31.9 mmHg (35-63); VENOUS BLOOD PH 7.33 (7.30-7.42)
[2019-08-21 17:51] LABS: ABSOLUTE BASOPHILS # (AUTO) 0.2 10^3/uL (0.0-0.2); ABSOLUTE EOSINOPHILS # (AUTO) 0.1 10^3/uL (0.0-0.6); ABSOLUTE LYMPHOCYTES (AUTO) 1.1 10^3/uL (0.5-4.7); ABSOLUTE MONOCYTES (AUTO) 0.7 10^3/uL (0.1-1.4); ABSOLUTE NEUT (AUTO) 9.9 10^3/uL (1.7-8.2); BASOPHILS % (AUTO) 1.6 % (0-2); EOSINOPHILS % (AUTO) 0.4 % (0-6); HEMATOCRIT 27.6 % (36.0-47.0); LYMPHOCYTES % (AUTO) 9.5 % (13-45); MEAN CORPUSCULAR HEMOGLOBIN 32.8 pg (27.0-33.4); MEAN CORPUSCULAR HGB CONC 32.6 g/dL (32.0-36.0); MEAN CORPUSCULAR VOLUME 101 fl (80-97); MONOCYTES % (AUTO) 5.7 % (3-13); PLATELET COUNT 234 10^3/uL (150-450); RED BLOOD COUNT 2.74 10^6/uL (3.72-5.28); RED CELL DISTRIBUTION WIDTH 19.7 % (11.5-14.0); SEGMENTED NEUTROPHILS % (AUTO) 82.8 % (42-78); TOTAL CELLS COUNTED % (AUTO) 100 %; WHITE BLOOD COUNT 11.9 10^3/uL (4.0-10.5)
[2019-08-21 18:10] LABS: ALBUMIN 3.7 g/dL (3.5-5.0); ALKALINE PHOSPHATASE 54 U/L (38-126); ANION GAP 14 (5-19); ASPARTATE AMINO TRANSFERASE 22 U/L (14-36); BILIRUBIN,DIRECT 0.4 mg/dL (0.0-0.4); BILIRUBIN,TOTAL 0.4 mg/dL (0.2-1.3); BLOOD UREA NITROGEN 53 mg/dL (7-20); CALCIUM 9.5 mg/dL (8.4-10.2); CARBON DIOXIDE 16 mmol/L (22-30); CHLORIDE 115 mmol/L (98-107); GLUCOSE 86 mg/dL (75-110); POTASSIUM 5.3 mmol/L (3.6-5.0); TOTAL PROTEIN 7.4 g/dL (6.3-8.2)
[2019-08-21 18:21] LABS: NT PRO BNP 8560 pg/mL (<450)
[2019-08-21 18:23] LABS: TROPONIN I < 0.012 ng/mL
--- NOTE | 2019-08-21 18:48 | EKG REPORT ---
SEVERITY:- ABNORMAL ECG - SINUS RHYTHM MULTIPLE ATRIAL PREMATURE COMPLEXES LOW VOLTAGE IN FRONTAL LEADS : Confirmed by: Brant Jacobo MD 21-Aug-2019 18:48:36
[2019-08-21 19:49] LABS: APPEARANCE,URINE CLEAR; BILIRUBIN,URINE NEGATIVE (NEGATIVE); COLOR,URINE STRAW; GLUCOSE, URINE NEGATIVE (NEGATIVE); KETONES,URINE NEGATIVE (NEGATIVE); LEUKOCYTE ESTERASE,URINE NEGATIVE (NEGATIVE); NITRITE,URINE NEGATIVE (NEGATIVE); PROTEIN,URINE NEGATIVE (NEGATIVE); URINE SPECIFIC GRAVITY 1.008; UROBILINOGEN,URINE NEGATIVE mg/dL (<2.0)
--- NOTE | 2019-08-21 20:48 | RADIOLOGY REPORT (SQ) ---
EXAM DESCRIPTION: CT HEAD WITHOUT IV CONTRAST COMPLETED DATE/TME: 08/21/2019 19:05 CLINICAL HISTORY: 79 years, Female, confusion COMPARISON: Prior MR from 06/01/2019 TECHNIQUE: Noncontrast CT of the head was performed. Coronal and sagittal reformations were acquired. Images stored on PACS. All CT scanners at this facility use dose modulation, iterative reconstruction, and/or weight based dosing when appropriate to reduce radiation dose to as low as reasonably achievable (ALARA). [facility]: Dose Right [facility]: CareDose [facility]: Dose Right [facility]: Teradose 4D [facility]: Integral [employer] LIMITATIONS: None. FINDINGS: Evaluation of the brain parenchyma reveals moderate periventricular and patchy subcortical white matter low attenuation. No acute intracranial hemorrhage, mass effect, or extra-axial fluid is seen. Ventricles and sulcal spaces are moderately enlarged. Globes and orbits show no acute abnormality. Paranasal sinuses and mastoid air cells are clear. Calcifications are evident about the parasellar carotid arteries. There are no depressed skull fractures. IMPRESSION: No acute intracranial abnormality. Moderate chronic microvascular ischemic change with generalized atrophy. TECHNICAL DOCUMENTATION: Quality ID # 436: Final reports with documentation of one or more dose reduction techniques (e.g., Automated exposure control, adjustment of the mA and/or kV according to patient size, use of iterative reconstruction technique) copyright 2011 [employer]- All Rights Reserved
--- NOTE | 2019-08-21 20:56 | RADIOLOGY REPORT (SQ) ---
EXAM DESCRIPTION: RadLex: CT CHEST WITHOUT IV CONTRAST, CT ABDOMEN PELVIS WITHOUT IV CONTRAST CLINICAL HISTORY: 79 years Female; [facility] TECHNIQUE: CT of the chest abdomen pelvis without contrast All CT scans at this facility use dose modulation, iterative reconstruction, and/or weight based dosing when appropriate to reduce radiation dose to as low as reasonably achievable. COMPARISON: CT abdomen pelvis 11/30/2018 FINDINGS: Chest: Lungs: Mild dependent atelectasis bilaterally. No focal acute infiltrates. No pneumothorax or pleural effusion. Mediastinum: Changes of previous sternotomy are noted. There is scattered aortic calcification. The descending thoracic aortic diameter 3 cm. No pericardial effusion. Heart is slightly enlarged. Bones:No acute bone findings. Abdomen: Liver:No focal lesions. No intrahepatic ductal distention. Gallbladder:Nondistended Pancreas:Within normal limits Spleen:Within normal limits Right kidney:4.2 cm upper pole lesion, similar to prior exam. 3 mm calculus. No hydronephrosis. Left kidney: 6 over the lower pole calculus, unchanged. No hydronephrosis. Adrenal glands:Within normal limits Vascular structures: Moderate aortic calcification. Maximum diameter of the abdominal aorta is 2.1 cm. Pelvis: Small bowel:No significant distention. Appendix: Not reliably identified. No regional edema. Colon: Multiple diverticula. Moderate diffuse colonic fecal retention, without significant distention. No free intraperitoneal fluid or air. Bones: No acute bone findings. Bladder: Unremarkable. There is diffuse subcutaneous edema. No discrete nodules or focal fluid collections. Note that evaluation of the bowel and solid organs is somewhat limited due to lack of intravenous and oral contrast. IMPRESSION: 1. Previous sternotomy 2. Mild cardiomegaly 3. 3 cm descending thoracic aortic aneurysm, unchanged since 11/30/2018 4. Diffuse colonic fecal retention and diffuse colonic diverticulosis, but no CT evidence for acute diverticulitis. No bowel obstruction. 5. Bilateral renal calculi, unchanged. No hydronephrosis.
[2019-08-21] MEDS ORDERED: LEVALBUTEROL HCL NEB 0.63 MG/3 ML AMPUL NEB PRN (22:06)
[2019-08-21] MEDS ORDERED: MAG HYDROX/AL HYDROX/SIMETH SUSP 30 ML UDCUP PO PRN (22:06)
[2019-08-21] MEDS ORDERED: ONDANSETRON HCL INJ/PF 4 MG/2 ML SDV IV PRN (22:06)
[2019-08-21] MEDS ORDERED: DEXTROSE 5%-1/2 NORMAL SALINE 1,000 ML IV PRN (22:06)
[2019-08-21] MEDS ORDERED: MAGNESIUM HYDROXIDE SUSP 30 ML UDCUP PO PRN (22:06)
[2019-08-21] MEDS ORDERED: NICOTINE 21 MG/24 HR PATCH.TD24 TD PRN (22:10)
[2019-08-21] MEDS ORDERED: MELATONIN 5 MG TABLET PO PRN (22:10)
[2019-08-21] MEDS ORDERED: ATORVASTATIN CALCIUM 20 MG TABLET PO ONE (23:00)
--- NOTE | 2019-08-21 23:42 | RADIOLOGY REPORT (SQ) ---
EXAM DESCRIPTION: ULTRASOUND- left lower extremity venous Doppler ultrasound CLINICAL HISTORY: Left lower extremity swelling COMPARISON: None TECHNIQUE: Ricks scale, color and Doppler sonographic evaluation of the left lower extremity was performed. FINDINGS: There is no evidence of acute/chronic deep venous thrombosis in the left common femoral through proximal calf veins, including the popliteal, peroneal, posterior tibial veins and left greater saphenous vein/common femoral vein junction. Normal color/phasic flow, augmentation, compressibility and lack of filling defects, is demonstrated in these visualized vessels. IMPRESSION: Negative for deep vein thrombosis in the evaluated left lower extremity deep venous system.
[2019-08-22] MEDS: ACETAMINOPHEN 325 MG TABLET PO PRN (00:46)
[2019-08-22] MEDS ORDERED: CHLORPROMAZINE HCL INJ 25 MG/1 ML AMPULE IV PRN ×2 (01:31)
--- NOTE | 2019-08-22 01:31 | PDOC H&P ---
History of Present Illness Admission Date/PCP: 08/21/2019 21:45 No local PCP Patient complains of: Abdominal pain History of Present Illness: AMADOU RAI is a 79 year old female who was sent to the emergency room by her family via EMS for evaluation of her abdominal pain. Patient has severe dementia and is unable to contribute information to her medical care. Her family gave a history to the EMS crew that the patient had developed abdominal pain over the last 24 hours and had no other signs or symptoms. In the emergency room the patient was found to have acute kidney injury and an elevated BNP. She was subsequently admitted to the hospital for further evaluation and treatment. Past Medical History Past Medical History: Due to the patient's dementia the information presented for past medical history, past surgical history, social history and family medical history is obtained from the best available reliable source. Cardiac Medical History: Reports: Congestive Heart Failure, Coronary Artery Disease, Myocardial Infarction, Hypertension Denies: Atrial Fibrillation Pulmonary Medical History: Reports: Asthma Denies: Bronchitis, Chronic Obstructive Pulmonary Disease (COPD), Pneumonia, Respiratory Failure EENT Medical History: Denies: Cataracts, Ears - Hearing aids Neurological Medical History: Denies: Seizures Endocrine Medical History: Denies: Diabetes Mellitus Type 1, Diabetes Mellitus Type 2, Hyperthyroidism, Hypothyroidism Renal/ Medical History: Reports: Chronic Kidney Disease Denies: Nephrolithiasis Malignancy Medical History: Reports: None GI Medical History: Reports: Gastroesophageal Reflux Disease Denies: Cirrhosis, Crohn's Disease, Hepatitis, Peptic Ulcer Disease, Ulcerative Colitis Musculoskeltal Medical History: Denies: Arthritis, Gout Skin Medical History: Denies: Eczema, Psoriasis Psychiatric Medical History: Reports: Dementia, Depression, Tobacco Dependency Denies: Alcohol Dependency, Substance Abuse Traumatic Medical History: Reports: None Hematology: Reports: Anemia - Chronic Denies: Bleeding Tendencies Infectious Medical History: Reports: None Past Surgical History Past Surgical History: Due to the patient's dementia the information presented for past medical history, past surgical history, social history and family medical history is obtained from the best available reliable source. Past Surgical History: Reports: Coronary Artery Bypass Graft Social History Information Source: Relative, Emergency Med Personnel, [facility] Records Lives with: Family - Family recently remove the patient from care in the residential Smoking Status: Current Every Day Smoker Electronic Cigarette use?: No Frequency of Alcohol Use: None Hx Recreational Drug Use: No Drugs: None Hx Prescription Drug Abuse: No Past Social History Note: Due to the patient's dementia the information presented for past medical history, past surgical history, social history and family medical history is obtained from the best available reliable source. - Advance Directive Resuscitation Status: Full Code Surrogate healthcare decision maker:: Adela Eddy Family History Family History: Hypertension. denies: CAD Family History: Due to the patient's dementia the information presented for past medical history, past surgical history, social history and family medical history is obtained from the best available reliable source. Parental Family History Reviewed: Yes Children Family History Reviewed: No Sibling(s) Family History Reviewed.: Yes Medication/Allergy Home Medications: Aspirin [Adult Low Dose Aspirin EC] 81 mg PO QAM 07/10/19 Lactulose [Constulose 10 gm/15 mL Oral Solution] 15 ml PO Q12HP PRN 07/10/19 Lisinopril [Prinivil 10 mg Tablet] 10 mg PO QAM 07/10/19 Megestrol Acetate [Megace Misty 400 mg/10 ml Udcup] 400 mg PO BID 07/10/19 Mirtazapine [Remeron] 15 mg PO QPM 07/10/19 Tramadol HCl [Ultram 50 mg Tablet] 50 mg PO Q12HP PRN 07/10/19 Amlodipine Besylate [Norvasc 10 mg Tablet] 10 mg PO QAM #30 tablet 07/14/19 Aspirin [Aspirin 81 mg Chewable Tablet] 81 mg PO DAILY #30 tab.chew 07/14/19 Atorvastatin Calcium [Lipitor 20 mg Tablet] 20 mg PO QHS #30 tablet 07/14/19 Carvedilol [Coreg 25 mg Tablet] 1 tab PO Q12 #60 tab 07/14/19 Hydralazine HCl [Apresoline 25 mg Tablet] 25 mg PO Q12 #60 tablet 07/14/19 Lidocaine [Lidoderm 5% (700 mg) Transdermal Patch] 1 patch TP DAILY PRN #5 adh..patch 07/14/19 Risperidone [Risperdal 0.25 mg Tablet] 0.25 mg PO DAILY #30 tablet 07/14/19 Amoxicillin/Potassium Clav [Augmentin 500-125 Tablet] 1 each PO BID 3 Days tablet 07/22/19 Azithromycin [Zithromax 250 mg Tablet] 250 mg PO DAILY #3 tablet 07/22/19 Furosemide [Lasix 20 mg Tablet] 20 mg PO DAILY #30 tablet 07/22/19 Allergies/Adverse Reactions: No Known Allergies Allergy (Verified 05/04/18 15:08) Review of Systems ROS unobtainable: Due to mental status - Dementia Physical Exam General appearance: PRESENT: no acute distress, cooperative Head exam: PRESENT: atraumatic, normocephalic Eye exam: PRESENT: conjunctiva pink. ABSENT: conjunctival injection, scleral icterus Ear exam: PRESENT: normal external ear exam. ABSENT: bleeding, drainage Mouth exam: PRESENT: dry mucosa, neck supple Neck exam: ABSENT: JVD, thyromegaly, tracheal deviation Respiratory exam: PRESENT: clear to auscultation hubert, symmetrical, unlabored Cardiovascular exam: PRESENT: RRR. ABSENT: clicks, gallop, rubs Pulses: PRESENT: normal radial pulses, normal dorsalis pedis pul Vascular exam: PRESENT: normal capillary refill. ABSENT: pallor GI/Abdominal exam: PRESENT: normal bowel sounds, soft Rectal exam: PRESENT: deferred Extremities exam: ABSENT: joint swelling, pedal edema Musculoskeletal exam: ABSENT: deformity, dislocation Neurological exam: PRESENT: awake, CN II-XII grossly intact. ABSENT: oriented to person, oriented to place, oriented to time Psychiatric exam: PRESENT: flat affect, other - Calm Skin exam: PRESENT: dry, intact, warm. ABSENT: jaundice, rash, urticaria Results Laboratory Results: 08/21/19 17:30 08/21/19 17:30 08/21/19 08/21/19 08/21/19 17:30 17:30 17:30 WBC 11.9 H RBC 2.74 L Hgb 9.0 L Hct 27.6 L MCV 101 H MCH 32.8 MCHC 32.6 RDW 19.7 H Plt Count 234 Seg Neutrophils % 82.8 H VBG pH 7.33 VBG pCO2 31.9 L VBG HCO3 16.4 L VBG Base Excess -8.7 Sodium 145.3 H Potassium 5.3 H Chloride 115 H Carbon Dioxide 16 L Anion Gap 14 BUN 53 H Creatinine 2.74 H Est GFR ( Amer) 20 L Glucose 86 Calcium 9.5 Total Bilirubin 0.4 AST 22 Alkaline Phosphatase 54 Total Protein 7.4 Albumin 3.7 Urine Color Urine Appearance Urine pH Ur Specific [place] Urine Protein Urine Glucose (UA) Urine Ketones Urine Blood Urine Nitrite Ur Leukocyte Esterase 08/21/19 19:02 WBC RBC Hgb Hct MCV MCH MCHC RDW Plt Count Seg Neutrophils % VBG pH VBG pCO2 VBG HCO3 VBG Base Excess Sodium Potassium Chloride Carbon Dioxide Anion Gap BUN Creatinine Est GFR ( Amer) Glucose Calcium Total Bilirubin AST Alkaline Phosphatase Total Protein Albumin Urine Color STRAW Urine Appearance CLEAR Urine pH 6.0 Ur Specific [place] 1.008 Urine Protein NEGATIVE Urine Glucose (UA) NEGATIVE Urine Ketones NEGATIVE Urine Blood NEGATIVE Urine Nitrite NEGATIVE Ur Leukocyte Esterase NEGATIVE 08/21/19 17:30 Troponin I < 0.012 NT-Pro-B Natriuret Pep 8560 H Impressions: Chest X-Ray 08/21/19 16:00 IMPRESSION: NO ACUTE FINDINGS. Head CT 08/21/19 19:05 IMPRESSION: No acute intracranial abnormality. Moderate chronic microvascular ischemic change with generalized atrophy. TECHNICAL DOCUMENTATION: Quality ID # 436: Final reports with documentation of one or more dose reduction techniques (e.g., Automated exposure control, adjustment of the mA and/or kV according to patient size, use of iterative reconstruction technique) copyright 2011 [employer]- All Rights Reserved Abdomen/Pelvis CT 08/21/19 19:06 IMPRESSION: 1. Previous sternotomy 2. Mild cardiomegaly 3. 3 cm descending thoracic aortic aneurysm, unchanged since 11/30/2018 4. Diffuse colonic fecal retention and diffuse colonic diverticulosis, but no CT evidence for acute diverticulitis. No bowel obstruction. 5. Bilateral renal calculi, unchanged. No hydronephrosis. Chest CT 08/21/19 19:06 IMPRESSION: 1. Previous sternotomy 2. Mild cardiomegaly 3. 3 cm descending thoracic aortic aneurysm, unchanged since 11/30/2018 4. Diffuse colonic fecal retention and diffuse colonic diverticulosis, but no CT evidence for acute diverticulitis. No bowel obstruction. 5. Bilateral renal calculi, unchanged. No hydronephrosis. Assessment and Plan - Diagnosis (1) Acute renal failure superimposed on stage 3 chronic kidney disease Qualifiers: Acute renal failure type: unspecified Qualified Code(s): N17.9 - Acute kidney failure, unspecified; N18.3 - Chronic kidney disease, stage 3 (moderate) Is this a current diagnosis for this admission?: Yes (2) Hypertension Qualifiers: Hypertension type: essential hypertension Qualified Code(s): I10 - Essential (primary) hypertension Is this a current diagnosis for this admission?: Yes (3) CAD (coronary artery disease) Qualifiers: Coronary Disease-Associated Artery/Lesion type: unspecified vessel or lesion type [place] vs. transplanted heart: [place] heart Associated angina: without angina Qualified Code(s): I25.10 - Atherosclerotic heart disease of [place] coronary artery without angina pectoris Is this a current diagnosis for this admission?: Yes (4) Anemia due to stage 3 chronic kidney disease Is this a current diagnosis for this admission?: Yes (5) Dementia Qualifiers: Dementia type: Alzheimer's disease Alzheimer's disease onset: unspecified onset Dementia behavioral disturbance: without behavioral disturbance Qualified Code(s): G30.9 - Alzheimer's disease, unspecified; F02.80 - Dementia in other diseases classified elsewhere without behavioral disturbance Is this a current diagnosis for this admission?: Yes (6) Tobacco use disorder, continuous Is this a current diagnosis for this admission?: Yes - Plan Summary Summary: Patient will be admitted to medical floor where she will receive routine supportive and symptomatic cares. She will be gently hydrated with IV fluid utilizing half-normal saline and her renal functions and electrolytes will be monitored on a regular basis. She will be observed for abdominal pain or any abdominal signs or symptoms. She will be continued on her usual home medications, as appropriate to this clinical setting, once her medication list has been verified and reconciled. - Time Time Spent with patient: Less than 15 minutes Medications reviewed and adjusted accordingly: Yes Anticipated discharge: Home with Homehealth, SNF - Inpatient Certification Based on my medical assessment, after consideration of the patient's comorbidities, presenting symptoms, or acuity I expect that the services needed warrant INPATIENT care.: Yes I certify that my determination is in accordance with my understanding of Medicare's requirements for reasonable and necessary INPATIENT services [42 CFR 412.3e].: Yes Medical Necessity: Need Close Monitoring Due to Risk of Patient Decompensation, Need For IV Fluids
[2019-08-22] MEDS ORDERED: CHLORPROMAZINE HCL INJ 25 MG/1 ML AMPULE ONE (01:37)
[2019-08-22] MEDS ORDERED: RISPERIDONE 0.25 MG TABLET PO ONE (02:00)
[2019-08-22] MEDS: PANTOPRAZOLE SODIUM 20 MG TABLET.DR PO SCH (05:53)
[2019-08-22] MEDS: HEPARIN SOD (PORCINE) 5,000 UNIT/ML 1 ML VIAL SUBCUT SCH ×3 (05:53→21:17)
[2019-08-22] MEDS: LOSARTAN POTASSIUM 50 MG TABLET PO SCH (09:45)
[2019-08-22] MEDS: ASPIRIN 81 MG TABLET, ENT COATED PO SCH (09:46)
[2019-08-22] MEDS: DOCUSATE SODIUM 100 MG CAPSULE PO SCH ×2 (09:46→17:44)
[2019-08-22] MEDS: RISPERIDONE 0.25 MG TABLET PO SCH (09:46)
[2019-08-22] MEDS ORDERED: TORSEMIDE 20 MG TABLET PO SCH (10:00)
[2019-08-22] MEDS ORDERED: METOPROLOL SUCCINATE 50 MG TAB.SR.24H PO SCH (10:00)
[2019-08-22] MEDS ORDERED: MELATONIN 5 MG TABLET PO PRN (12:00)
[2019-08-22 12:49] LABS: HEMATOCRIT 28.1 % (36.0-47.0); HEMOGLOBIN 9.2 g/dL (12.0-15.5); MEAN CORPUSCULAR HEMOGLOBIN 32.8 pg (27.0-33.4); MEAN CORPUSCULAR HGB CONC 32.7 g/dL (32.0-36.0); MEAN CORPUSCULAR VOLUME 100 fl (80-97); PLATELET COUNT 229 10^3/uL (150-450); RED CELL DISTRIBUTION WIDTH 19.7 % (11.5-14.0)
[2019-08-22 13:06] LABS: ANION GAP 11 (5-19); BLOOD UREA NITROGEN 48 mg/dL (7-20); CALCIUM 8.9 mg/dL (8.4-10.2); CARBON DIOXIDE 15 mmol/L (22-30); CHLORIDE 118 mmol/L (98-107); GLUCOSE 147 mg/dL (75-110); POTASSIUM 4.9 mmol/L (3.6-5.0)
[2019-08-22] MEDS ORDERED: (PENDING PHARMACY ID) (Lactulose [Constulose 10 Gm/15 Ml Oral Solution] 10 GM) PO PRN (16:11)
[2019-08-22] MEDS ORDERED: DEXTROSE 5%-1/2 NORMAL SALINE 1,000 ML IV PRN (16:15)
--- NOTE | 2019-08-22 16:15 | PDOC PROGRESS REPORT ---
Subjective Progress Note for:: 08/22/19 Subjective:: The patient is a 79-year-old female with advanced dementia, CHF, CAD, [place], hypertension, asthma, CKD, GERD, and tobacco dependency who was admitted 08/21/2019 for acute on chronic kidney injury. Patient was seen on afternoon rounds. She was found sitting up to the recliner, comfortably, on room air. She is alert and oriented to self only. Sheis somewhat agitated; states that we are taking her blood and urine to "sell on the street." However, she remains polite and consents to an exam. No family members are present. Her home physical therapist was here to visit; reports she is at her baseline mental and functional status. Patient denies difficulty breathing and pain. ROS is otherwise limited. No concerns per nursing. Reason For Visit: ACUTE KIDNEY INJURY SUPERIMPOSED ON CHRONIC RENAL Physical Exam Vital Signs: Temp Pulse Resp BP Pulse Ox 97.6 F 71 16 144/84 H 100 08/22/19 12:32 08/22/19 12:32 08/22/19 12:32 08/22/19 12:32 08/22/19 12:32 Intake & Output 08/21/19 08/22/19 08/23/19 06:59 06:59 06:59 Intake Total 114 Output Total 0 Balance 114 Weight 54.6 kg General appearance: PRESENT: no acute distress, thin, well-developed Head exam: PRESENT: atraumatic, normocephalic Eye exam: PRESENT: conjunctiva pink, EOMI, PERRLA. ABSENT: scleral icterus Ear exam: PRESENT: normal external ear exam Mouth exam: PRESENT: moist, tongue midline Respiratory exam: PRESENT: clear to auscultation hubert, symmetrical, unlabored. ABSENT: rales, rhonchi, wheezes Cardiovascular exam: PRESENT: RRR, +S1, +S2. ABSENT: diastolic murmur, rubs, systolic murmur Pulses: PRESENT: normal dorsalis pedis pul Vascular exam: PRESENT: normal capillary refill GI/Abdominal exam: PRESENT: normal bowel sounds, soft. ABSENT: distended, guarding, mass, organolmegaly, rebound, tenderness Rectal exam: PRESENT: deferred Extremities exam: PRESENT: full ROM. ABSENT: calf tenderness, clubbing, pedal edema Neurological exam: PRESENT: alert, awake, oriented to person, CN II-XII grossly intact. ABSENT: oriented to place, oriented to time, oriented to situation, motor sensory deficit Psychiatric exam: PRESENT: agitated, appropriate affect. ABSENT: homicidal ideation, suicidal ideation Skin exam: PRESENT: dry, intact, warm. ABSENT: cyanosis, rash Results Laboratory Results: 08/22/19 12:35 08/22/19 12:35 08/21/19 08/21/19 08/21/19 17:30 17:30 17:30 WBC 11.9 H RBC 2.74 L Hgb 9.0 L Hct 27.6 L MCV 101 H MCH 32.8 MCHC 32.6 RDW 19.7 H Plt Count 234 Seg Neutrophils % 82.8 H VBG pH 7.33 VBG pCO2 31.9 L VBG HCO3 16.4 L VBG Base Excess -8.7 Sodium 145.3 H Potassium 5.3 H Chloride 115 H Carbon Dioxide 16 L Anion Gap 14 BUN 53 H Creatinine 2.74 H Est GFR ( Amer) 20 L Glucose 86 Calcium 9.5 Magnesium Total Bilirubin 0.4 AST 22 Alkaline Phosphatase 54 Total Protein 7.4 Albumin 3.7 Urine Color Urine Appearance Urine pH Ur Specific [place] Urine Protein Urine Glucose (UA) Urine Ketones Urine Blood Urine Nitrite Ur Leukocyte Esterase 08/21/19 08/22/19 08/22/19 19:02 12:35 12:35 WBC 9.0 RBC 2.80 L Hgb 9.2 L Hct 28.1 L MCV 100 H MCH 32.8 MCHC 32.7 RDW 19.7 H Plt Count 229 Seg Neutrophils % VBG pH VBG pCO2 VBG HCO3 VBG Base Excess Sodium 143.5 Potassium 4.9 Chloride 118 H Carbon Dioxide 15 L Anion Gap 11 BUN 48 H Creatinine 2.39 H Est GFR ( Amer) 24 L Glucose 147 H Calcium 8.9 Magnesium 2.0 Total Bilirubin AST Alkaline Phosphatase Total Protein Albumin Urine Color STRAW Urine Appearance CLEAR Urine pH 6.0 Ur Specific [place] 1.008 Urine Protein NEGATIVE Urine Glucose (UA) NEGATIVE Urine Ketones NEGATIVE Urine Blood NEGATIVE Urine Nitrite NEGATIVE Ur Leukocyte Esterase NEGATIVE 08/21/19 17:30 Troponin I < 0.012 NT-Pro-B Natriuret Pep 8560 H Impressions: Chest X-Ray 08/21/19 16:00 IMPRESSION: NO ACUTE FINDINGS. Venous Doppler Study 08/21/19 16:48 IMPRESSION: Negative for deep vein thrombosis in the evaluated left lower extremity deep venous system. Head CT 08/21/19 19:05 IMPRESSION: No acute intracranial abnormality. Moderate chronic microvascular ischemic change with generalized atrophy. TECHNICAL DOCUMENTATION: Quality ID # 436: Final reports with documentation of one or more dose reduction techniques (e.g., Automated exposure control, adjustment of the mA and/or kV according to patient size, use of iterative reconstruction technique) copyright 2011 [employer]- All Rights Reserved Abdomen/Pelvis CT 08/21/19 19:06 IMPRESSION: 1. Previous sternotomy 2. Mild cardiomegaly 3. 3 cm descending thoracic aortic aneurysm, unchanged since 11/30/2018 4. Diffuse colonic fecal retention and diffuse colonic diverticulosis, but no CT evidence for acute diverticulitis. No bowel obstruction. 5. Bilateral renal calculi, unchanged. No hydronephrosis. Chest CT 08/21/19 19:06 IMPRESSION: 1. Previous sternotomy 2. Mild cardiomegaly 3. 3 cm descending thoracic aortic aneurysm, unchanged since 11/30/2018 4. Diffuse colonic fecal retention and diffuse colonic diverticulosis, but no CT evidence for acute diverticulitis. No bowel obstruction. 5. Bilateral renal calculi, unchanged. No hydronephrosis. Assessment and Plan - Diagnosis (1) Acute renal failure superimposed on stage 3 chronic kidney disease Qualifiers: Acute renal failure type: unspecified Qualified Code(s): N17.9 - Acute kidney failure, unspecified; N18.3 - Chronic kidney disease, stage 3 (moderate) Is this a current diagnosis for this admission?: Yes Plan: Secondary to dehydration. Cr/BUN 2.74/53-> 2.39/48 Baseline creatinine 1.8-2.3 Continue IVF. Encourage p.o fluids. Outpatient follow-up with nephrology. (2) Anemia due to stage 3 chronic kidney disease Is this a current diagnosis for this admission?: Yes Plan: Stable at baseline. No evidence of active bleeding at this time. Monitor CBCs and transfuse as needed. (3) Constipation Is this a current diagnosis for this admission?: Yes Plan: Noted on CT imaging. Continue Colace twice daily. MiraLAX daily. Milk of mag daily as needed. (4) Tobacco use disorder, continuous Is this a current diagnosis for this admission?: Yes Plan: Smoking cessation encouraged; will need to review importance with family members. Nicotine replacement therapies while admitted. (5) CAD (coronary artery disease) Qualifiers: Coronary Disease-Associated Artery/Lesion type: unspecified vessel or lesion type [place] vs. transplanted heart: [place] heart Associated angina: without angina Qualified Code(s): I25.10 - Atherosclerotic heart disease of [place] coronary artery without angina pectoris Is this a current diagnosis for this admission?: Yes Plan: Continue daily aspirin and statin therapy. Management of hypertension. Low-sodium diet. (6) Hypertension Qualifiers: Hypertension type: essential hypertension Qualified Code(s): I10 - Essential (primary) hypertension Is this a current diagnosis for this admission?: Yes Plan: Continue home dose amlodipine, carvedilol Continue losartan. Holding home dose furosemide due to CARLOS. Low-sodium diet. (7) Dementia Qualifiers: Dementia type: Alzheimer's disease Alzheimer's disease onset: unspecified onset Dementia behavioral disturbance: without behavioral disturbance Qualified Code(s): G30.9 - Alzheimer's disease, unspecified; F02.80 - Dementia in other diseases classified elsewhere without behavioral disturbance Is this a current diagnosis for this admission?: Yes Plan: Supportive care. Fall precautions. Discharge planning consulted. - Time Time Spent with patient: 15-24 minutes Smoking Cessation Education: 3 to 10 minutes Medications reviewed and adjusted accordingly: Yes Anticipated discharge: Home with Homehealth Within: within 24 hours
[2019-08-22] MEDS ORDERED: LACTULOSE SYRUP 20 GM/30 ML UDCUP PO PRN (16:34)
[2019-08-22] MEDS: MIRTAZAPINE 15 MG TABLET PO SCH (21:14)
[2019-08-22] MEDS: CARVEDILOL 12.5 MG TABLET PO SCH (21:14)
[2019-08-22] MEDS: ATORVASTATIN CALCIUM 20 MG TABLET PO SCH (21:14)
[2019-08-22] MEDS ORDERED: RISPERIDONE 0.25 MG PO SCH (22:00)
[2019-08-22] MEDS ORDERED: ATORVASTATIN CALCIUM 20 MG TABLET PO SCH (22:00)
[2019-08-23] MEDS: HEPARIN SOD (PORCINE) 5,000 UNIT/ML 1 ML VIAL SUBCUT SCH ×3 (05:23→21:14)
[2019-08-23] MEDS: PANTOPRAZOLE SODIUM 20 MG TABLET.DR PO SCH (05:23)
[2019-08-23] MEDS: LOSARTAN POTASSIUM 50 MG TABLET PO SCH (10:01)
[2019-08-23] MEDS: AMLODIPINE BESYLATE 10 MG TABLET PO SCH (10:01)
[2019-08-23] MEDS: DOCUSATE SODIUM 100 MG CAPSULE PO SCH ×2 (10:01→17:01)
[2019-08-23] MEDS: CARVEDILOL 12.5 MG TABLET PO SCH ×2 (10:01→21:14)
[2019-08-23] MEDS: RISPERIDONE 0.25 MG TABLET PO SCH (10:02)
[2019-08-23] MEDS: POLYETHYLENE GLYCOL 3350 POWDER 17 GM/1 PACKET PO SCH (10:02)
[2019-08-23] MEDS: ASPIRIN 81 MG TABLET, ENT COATED PO SCH (10:02)
[2019-08-23 10:44] LABS: ANION GAP 12 (5-19); BLOOD UREA NITROGEN 58 mg/dL (7-20); CALCIUM 9.1 mg/dL (8.4-10.2); CARBON DIOXIDE 18 mmol/L (22-30); CHLORIDE 115 mmol/L (98-107); GLUCOSE 93 mg/dL (75-110); POTASSIUM 5.4 mmol/L (3.6-5.0)
[2019-08-23] MEDS: ACETAMINOPHEN 325 MG TABLET PO PRN ×2 (13:04→23:04)
[2019-08-23] MEDS ORDERED: SODIUM POLYSTYRENE SULFONATE 15 GM/60 ML PO ONE (13:30)
--- NOTE | 2019-08-23 14:03 | PDOC PROGRESS REPORT ---
Subjective Progress Note for:: 08/23/19 Subjective:: The patient is a 79-year-old female with advanced dementia, CHF, CAD, [place], hypertension, asthma, CKD, GERD, and tobacco dependency who was admitted 08/21/2019 for acute on chronic kidney injury. Patient was seen on morning rounds. She was found resting in bed, comfortably, on room air. She was asleep, but woke easily when I said her name. She is alert and oriented to self only. Remains irritable; had refused lab work this morning and tells me that staff "are useless," but is unable to verbalize specific complaints/needs. No family members are present. Patient denies difficulty breathing and pain. ROS is otherwise limited. Nursing reports difficulty starting IV and patient's poor tolerance to procedure; request to trial pushing p.o. fluids. Reason For Visit: ACUTE KIDNEY INJURY SUPERIMPOSED ON CHRONIC RENAL Physical Exam Vital Signs: Temp Pulse Resp BP Pulse Ox 99.0 F 78 17 151/76 H 100 08/22/19 20:41 08/22/19 20:41 08/22/19 20:41 08/22/19 20:41 08/22/19 20:41 Intake & Output 08/22/19 08/23/19 08/24/19 06:59 06:59 06:59 Intake Total 114 950 Output Total 0 0 Balance 114 950 Weight 54.6 kg 54.6 kg General appearance: PRESENT: no acute distress, thin, well-developed. ABSENT: cooperative Head exam: PRESENT: atraumatic, normocephalic Eye exam: PRESENT: conjunctiva pink, EOMI, PERRLA. ABSENT: scleral icterus Ear exam: PRESENT: normal external ear exam Mouth exam: PRESENT: moist, tongue midline Teeth exam: PRESENT: poor dentation Respiratory exam: PRESENT: clear to auscultation hubert, symmetrical, unlabored. ABSENT: rales, rhonchi, wheezes Cardiovascular exam: PRESENT: RRR, +S1, +S2. ABSENT: diastolic murmur, rubs, systolic murmur Pulses: PRESENT: normal dorsalis pedis pul Vascular exam: PRESENT: normal capillary refill GI/Abdominal exam: PRESENT: normal bowel sounds, soft. ABSENT: distended, guarding, mass, organolmegaly, rebound, tenderness Rectal exam: PRESENT: deferred Extremities exam: PRESENT: full ROM. ABSENT: calf tenderness, clubbing, pedal edema Neurological exam: PRESENT: alert, awake, oriented to person, CN II-XII grossly intact. ABSENT: motor sensory deficit Psychiatric exam: PRESENT: agitated, appropriate affect. ABSENT: homicidal ideation, suicidal ideation Skin exam: PRESENT: dry, intact, warm. ABSENT: cyanosis, rash Results Laboratory Results: 08/22/19 12:35 08/23/19 10:08 08/23/19 10:08 Sodium 144.7 Potassium 5.4 H Chloride 115 H Carbon Dioxide 18 L Anion Gap 12 BUN 58 H Creatinine 2.30 H Est GFR ( Amer) 25 L Glucose 93 Calcium 9.1 08/21/19 17:30 Troponin I < 0.012 NT-Pro-B Natriuret Pep 8560 H Impressions: Chest X-Ray 08/21/19 16:00 IMPRESSION: NO ACUTE FINDINGS. Venous Doppler Study 08/21/19 16:48 IMPRESSION: Negative for deep vein thrombosis in the evaluated left lower extremity deep venous system. Head CT 08/21/19 19:05 IMPRESSION: No acute intracranial abnormality. Moderate chronic microvascular ischemic change with generalized atrophy. TECHNICAL DOCUMENTATION: Quality ID # 436: Final reports with documentation of one or more dose reduction techniques (e.g., Automated exposure control, adjustment of the mA and/or kV according to patient size, use of iterative reconstruction technique) copyright 2011 [employer]- All Rights Reserved Abdomen/Pelvis CT 08/21/19 19:06 IMPRESSION: 1. Previous sternotomy 2. Mild cardiomegaly 3. 3 cm descending thoracic aortic aneurysm, unchanged since 11/30/2018 4. Diffuse colonic fecal retention and diffuse colonic diverticulosis, but no CT evidence for acute diverticulitis. No bowel obstruction. 5. Bilateral renal calculi, unchanged. No hydronephrosis. Chest CT 08/21/19 19:06 IMPRESSION: 1. Previous sternotomy 2. Mild cardiomegaly 3. 3 cm descending thoracic aortic aneurysm, unchanged since 11/30/2018 4. Diffuse colonic fecal retention and diffuse colonic diverticulosis, but no CT evidence for acute diverticulitis. No bowel obstruction. 5. Bilateral renal calculi, unchanged. No hydronephrosis. Assessment and Plan - Diagnosis (1) Acute renal failure superimposed on stage 3 chronic kidney disease Qualifiers: Acute renal failure type: unspecified Qualified Code(s): N17.9 - Acute kidney failure, unspecified; N18.3 - Chronic kidney disease, stage 3 (moderate) Is this a current diagnosis for this admission?: Yes Plan: Secondary to dehydration. Cr/BUN 2.74/53-> 2.39/48-> 2.30/58 Baseline creatinine 1.8-2.3 Encourage p.o fluids. Unfortunately, PIV lost overnight and were unable to restart despite multiple attempts. Have asked nursing to monitor strict fluid intake; encourage 1.5L p.o fluids on day shift (additional 500 ml on nights). If not on track to reach goal by this afternoon, please make additional attempts for IV access. Avoid nephrotoxic medications. Follow up chemistry. Outpatient follow-up with nephrology. (2) Anemia due to stage 3 chronic kidney disease Is this a current diagnosis for this admission?: Yes Plan: Stable at baseline. No evidence of active bleeding at this time. Monitor CBCs and transfuse as needed. (3) Constipation Is this a current diagnosis for this admission?: Yes Plan: Noted on CT imaging. Continue Colace twice daily. MiraLAX daily. Milk of mag daily as needed. Kayexalate x1 today r/t hyperkalemia (4) Tobacco use disorder, continuous Is this a current diagnosis for this admission?: Yes Plan: Smoking cessation encouraged; will need to review importance with family members. Nicotine replacement therapies while admitted. (5) CAD (coronary artery disease) Qualifiers: Coronary Disease-Associated Artery/Lesion type: unspecified vessel or lesion type [place] vs. transplanted heart: [place] heart Associated angina: without angina Qualified Code(s): I25.10 - Atherosclerotic heart disease of [place] coronary artery without angina pectoris Is this a current diagnosis for this admission?: Yes Plan: Continue daily aspirin and statin therapy. Management of hypertension. Low-sodium diet. (6) Hypertension Qualifiers: Hypertension type: essential hypertension Qualified Code(s): I10 - Essential (primary) hypertension Is this a current diagnosis for this admission?: Yes Plan: Continue home dose amlodipine, carvedilol Continue losartan. Holding home dose furosemide due to CARLOS. Low-sodium diet. (7) Dementia Qualifiers: Dementia type: Alzheimer's disease Alzheimer's disease onset: unspecified onset Dementia behavioral disturbance: without behavioral disturbance Qualified Code(s): G30.9 - Alzheimer's disease, unspecified; F02.80 - Dementia in other diseases classified elsewhere without behavioral disturbance Is this a current diagnosis for this admission?: Yes Plan: Supportive care. Fall precautions. Discharge planning consulted. - Time Time Spent with patient: 25-34 minutes Medications reviewed and adjusted accordingly: Yes Anticipated discharge: Home with Homehealth Within: within 24 hours
[2019-08-23] MEDS: TRAMADOL HCL 50 MG TABLET PO PRN (21:13)
[2019-08-23] MEDS: MIRTAZAPINE 15 MG TABLET PO SCH (21:13)
[2019-08-23] MEDS: ATORVASTATIN CALCIUM 20 MG TABLET PO SCH (21:13)
[2019-08-24] MEDS: PANTOPRAZOLE SODIUM 20 MG TABLET.DR PO SCH (05:30)
[2019-08-24] MEDS: HEPARIN SOD (PORCINE) 5,000 UNIT/ML 1 ML VIAL SUBCUT SCH ×2 (05:30→13:42)
[2019-08-24] MEDS: CARVEDILOL 12.5 MG TABLET PO SCH (10:29)
[2019-08-24] MEDS: POLYETHYLENE GLYCOL 3350 POWDER 17 GM/1 PACKET PO SCH (10:29)
[2019-08-24] MEDS: AMLODIPINE BESYLATE 10 MG TABLET PO SCH (10:29)
[2019-08-24] MEDS: ASPIRIN 81 MG TABLET, ENT COATED PO SCH (10:29)
[2019-08-24] MEDS: LOSARTAN POTASSIUM 50 MG TABLET PO SCH (10:29)
[2019-08-24] MEDS: DOCUSATE SODIUM 100 MG CAPSULE PO SCH (10:29)
[2019-08-24] MEDS: RISPERIDONE 0.25 MG TABLET PO SCH (10:30)
[2019-08-24] MEDS: TRAMADOL HCL 50 MG TABLET PO PRN (11:41)
--- NOTE | 2019-08-24 13:23 | PDOC DISCHARGE SUMMARY ---
Impression - Admit/DC Date/PCP Admission Date/Primary Care Provider: 08/21/19 22:31 Discharge Date: 08/24/19 - Discharge Diagnosis (1) Acute renal failure superimposed on stage 3 chronic kidney disease Is this a current diagnosis for this admission?: Yes (2) Anemia due to stage 3 chronic kidney disease Is this a current diagnosis for this admission?: Yes (3) Constipation Is this a current diagnosis for this admission?: Yes (4) Tobacco use disorder, continuous Is this a current diagnosis for this admission?: Yes (5) CAD (coronary artery disease) Is this a current diagnosis for this admission?: Yes (6) Hypertension Is this a current diagnosis for this admission?: Yes (7) Dementia Is this a current diagnosis for this admission?: Yes - Additional Information Resuscitation Status: Full Code Discharge Diet: Cardiac Discharge Activity: Activity As Tolerated, Balance Activity w/Rest Referrals: JENAE TRAMMELL MD [NO LOCAL MD] - () Prescriptions: Nicotine [Nicoderm 21 mg/24 Hr Transderm Patch] 1 each TD DAILYP PRN #30 patch.td24 PRN Reason: Home Medications: Amlodipine Besylate [Norvasc 10 mg Tablet] 10 mg PO DAILY 08/22/19 Aspirin [Ecotrin 81 mg EC Tablet] 81 mg PO DAILY 08/22/19 Atorvastatin Calcium [Lipitor 20 mg Tablet] 20 mg PO QHS 08/22/19 Carvedilol [Coreg] 25 mg PO Q12 08/22/19 Esomeprazole Magnesium [Nexium] 20 mg PO DAILY 08/22/19 Furosemide [Lasix 20 mg Tablet] 20 mg PO DAILYP PRN 08/22/19 Hydralazine HCl [Apresoline 25 mg Tablet] 25 mg PO Q12 08/22/19 Lactulose [Constulose 10 gm/15 mL Oral Solution] 10 gm PO Q12HP PRN 08/22/19 Megestrol Acetate [Megace Misty 400 mg/10 ml Udcup] 400 mg PO BID 08/22/19 Mirtazapine [Remeron 15 mg Tablet] 15 mg PO QHS 08/22/19 Ondansetron [Zofran Odt 4 mg Tablet] 4 mg PO Q8HP PRN 08/22/19 Risperidone [Risperdal] 0.25 mg PO QHS 08/22/19 Tramadol HCl [Ultram 50 mg Tablet] 50 mg PO Q12HP PRN 08/22/19 Acetaminophen [Tylenol 325 mg Tablet] 650 mg PO Q4HP PRN tablet 08/24/19 Docusate Sodium [Colace 100 mg Capsule] 100 mg PO BID capsule 08/24/19 Nicotine [Nicoderm 21 mg/24 Hr Transderm Patch] 1 each TD DAILYP PRN #30 patch.td24 08/24/19 History of Present Illiness History of Present Illness: Per H&P by Dr. Brito: AMADOU RAI is a 79 year old female who was sent to the emergency room by her family via EMS for evaluation of her abdominal pain. Patient has severe dementia and is unable to contribute information to her medical care. Her family gave a history to the EMS crew that the patient had developed abdominal pain over the last 24 hours and had no other signs or symptoms. In the emergency room the patient was found to have acute kidney injury and an elevated BNP. She was subsequently admitted to the hospital for further evaluation and treatment. Hospital Course Hospital Course: The patient was admitted to the medical floor. She was provided generous IV fluids and p.o. fluids were encouraged. M edications were reviewed and nephrotoxic medications were avoided as able; dosing when appropriate. Follow-up chemistry did reveal improvement of creatinine from 2.74 down to 2.3. It appears that her baseline is 1.8-2.3. Unfortunately, the patient lost her IV access and despite multiple attempts by nursing to restart, they were unable to secure IV access. Patient is now refusing all attempts at IV and phlebotomy. She is however drinking an adequate amount of fluid. The patient's constipation, noted on CT imaging, resolved following Colace, MiraLAX, and Kayexalate x1. She has had bowel movement and denies discomfort. Her other chronic medical conditions have remained stable. The patient is discharged home in stable condition. She is advised to follow-up with her primary care provider within 1 week. Recommend follow-up chemistry at that time. She should also establish with a chief procurement officer within the next month for her chronic kidney disease. Recommend drinking plenty of fluids and continuing a low-sodium diet. Take medications as prescribed. Return to the emergency department as needed for concerning symptoms. Physical Exam Vital Signs: Temp Pulse Resp BP Pulse Ox 97.5 F 85 17 142/75 H 100 08/23/19 23:15 08/23/19 23:15 08/23/19 23:15 08/23/19 23:15 08/23/19 23:15 Intake & Output 08/23/19 08/24/19 08/25/19 06:59 06:59 06:59 Intake Total 950 880 Output Total 0 Balance 950 880 Weight 54.6 kg 54.3 kg General appearance: PRESENT: no acute distress, well-developed, well-nourished. ABSENT: cooperative Head exam: PRESENT: atraumatic, normocephalic Eye exam: PRESENT: conjunctiva pink, EOMI, PERRLA. ABSENT: scleral icterus Ear exam: PRESENT: normal external ear exam Mouth exam: PRESENT: moist, tongue midline Respiratory exam: PRESENT: clear to auscultation hubert, symmetrical, unlabored. ABSENT: rales, rhonchi, wheezes Cardiovascular exam: PRESENT: RRR, +S1, +S2. ABSENT: diastolic murmur, rubs, systolic murmur Pulses: PRESENT: normal dorsalis pedis pul Vascular exam: PRESENT: normal capillary refill GI/Abdominal exam: PRESENT: normal bowel sounds, soft. ABSENT: distended, guarding, mass, organolmegaly, rebound, tenderness Rectal exam: PRESENT: deferred Extremities exam: PRESENT: full ROM. ABSENT: calf tenderness, clubbing, pedal edema Musculoskeletal exam: PRESENT: ambulatory Neurological exam: PRESENT: alert, awake, oriented to person, oriented to place, oriented to time, oriented to situation, CN II-XII grossly intact. ABSENT: motor sensory deficit Psychiatric exam: PRESENT: appropriate affect, normal mood. ABSENT: homicidal ideation, suicidal ideation Skin exam: PRESENT: dry, intact, warm. ABSENT: cyanosis, rash Results Laboratory Results: WBC 9.0 10^3/uL (4.0-10.5) 08/22/19 12:35 RBC 2.80 10^6/uL (3.72-5.28) L 08/22/19 12:35 Hgb 9.2 g/dL (12.0-15.5) L 08/22/19 12:35 Hct 28.1 % (36.0-47.0) L 08/22/19 12:35 MCV 100 fl (80-97) H 08/22/19 12:35 MCH 32.8 pg (27.0-33.4) 08/22/19 12:35 MCHC 32.7 g/dL (32.0-36.0) 08/22/19 12:35 RDW 19.7 % (11.5-14.0) H 08/22/19 12:35 Plt Count 229 10^3/uL (150-450) 08/22/19 12:35 Lymph % (Auto) 9.5 % (13-45) L 08/21/19 17:30 [place] % (Auto) 5.7 % (3-13) 08/21/19 17:30 Eos % (Auto) 0.4 % (0-6) 08/21/19 17:30 Baso % (Auto) 1.6 % (0-2) 08/21/19 17:30 Absolute Neuts (auto) 9.9 10^3/uL (1.7-8.2) H 08/21/19 17:30 Absolute Lymphs (auto) 1.1 10^3/uL (0.5-4.7) 08/21/19 17:30 Absolute Monos (auto) 0.7 10^3/uL (0.1-1.4) 08/21/19 17:30 Absolute Eos (auto) 0.1 10^3/uL (0.0-0.6) 08/21/19 17:30 Absolute Basos (auto) 0.2 10^3/uL (0.0-0.2) 08/21/19 17:30 Seg Neutrophils % 82.8 % (42-78) H 08/21/19 17:30 VBG pH 7.33 (7.30-7.42) 08/21/19 17:30 VBG pCO2 31.9 mmHg (35-63) L 08/21/19 17:30 VBG HCO3 16.4 mmol/L (20-32) L 08/21/19 17:30 VBG Base Excess -8.7 mmol/L 08/21/19 17:30 Sodium 144.7 mmol/L (137-145) 08/23/19 10:08 Potassium 5.4 mmol/L (3.6-5.0) H 08/23/19 10:08 Chloride 115 mmol/L (98-107) H 08/23/19 10:08 Carbon Dioxide 18 mmol/L (22-30) L 08/23/19 10:08 Anion Gap 12 (5-19) 08/23/19 10:08 BUN 58 mg/dL (7-20) H 08/23/19 10:08 Creatinine 2.30 mg/dL (0.52-1.25) H 08/23/19 10:08 Est GFR ( Amer) 25 (>60) L 08/23/19 10:08 Est GFR (MDRD) Non-Af 21 (>60) L 08/23/19 10:08 Glucose 93 mg/dL (75-110) 08/23/19 10:08 Calcium 9.1 mg/dL (8.4-10.2) 08/23/19 10:08 Magnesium 2.0 mg/dL (1.6-2.3) 08/22/19 12:35 Total Bilirubin 0.4 mg/dL (0.2-1.3) 08/21/19 17:30 Direct Bilirubin 0.4 mg/dL (0.0-0.4) 08/21/19 17:30 Neonat Total Bilirubin Not Reportable 08/21/19 17:30 Neonat Direct Bilirubin Not Reportable 08/21/19 17:30 Neonat Indirect Bili Not Reportable 08/21/19 17:30 AST 22 U/L (14-36) 08/21/19 17:30 ALT 10 U/L (<35) 08/21/19 17:30 Alkaline Phosphatase 54 U/L (38-126) 08/21/19 17:30 Troponin I < 0.012 ng/mL 08/21/19 17:30 NT-Pro-B Natriuret Pep 8560 pg/mL (<450) H 08/21/19 17:30 Total Protein 7.4 g/dL (6.3-8.2) 08/21/19 17:30 Albumin 3.7 g/dL (3.5-5.0) 08/21/19 17:30 Urine Color STRAW 08/21/19 19:02 Urine Appearance CLEAR 08/21/19 19:02 Urine pH 6.0 (5.0-9.0) 08/21/19 19:02 Ur Specific [place] 1.008 08/21/19 19:02 Urine Protein NEGATIVE mg/dL (NEGATIVE) 08/21/19 19:02 Urine Glucose (UA) NEGATIVE mg/dL (NEGATIVE) 08/21/19 19:02 Urine Ketones NEGATIVE mg/dL (NEGATIVE) 08/21/19 19:02 Urine Blood NEGATIVE (NEGATIVE) 08/21/19 19:02 Urine Nitrite NEGATIVE (NEGATIVE) 08/21/19 19:02 Urine Bilirubin NEGATIVE (NEGATIVE) 08/21/19 19:02 Urine Urobilinogen NEGATIVE mg/dL (<2.0) 08/21/19 19:02 Ur Leukocyte Esterase NEGATIVE (NEGATIVE) 08/21/19 19:02 U Hyaline Cast (Auto) 1 /LPF 08/21/19 19:02 Squamous Epi Cells Auto <1 /HPF 08/21/19 19:02 Urine Ascorbic Acid NEGATIVE (NEGATIVE) 08/21/19 19:02 08/21/19 17:30 Troponin I < 0.012 NT-Pro-B Natriuret Pep 8560 H Impressions: Chest X-Ray 08/21/19 16:00 IMPRESSION: NO ACUTE FINDINGS. Venous Doppler Study 08/21/19 16:48 IMPRESSION: Negative for deep vein thrombosis in the evaluated left lower extremity deep venous system. Head CT 08/21/19 19:05 IMPRESSION: No acute intracranial abnormality. Moderate chronic microvascular ischemic change with generalized atrophy. TECHNICAL DOCUMENTATION: Quality ID # 436: Final reports with documentation of one or more dose reduction techniques (e.g., Automated exposure control, adjustment of the mA and/or kV according to patient size, use of iterative reconstruction technique) copyright 2011 [employer]- All Rights Reserved Abdomen/Pelvis CT 08/21/19 19:06 IMPRESSION: 1. Previous sternotomy 2. Mild cardiomegaly 3. 3 cm descending thoracic aortic aneurysm, unchanged since 11/30/2018 4. Diffuse colonic fecal retention and diffuse colonic diverticulosis, but no CT evidence for acute diverticulitis. No bowel obstruction. 5. Bilateral renal calculi, unchanged. No hydronephrosis. Chest CT 08/21/19 19:06 IMPRESSION: 1. Previous sternotomy 2. Mild cardiomegaly 3. 3 cm descending thoracic aortic aneurysm, unchanged since 11/30/2018 4. Diffuse colonic fecal retention and diffuse colonic diverticulosis, but no CT evidence for acute diverticulitis. No bowel obstruction. 5. Bilateral renal calculi, unchanged. No hydronephrosis. Plan Plan of Treatment: Patient is discharged home in stable condition with home health services and palliative care referral. She is instructed to follow-up with her primary care provider within 1 week. She is encouraged to establish with a chief procurement officer within 1 month. Drink plenty of water. Eat a low-sodium diet. Take medications as prescribed. Return to emergency department as needed for concerning symptoms. Time Spent: Greater than 30 Minutes Stroke Is this a Stroke Patient?: No Acute Heart Failure - Is this a Heart Failure Patient?: No
[2019-08-24 14:23] VITALS: BP 120/78
== END 2019-08-24 14:00 | disposition home or self-care (01) | DRG 683 ==
LOC: ER 14:03 → EH 22:31 → 4S 08-22 00:11
PROVIDERS: ADMIT Emergency Medicine; ATTEND Emergency Medicine
DX: N17.9 Acute kidney failure, unspecified (principal); E87.0 Hyperosmolality and hypernatremia; N18.3 Chronic kidney disease, stage 3 (moderate); D63.1 Anemia in chronic kidney disease; K59.00 Constipation, unspecified; F17.210 Nicotine dependence, cigarettes, uncomplicated; I25.10 Atherosclerotic heart disease of native coronary artery without angina pectoris; I12.9 Hypertensive chronic kidney disease with stage 1 through stage 4 chronic kidney disease, or unspecified chronic kidney disease; F32.9 Major depressive disorder, single episode, unspecified; K21.9 Gastro-esophageal reflux disease without esophagitis; G30.9 Alzheimer's disease, unspecified; F02.80 Dementia in other diseases classified elsewhere, unspecified severity, without behavioral disturbance, psychotic disturbance, mood disturbance, and anxiety; E86.0 Dehydration; I25.2 Old myocardial infarction; Z79.899 Other long term (current) drug therapy; Z79.82 Long term (current) use of aspirin; Z95.1 Presence of aortocoronary bypass graft; Z86.73 Personal history of transient ischemic attack (TIA), and cerebral infarction without residual deficits
CPT/HCPCS: 36415; 51701; 70450; 71046; 71250; 74176; 80048; 80053; 81001; 82803; 83735; 83880; 84484; 85025; 85027; 93005; 93010; 93971; 99284; J3230; J3490